=== PATIENT | male | born 1965 | race Caucasian/White ===

== ENCOUNTER 2019-06-16 19:52 | Inpatient (IN) | payer OTHER ==
[~2019-06-16] VITALS: Ht 177.8 cm; Wt 63.6 kg
[~2019-06-16 19:52] MED LIST: ALBU90OI INH; AMLO5 PO; ASPI81EC PO; CHLO25 PO; CIPR500 PO; DAYQUIL; FENO145 PO; HYDACE5 PO; HYDCHL25 PO; HYDGUAL120 PO; K-Dur20 MEQ PO; LEVFLO500 PO; NYQUIL; OMEP20ER PO; OXYC10TA19 PO; OXYCODONE HCL E20 MG PO; Omeprazole20 M1; PRED20 PO; Prednisone20 MG PO; ROSU10TA PO; RXHYDGUAS PO; ZESTORETIC 20-121 EA PO
[2019-06-16 20:24] LABS: BASOPHILS ABSOLUTE AUTO 0.08 K/mm3 (0.00-0.23); BASOPHILS PERCENT AUTO 0 % (0-2); EOSINOPHILS ABSOLUTE AUTO 0.21 K/mm3 (0.00-0.68); EOSINOPHILS PERCENT AUTO 1 % (0-6); Hematocrit 47.5 % (37.0-53.0); Hemoglobin 15.9 g/dL (13.5-17.5); IMMATURE GRAN ABSOLUTE AUTO 0.13 K/mm3 (0.00-0.10); IMMATURE GRAN PERCENT AUTO 1 % (0-1); LYMPHOCYTES ABSOLUTE AUTO 1.35 K/mm3 (0.84-5.20); LYMPHOCYTES PERCENT AUTO 7 % (21-46); MONOCYTES PERCENT AUTO 7 % (4-13); Mean Corpuscular HGB 30.4 pg (26.0-34.0); Mean Corpuscular HGB Conc 33.5 g/dL (31.5-36.5); Mean Corpuscular Volume 91 fL (80-100); Mean Platelet Volume 9.5 fL (9.1-12.4); NEUTROPHILS ABSOLUTE AUTO 17.04 K/mm3 (1.96-9.15); NEUTROPHILS PERCENT AUTO 84 % (41-73); Platelet Count 342 K/mm3 (150-400); RDW Coefficient Variation 14.9 % (11.7-14.2); RDW Standard Deviation 49.7 fL (35.1-46.3); Red Blood Cell Count 5.23 M/mm3 (4.30-5.90); White Blood Cell Count 20.31 K/mm3 (4.00-11.30)
[2019-06-16 20:36] LABS: Alanine Aminotransfer (ALT/SGP 19 U/L (12-78); Albumin/Globulin Ratio 0.9 (0.8-1.8); Alk Phos 111 U/L (50-136); Anion Gap 8 mmol/L (6-16); Aspartate Aminotrans (AST/SGOT 26 U/L (12-37); Bilirubin, Total 0.7 mg/dL (0.1-1.0); Blood Urea Nitrogen 5 mg/dL (8-24); Bun/Creatinine Ratio 7.1 (12.0-20.0); CO2, Blood 28 mmol/L (21-32); Calcium, Blood 8.2 mg/dL (8.5-10.1); Chloride, Blood 95 mmol/L (98-108); Ethanol (Alcohol), Blood, Med <3 mg/dL; Globulin, Blood 3.4 g/dL (2.2-4.0); Glomerular Filtration Rate >60 (60-); Glucose, Blood 154 mg/dL (70-99); Potassium, Blood 2.9 mmol/L (3.5-5.5); Sodium, Blood 131 mmol/L (136-145); Total Protein, Blood 6.4 g/dL (6.4-8.2)
[2019-06-16 20:45] LABS: Magnesium, Blood 1.4 mg/dL (1.6-2.4); Salicylate <1.7 mg/dL (2.8-20.0); Troponin I 0.018 ng/mL (0.000-0.040)
[2019-06-16 20:49] LABS: Acetaminophen, Random <2.0 ug/mL (10.0-30.0)
[2019-06-16 21:21] LABS: Source, Urine Clean Catch
[2019-06-16 21:25] LABS: Bilirubin, Urine Neg (Neg); Blood, Urine Neg (Neg); Glucose Qualitative, Urine Neg (Neg); Ketones, Urine Neg (Neg); Leukocyte Esterase, Urine Neg (Neg); Nitrite, Urine Neg (Neg); Protein, Urine 2+ (Neg); Urobilinogen, Urine NORM (Normal); pH, Urine 6.5 (5.0-8.0)
[2019-06-16 21:36] LABS: Appearance, Urine Clear (Clear); Color, Urine Yellow (P-Yellow); U Amphetamine Screen Not Detected; U Barbituate Screen Not Detected; U Benzodiazapine Screen DETECTED; U Buprenorphine Screen Not Detected; U Cannabinoids Screen Not Detected; U Cocaine Screen Not Detected; U Methadone Screen Not Detected; U Methamphetamine Screen Not Detected; U Opiates Screen DETECTED; U Oxycodone Screen DETECTED; U Phencyclidine Screen Not Detected; U Propoxyphene Screen Not Detected
[2019-06-16 21:37] LABS: Bacteria Few /hpf; Red Blood Cells, Urine 0-2 /hpf (0-2); Squamous Epithelial Cells Not Seen /hpf (Few)
[2019-06-16 21:38] LABS: Mucus Light ({null, 0-Heavy}); Spermatozoa Few /hpf
[2019-06-17] MEDS ORDERED: IBUP800 PO (00:05)
[2019-06-17 01:44] LABS: Potassium, Blood 3.9 mmol/L (3.5-5.5)
[2019-06-17 05:36] LABS: Alanine Aminotransfer (ALT/SGP 18 U/L (12-78); Albumin, Blood 2.6 g/dL (3.4-5.0); Albumin/Globulin Ratio 0.9 (0.8-1.8); Alk Phos 96 U/L (50-136); Anion Gap 6 mmol/L (6-16); Aspartate Aminotrans (AST/SGOT 23 U/L (12-37); Blood Urea Nitrogen 3 mg/dL (8-24); Bun/Creatinine Ratio 5.5 (12.0-20.0); CO2, Blood 26 mmol/L (21-32); Calcium, Blood 7.8 mg/dL (8.5-10.1); Chloride, Blood 109 mmol/L (98-108); Creatinine, Blood 0.55 mg/dL (0.60-1.20); Glomerular Filtration Rate >60 (60-); Glucose, Blood 100 mg/dL (70-99); Potassium, Blood 3.3 mmol/L (3.5-5.5); Total Protein, Blood 5.6 g/dL (6.4-8.2)
--- NOTE | 2019-06-17 05:43 | NUR ---
END OF SHIFT SUMMARY ASSUMED CARE OF PT FROM ER, ADMISSION PACKET COMPLETE. PT AXO, COOPERATIVE WITH STAFF. TWO IV'S IN PLACE. BANANA BAG X1 INFUSED THIS SHIFT. PT'S CIWA UPON ADMISSIOON WAS 6, 50 LIBRUIM GIVEN. SINCE THEN, PT HAS BEEN RESTING QUIETLY IN BED WITH AT BEDSIDE IN RECLINER. CIWAS 1 AND 0 SINCE THE LIBRIUM. PT IS REQUIIRING HOME DOSE OF OXYCODONE FOR CHRONIC BACK PAIN. OTHERWISE, PT HAS USED CALL LIGHT APPROPRIATELY. BED IN LOWEST POSITION. WILL CONTINUE TO MONITOR PT UNTIUL SHIFT CHANGE. VSS.
[2019-06-17 05:53] LABS: BASOPHILS ABSOLUTE AUTO 0.09 K/mm3 (0.00-0.23); BASOPHILS PERCENT AUTO 1 % (0-2); EOSINOPHILS ABSOLUTE AUTO 0.21 K/mm3 (0.00-0.68); EOSINOPHILS PERCENT AUTO 1 % (0-6); Hematocrit 47.1 % (37.0-53.0); Hemoglobin 15.1 g/dL (13.5-17.5); IMMATURE GRAN ABSOLUTE AUTO 0.12 K/mm3 (0.00-0.10); IMMATURE GRAN PERCENT AUTO 1 % (0-1); LYMPHOCYTES ABSOLUTE AUTO 1.53 K/mm3 (0.84-5.20); LYMPHOCYTES PERCENT AUTO 9 % (21-46); MONOCYTES ABSOLUTE AUTO 1.82 K/mm3 (0.16-1.47); MONOCYTES PERCENT AUTO 10 % (4-13); Mean Corpuscular HGB 30.1 pg (26.0-34.0); Mean Corpuscular HGB Conc 32.1 g/dL (31.5-36.5); Mean Platelet Volume 9.7 fL (9.1-12.4); NEUTROPHILS ABSOLUTE AUTO 13.94 K/mm3 (1.96-9.15); NEUTROPHILS PERCENT AUTO 79 % (41-73); Platelet Count 267 K/mm3 (150-400); RDW Coefficient Variation 15.2 % (11.7-14.2); RDW Standard Deviation 52.8 fL (35.1-46.3); Red Blood Cell Count 5.02 M/mm3 (4.30-5.90); White Blood Cell Count 17.71 K/mm3 (4.00-11.30)
[2019-06-17 05:54] LABS: Mean Corpuscular Volume 94 fL (80-100)
[2019-06-17 05:55] LABS: Sodium, Blood 141 mmol/L (136-145)
[2019-06-17] MEDS ORDERED: FOLI1 PO (09:37)
[2019-06-17] MEDS ORDERED: VITAMIN B-6 PO (09:38)
[2019-06-17] MEDS ORDERED: B-1100 MG PO (09:39)
--- NOTE | 2019-06-17 10:00 | NUR ---
ASSUMED CARE APPROXIMATELY 0730. PT ALERT AND ORIENTED. VS STABLE. CIWA IS 0. PT COMPLAINS OF CHRONIC BACK PAIN. DR. ESPINOZA IN WITH DISCHARGE ORDERS THIS AM. DISCHARGE INSTRUCTIONS PROVIDED. EDUCATION PROVIDED ON NEW MEDICATIONS. PT DOES NO THAVE A PCP, BUT WAS GIVEN INFORMATION ON [facility]. PT TO BE TAKEN OUT BY WHEELCHAIR.
== END 2019-06-17 10:15 | disposition home or self-care (01) | DRG 897 ==
LOC: ER 19:52 → PCU 23:02
PROVIDERS: Emergency Medicine; Physician Assistant; ADMIT Internal Medicine
DX: F10.239 Alcohol dependence with withdrawal, unspecified (principal); R56.9 Unspecified convulsions; K21.9 Gastro-esophageal reflux disease without esophagitis; J44.9 Chronic obstructive pulmonary disease, unspecified; E78.00 Pure hypercholesterolemia, unspecified; F17.200 Nicotine dependence, unspecified, uncomplicated; E87.6 Hypokalemia; E83.42 Hypomagnesemia; E86.0 Dehydration; R00.0 Tachycardia, unspecified; D72.829 Elevated white blood cell count, unspecified
CPT/HCPCS: 36415; 71046; 80053; 81001; 83690; 83735; 84132; 84145; 84484; 85025; 93005; 93010; 96361; 96365; 96366; 96368; 96375; 99285-25; G0480; J1644; J2060; J3411; J3475; J3480; J7030; J7042

== ENCOUNTER 2021-11-30 05:24 | Inpatient (IN) | payer OTHER ==
[~2021-11-30] VITALS: Ht 177.8 cm; Wt 103.0 kg
[~2021-11-30 05:24] MED LIST changes: +B-1100 MG PO; +FOLI1 PO; +IBUP800 PO; +VITAMIN B-6 PO
[2021-11-30 06:38] LABS: BASOPHILS ABSOLUTE AUTO 0.03 K/mm3 (0.00-0.23); BASOPHILS PERCENT AUTO 0 % (0-2); EOSINOPHILS ABSOLUTE AUTO 0.09 K/mm3 (0.00-0.68); EOSINOPHILS PERCENT AUTO 1 % (0-6); Hematocrit 39.4 % (37.0-53.0); Hemoglobin 12.4 g/dL (13.5-17.5); IMMATURE GRAN ABSOLUTE AUTO 0.18 K/mm3 (0.00-0.10); IMMATURE GRAN PERCENT AUTO 2 % (0-1); LYMPHOCYTES ABSOLUTE AUTO 0.66 K/mm3 (0.84-5.20); LYMPHOCYTES PERCENT AUTO 6 % (21-46); MONOCYTES PERCENT AUTO 14 % (4-13); Mean Corpuscular HGB 29.5 pg (26.0-34.0); Mean Corpuscular HGB Conc 31.5 g/dL (31.5-36.5); Mean Corpuscular Volume 94 fL (80-100); Mean Platelet Volume 9.7 fL (9.1-12.4); NEUTROPHILS ABSOLUTE AUTO 8.07 K/mm3 (1.96-9.15); NEUTROPHILS PERCENT AUTO 77 % (41-73); Platelet Count 328 K/mm3 (150-400); RDW Coefficient Variation 14.6 % (11.7-14.2); RDW Standard Deviation 50.6 fL (35.1-46.3); Red Blood Cell Count 4.21 M/mm3 (4.30-5.90); White Blood Cell Count 10.53 K/mm3 (4.00-11.30)
[2021-11-30 06:49] LABS: Alanine Aminotransfer (ALT/SGP 61 U/L (12-78); Albumin, Blood 2.5 g/dL (3.4-5.0); Albumin/Globulin Ratio 0.6 (0.8-1.8); Alk Phos 247 U/L (50-136); Anion Gap 6 mmol/L (6-16); Aspartate Aminotrans (AST/SGOT 83 U/L (12-37); Bilirubin, Total 1.2 mg/dL (0.1-1.0); Blood Urea Nitrogen 3 mg/dL (8-24); CO2, Blood 34 mmol/L (21-32); Calcium, Blood 8.6 mg/dL (8.5-10.1); Chloride, Blood 83 mmol/L (98-108); Globulin, Blood 4.2 g/dL (2.2-4.0); Glomerular Filtration Rate >60 (60-); Glucose, Blood 123 mg/dL (70-99); Potassium, Blood 5.1 mmol/L (3.5-5.5); Sodium, Blood 123 mmol/L (136-145); Total Protein, Blood 6.7 g/dL (6.4-8.2)
[2021-11-30 07:31] LABS: Influenza A, PCR NEGATIVE (NEGATIVE); Influenza B, PCR NEGATIVE (NEGATIVE); Resp Syncytial Virus, PCR NEGATIVE (NEGATIVE)
[2021-11-30 07:44] LABS: SARS-Cov-2 (COVID-19) PCR, MMC POSITIVE (NEGATIVE)
[2021-11-30] MEDS ORDERED: OMEP20ER PO (12:03)
[2021-11-30] MEDS ORDERED: TIOT18 INH ×2 (12:03→15:23)
[2021-11-30] MEDS ORDERED: Ventolin/Prove6.7 GM ×2 (12:03)
[2021-11-30] MEDS ORDERED: CARVEDILOL12.5 MG PO (12:03)
--- NOTE | 2021-11-30 12:40 | NUR ---
INITIAL ASSESSMENT PATIENT ALERT AND ORIENTED X 4, AFEBRILE. PATIENT REPORTS 8/10 CHRONIC BACK PAIN BUT STATES HE DOES NOT WANT REPOSITIONED OR PAIN MEDICATIONS AT THIS TIME. CIWA SCORE OF 5. PATIENT STATES HE DRINKS 15 TO 20 BEERS DAILY. PATIENT ASKED IF HE WANTS TO QUIT DRINKING. PATIENT STATES IT WOULD PROBABLY BE GOOD FOR HIM TO QUIT. PATIENT WEAK BUT ABLE TO HELP REPOSITION IN BED. LUNGS DIMINISHED THROUGHOUT. PATIENT ON 4 L NC AND WEARS 2 L NC AT HOME. PATIENT SOB WITH EXERTION. PATIENT HAS INCREASED WORK OF BREATHING. PATIENT IN SR WITH PACS. HR IN THE 80S. SBP IN THE 160S. 1+ EDEMA NOTED FROM ABD/ HIPS DOWN TO FEET. ABDOMEN SEVERELY DISTENDED, FIRM, WITH HYPOACTIVE BOWEL SOUNDS NOTED. PATIENT VOIDING DARK ORANGE COLORED URINE INTO URINAL INDEPENDENTLY. LAST BM YESTERDAY. PATIENT ON REGULAR DIET. SCRATCHES NOTED TO BLES; PATIENT STATES HIS LEGS ITCH AND HE HAD JAGGED FINGERNAILS. NS INFUSING AT 125 MLS/ HOUR. PATIENT ORIENTED TO UNIT, ROOM AND CALL SYSTEM. BED LOW, CALL LIGHT IN REACH. WILL CONTINUE TO MONITOR THROUGHOUT SHIFT.
[2021-11-30 13:00] LABS: Anion Gap 5 mmol/L (6-16); Blood Urea Nitrogen 4 mg/dL (8-24); CO2, Blood 32 mmol/L (21-32); Calcium, Blood 8.7 mg/dL (8.5-10.1); Chloride, Blood 86 mmol/L (98-108); Glomerular Filtration Rate >60 (60-); Glucose, Blood 180 mg/dL (70-99); Potassium, Blood 5.4 mmol/L (3.5-5.5); Sodium, Blood 123 mmol/L (136-145)
[2021-11-30 16:41] LABS: Anion Gap 4 mmol/L (6-16); Blood Urea Nitrogen 3 mg/dL (8-24); Bun/Creatinine Ratio 6.3 (12.0-20.0); CO2, Blood 33 mmol/L (21-32); Calcium, Blood 8.4 mg/dL (8.5-10.1); Chloride, Blood 85 mmol/L (98-108); Creatinine, Blood 0.48 mg/dL (0.60-1.20); Glomerular Filtration Rate >60 (60-); Glucose, Blood 179 mg/dL (70-99); Potassium, Blood 5.2 mmol/L (3.5-5.5); Sodium, Blood 122 mmol/L (136-145)
[2021-11-30 18:24] LABS: Albumin, Blood 2.7 g/dL (3.4-5.0); Anion Gap 4 mmol/L (6-16); Blood Urea Nitrogen 3 mg/dL (8-24); Bun/Creatinine Ratio 6.2 (12.0-20.0); CO2, Blood 33 mmol/L (21-32); Calcium, Blood 8.6 mg/dL (8.5-10.1); Chloride, Blood 85 mmol/L (98-108); Creatinine, Blood 0.49 mg/dL (0.60-1.20); Glomerular Filtration Rate >60 (60-); Glucose, Blood 158 mg/dL (70-99); Magnesium, Blood 1.8 mg/dL (1.6-2.4); Phosphorus, Blood 2.8 mg/dL (2.5-4.9); Potassium, Blood 5.4 mmol/L (3.5-5.5); Sodium, Blood 122 mmol/L (136-145); Uric Acid, Blood 4.8 mg/dL (3.5-7.2)
[2021-11-30 19:23] LABS: Osmolality, Serum 265 mos/KG (275-300)
--- NOTE | 2021-11-30 19:42 | NUR ---
SHIFT SUMMARY PATIENT ALERT AND ORIENTED WHEN ARRIVED TO ICU. DURING SHIFT CIWA SCORE INCREASED TO 27. 6 MG IV ATIVAN GIVEN THIS SHIFT. PATIENT STATES HE DRINKS 15 TO 20 BEERS PER DAY. PATIENT HAS REFUSED REPOSITIONING ALL SHIFT. PATIENT HAS REMAINED AFEBRILE. PATIENT HAS REMAINED SATTING 90% AND GREATER ON 4 L NC. HR 80S TO LOW 100S. SBP 120S TO 160S. 1+ EDEMA REMAINS TO ABD, HIPS AND BLES. ABDOMEN REMAINS SEVERELY DISTENDED AND FIRM. ABD CT ORDERED. 825 MLS DARK ORANGE URINE OUT THIS SHIFT. NAVARRETE PLACED AND 24 HOUR URINE BEING COLLECTED. NO CHANGES TO SKIN NOTED. NS INFUSING AT 50 MLS/ HOUR. 1 L FLUID RESTRICTION PLACED THIS SHIFT. BED LOW, CALL LIGHT IN REACH. REPORT HAS BEEN GIVEN TO RADIO TELEVISION TECHNICAL DIRECTOR NURSE.
[2021-11-30 21:02] LABS: Source, Urine Foley catheter
[2021-11-30 21:17] LABS: Blood, Urine 4+ (Neg); Glucose Qualitative, Urine Neg (Neg); Ketones, Urine Neg (Neg); Leukocyte Esterase, Urine Neg (Neg); Nitrite, Urine Neg (Neg); Protein, Urine 2+ (Neg); Urobilinogen, Urine 3+ (Normal)
[2021-11-30 21:31] LABS: Appearance, Urine Cloudy (Clear); Bilirubin, Urine 2+ (Neg); Color, Urine Amber (P-Yellow)
[2021-11-30 21:32] LABS: Bacteria Few /hpf; Squamous Epithelial Cells Rare /hpf (Few); White Blood Cells, Urine 0-2 /hpf (0-5)
[2021-11-30 21:33] LABS: Amorphous Heavy (0-Heavy)
[2021-11-30 22:19] LABS: Anion Gap 6 mmol/L (6-16); Blood Urea Nitrogen 3 mg/dL (8-24); Bun/Creatinine Ratio 5.5 (12.0-20.0); CO2, Blood 36 mmol/L (21-32); Calcium, Blood 8.4 mg/dL (8.5-10.1); Chloride, Blood 85 mmol/L (98-108); Creatinine, Blood 0.54 mg/dL (0.60-1.20); Glomerular Filtration Rate >60 (60-); Glucose, Blood 131 mg/dL (70-99); Potassium, Blood 4.4 mmol/L (3.5-5.5); Sodium, Blood 127 mmol/L (136-145)
--- NOTE | 2021-11-30 22:22 | NUR ---
LAB UPDATE TO DR.KUMAR DR. HIDALGO UPDATED WITH NA AND K LAB RESULTS, FLUID INF OF 50ML/HR NS, AND URINE OUTPUT OF 150-200ML/HR. NO NEW ORDERS GIVEN.
--- NOTE | 2021-12-01 00:34 | NUR ---
UMBILICAL DISCOLORATION DARKENING SURROUNDING THE UMBILICUS NOTED ON REASSESSMENT. BT ACTIVE AND TYMPANIC X 4. CALL MADE TO DR. JIMENEZ-ORDERED TO SEND OFF CT ABD PELVIS FROM [facility] IN SHIFT FOR STAT VIRTUAL READ. CALL MADE TO CT TO UPDATE ORDER FROM ROUTINE TO STAT.
[2021-12-01 02:11] LABS: BASOPHILS ABSOLUTE AUTO 0.03 K/mm3 (0.00-0.23); BASOPHILS PERCENT AUTO 0 % (0-2); EOSINOPHILS PERCENT AUTO 0 % (0-6); Hematocrit 37.4 % (37.0-53.0); Hemoglobin 11.7 g/dL (13.5-17.5); IMMATURE GRAN ABSOLUTE AUTO 0.22 K/mm3 (0.00-0.10); IMMATURE GRAN PERCENT AUTO 2 % (0-1); LYMPHOCYTES ABSOLUTE AUTO 0.75 K/mm3 (0.84-5.20); LYMPHOCYTES PERCENT AUTO 6 % (21-46); MONOCYTES PERCENT AUTO 13 % (4-13); Mean Corpuscular HGB 29.9 pg (26.0-34.0); Mean Corpuscular HGB Conc 31.3 g/dL (31.5-36.5); Mean Corpuscular Volume 96 fL (80-100); NEUTROPHILS ABSOLUTE AUTO 9.52 K/mm3 (1.96-9.15); NEUTROPHILS PERCENT AUTO 79 % (41-73); Platelet Count 297 K/mm3 (150-400); RDW Coefficient Variation 14.8 % (11.7-14.2); Red Blood Cell Count 3.91 M/mm3 (4.30-5.90); White Blood Cell Count 12.02 K/mm3 (4.00-11.30)
[2021-12-01 02:29] LABS: Alanine Aminotransfer (ALT/SGP 50 U/L (12-78); Albumin, Blood 2.4 g/dL (3.4-5.0); Albumin/Globulin Ratio 0.6 (0.8-1.8); Alk Phos 223 U/L (50-136); Anion Gap 5 mmol/L (6-16); Aspartate Aminotrans (AST/SGOT 63 U/L (12-37); Blood Urea Nitrogen 3 mg/dL (8-24); Bun/Creatinine Ratio 5.3 (12.0-20.0); CO2, Blood 37 mmol/L (21-32); Calcium, Blood 8.4 mg/dL (8.5-10.1); Chloride, Blood 88 mmol/L (98-108); Creatinine, Blood 0.56 mg/dL (0.60-1.20); Globulin, Blood 3.8 g/dL (2.2-4.0); Glomerular Filtration Rate >60 (60-); Glucose, Blood 113 mg/dL (70-99); Magnesium, Blood 1.6 mg/dL (1.6-2.4); Phosphorus, Blood 3.4 mg/dL (2.5-4.9); Potassium, Blood 4.6 mmol/L (3.5-5.5); Sodium, Blood 130 mmol/L (136-145); Total Protein, Blood 6.2 g/dL (6.4-8.2)
[2021-12-01 06:11] LABS: Anion Gap 4 mmol/L (6-16); Blood Urea Nitrogen 3 mg/dL (8-24); Bun/Creatinine Ratio 5.4 (12.0-20.0); CO2, Blood 38 mmol/L (21-32); Calcium, Blood 8.4 mg/dL (8.5-10.1); Chloride, Blood 89 mmol/L (98-108); Creatinine, Blood 0.56 mg/dL (0.60-1.20); Glomerular Filtration Rate >60 (60-); Glucose, Blood 104 mg/dL (70-99); Potassium, Blood 4.5 mmol/L (3.5-5.5); Sodium, Blood 131 mmol/L (136-145)
--- NOTE | 2021-12-01 06:45 | NUR ---
SHIFT SUMMARY PATIENT BEGAN SHIFT CONFUSED, BUT ALERT AND FOLLOWING DIRECTIONS. NOT FORMING COMPLETE SENTENCES. THROUGHOUT SHIFT PATIENT BECAME INCREASINGLY CONFUSED, BUT WITH CIWA SCORES 11-14 REQUIRED TWO DOSES OF ATIVAN TOTALING 6MG DURING SHIFT. PATIENT STILL INTERMITTENTLY TREMULOUS AT REST. LUNG SOUNDS ORIGINALLY DIM T/O BUT HAVE SINCE BECAME COARSE T/O WITH WET WEAK COUGH. SPO2 MAINTAINED MID TO HIGH 90'S ON 4LPM VIA NC. SPUTUM CULTURE UNABLE TO BE COLLECTED D/T WEAK COUGH WITH NO SPUTUM PRODUCTION. HR 90'S-100'S AND BP STABLE BUT HYPERTENSIVE AT TIMES WHEN TREMORS WOULD START. PULSES STRONG IN MARGO RADIAL AND FAINT MARGO DP AND PT. SCDS IN PLACE TO MARGO LOWER CALVES. SINUS RHYTHM WITH OCCASSIONAL ECTOPY AND PERIODS OF IRREGULARITY. BT HYPERACTIVE AND TYMPANIC, ABD SEVERELY DISTENDED AND FIRM TO PALPATION. CT ABD PELVIS COMPLETED LAST NIGHT. NAVARRETE PATENT AND DRAINED OVER 2400ML OUT. 24 HOUR URINE IN PROGRESS STARTED 11/30/21 @ 1800 AND ENDING 12/01/21 @ 1800. ONE BM DURING SHIFT. NS INF @ 50ML/HR. DR. HIDALGO CAME TO BEDSIDE AND ORDERS PLACED. NO OTHER MAJOR CHANGES DURING SHIFT.
--- NOTE | 2021-12-01 16:48 | NUR ---
SHIFT SUMMARY NO ACUTE CHANGES THIS SHIFT. PT HAS REMAINED LETHARGIC FOR MOST OF THE SHIFT. PT WITH BREIF PERIODS OF BEING MORE ALERT AND SPEECH COMPREHENSABLE. PT ABLE TO FOLLOW SIMPLE COMMANDS. PT IS FORGETFUL. PT WITH TREMORS WHEN AWAKE AND WITH MOVEMENT. VITAL SIGNS HAVE REMAINED STABLE. PT ON 2L O2 NC MOST OF THE SHIFT, BUT EPISODE OF DESATURATION THIS AFTERNOON REQUIRED 02 UP TO 7L AT THIS TIME. PT REMAINS NPO DUE TO MENTATION. NS INFUSING AT 50 ML/HR. NAVARRETE REMAINS IN PLACE DRAINING LARGE AMOUNT OF CLEAR YELLOW URINE OUTPUT. 24 HOUR URINE COLLECTION IN PROGRESS. PT SPOUSE AT BEDSIDE THIS AFTERNOON. WILL CONTINUE TO MONITOR AND REPORT OFF TO ONCOMING RN.
[2021-12-01 17:29] LABS: Anion Gap 1 mmol/L (6-16); Blood Urea Nitrogen 3 mg/dL (8-24); Bun/Creatinine Ratio 5.4 (12.0-20.0); CO2, Blood 42 mmol/L (21-32); Calcium, Blood 8.5 mg/dL (8.5-10.1); Chloride, Blood 91 mmol/L (98-108); Creatinine, Blood 0.56 mg/dL (0.60-1.20); Glomerular Filtration Rate >60 (60-); Glucose, Blood 109 mg/dL (70-99); Potassium, Blood 3.8 mmol/L (3.5-5.5); Sodium, Blood 134 mmol/L (136-145)
[2021-12-01 18:40] LABS: Protein, Urine Quantitative 6.6 mg/dL (0.0-11.9)
[2021-12-01 23:26] LABS: Alanine Aminotransfer (ALT/SGP 45 U/L (12-78); Albumin, Blood 2.4 g/dL (3.4-5.0); Albumin/Globulin Ratio 0.6 (0.8-1.8); Alk Phos 201 U/L (50-136); Anion Gap 5 mmol/L (6-16); Aspartate Aminotrans (AST/SGOT 58 U/L (12-37); Blood Urea Nitrogen 4 mg/dL (8-24); Bun/Creatinine Ratio 6.9 (12.0-20.0); CO2, Blood 40 mmol/L (21-32); Calcium, Blood 8.3 mg/dL (8.5-10.1); Chloride, Blood 91 mmol/L (98-108); Creatinine, Blood 0.58 mg/dL (0.60-1.20); Globulin, Blood 3.7 g/dL (2.2-4.0); Glomerular Filtration Rate >60 (60-); Glucose, Blood 96 mg/dL (70-99); Magnesium, Blood 1.5 mg/dL (1.6-2.4); Sodium, Blood 136 mmol/L (136-145); Total Protein, Blood 6.1 g/dL (6.4-8.2)
--- NOTE | 2021-12-02 03:00 | NUR ---
Assumed care of patient at 1915; on assessment, the pt is cooperative, responds yes/no to orientation questions. Speech is incredibly garbled, difficult to understand. CIWA assessments performed; symptom management with ativan. New onset Afib RVR at 2205. Pt asymptomatic; vital signs otherwise stable, no change in mentation, pt states he feels ok. Dr. Kaufman contacted, metoprolol ordered; unavaliable per pharmacy. Cardizem push given x2 with Dr. Ramires at the bedside. HR resonsive to second dose; cardizem gtt started. soon after, pt converted to NSR at 2254, HR 90-105. At 2230, back in Afib RVR. Sustained rate at 175; another 12 lead EKG obtained; pt now in 2:[address] Kaufman aware, cardizem turned off, amio bolus given and gtt started. Pt remains asymptomatic at this time, HR remains >160.
[2021-12-02 04:26] LABS: BASOPHILS ABSOLUTE AUTO 0.04 K/mm3 (0.00-0.23); BASOPHILS PERCENT AUTO 0 % (0-2); EOSINOPHILS ABSOLUTE AUTO 0.03 K/mm3 (0.00-0.68); EOSINOPHILS PERCENT AUTO 0 % (0-6); Hematocrit 39.6 % (37.0-53.0); IMMATURE GRAN ABSOLUTE AUTO 0.16 K/mm3 (0.00-0.10); IMMATURE GRAN PERCENT AUTO 1 % (0-1); LYMPHOCYTES ABSOLUTE AUTO 0.93 K/mm3 (0.84-5.20); LYMPHOCYTES PERCENT AUTO 8 % (21-46); MONOCYTES ABSOLUTE AUTO 1.81 K/mm3 (0.16-1.47); MONOCYTES PERCENT AUTO 16 % (4-13); Mean Corpuscular HGB Conc 30.3 g/dL (31.5-36.5); Mean Corpuscular Volume 99 fL (80-100); Mean Platelet Volume 9.4 fL (9.1-12.4); NEUTROPHILS PERCENT AUTO 74 % (41-73); Platelet Count 307 K/mm3 (150-400); RDW Coefficient Variation 15.5 % (11.7-14.2); RDW Standard Deviation 56.4 fL (35.1-46.3); White Blood Cell Count 11.47 K/mm3 (4.00-11.30)
[2021-12-02 05:44] LABS: International Normalized Ratio 1.11; Prothrombin Time Results 11.6 Sec (9.7-11.5)
[2021-12-02 06:01] LABS: Alanine Aminotransfer (ALT/SGP 44 U/L (12-78); Albumin, Blood 2.4 g/dL (3.4-5.0); Albumin/Globulin Ratio 0.7 (0.8-1.8); Alk Phos 193 U/L (50-136); Anion Gap 5 mmol/L (6-16); Aspartate Aminotrans (AST/SGOT 62 U/L (12-37); Bilirubin, Direct 0.7 mg/dL (0.0-0.3); Bilirubin, Indirect 0.4 mg/dL (0.1-0.7); Bilirubin, Total 1.1 mg/dL (0.1-1.0); Blood Urea Nitrogen 4 mg/dL (8-24); Bun/Creatinine Ratio 6.6 (12.0-20.0); CO2, Blood 40 mmol/L (21-32); Chloride, Blood 91 mmol/L (98-108); Creatinine, Blood 0.61 mg/dL (0.60-1.20); Globulin, Blood 3.6 g/dL (2.2-4.0); Glomerular Filtration Rate >60 (60-); Glucose, Blood 109 mg/dL (70-99); Magnesium, Blood 1.9 mg/dL (1.6-2.4); Phosphorus, Blood 3.9 mg/dL (2.5-4.9); Potassium, Blood 3.8 mmol/L (3.5-5.5); Sodium, Blood 136 mmol/L (136-145)
--- NOTE | 2021-12-02 06:49 | NUR ---
Dr. Kaufman updated @ 0530 that the patients HR is still maintianing at 166-170. Vital signs otherwise stable. Pt more lethargic, but still responds to verbal stimuli. Has not required ativan this am. No further intervention at this time per Dr. Kaufman.
--- NOTE | 2021-12-02 15:20 | NUR ---
Case Conference: Spoke to pt's Debbie by phone after reading up on pt's health history and had a discussion with pt's bedside CLAIM APPROVER Trisha. Pt has hx of oxygen dependent COPD, GERD, HLD, chronic back pain and chronic alcohol abuse. He reported drinking about 18 beers/day. He is not vaxxinated for Covid-19, but stated upon admission that both his and son recently recovered from Covid. He had noticed his breathing was getting worse, so he turned his home 02 from 2 up to 3-4Liters with little improvement. Pt was admitted for hypoxic respiratory failure secondary to Covid and hyponatremia. Since admission however, pt has gone into A-fib, and at times A-flutter. So far, medications have not been effective in reverting pt's rhythm back into a sinus rhythm. Trisha,RN states a Cardiology consult would be the next step. Pt was given lorazepam last night; likely to be contributing to his lethargy and increased sleeping. Pt's is on her way to see him, states she just finished work. She is open to discussion of pt's wishes related to POLST. She does state-as does his chart that pt wishes for NO intubation, but Debbie isn't sure she wants to follow his wishes, as she states, "I'm scared and don't want to lose him." She is agreeable to discuss further, but for now, pt is listed as a Full Code, and I'm unsure why. Plan to review further with freezer operator, hospitalist, pt's and bedside RN.
--- NOTE | 2021-12-02 15:44 | NUR ---
AT BEDSIDE, UPDATED ON PATIENT CARE
--- NOTE | 2021-12-02 15:45 | NUR ---
09 DR JACOBS CONTACTED, PATIENT HEART RATE AHS CONTINUALLY INCREASED TO [address] ST, ORDERED LABATOLOL DOSES TO BE GIVEN. 955 DR JACOBS CONTACTED, LABATOLOL GIVEN, PATIENT REPONDED, HEART RATE DECREASED TO 100S AFIB WITH RVR, EKG DONE FOR RHYTHM CHANGE, PATEINT CONTINUED TO INCREASE HEART RATE AND BACK TO 175. TEMP 102.[address] JACOBS, MEDICATED WITH FL TYLENOL, WCTM 1404 DR JACOBS ROUNDED, NEW ORDER FOR THREE MORE DOSES OF LABATOLOL, IV LEVAQUIN, TEMP DECREASED TO 101.5 WCTM
[2021-12-02 17:10] LABS: BASOPHILS ABSOLUTE AUTO 0.03 K/mm3 (0.00-0.23); BASOPHILS PERCENT AUTO 0 % (0-2); EOSINOPHILS PERCENT AUTO 0 % (0-6); Hematocrit 43.7 % (37.0-53.0); Hemoglobin 12.4 g/dL (13.5-17.5); IMMATURE GRAN ABSOLUTE AUTO 0.18 K/mm3 (0.00-0.10); IMMATURE GRAN PERCENT AUTO 1 % (0-1); LYMPHOCYTES PERCENT AUTO 7 % (21-46); MONOCYTES PERCENT AUTO 16 % (4-13); Mean Corpuscular HGB 29.6 pg (26.0-34.0); Mean Corpuscular HGB Conc 28.4 g/dL (31.5-36.5); NEUTROPHILS ABSOLUTE AUTO 10.38 K/mm3 (1.96-9.15); NEUTROPHILS PERCENT AUTO 76 % (41-73); Platelet Count 307 K/mm3 (150-400); RDW Coefficient Variation 15.4 % (11.7-14.2); RDW Standard Deviation 59.3 fL (35.1-46.3); Red Blood Cell Count 4.19 M/mm3 (4.30-5.90); White Blood Cell Count 13.59 K/mm3 (4.00-11.30)
[2021-12-02 17:14] LABS: Alanine Aminotransfer (ALT/SGP 48 U/L (12-78); Albumin, Blood 2.4 g/dL (3.4-5.0); Albumin/Globulin Ratio 0.6 (0.8-1.8); Alk Phos 194 U/L (50-136); Anion Gap 3 mmol/L (6-16); Aspartate Aminotrans (AST/SGOT 78 U/L (12-37); Bilirubin, Total 1.3 mg/dL (0.1-1.0); Blood Urea Nitrogen 5 mg/dL (8-24); Bun/Creatinine Ratio 7.6 (12.0-20.0); CO2, Blood 43 mmol/L (21-32); Calcium, Blood 7.8 mg/dL (8.5-10.1); Chloride, Blood 90 mmol/L (98-108); Creatinine, Blood 0.66 mg/dL (0.60-1.20); Globulin, Blood 3.8 g/dL (2.2-4.0); Glomerular Filtration Rate >60 (60-); Glucose, Blood 140 mg/dL (70-99); Potassium, Blood 3.6 mmol/L (3.5-5.5); Sodium, Blood 136 mmol/L (136-145); Total Protein, Blood 6.2 g/dL (6.4-8.2)
[2021-12-02 17:20] LABS: Mean Corpuscular Volume 104 fL (80-100)
--- NOTE | 2021-12-02 18:37 | NUR ---
PATEINT UNABLE TO MAKE NEEDS KNOWN, UNABLE TO FORM ONE WORD TODAY, WITHDRAWS FROM STIMULUS, OPENS EYE TO VOICE, QUICKLY FALLS BACK TO SLEEP, UNABLE TO STAY AWAKE FOR 5 MINUTES. CHANGED TO ICU STATUS, AMIODARONE GTT AT 1 MG, AND ESMOLOL AT [address] EDMONDS, HEART RATE AT 119, IRREGULAR, TITRATE ESMOLOL TO KEEP HEART RATE BELOW 120, SBP 90-130S, MAP HAS ALWAYS BEEN ABOVE 60. BIPAP 14/, 45% RATE 12, RESP 25-39, RHONCHI CRACKLES, DIM BASES. NAVARRETE TO GRAVITY ORANGE, TEMP 102.8 TODAY NOT 100.5. ECHO TO BE DONE, EKG IN AM, WILL RELAY TO PM RN, LENNOXTM
[2021-12-02 18:50] LABS: PCO2 Arterial 99.6 mmHg (35-45); PO2 Arterial 75.1 mmHg (80-100); pH Blood Arterial 7.28 (7.35-7.45)
[2021-12-03 03:37] LABS: PCO2 Arterial 82.5 mmHg (35-45); PO2 Arterial 106 mmHg (80-100); pH Blood Arterial 7.32 (7.35-7.45)
[2021-12-03 04:37] LABS: BASOPHILS ABSOLUTE AUTO 0.02 K/mm3 (0.00-0.23); BASOPHILS PERCENT AUTO 0 % (0-2); EOSINOPHILS PERCENT AUTO 0 % (0-6); Hematocrit 41.7 % (37.0-53.0); Hemoglobin 11.8 g/dL (13.5-17.5); IMMATURE GRAN ABSOLUTE AUTO 0.13 K/mm3 (0.00-0.10); IMMATURE GRAN PERCENT AUTO 1 % (0-1); LYMPHOCYTES PERCENT AUTO 4 % (21-46); MONOCYTES ABSOLUTE AUTO 0.28 K/mm3 (0.16-1.47); MONOCYTES PERCENT AUTO 2 % (4-13); Mean Corpuscular HGB 29.6 pg (26.0-34.0); Mean Corpuscular HGB Conc 28.3 g/dL (31.5-36.5); Mean Corpuscular Volume 105 fL (80-100); Mean Platelet Volume 9.5 fL (9.1-12.4); NEUTROPHILS ABSOLUTE AUTO 11.26 K/mm3 (1.96-9.15); NEUTROPHILS PERCENT AUTO 92 % (41-73); NRBC ABSOLUTE 0.02 K/mm3 (0.00-0.02); NRBC Auto 0.2 /100 WBC (0.0-0.2); Platelet Count 284 K/mm3 (150-400); RDW Coefficient Variation 15.2 % (11.7-14.2); Red Blood Cell Count 3.99 M/mm3 (4.30-5.90); White Blood Cell Count 12.19 K/mm3 (4.00-11.30)
[2021-12-03 04:42] LABS: International Normalized Ratio 1.22; Prothrombin Time Results 12.6 Sec (9.7-11.5)
--- NOTE | 2021-12-03 04:47 | NUR ---
Assumed care of patient at 1915. Bipap settings adjusted according to recent abg, pts hart shaved to achieve adequate seal. He is very lethargic; will open eyes to verbal stim but unable to keep them open/ interact appropriatly. he will follow simple commands. CIWA scores not requiring ativan this shift. HR 90-125 this shift; amio gtt kept at 1, esmolol increased to 150 this shift. BP stable. Febrile; prn tylenol and tempid bath given. Packed with ice; pt responded well. AM ABG marginally better; no changes to bipap settings at this time.
[2021-12-03 04:52] LABS: Alanine Aminotransfer (ALT/SGP 51 U/L (12-78); Albumin, Blood 2.4 g/dL (3.4-5.0); Albumin/Globulin Ratio 0.6 (0.8-1.8); Alk Phos 176 U/L (50-136); Anion Gap 6 mmol/L (6-16); Aspartate Aminotrans (AST/SGOT 71 U/L (12-37); Bilirubin, Total 1.6 mg/dL (0.1-1.0); Blood Urea Nitrogen 8 mg/dL (8-24); Bun/Creatinine Ratio 11.1 (12.0-20.0); CO2, Blood 39 mmol/L (21-32); Calcium, Blood 7.9 mg/dL (8.5-10.1); Chloride, Blood 91 mmol/L (98-108); Creatinine, Blood 0.72 mg/dL (0.60-1.20); Globulin, Blood 3.8 g/dL (2.2-4.0); Glomerular Filtration Rate >60 (60-); Glucose, Blood 157 mg/dL (70-99); Lactate Dehydrogenase (Ld),Bld 127 U/L (100-240); Magnesium, Blood 1.6 mg/dL (1.6-2.4); Phosphorus, Blood 4.1 mg/dL (2.5-4.9); Potassium, Blood 4.3 mmol/L (3.5-5.5); Sodium, Blood 136 mmol/L (136-145); Total Protein, Blood 6.2 g/dL (6.4-8.2)
--- NOTE | 2021-12-03 06:41 | NUR ---
HR elevated to 140-150's at 0520 this morning. PRN Labetalol given with no change in HR, BP remains stable. Esmolol gtt increased to 200, still no change in HR. Work of breathing notably increasing, tachypnea, use of acessory muscles, abdominal breathing. Difficulty obtaining BP, both automatic and manual, due to HR and body movements. Mentation remains unchanged. Dr. Roe called, ABG results and patient status discussed. 40 of lasix given, no furhter intervention, Dr Roe will assess at the bedside.
--- NOTE | 2021-12-03 08:55 | NUR ---
TOOK OVER CARE OF PT AT 0700, PT ON 200 OF ESMOLOL DRIP, 1 OF AMIODARONE DRIP, ON BIPAP 18/8 25% O2 INITIALLY, THEN INCREASED TO 30% AFTER SATURATIONS AT 86%. PT HR STILL ELEVATED, CAME TO BEDSIDE, DETERMINED PT IS NOT IN NEED OF INTUBATION AT THIS TIME.
--- NOTE | 2021-12-03 11:35 | NUR ---
PT PHONE, SEWAGE DISPOSAL ENGINEER, CROSS NECKLACE AND RING SENT HOME WITH SPOUSE.
--- NOTE | 2021-12-03 15:20 | NUR ---
ISOBUTILIDE ADMINISTRATION COMPLETE, PT HR 77, NSR
--- NOTE | 2021-12-03 16:40 | NUR ---
After pt converted to NSR from atrial flutter with RVR, noted prolonged QT interval of 460 ms, corrected QT interval 520 ms with HR of 75. Notified Dr Roe. Plan to closely monitor QT interval.
--- NOTE | 2021-12-03 17:28 | NUR ---
SUMMARY NEURO: PT MENTATION STATUS IMPROVING, ABLE TO CONVERSE WITH AT BEDSIDE. PER PT IS ALMOST BACK TO BASELINE. PT IS WEAK THROUGHOUT BUT ABLE TO WEAKLY MOVE EXTREMETIES, PUPILS ROUND AND EQUAL. CARDIAC: ALL CARDIAC DRIPS OFF AT THIS TIME. PER WIFER, PT'S BASELINE SYSTOLIC BLOOD PRESSURE IS AROUND 150'S, HR IS 85, NSR WITH A PROLONGED QT OF .41- AWARE, STATES SIDE EFFECTS FROM CARDIAC MEDS GIVEN TODAY- SEE PREVIOUS NOTE. BLE COLD, PULSES FAINT, BUE WARM WITH STRONGER PULSES. LUNGS: PT ON ROSS MASK WITH BIPAP DUE TO PREVIOUS MASK CAUSING REDNESS ON BRIDGE OF PT'S NOSE. LUNG SOUNDS ARE DIMINISHED THROUGHOUT. NO SECRETIONS OR PRODUCTIVE COUGH. PT BIPAP IS SET ON 18/8 25%. GI/: PT ABDOMEN IS FIRM AND DISTENDED, PT HAS HAD LOW URINE OUPUT TODAY- SEE I/O CHARTING, CHELSEY IN COLOR. ZOLL STILL ATTACHED TO PT AMIO DRIP IS NOT DUE TO BE RESTARTED AT THIS TIME.
[2021-12-04 05:23] LABS: PCO2 Arterial 62.1 mmHg (35-45); PO2 Arterial 70.6 mmHg (80-100); pH Blood Arterial 7.47 (7.35-7.45)
[2021-12-04 05:55] LABS: BASOPHILS ABSOLUTE AUTO 0.01 K/mm3 (0.00-0.23); BASOPHILS PERCENT AUTO 0 % (0-2); EOSINOPHILS PERCENT AUTO 0 % (0-6); Hematocrit 37.8 % (37.0-53.0); Hemoglobin 11.2 g/dL (13.5-17.5); IMMATURE GRAN ABSOLUTE AUTO 0.15 K/mm3 (0.00-0.10); IMMATURE GRAN PERCENT AUTO 1 % (0-1); LYMPHOCYTES PERCENT AUTO 3 % (21-46); MONOCYTES ABSOLUTE AUTO 1.02 K/mm3 (0.16-1.47); MONOCYTES PERCENT AUTO 7 % (4-13); Mean Corpuscular HGB 29.1 pg (26.0-34.0); Mean Corpuscular HGB Conc 29.6 g/dL (31.5-36.5); Mean Platelet Volume 9.9 fL (9.1-12.4); NEUTROPHILS ABSOLUTE AUTO 13.07 K/mm3 (1.96-9.15); NEUTROPHILS PERCENT AUTO 89 % (41-73); Platelet Count 328 K/mm3 (150-400); RDW Coefficient Variation 15.6 % (11.7-14.2); Red Blood Cell Count 3.85 M/mm3 (4.30-5.90); White Blood Cell Count 14.75 K/mm3 (4.00-11.30)
[2021-12-04 06:02] LABS: Mean Corpuscular Volume 98 fL (80-100)
[2021-12-04 06:06] LABS: International Normalized Ratio 1.4; Prothrombin Time Results 14.4 Sec (9.7-11.5)
[2021-12-04 06:11] LABS: Alanine Aminotransfer (ALT/SGP 44 U/L (12-78); Albumin, Blood 2.6 g/dL (3.4-5.0); Albumin/Globulin Ratio 0.7 (0.8-1.8); Alk Phos 155 U/L (50-136); Anion Gap 6 mmol/L (6-16); Aspartate Aminotrans (AST/SGOT 48 U/L (12-37); Bilirubin, Total 1.2 mg/dL (0.1-1.0); Blood Urea Nitrogen 16 mg/dL (8-24); CO2, Blood 39 mmol/L (21-32); Calcium, Blood 8.1 mg/dL (8.5-10.1); Chloride, Blood 92 mmol/L (98-108); Creatinine, Blood 0.76 mg/dL (0.60-1.20); Globulin, Blood 3.7 g/dL (2.2-4.0); Glomerular Filtration Rate >60 (60-); Glucose, Blood 155 mg/dL (70-99); Magnesium, Blood 1.6 mg/dL (1.6-2.4); Phosphorus, Blood 1.9 mg/dL (2.5-4.9); Potassium, Blood 3.6 mmol/L (3.5-5.5); Sodium, Blood 137 mmol/L (136-145); Total Protein, Blood 6.3 g/dL (6.4-8.2)
--- NOTE | 2021-12-04 07:30 | NUR ---
TOOK OVER CARE OF PT AT 0700. PT HAS .5 OF AMIO DRIP RUNNING, PT ON BIPAP / 30%. SEE VITALS
--- NOTE | 2021-12-04 09:50 | NUR ---
PT PLACED ON [facility] AT 0900 50L 30%
[2021-12-04 10:04] LABS: Source, Urine Foley catheter
[2021-12-04 10:13] LABS: Appearance, Urine Hazy (Clear); Bilirubin, Urine Neg (Neg); Blood, Urine 5+ (Neg); Color, Urine Yellow (P-Yellow); Glucose Qualitative, Urine Neg (Neg); Ketones, Urine Neg (Neg); Leukocyte Esterase, Urine Neg (Neg); Nitrite, Urine Neg (Neg); Protein, Urine 2+ (Neg); Specific Gravity, Urine 1.015 (1.003-1.022); Urobilinogen, Urine NORM (Normal); pH, Urine 6.5 (5.0-8.0)
[2021-12-04 10:19] LABS: Red Blood Cells, Urine TNTC /hpf (0-2)
[2021-12-04 10:22] LABS: Squamous Epithelial Cells Rare /hpf (Few)
[2021-12-04 10:25] LABS: Bacteria Few /hpf; Hyaline Casts 0-2 /lpf (0-2); Mucus Light (0-Heavy); RBC Cast 0-2 /lpf (0)
--- NOTE | 2021-12-04 17:40 | NUR ---
SUMMARY NEURO: PT MENTATION STATUS IMPROVING, ABLE TO EASILY CONVERSE WITH AND STAFF. PER PT IS ALMOST BACK TO BASELINE. PT IS WEAK THROUGHOUT BUT ABLE TO WEAKLY MOVE EXTREMETIES, PUPILS ROUND AND EQUAL. CARDIAC: ALL CARDIAC DRIPS OFF AT THIS TIME. PER WIFER, PT'S BASELINE SYSTOLIC BLOOD PRESSURE IS AROUND 150'S, HR IS 85, NSR. BLE WARM, PULSES FAINT, BUE WARM WITH STRONGER PULSES. LUNGS: PT HAS BEEN ON HFNC SINCE 0900 WITH 60L 35% GI/: PT ABDOMEN IS FIRM AND DISTENDED, PT HAS HAD 600ML OF URINE OUT CHELSEY IN COLOR AND A LOOSE BOWEL MOVEMENT. STARTED ON MECHANICAL SOFT DIET AND IS TOLERATING
--- NOTE | 2021-12-04 20:00 | NUR ---
ASSUMPTION OF CARE: PT IS ALERT AND ORIENTED, SL TO IV-ARVO IN PLACE AND AT BEDSIDE. PT HAS NO COMPLAINTS AND SHOWS NO S/S OF ACUTE DISTRESS AT TIME OF ASSUMPTION OF CARE.
[2021-12-05 04:14] LABS: BASOPHILS ABSOLUTE AUTO 0.03 K/mm3 (0.00-0.23); BASOPHILS PERCENT AUTO 0 % (0-2); EOSINOPHILS PERCENT AUTO 0 % (0-6); Hematocrit 35.6 % (37.0-53.0); Hemoglobin 11.1 g/dL (13.5-17.5); IMMATURE GRAN PERCENT AUTO 1 % (0-1); LYMPHOCYTES ABSOLUTE AUTO 0.36 K/mm3 (0.84-5.20); LYMPHOCYTES PERCENT AUTO 2 % (21-46); MONOCYTES ABSOLUTE AUTO 0.89 K/mm3 (0.16-1.47); MONOCYTES PERCENT AUTO 6 % (4-13); Mean Corpuscular HGB 30.1 pg (26.0-34.0); Mean Corpuscular HGB Conc 31.2 g/dL (31.5-36.5); Mean Corpuscular Volume 97 fL (80-100); Mean Platelet Volume 9.8 fL (9.1-12.4); NEUTROPHILS ABSOLUTE AUTO 13.55 K/mm3 (1.96-9.15); NEUTROPHILS PERCENT AUTO 91 % (41-73); Platelet Count 328 K/mm3 (150-400); RDW Coefficient Variation 15.7 % (11.7-14.2); Red Blood Cell Count 3.69 M/mm3 (4.30-5.90); White Blood Cell Count 14.93 K/mm3 (4.00-11.30)
[2021-12-05 04:29] LABS: International Normalized Ratio 1.15
[2021-12-05 04:34] LABS: Base Excess Venous 27.2 mmol/L; Bicarbonate Venous 48.6 mmol/L (24.0-30.0); PCO2 Venous 65.1 mmHg (38-42); PO2 Venous 80.3 mmHg (38-42)
[2021-12-05 04:34] LABS: Alanine Aminotransfer (ALT/SGP 38 U/L (12-78); Albumin, Blood 2.6 g/dL (3.4-5.0); Albumin/Globulin Ratio 0.7 (0.8-1.8); Alk Phos 132 U/L (50-136); Anion Gap 7 mmol/L (6-16); Aspartate Aminotrans (AST/SGOT 38 U/L (12-37); Bilirubin, Total 0.9 mg/dL (0.1-1.0); Blood Urea Nitrogen 18 mg/dL (8-24); Bun/Creatinine Ratio 28.1 (12.0-20.0); CO2, Blood 42 mmol/L (21-32); Calcium, Blood 7.9 mg/dL (8.5-10.1); Chloride, Blood 87 mmol/L (98-108); Creatinine, Blood 0.64 mg/dL (0.60-1.20); Globulin, Blood 3.5 g/dL (2.2-4.0); Glomerular Filtration Rate >60 (60-); Glucose, Blood 150 mg/dL (70-99); Lactate Dehydrogenase (Ld),Bld 152 U/L (100-240); Magnesium, Blood 2.2 mg/dL (1.6-2.4); Potassium, Blood 3.1 mmol/L (3.5-5.5); Sodium, Blood 136 mmol/L (136-145); Total Protein, Blood 6.1 g/dL (6.4-8.2)
--- NOTE | 2021-12-05 08:45 | NUR ---
CARE OF PT ASSUMED AT 0700. PT AWAKE AND ALERT. CIWA 8 FOR MODERATE SEVERE TREMORS. TEMP 99.4. PT ORIENTED X3. PT REFUSED ORAL POTASSIUM BUT TOOK OTHER MEDS. 40MEQ IV POTASSIUM INFUSING. PT ABLE TO DOMONIQUE SMALL AMT OF BREAKFAST THIS AM. PT HYPERTENSIVE, LASIX GIVEN, WILL MEDICATE W PRN LABETALOL IF HTN PERSIST. CHAIR OFFERED, PT DECLINED. SATS 91-93% ON AIRVO 60L/40%. PT DOES APPEAR TO HAVE LABORED BREATHING BUT DENIES SOB. DR HIDALGO AT BEDSIDE THIS AM, FULL UPDATE GIVEN.
--- NOTE | 2021-12-05 11:49 | NUR ---
DR BURTON IN TO SEE PT, FULL UPDATE GIVEN. WILL CONT TO ENCOURAGE PT OOB TO CHAIR DOMONIQUE. AIRVO NOW 30L/35%, PT DOMONIQUE WELL. LEBATALOL GIVEN FOR HTN. HOME COREG TO START. AT BEDSIDE.
--- NOTE | 2021-12-05 15:44 | NUR ---
PT OOB TO CHAIR USING WALKER, SBA. PHYSICAL THERAPY WORKED W PT WELL. RT HAD PLACED PT ON HIGH FLOW N/C AT 6L, SATS HAVE BEEN >90%. PT CONT TO HAVE HTN. LEBATALOL GIVEN W SOME EFFECT.
--- NOTE | 2021-12-05 16:07 | NUR ---
BP 241/128. PT UP IN CHAIR W/O COMPLAINTS, NO DISTRESS. DR BURTON NOTIFIED, SUSIE PO TO BE ORDERED.
--- NOTE | 2021-12-05 18:30 | NUR ---
PT ASSISTED BACK TO BED. UP IN CHAIR FOR 4HRS TODAY; DOMONIQUE WELL. BP IMPROVED, 130/73. SATS 93% ON 6L VIA HIGH FLOW.
[2021-12-06 04:22] LABS: BASOPHILS ABSOLUTE AUTO 0.02 K/mm3 (0.00-0.23); BASOPHILS PERCENT AUTO 0 % (0-2); EOSINOPHILS PERCENT AUTO 0 % (0-6); Hematocrit 36.4 % (37.0-53.0); Hemoglobin 11.5 g/dL (13.5-17.5); IMMATURE GRAN ABSOLUTE AUTO 0.16 K/mm3 (0.00-0.10); IMMATURE GRAN PERCENT AUTO 1 % (0-1); LYMPHOCYTES ABSOLUTE AUTO 0.48 K/mm3 (0.84-5.20); LYMPHOCYTES PERCENT AUTO 4 % (21-46); MONOCYTES PERCENT AUTO 6 % (4-13); Mean Corpuscular HGB 29.9 pg (26.0-34.0); Mean Corpuscular HGB Conc 31.6 g/dL (31.5-36.5); Mean Corpuscular Volume 95 fL (80-100); Mean Platelet Volume 9.9 fL (9.1-12.4); NEUTROPHILS ABSOLUTE AUTO 11.58 K/mm3 (1.96-9.15); NEUTROPHILS PERCENT AUTO 89 % (41-73); Platelet Count 333 K/mm3 (150-400); RDW Coefficient Variation 15.4 % (11.7-14.2); RDW Standard Deviation 53.4 fL (35.1-46.3); Red Blood Cell Count 3.85 M/mm3 (4.30-5.90); White Blood Cell Count 13.04 K/mm3 (4.00-11.30)
[2021-12-06 04:40] LABS: Alanine Aminotransfer (ALT/SGP 41 U/L (12-78); Albumin, Blood 2.6 g/dL (3.4-5.0); Albumin/Globulin Ratio 0.7 (0.8-1.8); Alk Phos 129 U/L (50-136); Anion Gap 7 mmol/L (6-16); Aspartate Aminotrans (AST/SGOT 37 U/L (12-37); Bilirubin, Total 0.8 mg/dL (0.1-1.0); Blood Urea Nitrogen 17 mg/dL (8-24); Bun/Creatinine Ratio 29.5 (12.0-20.0); CO2, Blood 42 mmol/L (21-32); Calcium, Blood 8.3 mg/dL (8.5-10.1); Chloride, Blood 87 mmol/L (98-108); Creatinine, Blood 0.58 mg/dL (0.60-1.20); Globulin, Blood 3.5 g/dL (2.2-4.0); Glomerular Filtration Rate >60 (60-); Glucose, Blood 156 mg/dL (70-99); Phosphorus, Blood 3.2 mg/dL (2.5-4.9); Potassium, Blood 3.1 mmol/L (3.5-5.5); Sodium, Blood 136 mmol/L (136-145); Total Protein, Blood 6.1 g/dL (6.4-8.2)
--- NOTE | 2021-12-06 10:18 | NUR ---
CARE ASSUMED OF PT AT 0700. PT AWAKE AND ALERT THIS AM. DENIES COMPLAINTS, STATES HE SLEPT BETTER LAST NIGHT. SATS >90% ON 4L VIA HIGH FLOW, LESS DYSPNEA NOTED TODAY COMPARED TO YESTERDAY. CIWA 7 DUE ONLY TO TREMORS AND LIGHT SWEATING. PT REMAINS HYPERTENSIVE, BUT IMPROVING BP. BP NOW 155/85. DR BURTON IN THIS AM TO SEE PT. PT NOW PCU STATUS.
--- NOTE | 2021-12-06 17:36 | NUR ---
SHIFT SUMMARY; ICU TRANSFER TO PCU IN AFTERNOON, REPORT FROM VANITA YOUNG. A/A/OX4, 02 VIA FL 4L. ROSALBA TENORIO'Gerardo DURING SHIFT PER ORDERS, WILL MONITOR FOR POST CATH VOID. SPOUSE AT BEDSIDE, PT ASKING MULTIPLE TIMES WHEN HE CAN GO HOME. "I FEEL FINE". 02 DECREASED TO PTS BASELINE OF 2L. SATS MAINTAINING AT 94%. REPOSITIONS SELF IN BED, UP TO BEDSIDE COMMODE WITH SBA AND WALKER. WILL CONTINUE TO MONITOR AND TREAT UNTIL CHANGE OF SHIFT.
[2021-12-07 05:05] LABS: BASOPHILS ABSOLUTE AUTO 0.03 K/mm3 (0.00-0.23); BASOPHILS PERCENT AUTO 0 % (0-2); EOSINOPHILS ABSOLUTE AUTO 0.01 K/mm3 (0.00-0.68); EOSINOPHILS PERCENT AUTO 0 % (0-6); Hematocrit 36.3 % (37.0-53.0); Hemoglobin 11.8 g/dL (13.5-17.5); IMMATURE GRAN PERCENT AUTO 1 % (0-1); LYMPHOCYTES PERCENT AUTO 3 % (21-46); MONOCYTES ABSOLUTE AUTO 0.88 K/mm3 (0.16-1.47); MONOCYTES PERCENT AUTO 5 % (4-13); Mean Corpuscular HGB 30.3 pg (26.0-34.0); Mean Corpuscular HGB Conc 32.5 g/dL (31.5-36.5); Mean Corpuscular Volume 93 fL (80-100); Mean Platelet Volume 10.1 fL (9.1-12.4); NEUTROPHILS PERCENT AUTO 90 % (41-73); Platelet Count 339 K/mm3 (150-400); RDW Coefficient Variation 14.8 % (11.7-14.2); RDW Standard Deviation 51.8 fL (35.1-46.3); Red Blood Cell Count 3.89 M/mm3 (4.30-5.90); White Blood Cell Count 16.92 K/mm3 (4.00-11.30)
[2021-12-07 05:45] LABS: Alanine Aminotransfer (ALT/SGP 50 U/L (12-78); Albumin, Blood 2.6 g/dL (3.4-5.0); Albumin/Globulin Ratio 0.8 (0.8-1.8); Alk Phos 133 U/L (50-136); Anion Gap 6 mmol/L (6-16); Aspartate Aminotrans (AST/SGOT 39 U/L (12-37); Bilirubin, Total 0.8 mg/dL (0.1-1.0); Blood Urea Nitrogen 19 mg/dL (8-24); Bun/Creatinine Ratio 30.8 (12.0-20.0); CO2, Blood 38 mmol/L (21-32); Calcium, Blood 8.3 mg/dL (8.5-10.1); Chloride, Blood 88 mmol/L (98-108); Creatinine, Blood 0.62 mg/dL (0.60-1.20); Globulin, Blood 3.4 g/dL (2.2-4.0); Glomerular Filtration Rate >60 (60-); Glucose, Blood 150 mg/dL (70-99); Magnesium, Blood 1.6 mg/dL (1.6-2.4); Phosphorus, Blood 3.4 mg/dL (2.5-4.9); Potassium, Blood 3.8 mmol/L (3.5-5.5); Sodium, Blood 132 mmol/L (136-145)
--- NOTE | 2021-12-07 06:10 | NUR ---
SHIFT SUMMARY NO ACUTE CHANGES THIS SHIFT. PT A&OX4. SP02>92% ON 3L NC. TELEMETRY SHOWS NSR, HR 70'S. PT HAD ELEVATED BP AT END OF SHIFT. LABATOLOL GIVEN PER EMAR. PT HAD NAVARRETE REMOVED DURING DAY SHIFT. WAS ABLE TO VOID INTO URINAL DURING NIGHT. UP TO BSC 1 PERSON ASSIST W/ FWW TO HAVE ONE LARGE BM. PICC LINE WNL. PT DID NOT SLEEP MUCH DURING NIGHT. TALKED ABOUT WANTING TO GO HOME TOMORROW, OFTEN. CALL LIGHT IN REACH.
[2021-12-07] MEDS ORDERED: ACET325 PO (12:15)
[2021-12-07] MEDS ORDERED: OLUMIANT2 MG PO (12:16)
[2021-12-07] MEDS ORDERED: CEPH500 PO (12:17)
[2021-12-07] MEDS ORDERED: CATAPRES-TTS 11 EAC1 TOP (12:18)
[2021-12-07] MEDS ORDERED: AZO CRANBERRY PO (12:19)
[2021-12-07] MEDS ORDERED: DILT30 PO (12:22)
[2021-12-07] MEDS ORDERED: XARELTO20 MG PO (12:22)
[2021-12-07] MEDS ORDERED: FURO40 PO (12:23)
[2021-12-07] MEDS ORDERED: HYDRA25 PO (12:38)
[2021-12-07] MEDS ORDERED: COMBIVENT RESPIM4 G1 INH (12:39)
[2021-12-07] MEDS ORDERED: LEVFLO500 PO (12:40)
[2021-12-07] MEDS ORDERED: POTA10T PO (12:41)
[2021-12-07] MEDS ORDERED: PRED20 PO (12:41)
[2021-12-07] MEDS ORDERED: SPIR25 PO (12:42)
[2021-12-07] MEDS ORDERED: B-1100 M1 PO (12:42)
[2021-12-07] MEDS ORDERED: VITAMIN D5000 UNIT PO (12:43)
[2021-12-07] MEDS ORDERED: ZINC220 PO (12:43)
--- NOTE | 2021-12-07 16:34 | NUR ---
DISCHARGE SUMMARY PT A&Ox3; ANXIOUS, EXPRESSING DESIRE TO GO HOME AND STATES "ONE WAY OR ANOTHER"; NOTIFIED DR WHITE, NEW ORDER FOR HOME O2 EVAL PLACED. PT DENIES PAIN, CHEST PAIN, NAUSEA, DIZZINESS AND NUMB/TINGLING. SOB WITH EXERTION, ON 3L O2 VIA NC, TITRATED BY RT TO 2L O2 VIA NC WHICH IS PT HOME BASELINE. PT RECEIVING IV ANTIBIOTICS.BP ELEVATED, OTHER VSS. PICC LINE REMOVED PER POLICY/PROCEDURE. EDUCATED PT ON PICC LINE REMOVAL. EDUCATED PT AND SPOUSE OF DISCHARGE INSTRUCTIONS, PATRICIA SEQUEIRA, FOLLOW UP APPOINTMENT AND PRESCRIPTIONS. FAXED PRESCRIPTIONS TO [facility] PER PT REQUEST. PT LEFT ROOM AT APPROX 1609 VIA WHEELCHAIR.
--- NOTE | 2021-12-08 13:24 | NUR ---
Received referral from nurse vision care associate (Elisabeth Acevedo) on 12/07/2021. Patient was admitted to [facility] on 11/30/2021 for acute hypoxemic respiratory failure due to COVID-19. Patient discharged 12/07/2021 with orders for home health and elected [facility]. Met with patient to further discuss the above. Patient declines home health services at this time stating "I actually feel pretty good". Informed patient that if they changed their mind they could always request services through their primary care provider. Patient verbalized understanding. No further interventions required. Jayna Connolly Referral Liaison
== END 2021-12-07 16:09 | disposition home or self-care (01) | DRG 871 ==
LOC: ER 05:24 → PCU 09:21 → ICUW 09:21 → PCU 12-06 11:05
PROVIDERS: Emergency Medicine; Family Medicine; Internal Medicine; Internal Medicine Critical Care Medicine; Internal Medicine Nephrology; ADMIT Internal Medicine
PROC: 3E0DX3Z Introduction of Anti-inflammatory into Mouth and Pharynx, External Approach (ICD-10-PCS; 2021-11-30)
PROC: 3E0337Z Introduction of Electrolytic and Water Balance Substance into Peripheral Vein, Percutaneous Approach (ICD-10-PCS; 2021-11-30)
PROC: XW0DXM6 Introduction of Baricitinib into Mouth and Pharynx, External Approach, New Technology Group 6 (ICD-10-PCS; principal; 2021-12-02)
PROC: 5A2204Z Restoration of Cardiac Rhythm, Single (ICD-10-PCS; 2021-12-04)
DX: A41.89 Other specified sepsis (principal); U07.1 COVID-19; J96.21 Acute and chronic respiratory failure with hypoxia; J12.82 Pneumonia due to coronavirus disease 2019; J96.02 Acute respiratory failure with hypercapnia; J44.1 Chronic obstructive pulmonary disease with (acute) exacerbation; E87.1 Hypo-osmolality and hyponatremia; I48.92 Unspecified atrial flutter; F10.239 Alcohol dependence with withdrawal, unspecified; R65.20 Severe sepsis without septic shock; Z66 Do not resuscitate; I48.0 Paroxysmal atrial fibrillation; K21.9 Gastro-esophageal reflux disease without esophagitis; R60.0 Localized edema; E86.1 Hypovolemia; R19.7 Diarrhea, unspecified; E87.8 Other disorders of electrolyte and fluid balance, not elsewhere classified; D64.9 Anemia, unspecified; N28.9 Disorder of kidney and ureter, unspecified; R79.89 Other specified abnormal findings of blood chemistry; Z88.8 Allergy status to other drugs, medicaments and biological substances
CPT/HCPCS: 0241U; 36415; 36569; 36600; 51702; 71045; 74176; 80048; 80053; 80069; 81001; 82248; 82803; 83605; 83615; 83735; 83880; 83930; 83935; 84100; 84132; 84145; 84156; 84300; 84443; 84484; 84550; 85025; 85610; 86140; 92526; 92610; 93005; 93010; 93306; 94640; 94644; 94660; 94761; 94762; 96374; 97116; 97161; 97530; 99285-25; A9270; C1751; C9399; J0282; J0696; J1650; J1742; J1940; J1956; J2060; J2930; J3475; J3480; J7030; J7040; J7050; J7060

== ENCOUNTER 2021-12-08 18:19 | Inpatient (IN) | payer OTHER ==
[~2021-12-08] VITALS: Ht 177.8 cm; Wt 99.5 kg
[~2021-12-08 18:19] MED LIST changes: +ACET325 PO; +AZO CRANBERRY PO; +B-1100 M1 PO; +CARVEDILOL12.5 MG PO; +CATAPRES-TTS 11 EAC1 TOP; +CEPH500 PO; +COMBIVENT RESPIM4 G1 INH; +DILT30 PO; +FURO40 PO; +HYDRA25 PO; +OLUMIANT2 MG PO; +POTA10T PO; +SPIR25 PO; +TIOT18 INH; +VITAMIN D5000 UNIT PO; +Ventolin/Prove6.7 GM; +XARELTO20 MG PO; +ZINC220 PO
[2021-12-08 19:01] LABS: IMMATURE GRAN PERCENT AUTO 2 % (0-1); RDW Coefficient Variation 14.6 % (11.7-14.2)
[2021-12-08 19:14] LABS: BASOPHILS ABSOLUTE AUTO 0.11 K/mm3 (0.00-0.23); BASOPHILS PERCENT AUTO 1 % (0-2); EOSINOPHILS ABSOLUTE AUTO 0.24 K/mm3 (0.00-0.68); EOSINOPHILS PERCENT AUTO 1 % (0-6); Hematocrit 44.4 % (37.0-53.0); Hemoglobin 14.4 g/dL (13.5-17.5); LYMPHOCYTES ABSOLUTE AUTO 1.81 K/mm3 (0.84-5.20); LYMPHOCYTES PERCENT AUTO 8 % (21-46); MONOCYTES ABSOLUTE AUTO 1.61 K/mm3 (0.16-1.47); MONOCYTES PERCENT AUTO 7 % (4-13); Mean Corpuscular HGB 29.6 pg (26.0-34.0); Mean Corpuscular HGB Conc 32.4 g/dL (31.5-36.5); Mean Corpuscular Volume 91 fL (80-100); NEUTROPHILS ABSOLUTE AUTO 19.42 K/mm3 (1.96-9.15); NEUTROPHILS PERCENT AUTO 82 % (41-73); RDW Standard Deviation 48.3 fL (35.1-46.3); Red Blood Cell Count 4.87 M/mm3 (4.30-5.90); White Blood Cell Count 23.69 K/mm3 (4.00-11.30)
[2021-12-08 19:15] LABS: Alanine Aminotransfer (ALT/SGP 136 U/L (12-78); Albumin, Blood 3.1 g/dL (3.4-5.0); Albumin/Globulin Ratio 0.9 (0.8-1.8); Alk Phos 160 U/L (50-136); Anion Gap 8 mmol/L (6-16); Aspartate Aminotrans (AST/SGOT 145 U/L (12-37); Bilirubin, Direct 0.5 mg/dL (0.0-0.3); Bilirubin, Indirect 0.5 mg/dL (0.1-0.7); Blood Urea Nitrogen 18 mg/dL (8-24); Bun/Creatinine Ratio 22.8 (12.0-20.0); CO2, Blood 33 mmol/L (21-32); Calcium, Blood 8.6 mg/dL (8.5-10.1); Chloride, Blood 89 mmol/L (98-108); Creatinine, Blood 0.79 mg/dL (0.60-1.20); Globulin, Blood 3.6 g/dL (2.2-4.0); Glomerular Filtration Rate >60 (60-); Glucose, Blood 162 mg/dL (70-99); Sodium, Blood 130 mmol/L (136-145); Total Protein, Blood 6.7 g/dL (6.4-8.2)
[2021-12-08 19:21] LABS: Ethanol (Alcohol), Blood, Med <3 mg/dL
[2021-12-08 19:31] LABS: Mean Platelet Volume 10.3 fL (9.1-12.4); Platelet Count 442 K/mm3 (150-400)
[2021-12-09 04:24] LABS: BASOPHILS ABSOLUTE AUTO 0.04 K/mm3 (0.00-0.23); BASOPHILS PERCENT AUTO 0 % (0-2); EOSINOPHILS ABSOLUTE AUTO 0.36 K/mm3 (0.00-0.68); EOSINOPHILS PERCENT AUTO 2 % (0-6); Hematocrit 39.1 % (37.0-53.0); Hemoglobin 12.4 g/dL (13.5-17.5); IMMATURE GRAN ABSOLUTE AUTO 0.27 K/mm3 (0.00-0.10); IMMATURE GRAN PERCENT AUTO 2 % (0-1); LYMPHOCYTES ABSOLUTE AUTO 0.89 K/mm3 (0.84-5.20); LYMPHOCYTES PERCENT AUTO 5 % (21-46); MONOCYTES ABSOLUTE AUTO 1.17 K/mm3 (0.16-1.47); MONOCYTES PERCENT AUTO 6 % (4-13); Mean Corpuscular HGB 30.2 pg (26.0-34.0); Mean Corpuscular HGB Conc 31.7 g/dL (31.5-36.5); Mean Corpuscular Volume 95 fL (80-100); Mean Platelet Volume 9.7 fL (9.1-12.4); NEUTROPHILS ABSOLUTE AUTO 15.76 K/mm3 (1.96-9.15); NEUTROPHILS PERCENT AUTO 85 % (41-73); Platelet Count 349 K/mm3 (150-400); RDW Coefficient Variation 14.6 % (11.7-14.2); RDW Standard Deviation 51.5 fL (35.1-46.3); Red Blood Cell Count 4.11 M/mm3 (4.30-5.90); White Blood Cell Count 18.49 K/mm3 (4.00-11.30)
[2021-12-09 05:06] LABS: Alanine Aminotransfer (ALT/SGP 124 U/L (12-78); Albumin, Blood 2.6 g/dL (3.4-5.0); Albumin/Globulin Ratio 0.9 (0.8-1.8); Alk Phos 139 U/L (50-136); Anion Gap 6 mmol/L (6-16); Aspartate Aminotrans (AST/SGOT 89 U/L (12-37); Bilirubin, Total 0.7 mg/dL (0.1-1.0); Blood Urea Nitrogen 18 mg/dL (8-24); Bun/Creatinine Ratio 24.6 (12.0-20.0); CO2, Blood 35 mmol/L (21-32); Calcium, Blood 8.3 mg/dL (8.5-10.1); Chloride, Blood 94 mmol/L (98-108); Creatinine, Blood 0.73 mg/dL (0.60-1.20); Glomerular Filtration Rate >60 (60-); Glucose, Blood 97 mg/dL (70-99); Potassium, Blood 3.2 mmol/L (3.5-5.5); Sodium, Blood 135 mmol/L (136-145); Total Protein, Blood 5.6 g/dL (6.4-8.2)
[2021-12-09 05:07] LABS: U Amphetamine Screen Not Detected; U Barbituate Screen Not Detected; U Benzodiazapine Screen DETECTED; U Buprenorphine Screen Not Detected; U Cannabinoids Screen Not Detected; U Cocaine Screen Not Detected; U Methadone Screen Not Detected; U Methamphetamine Screen Not Detected; U Opiates Screen Not Detected; U Oxycodone Screen DETECTED; U Phencyclidine Screen Not Detected; U Propoxyphene Screen Not Detected
--- NOTE | 2021-12-09 06:37 | NUR ---
PT ARRIVED PCU AT 23:50 ON A STRETCHER.AXO X3 UNSURE OF THE DATE AND TIME. PT AVERAGE HISTORIAN ,HE REFERED TO HIS FOR MOST OF THE ADMISSION QUESTION. SEIZURE PRECAUTION IN PLACE, PADDED SIDE RAIL. ON 2L O2 BASELINE, SATs maintained >92 NO DISTRESS REPORTED AT THIS TIME. PT DENIES PAIN. PT DENIES AURA AT THIS TIME, pending EEG. CIWA Q2. PALLIATIVE CONSULT PENDING. CALL LIGHT WITHIN REACH AND SIDE RAIL UP X3.
--- NOTE | 2021-12-09 18:23 | NUR ---
PT SUMMARY: NO ACUTE CHANGE FOR THE SHIFT, VITALS HAS BEEN STABLE, REMAINS ON 2L OF O2 AT BASELINE, SATS KEPT ABOVE 94%. PT ALERT AND ORIENTED X4, CALLS APPROPRIATELY. NO REPORTED/NOTED SEIZURE ACTIVITY FOR THE, NO SIGNIFICANT CHANGE ON NEURO'S, CIWAS STABLE AT 5. PT TO GET EEG DONE IN AM, REPORTS THAT HE WANTED TO GO HOME WILLING TO STAY THE NIGHT TO GET THE TEST DONE IN AM. WAS IN TO VISIT. INDEPENDENTLY MOBILE IN BED, USES URINAL FOR VOIDING, NO RPEORTED BMS. REPORTED CHRONIC BACK PAIN, REFUSES TO TAKE TYLENOL, REPOSITIONED IN BED AND PT HAS BEEN SLEEPING MOST OF THE SHIFT. PT REMAINS ON SEIZURE PRECAUTIONS. NO OTHER ISSUES REPORTED. CALL LIGHTS IN REACH WILL REPORT TO ONCOMING SHIFT
[2021-12-10 04:31] LABS: BASOPHILS ABSOLUTE AUTO 0.04 K/mm3 (0.00-0.23); BASOPHILS PERCENT AUTO 0 % (0-2); EOSINOPHILS ABSOLUTE AUTO 0.35 K/mm3 (0.00-0.68); EOSINOPHILS PERCENT AUTO 2 % (0-6); Hematocrit 37.6 % (37.0-53.0); Hemoglobin 11.9 g/dL (13.5-17.5); IMMATURE GRAN ABSOLUTE AUTO 0.34 K/mm3 (0.00-0.10); IMMATURE GRAN PERCENT AUTO 2 % (0-1); LYMPHOCYTES ABSOLUTE AUTO 0.78 K/mm3 (0.84-5.20); LYMPHOCYTES PERCENT AUTO 4 % (21-46); MONOCYTES PERCENT AUTO 7 % (4-13); Mean Corpuscular HGB 30.1 pg (26.0-34.0); Mean Corpuscular HGB Conc 31.6 g/dL (31.5-36.5); Mean Corpuscular Volume 95 fL (80-100); Mean Platelet Volume 10.6 fL (9.1-12.4); NEUTROPHILS PERCENT AUTO 86 % (41-73); Platelet Count 345 K/mm3 (150-400); RDW Coefficient Variation 14.6 % (11.7-14.2); RDW Standard Deviation 51.8 fL (35.1-46.3); Red Blood Cell Count 3.95 M/mm3 (4.30-5.90); White Blood Cell Count 19.91 K/mm3 (4.00-11.30)
[2021-12-10 04:59] LABS: Alanine Aminotransfer (ALT/SGP 106 U/L (12-78); Albumin, Blood 2.5 g/dL (3.4-5.0); Albumin/Globulin Ratio 0.8 (0.8-1.8); Alk Phos 137 U/L (50-136); Anion Gap 7 mmol/L (6-16); Aspartate Aminotrans (AST/SGOT 49 U/L (12-37); Bilirubin, Total 0.8 mg/dL (0.1-1.0); Blood Urea Nitrogen 13 mg/dL (8-24); Bun/Creatinine Ratio 19.5 (12.0-20.0); CO2, Blood 36 mmol/L (21-32); Calcium, Blood 8.3 mg/dL (8.5-10.1); Chloride, Blood 94 mmol/L (98-108); Creatinine, Blood 0.67 mg/dL (0.60-1.20); Globulin, Blood 3.1 g/dL (2.2-4.0); Glomerular Filtration Rate >60 (60-); Glucose, Blood 126 mg/dL (70-99); Potassium, Blood 2.8 mmol/L (3.5-5.5); Sodium, Blood 137 mmol/L (136-145); Total Protein, Blood 5.6 g/dL (6.4-8.2)
--- NOTE | 2021-12-10 06:07 | NUR ---
SHIFT SUMMARY: VSS OVERNIGHT. NO NOTICEABLE SEIZURE ACTIVITY. PT IS SCORING 7-8 ON CIWA-ANXIETY, TREMOR, DIAPHORETIC. PT HAD SUDDEN EPISODE OF DIARRHEA; LARGE, LOOSE, ORANGE-SUE TO BROWN-SUE IN COLOR. POTASSIUM 2.8 THIS MORNING. WILL OBTAIN ORDER TO REPLACE. WBC's TRENDING UP-NOW AT19.91. EEG STARTED THIS A.M.
--- NOTE | 2021-12-10 11:53 | NUR ---
PT DISCHARGED HOME WITH FAMILY, DISCHARGE TEACHING REVIEWED INCLUDING MEDICATION LIST, FOLLOW UP APPOINTMENT, AND EDUCATION MATERIAL. PT VERBALIZES UNDERSTANDING AND HAS NO QUESTIONS OR CONCERNS. IV REMOVED, WNL. NO FURTHER DISCHARGE NEEDS IDENTIFIED AT THIS TIME, PT DISCHARGED WILL ALL BELONGINGS.
== END 2021-12-10 12:00 | disposition home or self-care (01) | DRG 897 ==
LOC: ER 18:19 → PCU 22:48
PROVIDERS: Family Medicine; Internal Medicine; Student in an Organized Health Care Education/Training Program; ADMIT Internal Medicine
DX: F10.239 Alcohol dependence with withdrawal, unspecified (principal); E87.1 Hypo-osmolality and hyponatremia; R25.8 Other abnormal involuntary movements; Z28.21 Immunization not carried out because of patient refusal; K21.9 Gastro-esophageal reflux disease without esophagitis; J44.9 Chronic obstructive pulmonary disease, unspecified; E78.00 Pure hypercholesterolemia, unspecified; G89.29 Other chronic pain; M54.9 Dorsalgia, unspecified; F17.210 Nicotine dependence, cigarettes, uncomplicated; R63.4 Abnormal weight loss; E87.6 Hypokalemia; R74.01 Elevation of levels of liver transaminase levels; I48.91 Unspecified atrial fibrillation; D72.829 Elevated white blood cell count, unspecified; T38.0X5A Adverse effect of glucocorticoids and synthetic analogues, initial encounter; Z86.16 Personal history of COVID-19; Z98.890 Other specified postprocedural states; Z68.31 Body mass index [BMI] 31.0-31.9, adult; Z88.8 Allergy status to other drugs, medicaments and biological substances; Z79.52 Long term (current) use of systemic steroids; Z79.01 Long term (current) use of anticoagulants; Z79.899 Other long term (current) drug therapy; Y90.0 Blood alcohol level of less than 20 mg/100 ml
CPT/HCPCS: 36415; 70450; 80048; 80053; 80076; 83735; 85025; 93005; 93010; 94640; 94760; 95819; 96365; 96366; 99285-25; A9270; G0480; J2060; J3480; J7030

== ENCOUNTER 2022-10-04 19:30 | Inpatient (IN) | payer OTHER ==
[~2022-10-04] VITALS: Ht 182.9 cm; Wt 102.1 kg
[~2022-10-04 19:30] MED LIST changes: -CARVEDILOL12.5 MG PO; +Carvedilol12.5 MG PO
[2022-10-04 19:51] LABS: BASOPHILS ABSOLUTE AUTO 0.04 K/mm3 (0.00-0.23); BASOPHILS PERCENT AUTO 0 % (0-2); EOSINOPHILS ABSOLUTE AUTO 0.13 K/mm3 (0.00-0.68); EOSINOPHILS PERCENT AUTO 1 % (0-6); Hemoglobin 11.8 g/dL (13.5-17.5); IMMATURE GRAN ABSOLUTE AUTO 0.23 K/mm3 (0.00-0.10); IMMATURE GRAN PERCENT AUTO 2 % (0-1); LYMPHOCYTES ABSOLUTE AUTO 0.67 K/mm3 (0.84-5.20); LYMPHOCYTES PERCENT AUTO 6 % (21-46); MONOCYTES ABSOLUTE AUTO 1.22 K/mm3 (0.16-1.47); MONOCYTES PERCENT AUTO 11 % (4-13); Mean Corpuscular HGB 30.7 pg (26.0-34.0); Mean Corpuscular HGB Conc 34.7 g/dL (31.5-36.5); Mean Corpuscular Volume 89 fL (80-100); Mean Platelet Volume 8.8 fL (9.1-12.4); NEUTROPHILS ABSOLUTE AUTO 9.02 K/mm3 (1.96-9.15); NEUTROPHILS PERCENT AUTO 80 % (41-73); Platelet Count 264 K/mm3 (150-400); RDW Standard Deviation 42.1 fL (35.1-46.3); Red Blood Cell Count 3.84 M/mm3 (4.30-5.90); White Blood Cell Count 11.31 K/mm3 (4.00-11.30)
[2022-10-04 20:11] LABS: Albumin, Blood 2.4 g/dL (3.4-5.0); Albumin/Globulin Ratio 0.7 (0.8-1.8); Bilirubin, Total 0.6 mg/dL (0.1-1.0); Bun/Creatinine Ratio 9.8 (12.0-20.0); Creatinine, Blood 0.51 mg/dL (0.60-1.20); Globulin, Blood 3.5 g/dL (2.2-4.0); Potassium, Blood 3.9 mmol/L (3.5-5.5); Total Protein, Blood 5.9 g/dL (6.4-8.2)
[2022-10-04 20:31] LABS: Magnesium, Blood 1.4 mg/dL (1.6-2.4)
[2022-10-04 20:54] LABS: Thyroid Stimulating Hormone 2.7 uIU/mL (0.360-4.800)
[2022-10-04] MEDS ORDERED: FLUTICASONE-SA1 EAC8 INH (20:57)
[2022-10-04] MEDS ORDERED: AMLODIPINE BESYL5 MG PO (20:58)
[2022-10-04] MEDS ORDERED: DILT180 PO (21:01)
[2022-10-04] MEDS ORDERED: CATAPRES-TTS 11 EAC1 TOP (21:01)
[2022-10-04] MEDS ORDERED: FURO20 PO (21:01)
[2022-10-04] MEDS ORDERED: HYDRA25 PO (21:02)
[2022-10-04] MEDS ORDERED: POTA10T PO (21:02)
[2022-10-04] MEDS ORDERED: XARELTO20 MG PO (21:03)
[2022-10-04] MEDS ORDERED: VITAMIN D5000 UNIT PO (21:03)
[2022-10-04] MEDS ORDERED: B-1100 M1 PO (21:03)
[2022-10-04] MEDS ORDERED: SPIR25 PO (21:03)
--- NOTE | 2022-10-05 02:07 | NUR ---
ARRIVAL TO ICU PT TRANSFERRED FROM PCU AT THIS TIME. PT A&OX2. INCONSISTENT ON ANSWERING QUESTIONS AND CONFUSED. PT IS NOT FOLLOWING COMMANDS, REACHING FOR NGT AND IV. PT PLACED IN BILAT SOFT WRIST RESTRAINTS. NGT TO LOW INT SUCTION, NO DRAINAGE AT THIS TIME. ABDOMEN IS SEVERELY DISTENDED, VERY FIRM. HIGH PITCHED BOWEL TONES AUDIBLE. PT DENIES ABD PAIN. PT ON 5L NC WITH SPO2 >94%, RR 12-18, DENIES RESPIRATORY DISTRESS AT THIS TIME. SINUS RHYTHM ON MONITOR WITH RATE IN 80S, BP STABLE WITH MAP >65. CONDOM CATH IN PLACE DRAINING DARK YELLOW URINE. NS AND MAGNESIUM INFUSING AT THIS TIME.
--- NOTE | 2022-10-05 02:21 | NUR ---
ARRIVAL TO PCU/TRANSFER TO ICU PT ARRIVED TO PCU 11 AT 0110. PT A/O X 2. UNABLE TO STATE MONTH OR YEAR. PT PULLING ON LINES, AND TUBES. FREQUENT REDIRECTION NEEDED. MUMBLING AT TIMES. ON 5L NC. BP SOFT, OTHER VSS. CALL TO ED RN REGARDING PT MENTATION STATUS AT ARRIVAL TO ED. ED RN STATED PT WAS A/O X4 AND ANXIOUS AT TIMES. CALL MADE TO HOSP REGARDING MENTATION CHANGES. ORDER RECEIVED TO TRANSFER TO ICU FOR 3% SALINE. REPORT GIVEN AND PT TRANSFERRED TO ICU08 WITH THIS RN.
--- NOTE | 2022-10-05 02:30 | NUR ---
DR MATAMOROS EVAL DR MATAMOROS AT BEDSIDE FOR EVAL DUE TO MENTATION CHANGE AND TRANSFER TO ICU. ORDER RECEIVED FOR 3% SALINE. POSSIBLE SCABIES, CREAM ORDERED. PLAN TO BEGIN 3% SALINE AND REPEAT SODIUM LEVEL.
--- NOTE | 2022-10-05 03:40 | NUR ---
UPDATE 3% SALINE DISCONTINUED AT THIS TIME. 50ML INFUSED. ORDER FROM DR MATAMOROS FOR LACTULOSE. PT OBTUNDED, ONLY ABLE TO KEEP EYES OPEN FOR A FEW SECONDS AND NOT FOLLOWING COMMANDS. MUMBLED SPEECH. SKIN APPEARS REDDENED ON BILATERAL SIDES OF ABDOMEN EXTENDING TO THIGHS, AREA WARM. PERMETHRIN APPLIED TO BODY.
[2022-10-05 03:49] LABS: Source, Urine Foley catheter
[2022-10-05 03:55] LABS: Bilirubin, Urine Neg (Neg); Blood, Urine Neg (Neg); Glucose Qualitative, Urine Neg (Neg); Ketones, Urine Neg (Neg); Leukocyte Esterase, Urine Neg (Neg); Nitrite, Urine Neg (Neg); Protein, Urine 1+ (Neg); Specific Gravity, Urine 1.015 (1.003-1.022); Urobilinogen, Urine NORM (Normal)
[2022-10-05 04:14] LABS: Appearance, Urine Clear (Clear); Color, Urine Yellow (P-Yellow)
[2022-10-05 04:28] LABS: BASOPHILS ABSOLUTE AUTO 0.04 K/mm3 (0.00-0.23); BASOPHILS PERCENT AUTO 0 % (0-2); EOSINOPHILS ABSOLUTE AUTO 0.08 K/mm3 (0.00-0.68); EOSINOPHILS PERCENT AUTO 1 % (0-6); Hematocrit 33.4 % (37.0-53.0); Hemoglobin 11.5 g/dL (13.5-17.5); IMMATURE GRAN ABSOLUTE AUTO 0.21 K/mm3 (0.00-0.10); IMMATURE GRAN PERCENT AUTO 2 % (0-1); LYMPHOCYTES ABSOLUTE AUTO 0.88 K/mm3 (0.84-5.20); LYMPHOCYTES PERCENT AUTO 8 % (21-46); MONOCYTES ABSOLUTE AUTO 1.56 K/mm3 (0.16-1.47); MONOCYTES PERCENT AUTO 14 % (4-13); Mean Corpuscular HGB 31.3 pg (26.0-34.0); Mean Corpuscular HGB Conc 34.4 g/dL (31.5-36.5); Mean Corpuscular Volume 91 fL (80-100); NEUTROPHILS ABSOLUTE AUTO 8.73 K/mm3 (1.96-9.15); NEUTROPHILS PERCENT AUTO 76 % (41-73); Platelet Count 232 K/mm3 (150-400); RDW Coefficient Variation 12.9 % (11.7-14.2); RDW Standard Deviation 42.8 fL (35.1-46.3); Red Blood Cell Count 3.68 M/mm3 (4.30-5.90)
[2022-10-05 04:40] LABS: Albumin, Blood 2.3 g/dL (3.4-5.0); Albumin/Globulin Ratio 0.7 (0.8-1.8); Bilirubin, Total 0.6 mg/dL (0.1-1.0); Bun/Creatinine Ratio 8.5 (12.0-20.0); Calcium, Blood 7.9 mg/dL (8.5-10.1); Creatinine, Blood 0.59 mg/dL (0.60-1.20); Globulin, Blood 3.3 g/dL (2.2-4.0); Potassium, Blood 4.2 mmol/L (3.5-5.5); Total Protein, Blood 5.6 g/dL (6.4-8.2)
[2022-10-05 05:51] LABS: International Normalized Ratio 1.09; Prothrombin Time Results 11.4 Sec (9.7-11.5)
--- NOTE | 2022-10-05 06:48 | NUR ---
SHIFT SUMMARY: PT MENTAL STATUS IS IMPROVING SLIGHTLY; PT STILL A&O X 2 AND IS FOLLOWING SIMPLE COMMANDS. PT HAS SLIGHT INSPIRATORY WHEEZE AND IS ON NC @ 5 LPM, SPO2 96<. PT HR 80'S, SBP 130'S AND CONTINUOUS WHITE SUGAR PAN TANK OPERATOR IS IN PLACE. NGT IN PLACE AND ON LOW, CONTINUOUS SUCTIONING. ABD VERY DISTENDED AND FIRM; PT HAS C/O PAIN IN THE SIDE OF HIS ABD BILATERALLY AND THERE IS REDDNESS NOTED IN THIS REGION. RECTAL TUBE PLACED AND ENEMA GIVEN; TOTAL RECTAL TUBE OUTPUT WAS 500; MODERATE AMOUNTS OF GAS IN RECTAL TUBE. NAVARRETE PLACED THIS SHIFT AND GOOD URINE OUTPUT; URINE IS DARK AND CLEAR. PT IS EDEMATOUS IN ALL EXTREMITIES. PT IN CONTACT PRECAUTION R/T SCABIES. SODIUM LEVELS IMPROVING AND ARE NOW AT 119. WILL CONTINUE TO MONITOR UNTIL ONCOMING RN ARRIVES.
--- NOTE | 2022-10-05 07:49 | NUR ---
CARE OF PT ASSUMED AT 0700. BEDSIDE REPORT TAKEN. PT SLEEPING, MINIMALLY AROUSABLE. DOES NOT WAKE UP OR ANSWER QUESTIONS AT THIS TIME, GROANS, GRIMACES. ON 5L N/C TO KEEP SATS >90%. PT ON HEPARIN GTT AT 15UNITS, NS AT 125. RECTAL TUBE IN PLACE, DRAING LIQUID LIGHT BROWN STOOL. NG TO SUCTION, SCANT DRAINAGE. DR BLISS AT BEDSIDE, PT NOT A SURGICAL CANDIDATE. PT'S AT BEDSIDE. BP TRENDING DOWN, MAP >65, WILL NOTIFY DR LINARES.
[2022-10-05 09:49] LABS: U Benzodiazapine Screen DETECTED; U Buprenorphine Screen DETECTED; U Oxycodone Screen DETECTED
[2022-10-05 09:50] LABS: U Amphetamine Screen Not Detected; U Barbituate Screen Not Detected; U Cannabinoids Screen Not Detected; U Cocaine Screen Not Detected; U Methadone Screen Not Detected; U Methamphetamine Screen Not Detected; U Opiates Screen Not Detected; U Phencyclidine Screen Not Detected; U Propoxyphene Screen Not Detected
[2022-10-05 11:57] LABS: PCO2 Arterial 94.6 mmHg (35-45); pH Blood Arterial 7.18 (7.35-7.45)
[2022-10-05 11:58] LABS: PO2 Arterial 79.3 mmHg (80-100)
--- NOTE | 2022-10-05 12:53 | NUR ---
BLOCK NOTE: DR LINARES UPDATED @ 1145-ADDITONAL DOSE OF NARCAN 0.4 MG IV GIVEN. PT APPEARS SLIGHTLY MORE AWAKE, BUT WOB INCREASED AND PT IN RESPIRATORY DISTRESS. DR. ALMAGUER CONSULTED AND SUMMONED TO BEDSIDE @ 1200. 1210- NS 1LITER BOLUS INITIATED. 1213- PREP FOR RSI. PT MED WITH VERSED 4 MG IVP X 1. 1214-PT MED WITH PROPOFOL 80 MG IVP X 1. 1216-PROPOFOL 20 MCG IVP X 1. 1218- 8.0 ETT PLACED/25 @ GUMS. 1221-MAP LESS THAN 60. LEVOPHED DRIP INITIATED @ 5 MCG/MIN. 1223-SPUTUM SENT. 1225-RT BAGGING PT HE IS DIFFICULT TO VENTILATE. LUNGS WHEEZY. 1229-ETT TO VENT:AC 14, TV 500, PEEP 10, FIO2 100%. PEAK PRESSURES 57.NGT REMOVED AND #[address] 1230-CHEST XRAY DONE. 1234-PT MED WITH ROCURONIUM 10 MG IVP X 1.
[2022-10-05 16:22] LABS: PCO2 Arterial 60.4 mmHg (35-45); PO2 Arterial 70.7 mmHg (80-100); pH Blood Arterial 7.38 (7.35-7.45)
--- NOTE | 2022-10-05 16:26 | NUR ---
VENT SETTINGS 14/500/60%/10, SATS 95%. WHEEZING IMPROVED. OGT CLAMPED AFTER LACTULOSE. DR BLISS STOPPED BY TO CHECK ON PT, PER DR BLISS HE REVIEWED CT W RADIOLOGIST AND DOES NOT FEEL THAT THIS IS A OBS, STILL NOT A SURGICAL CAND. DR BLISS GIVEN UPDATE, INCLUDING GIVING MEDS DOWN OGT, RECTAL OUTPUT INCREASED, INTUBATION. REPEAT ABG RESULTS AND NA OF [address] ALMAGUER. PT'S AT BEDSIDE AND HAS BEEN FULLY UPDATED. LEVOPHED NOW AT 8MCG TO KEEP MAP >65, PROPOFOL AT 35MCG. NIMBEX AT 0.5MCG/KG/MIN; PT IS NOT FULLY PARALYZED, BREATHING OVER VENT, TO4 4/4, BUT IS SYNCHRONIZED W VENT, PEAK PRESSURES LOWER. HEPARIN REMAINS AT 15UNITS. VERSED 1MG/HR TO ASSIST W SEDATION, BIS 40-60, HIGHER W CARE. NS AT 125/HR.
--- NOTE | 2022-10-05 21:55 | NUR ---
ASSUMPTION OF CARE/ASSESSMENT: ASSUMED CARE OF PT AT 1900; PT IS INTUBATED AND SEDATED AT THIS TIME WITH PROPOFOL GTT @ 40 MCG, VERSED GTT @ 2, AND NIMBEX GTT @ 0.5. VENT SETTINGS ARE AC/VC 14/500/10/50%. TOF AT 4/4 AND BIS 50-60. PT IS RESPONSIVE TO PAIN STIMULI. PUPILS ARE PINPOINT AND SLUGGISH. LUNG SOUNDS ARE CLEAR IN THE UPPER LOBES AND DIM IN THE MID-LOWER BASES. SPO2 96< AND RR 14-16. PT HR IN THE 80'S AND SBP 90-100'S; LEVO GTT @ 7 MCG. PT HAS AN OBT IN PLACE THAT IS ON LOW, CONTINUOUS SUCTIONING. ABD IS SEVERELY DISTENDED AND VERY FIRM; BOWEL SOUNDS ARE TYMPANIC. PT HAS NAVARERTE IN PLACE THAT IS DRAINING TO GRAVITY. PT HAS A RECTAL TUBE IN PLACE AND DRAINING TO GRAVITY WITH BROWN, LIQUID OUTPUT. PT IS VERY EDEAMATOUS ALL OVER HIS BODY; PT REMAINS AFEBRILE. HEPARIN GTT @ 17 UNITIS. WILL CONTINUE TO MONITOR.
[2022-10-06 04:04] LABS: BASOPHILS ABSOLUTE AUTO 0.05 K/mm3 (0.00-0.23); BASOPHILS PERCENT AUTO 1 % (0-2); EOSINOPHILS ABSOLUTE AUTO 0.24 K/mm3 (0.00-0.68); EOSINOPHILS PERCENT AUTO 2 % (0-6); Hematocrit 30.9 % (37.0-53.0); Hemoglobin 10.4 g/dL (13.5-17.5); IMMATURE GRAN ABSOLUTE AUTO 0.16 K/mm3 (0.00-0.10); IMMATURE GRAN PERCENT AUTO 2 % (0-1); LYMPHOCYTES ABSOLUTE AUTO 0.77 K/mm3 (0.84-5.20); LYMPHOCYTES PERCENT AUTO 7 % (21-46); MONOCYTES ABSOLUTE AUTO 1.12 K/mm3 (0.16-1.47); MONOCYTES PERCENT AUTO 10 % (4-13); Mean Corpuscular HGB 30.9 pg (26.0-34.0); Mean Corpuscular HGB Conc 33.7 g/dL (31.5-36.5); Mean Corpuscular Volume 92 fL (80-100); Mean Platelet Volume 9.5 fL (9.1-12.4); NEUTROPHILS ABSOLUTE AUTO 8.57 K/mm3 (1.96-9.15); NEUTROPHILS PERCENT AUTO 78 % (41-73); Platelet Count 268 K/mm3 (150-400); RDW Coefficient Variation 13.4 % (11.7-14.2); RDW Standard Deviation 45.1 fL (35.1-46.3); Red Blood Cell Count 3.37 M/mm3 (4.30-5.90); White Blood Cell Count 10.91 K/mm3 (4.00-11.30)
[2022-10-06 04:31] LABS: Albumin/Globulin Ratio 0.7 (0.8-1.8); Bilirubin, Total 0.8 mg/dL (0.1-1.0); Bun/Creatinine Ratio 4.9 (12.0-20.0); Creatinine, Blood 0.61 mg/dL (0.60-1.20); Globulin, Blood 2.9 g/dL (2.2-4.0); Magnesium, Blood 1.9 mg/dL (1.6-2.4); Phosphorus, Blood 1.6 mg/dL (2.5-4.9); Potassium, Blood 3.3 mmol/L (3.5-5.5); Total Protein, Blood 4.9 g/dL (6.4-8.2)
--- NOTE | 2022-10-06 06:44 | NUR ---
SHIFT SUMMARY: PT REMAINS INTUBATED AND SEDATED WITH PROPOFOL GTT @ 35 MCG, VERSED GTT @ 1, AND VENT SETTINGS AC/VC 14/500/10/50%. LUNG SOUNDS ARE CLEAR WITH DIM BASES, SPO2 98%. HR IN THE 80'S, SBP 100-110, AND FRUIT INSPECTOR IN PLACE. PT HAD 2800 ML OUTPUT FROM NAVARRETE AND 200 ML OUTPUT FROM RECTAL TUBE. [facility] BATH COMPLETED THIS SHIFT. PT HAD LOW POTASSIUM AND PHOSPHATE, REPLACEMENT BAG STARTED THIS MORNING. WILL CONTINUE TO MONITOR UNTIL ONCOMING RN ARRIVES.
--- NOTE | 2022-10-06 19:22 | NUR ---
END OF SHIFT SUMMARY NEURO: SEDATED, PROPOFOL AND VERSED INFUSING. NIMBEX D/C'D. CARDIAC: SINUS RHYTHM, BP SUPPORTED BY LEVOPHED, TITRATED LEVO DOWN FROM 8 TO 3. RESP: REMAINS INTUBATED, VENT SETTINGS UNCHANGED. GI: OGT, D/C'D LWS, STARTED TUBE FEEDING AT 25ML/HR WITH GOAL OF 45ML/HR. : NAVARRETE TO GRAVITY, URINE OUTPUT > 2LITERS. SKIN: UNCHANGED, NO NEW SKIN ISSUES OBSERVED. IV: PICC TO LEFT UPPER ARM, DRESSING CHANGED. PIV TO RIGHT WRIST, IVPB INFUSING. PT'S AT BEDSIDE THIS AM, UPDATED ON POC. PER DR. ALMAGUER, PT WILL STAY INTUBATED FOR THE NEXT SEVERAL DAYS DUE TO HIGH POTENTIAL FOR ETOH W/D.
[2022-10-07 04:10] LABS: BASOPHILS ABSOLUTE AUTO 0.03 K/mm3 (0.00-0.23); BASOPHILS PERCENT AUTO 0 % (0-2); EOSINOPHILS ABSOLUTE AUTO 0.18 K/mm3 (0.00-0.68); EOSINOPHILS PERCENT AUTO 2 % (0-6); Hemoglobin 9.5 g/dL (13.5-17.5); IMMATURE GRAN PERCENT AUTO 1 % (0-1); LYMPHOCYTES ABSOLUTE AUTO 0.64 K/mm3 (0.84-5.20); LYMPHOCYTES PERCENT AUTO 9 % (21-46); MONOCYTES PERCENT AUTO 11 % (4-13); Mean Corpuscular HGB 30.5 pg (26.0-34.0); Mean Corpuscular HGB Conc 32.8 g/dL (31.5-36.5); Mean Corpuscular Volume 93 fL (80-100); Mean Platelet Volume 9.1 fL (9.1-12.4); NEUTROPHILS PERCENT AUTO 77 % (41-73); NRBC ABSOLUTE 0.02 K/mm3 (0.00-0.02); NRBC Auto 0.3 /100 WBC (0.0-0.2); Platelet Count 204 K/mm3 (150-400); RDW Coefficient Variation 14.2 % (11.7-14.2); RDW Standard Deviation 47.9 fL (35.1-46.3); Red Blood Cell Count 3.11 M/mm3 (4.30-5.90); White Blood Cell Count 7.45 K/mm3 (4.00-11.30)
[2022-10-07 04:38] LABS: Albumin, Blood 2.6 g/dL (3.4-5.0); Anion Gap 8 mmol/L (6-16); Blood Urea Nitrogen 3 mg/dL (8-24); Bun/Creatinine Ratio 4.7 (12.0-20.0); CO2, Blood 31 mmol/L (21-32); Calcium, Blood 7.9 mg/dL (8.5-10.1); Chloride, Blood 97 mmol/L (98-108); Creatinine, Blood 0.64 mg/dL (0.60-1.20); Glomerular Filtration Rate 110 (60-); Glucose, Blood 106 mg/dL (70-99); Phosphorus, Blood 2.5 mg/dL (2.5-4.9); Potassium, Blood 2.7 mmol/L (3.5-5.5); Sodium, Blood 136 mmol/L (136-145)
--- NOTE | 2022-10-07 06:17 | NUR ---
SHIFT SUMMERY PT CONTINUES TO BE INTUBATED VIA ETT. OXYGEN SAT >90% THROUGHOUT THE SHIFT. LEVOPHED WAS TITRATED OFF AND PT IS MAINTAINING BP W/MAP>65. PROPOFOL AND VERSED ARE INFUSING FOR SEDATION. PT HAD 1200CC OUT OF HIS RECTAL TUBE. ABDOMEN CONTINUES TO BE VERY DISTENDED AND FIRM. TUBE FEEDINGS WERE STARTED YESTERDAY, PT IS NOW AT GOAL TOLERATING WELL W/NO RESIDUALS. PT HAD NO EPISODES OF ACUTE DISTRESS OVERNIGHT. SPOKE W/HIS AT THE BEGINNING OF THE SHIFT AND UPDATED HER ON PT STATUS, SHE VOICED APPRECIATION FOR CARE GIVEN.
--- NOTE | 2022-10-07 07:15 | NUR ---
ASSUMED CARE OF PT AT 0715 BEDSIDE REPORT RECIEVED FROM VANITA LOUIE. PT IS INTUBATED AND SEDATED. PROPOFOL AND VERSED INFUSING. SOFT WRIST RESTRAINTS TO BILAT WRISTS. SINUS RHYTHM, NO VASOPRESSORS INFUSING, BP WNL. VENT SETTINGS UNCHANGED, SPO2 98%. OGT WITH VHP INFUSING AT 45ML/HR (GOAL). PT TOLERATING WELL, ABD CONTINUES TO BE DISTENDED AND FIRM BUT UNCHANGED. RECTAL TUBE IN PLACE DRAINING LIQUID JENSEN STOOL. NAVARRETE TO GRAVITY DRAINING YELLOW URINE. SKIN UNCHANGED WITH NO NEW BREAKDOWN NOTED. POTASSIUM PHOS REPLACEMENT INFUSING. RN TO CONTINUE TO MONITOR.
[2022-10-07 13:50] LABS: Magnesium, Blood 1.7 mg/dL (1.6-2.4); Phosphorus, Blood 3.3 mg/dL (2.5-4.9); Potassium, Blood 2.9 mmol/L (3.5-5.5)
--- NOTE | 2022-10-07 18:48 | NUR ---
END OF SHIFT SUMMARY NEURO: SEDATED, VERSED DRIP D/C'D. PROPOFOL TITRATED DOWN ABLE. CARDIAC: SR, BP WNL, NO VASOPRESSOR SUPPORT RESP: VENT SETTINGS CHANGED FOLLOWS: PEEP DECREASED TO 5 FROM 10. FIO2 TITRATED DOWN TOLERATED GI: TF RATE DECREASED TO 25ML/HR DUE TO PROPOFOL INFUSION. : MICHAEL NAVARRETE 700. SKIN: UNCHANGED. IV: PICC TO LEFT UPPER ARM, INFUSING. NO FAMILY AT BEDSIDE.
--- NOTE | 2022-10-07 19:15 | NUR ---
ASSUMED CARE OF PT FROM CHELSEY RN @1900. PT SEDATED AND INTUBATED. AC VC 14/500/5/40%. ETT 8.0 25@TEETH. PROPOFOL 35MCG/KG/MIN. RR 16, SPO2 >92%. HR 80'S. PICC BENIGNO PATENT AND INFUSING KCL/TKO 10MLS/HR. NAVARRETE CATH DRAINING TO GRAVITY. RECTAL TUBE DRAINING LIQUID BROWN STOOLS TO GRAVITY.
--- NOTE | 2022-10-08 02:15 | NUR ---
BELONGINGS UPDATE: PT'S WED[place] RING REMOVED DT INCREASE SWELLING IN EXTREMETIES. SILVER CROSS NECKLACE REMOVED. BOTH ITEMS PUT IN SPECIMEN CUP AND INTO BELONGINGS BAG.
[2022-10-08 03:51] LABS: BASOPHILS ABSOLUTE AUTO 0.04 K/mm3 (0.00-0.23); BASOPHILS PERCENT AUTO 0 % (0-2); EOSINOPHILS ABSOLUTE AUTO 0.23 K/mm3 (0.00-0.68); EOSINOPHILS PERCENT AUTO 2 % (0-6); Hematocrit 30.5 % (37.0-53.0); Hemoglobin 9.9 g/dL (13.5-17.5); IMMATURE GRAN ABSOLUTE AUTO 0.18 K/mm3 (0.00-0.10); IMMATURE GRAN PERCENT AUTO 2 % (0-1); LYMPHOCYTES ABSOLUTE AUTO 0.64 K/mm3 (0.84-5.20); LYMPHOCYTES PERCENT AUTO 7 % (21-46); MONOCYTES PERCENT AUTO 11 % (4-13); Mean Corpuscular HGB 30.3 pg (26.0-34.0); Mean Corpuscular HGB Conc 32.5 g/dL (31.5-36.5); Mean Corpuscular Volume 93 fL (80-100); Mean Platelet Volume 9.3 fL (9.1-12.4); NEUTROPHILS PERCENT AUTO 78 % (41-73); NRBC ABSOLUTE 0.02 K/mm3 (0.00-0.02); NRBC Auto 0.2 /100 WBC (0.0-0.2); Platelet Count 230 K/mm3 (150-400); RDW Coefficient Variation 14.6 % (11.7-14.2); Red Blood Cell Count 3.27 M/mm3 (4.30-5.90); White Blood Cell Count 9.89 K/mm3 (4.00-11.30)
[2022-10-08 04:14] LABS: Albumin, Blood 2.2 g/dL (3.4-5.0); Anion Gap 6 mmol/L (6-16); Blood Urea Nitrogen 4 mg/dL (8-24); Bun/Creatinine Ratio 6.7 (12.0-20.0); CO2, Blood 32 mmol/L (21-32); Calcium, Blood 7.9 mg/dL (8.5-10.1); Chloride, Blood 99 mmol/L (98-108); Glomerular Filtration Rate 113 (60-); Glucose, Blood 121 mg/dL (70-99); Magnesium, Blood 1.9 mg/dL (1.6-2.4); Phosphorus, Blood 2.7 mg/dL (2.5-4.9); Potassium, Blood 2.9 mmol/L (3.5-5.5); Sodium, Blood 137 mmol/L (136-145)
--- NOTE | 2022-10-08 06:00 | NUR ---
UPDATE: PT TURN/REPOSITION TO RIGHT SIDE @0600 PT HR INTO 160-170'S. PICC NOTED TO BE EXPOSED 2CM INSTEAD OF 3CM. DR. MATAMOROS NOTIFIED OF TACHYCARDIA, METOPROLOL ORDERED AND GIVEN. PICC DRESSING RECHANGED AND LINE PULLED OUT 1CM. PT RETURNED TO LEFT SIDE. CONVERTING TO SR AND BACK TO ST/AFIB. PT IN SR 90'S.
--- NOTE | 2022-10-08 06:44 | NUR ---
SUMMARY: NEURO/PSYCH/MOBILITY: PT SEDATED ON PROPOFOL. TITRATED DOWN TO 20MCG/KG/MIN. PT CONTINUED WITH UPPER EXTREMETIES TREMORS WHEN STIMULATED W/Q2 REPOSITIONING AND TURNS. TREMORS BECAME MORE PRONOUNCED DURING 0600 REPOSITIONING WITH EYES ROLLING UPWARD AND TO THE RIGHT. PT DOES NOT RESPOND PURPOSFULLY TO VERBAL OR NOXIOUS STIMULI. ATIVAN GIVEN PRN THAT SEEMED TO HELP CALM PT TREMORS AND IMPROVED VENTILATOR COMPLIANCE. PUPILS REMAIN EQUAL AND RESPONSIVE TO LIGHT. MAX ASSIST FOR ALL ADL'S. BSWR IN PLACE. RESP: AC VC 14/500/5/35%. RR 14-18, SPO2 >92%. LUNG SOUNDS CLEAR/DIM THROUGHOUT. MINIMAL ORAL/ETT SECRETIONS. CARDIAC: PT IN SR 80-90'S THROUGHOUT MOST OF THE NIGHT. DURING O400 BLOOD DRAW FROM PICC LINE PT HAD A 3-5 SECOND RUN OF TACHYCARDIA. CONVERTED TO SR. DURING 0600 REPOSITIONING PT WAS TURNED TO RIGHT SIDE AND HAD EXTREME TACHYCARDIA IN 160-170'S. POSSIBLY AFIB/FLUTTER RHYTHM. DR MATAMOROS NOTIFIED AND METOPROLOL PUSH GIVEN AND PATIENT REPOSITIONED BACK TO LEFT SIDE. CONVERTED IN AND OUT OF SR TO ST FOR 10-15 MINUTES. SR IN THE 90'S, BP HAS BEEN STABLE. GI: OG TF @GOAL RATE. HYPOACTIVE BOWEL SOUNDS. ABDOMEN REMAINS DISTENDED AND FIRM. RECTAL TUBE DRAINING TO GRAVITY. 1500MLS OF LIQUID BROWN STOOLS OUTPUT THIS SHIFT. : NAVARRETE CATH PATENT AND DRAINING TO GRAVITY. SKIN: ASSESSMENT REMAINS UNCHANGED. MEPILEX ON COCCYX AND HEELS. IV ACCESS: PICC LINE REDRESSED. INFUSING.
--- NOTE | 2022-10-08 09:23 | NUR ---
[place] of Care: Care assumed at 0700hr. Patient intubated and sedated with propofol gtt at 20mcg/kg/min. Patient attempts to open eyes to verbal stimuli and facial grimace to noxious stimuli, otherwise not following any commands. Withdraws all extremities to painful stimuli. Pupils equal and reactive to light. VSS, tolerating vent without difficulty. Leary cath patent and intact, draining clear yellow urine. PICC line to BENIGNO patent and intact. At approx 0800hr, patient noted to be tremulous throughout body, continued to open attempt to open eyes to verbal stimuli. PRN Ativan given with good effect. Instructed by Dr. Roe to advance OG tube 10cm per morning chest x-ray. Will continue to monitor.
[2022-10-08 16:23] LABS: Magnesium, Blood 1.4 mg/dL (1.6-2.4)
--- NOTE | 2022-10-08 18:44 | NUR ---
Shift Summary: No significant changes throughout shift. VS remain stable, tolerating vent without difficulty. Patient occasional tremors noted, concerning for ETOH withdrawal. reports well over 12 beers daily. PRN Ativan given x3 this shift with good effect noted. Propofol gtt remains at 20mcg/kg/min, sedation vacation held per Dr. Roe r/t active ETOH withdrawal. No change in neuro status, patient continues to withdrawal to painful stimuli, attempt to open eyes to verbal stimuli. PICC line to BENIGNO remains patent and intact. Leary cath remains patent and intact, draining clear yellow urine. Repeat K+ level of 3.0 this afternoon. Received orders from Dr. Roe for 60meq KCl IV. Appears calm and comfortable at this time. Will continue to monitor until report to NOC shift RN.
[2022-10-09 03:29] LABS: BASOPHILS ABSOLUTE AUTO 0.06 K/mm3 (0.00-0.23); BASOPHILS PERCENT AUTO 1 % (0-2); EOSINOPHILS ABSOLUTE AUTO 0.34 K/mm3 (0.00-0.68); EOSINOPHILS PERCENT AUTO 3 % (0-6); Hemoglobin 10.3 g/dL (13.5-17.5); IMMATURE GRAN ABSOLUTE AUTO 0.24 K/mm3 (0.00-0.10); IMMATURE GRAN PERCENT AUTO 2 % (0-1); LYMPHOCYTES ABSOLUTE AUTO 0.73 K/mm3 (0.84-5.20); LYMPHOCYTES PERCENT AUTO 7 % (21-46); MONOCYTES ABSOLUTE AUTO 1.39 K/mm3 (0.16-1.47); MONOCYTES PERCENT AUTO 13 % (4-13); Mean Corpuscular HGB 30.5 pg (26.0-34.0); Mean Corpuscular HGB Conc 32.2 g/dL (31.5-36.5); Mean Corpuscular Volume 95 fL (80-100); Mean Platelet Volume 9.3 fL (9.1-12.4); NEUTROPHILS ABSOLUTE AUTO 8.07 K/mm3 (1.96-9.15); NEUTROPHILS PERCENT AUTO 75 % (41-73); Platelet Count 250 K/mm3 (150-400); RDW Coefficient Variation 14.7 % (11.7-14.2); RDW Standard Deviation 51.3 fL (35.1-46.3); Red Blood Cell Count 3.38 M/mm3 (4.30-5.90); White Blood Cell Count 10.83 K/mm3 (4.00-11.30)
[2022-10-09 03:58] LABS: Albumin, Blood 2.2 g/dL (3.4-5.0); Anion Gap 7 mmol/L (6-16); Blood Urea Nitrogen 7 mg/dL (8-24); Bun/Creatinine Ratio 11.2 (12.0-20.0); CO2, Blood 35 mmol/L (21-32); Calcium, Blood 8.7 mg/dL (8.5-10.1); Chloride, Blood 96 mmol/L (98-108); Creatinine, Blood 0.63 mg/dL (0.60-1.20); Glomerular Filtration Rate 111 (60-); Glucose, Blood 137 mg/dL (70-99); Phosphorus, Blood 3.3 mg/dL (2.5-4.9); Potassium, Blood 3.3 mmol/L (3.5-5.5); Sodium, Blood 138 mmol/L (136-145)
--- NOTE | 2022-10-09 06:45 | NUR ---
END OF SHIFT SUMMARY NEURO: SEDATED W/PROPOFOL, PRN ATIVAN GIVEN X2 CARDIAC: SINUS RHYTHM WITH PAC'S. BP WNL. RESP: VENT SETTINGS AC/VC 14/500/8/45%. BOTH FIO2 AND PEEP TITRATED UP THIS SHIFT. LUNGS CLEAR BILATERALLY WITH DIMINISHED BASES. GI: OGT WITH VITAL HP INFUSING AT 25ML/HR (GOAL) WITH 30ML H2O FLUSH EVERY [address] PL[address] DRAINING LIQUID BROWN URINE. BAG CHANGED X1. BOWEL SOUNDS HYPERACTIVE AND TYMPANIC. : NAVARRETE TO GRAVITY DRAINING CLEAR YELLOW URINE. 1800ML OUT THIS SHIFT. SKIN: UNCHANGED. NO NEW ISSUES. IV: PICC LEFT UPPER ARM, 2 PORTS INFUSING, 1 PORT SL, WITHDRAWS BLOOD. NO FAMILY AT BEDSIDE, NO PHONE UPDATES PROVIDED THIS SHIFT.
--- NOTE | 2022-10-09 09:24 | NUR ---
ASSUMED CARE PT IS INTUBATED AND SEDATED ON 30MCG/KG/MIN OF PROPOFOL. VENT SETTINGS AT 14/500/8/35%; SPO2 >92%. MAP >65. SEDATION VACATION TODAY FOR 30 MINUTES AND PT FOLLOW COMMANDS AND NODDED HEAD APPROPRIATELY/INTERMITTANTLY TO QUESTIONS. NO TREMORS NOTED. SEDATION RESUMED D/T PULLING AT RESTRAINTS. BOWEL SOUNDS ARE HYPOACTIVE AND TYMPANIC.
--- NOTE | 2022-10-09 10:54 | NUR ---
UPDATE PT PUT ON ANOTHER SEDATION VACATION PER DR DE SANTIAGO. PT ALERT AND UNDERSTANDS THAT HE'S IN THE HOSPITAL AND REMEMBERS D/T STOMACH PAIN INITIAL COMPLAINT. ALL CONFIRMED W/ HEAD NODS. PT IS ABLE TO FOLLOW COMMANDS.
--- NOTE | 2022-10-09 12:24 | NUR ---
UPDATE PT EXTUBATED AT 1212 BY MALENA MÁRQUEZ. ON NC W/ 3L; SPO2 >92%. PT HAS FAMILY AT BEDSIDE. PT MUMBLES OCCASIONALLY, BUT IS ABLE TO COMMUNICATE AND FOLLOWS COMMANDS.
--- NOTE | 2022-10-09 18:07 | NUR ---
SHIFT SUMMARY PT IS A&O X 2-3 W/ INTERMITTANT NEED FOR REORIENTATION. EXTUBATED AT 1212 THIS SHIFT W/ NO ISSUES. PT'S ON 3L NC SPO2 >92%; MAP >65. SBP UP TO 190 TODAY, LABETALOL GIVEN AND SYSTOLIC HAS BEEN IN THE 150'S. PT SEEMS ALERT AND ORIENTED WHEN BEING ADDRESSED, BUT MUMBLES WHEN NOT BEING SPOKEN TO. SLIGHT TREMORS NOTED WHEN PERFORMING ROM. PT REPORTS NO C/O OF ABDOMINAL PAIN. FLUSHING NOTED BILATERALLY ON ABDOMEN W/ PITTING EDEMA; DR DE SANTIAGO AWARE, NO NEW ORDERS.
[2022-10-10 03:28] LABS: BASOPHILS ABSOLUTE AUTO 0.06 K/mm3 (0.00-0.23); BASOPHILS PERCENT AUTO 0 % (0-2); EOSINOPHILS ABSOLUTE AUTO 0.51 K/mm3 (0.00-0.68); EOSINOPHILS PERCENT AUTO 4 % (0-6); Hematocrit 31.2 % (37.0-53.0); Hemoglobin 10.1 g/dL (13.5-17.5); IMMATURE GRAN ABSOLUTE AUTO 0.14 K/mm3 (0.00-0.10); IMMATURE GRAN PERCENT AUTO 1 % (0-1); LYMPHOCYTES ABSOLUTE AUTO 0.98 K/mm3 (0.84-5.20); LYMPHOCYTES PERCENT AUTO 7 % (21-46); MONOCYTES ABSOLUTE AUTO 1.45 K/mm3 (0.16-1.47); MONOCYTES PERCENT AUTO 11 % (4-13); Mean Corpuscular HGB 30.7 pg (26.0-34.0); Mean Corpuscular HGB Conc 32.4 g/dL (31.5-36.5); Mean Corpuscular Volume 95 fL (80-100); Mean Platelet Volume 8.9 fL (9.1-12.4); NEUTROPHILS ABSOLUTE AUTO 10.73 K/mm3 (1.96-9.15); NEUTROPHILS PERCENT AUTO 77 % (41-73); Platelet Count 274 K/mm3 (150-400); RDW Coefficient Variation 14.5 % (11.7-14.2); Red Blood Cell Count 3.29 M/mm3 (4.30-5.90); White Blood Cell Count 13.87 K/mm3 (4.00-11.30)
[2022-10-10 03:43] LABS: Bun/Creatinine Ratio 13.6 (12.0-20.0); Calcium, Blood 8.6 mg/dL (8.5-10.1); Creatinine, Blood 0.59 mg/dL (0.60-1.20); Magnesium, Blood 1.5 mg/dL (1.6-2.4); Phosphorus, Blood 3.7 mg/dL (2.5-4.9); Potassium, Blood 2.7 mmol/L (3.5-5.5)
--- NOTE | 2022-10-10 06:42 | NUR ---
END OF SHIFT SUMMARY NEURO/MUSCULOSKELETAL: PT A&OX3. CONFUSED. INTERMITTENT HALLUCINATIONS OVERNIGHT. FOLLOWS COMMANDS. GENERALIZED WEAKNESS. BUE AND BLE CAN OVERCOME GRAVITY. GROSS SENSATION INTACT. PUPILS PERRLA. RESPIRATORY: INCREASED O2 DEMANDS OVERNIGHT. 8L HFNC. SATTING 100%. TACHYPNEIC. BREATH SOUNDS CLEAR IN BUL AND COARSE/DIM IN BLL. PT DENIES SOB/DYSPNEA. CARDIAC: NSR-ST. TWO RUNS OF AFIB RVR. PT CONVERTED BACK BOTH TIMES BEFORE NURSE COULD GET LOPRESSOR. COUGHING PRECEDED BOTH RUNS. SBP 140s-170s. PRN LABETALOL AND HYDRALAZINE TO MANAGE PT DENIES CHEST PAIN. GI/: RECTAL TUBE IN PLACE. PUTTING OUT YELLOW/JENSEN LIQUID. NAVARRETE NOTED. PUTTING OUT ADEQUATE AMOUNTS OF HAZY CHELSEY URINE. INTEGUMENTARY: BLE SCABS. COCCYX CLEAR.
--- NOTE | 2022-10-10 07:16 | NUR ---
AM NOTE... ASSUMED CARE OF PT AT 0700, THE PT IS A&Ox3 WITH MOMENTS OF CONFUSION, WHEN ASKED IF THE PT KNEW WHERE HE WAS AT HE SAID "YES, [place] OR." WHEN ASKED WHERE IS [place] HE WAS ASK HE STATED "[place]." THE PT IS CURRENTLY FOLLOWING COMMANDS AND IS COOPERATIVE AND PLEASENT WITH CARE. HE IS IN SR IN THE 90'S BP IS STABLE. HE HAS 1+ EDEMA NOTED TO HIS BLE, DEPENDENT EDEMA NOTED TO HIS BUE AND ABD/FLANK AREA. HE CURRENTLY DENIES ANY PAIN. THE PT WAS ON 8L NC AT THE START OF THIS SHIFT WITH O2 SATS AT 100% THIS WAS TITRATED DOWN TO 6L WITH O2 SATS>95%. L/S CLEAR IN THE UPPER/MID LOBES AND COARSE/DIM IN THE LOWER RR IN THE 20'S. BT PRESENT AND HYPOACTIVE, ABD HAS MODERATE DISTENTION BUT IS SOFT AND NONTENDER TO PALPATION. RECTAL TUBE IS IN PLACE WITH A LARGE AMOUNT OF GAS PRESENT IN THE TUBING AND BAG. STOOL IS LIQUID YELLOW/BROWN. NAVARRETE IS PRESENT AND DRAINING CHELSEY URINE TO GRAVITY. CALL LIGHT IN REACH WILL CONTINUE TO MONITOR.
--- NOTE | 2022-10-10 12:20 | NUR ---
PT UPDATE... AT APROX 0830 THE PT STARTED TO HAVE RUNS OF AFIB W/RVR WITH RATES INTO THE 170'S-180'S. THE PT WAS NOT SYMPTOMATIC WITH THESE SHORT RUNS AND BP WAS STABLE. DR. EDMONDS AND DR. LINARES WERE NOTIFIED. THE PT WAS GIVEN 5MG IV METOPROLOL WHICH STOPPED THE AFIB RVR RUNS FOR APROX 2 HRS THEN THEY STARTED AGAIN. THE PT WAS GIVEN 25MG CARDIZEM IV PUSH AND RESTARTED HIS HOME DOSE OF PO CARDIZEM. AT APROX 1130 THE PT STARTED TO GET VERY AGITATED AND HALLUCINATING THAT HIS WAS HERE AND THAT HE HAD "SIGNED THE PAPERS TO GO HOME." THE PT WAS REORIENTED A FEW TIMES BUT HE STARTED TO ESCALATE TO PULLING HIS GOWN, LINES AND SHEETS OFF. HE WAS MEDICATED WITH 2MG IV ATIVAN WHICH WORKED WELL. WILL DEVANTEUE TO MONITOR.
[2022-10-10 12:26] LABS: Albumin, Blood 2.6 g/dL (3.4-5.0); Albumin/Globulin Ratio 0.7 (0.8-1.8); Bilirubin, Total 1.5 mg/dL (0.1-1.0); Bun/Creatinine Ratio 10.6 (12.0-20.0); Calcium, Blood 8.7 mg/dL (8.5-10.1); Creatinine, Blood 0.57 mg/dL (0.60-1.20); Globulin, Blood 3.7 g/dL (2.2-4.0); Potassium, Blood 2.7 mmol/L (3.5-5.5); Total Protein, Blood 6.3 g/dL (6.4-8.2)
--- NOTE | 2022-10-10 17:28 | NUR ---
SHIFT SUMMARY.... NO ACUTE NEGATIVE CHANGES NOTED SINCE PREVIOUS UPDATE. THE PT HAS BEEN ABLE TO TOLERATE MEDS CRUSHED IN APPLE SAUCE AND WATER WITH SMALL SIPS FROM A STRAW SITTING UP AT 90 DEGREES AND WIDE AWAKE. THE PT HAS BEEN CONFUSED AND AGITATED OFF AND ON T/O THIS SHIFT, HE WAS MEDICATED PER EMAR WITH 2MG IV ATIVAN WHICH WORKED WELL. THE PT WAS RESTARTED ON SOME OF HIS HOME MEDS FOR HIS AFIB AND HYPERTENSION. HE WAS UP IN THE CHAIR VIA LIFT FOR APROX 4 HOURS THIS SHIFT AND WORKED WITH PT/OT. THE PT'S RECTAL TUBE IS WORKING WELL AND DRAINED 900MLS OF LIQUID YELLOW/BROWN STOOL TO GRAVITY, THE BAG WAS CHANGED AT 1715. THE PT'S NAVARRETE IS PATENT AND DRAINING CHELSEY URINE TO GRAVITY. CALL LIGHT IN REACH WILL CONTINUE TO MONITOR UNTIL REPORT IS GIVEN TO ONCOMING RN.
[2022-10-10 22:32] LABS: Albumin, Blood 2.6 g/dL (3.4-5.0); Albumin/Globulin Ratio 0.7 (0.8-1.8); Bilirubin, Total 1.4 mg/dL (0.1-1.0); Bun/Creatinine Ratio 14.7 (12.0-20.0); Calcium, Blood 8.8 mg/dL (8.5-10.1); Creatinine, Blood 0.54 mg/dL (0.60-1.20); Globulin, Blood 3.9 g/dL (2.2-4.0); Potassium, Blood 2.8 mmol/L (3.5-5.5); Total Protein, Blood 6.5 g/dL (6.4-8.2)
[2022-10-11 03:32] LABS: BASOPHILS ABSOLUTE AUTO 0.08 K/mm3 (0.00-0.23); BASOPHILS PERCENT AUTO 0 % (0-2); EOSINOPHILS ABSOLUTE AUTO 0.16 K/mm3 (0.00-0.68); EOSINOPHILS PERCENT AUTO 1 % (0-6); Hematocrit 34.6 % (37.0-53.0); Hemoglobin 10.7 g/dL (13.5-17.5); IMMATURE GRAN ABSOLUTE AUTO 0.16 K/mm3 (0.00-0.10); IMMATURE GRAN PERCENT AUTO 1 % (0-1); LYMPHOCYTES ABSOLUTE AUTO 1.01 K/mm3 (0.84-5.20); LYMPHOCYTES PERCENT AUTO 5 % (21-46); MONOCYTES PERCENT AUTO 10 % (4-13); Mean Corpuscular HGB Conc 30.9 g/dL (31.5-36.5); Mean Corpuscular Volume 97 fL (80-100); NEUTROPHILS ABSOLUTE AUTO 15.64 K/mm3 (1.96-9.15); NEUTROPHILS PERCENT AUTO 83 % (41-73); Platelet Count 315 K/mm3 (150-400); RDW Standard Deviation 49.8 fL (35.1-46.3); Red Blood Cell Count 3.57 M/mm3 (4.30-5.90); White Blood Cell Count 18.95 K/mm3 (4.00-11.30)
[2022-10-11 03:49] LABS: Albumin, Blood 2.6 g/dL (3.4-5.0); Albumin/Globulin Ratio 0.7 (0.8-1.8); Bilirubin, Total 1.3 mg/dL (0.1-1.0); Bun/Creatinine Ratio 15.1 (12.0-20.0); Calcium, Blood 9.1 mg/dL (8.5-10.1); Creatinine, Blood 0.53 mg/dL (0.60-1.20); Globulin, Blood 3.8 g/dL (2.2-4.0); Phosphorus, Blood 2.9 mg/dL (2.5-4.9); Potassium, Blood 2.9 mmol/L (3.5-5.5); Total Protein, Blood 6.4 g/dL (6.4-8.2)
--- NOTE | 2022-10-11 06:38 | NUR ---
END OF SHIFT SUMMARY NEURO/MUSCULOSKELETAL: PT A&OX3. CONFUSED. INTERMITTENT HALLUCINATIONS OVERNIGHT. FOLLOWS COMMANDS. GENERALIZED WEAKNESS. BUE AND BLE CAN OVERCOME GRAVITY. GROSS SENSATION INTACT. PUPILS PERRLA. RESPIRATORY: 4 L HFNC. TACHYPNEIC AND DYSPNEA WITH EXERTION. BREATH SOUNDS CLEAR IN BUL AND COARSE/DIM IN BLL. CARDIAC: NSR-ST. HR 90s-100s. SBP 130s-150s. MAPS >65. PT DENIES CHEST PAIN. GI/: PT ABLE TO TAKE ORAL MEDS WITH PUDDING OR APPLE SAUCE. RECOMMEND THICKENED LIQUIDS. PATIENT LACKS SELF CONTROL WHEN DRINKING FULL LIQUIDS. HYPERACTIVE BOWEL TONES. RECTAL TUBE IN PLACE. PUTTING OUT YELLOW/JENSEN LIQUID. NAVARRETE NOTED. PUTTING OUT ADEQUATE AMOUNTS OF HAZY CHELSEY URINE. INTEGUMENTARY: BLE SCABS. COCCYX CLEAR.
--- NOTE | 2022-10-11 08:51 | NUR ---
AM NOTE.... ASSUMED CARE OF PT AT 0700 THE PT IS A&Ox3 WITH OFF AND ON CONFUSION WHEN ASKED WHAT YEAR IT WAS HE SAID "1995" BUT WHEN ASKED WHERE HE WAS AT HE STATED [place]. HE IS ABLE TO REMEMBER SOME PARTS OF CONVERSTAIONS HE HAD WITH HIS YESTERDAY, ESPECIALLY THAT SHE WOULD HAVE TO GO TO WORK TODAY. THE PT'S VS STABLE AT THIS TIME, HE IS IN SINUS TACH IN THE LOW 100'S, BP STABLE, HE HAS 1+ EDEMA NOTED TO HIS BLE, DEPENDENT EDEMA NOTED TO HIS BUE AND ABD. HE IS ON 4L NC WITH O2 SATS >90% L/S CLEAR/DIM IN THE UPPER/MID LOBE AND DIM/COARSE IN THE LOWER LOBES. RR IS IN THE 20'S. BT PRESENT AND HYPOACTIVE, ABD IS LARGE WITH MILD-MOD DISTENTION BUT IS SOFT AND NONTENDER TO PALPATION. RECTAL TUBE IS PATENT AND DRAINING LIQUID YELLOW/BROWN STOOLS TO GRAVITY. THE PT'S NAVARRETE IS PATENT AND DRAINING TO GRAVITY. SPEECH THERAPIST AT THE BEDSIDE TO EVALUATE, PER SPEECH THE PT IS TO BE ON MECH SOFT AND ASSIST WITH MEALS. WILL CONTINUE TO MONITOR.
--- NOTE | 2022-10-11 13:20 | NUR ---
PT UPDATE.... PT WAS UP IN THE CHAIR FOR SEVERAL HOURS, THE PT WORKED WITH PT/OT/ST. THE PT'S RECTAL TUBE PUT OUT 1500MLS OF ALMOST CLEAR BROWN STOOL. PT'S STATUS WAS CHANGED TO PCU PER DR. EDMONDS. WILL CONTINUE TO MONITOR.
[2022-10-11 14:30] LABS: Bun/Creatinine Ratio 23.6 (12.0-20.0); Calcium, Blood 9.1 mg/dL (8.5-10.1); Creatinine, Blood 0.55 mg/dL (0.60-1.20); Potassium, Blood 3.5 mmol/L (3.5-5.5)
--- NOTE | 2022-10-11 16:23 | NUR ---
PT TRANSFER.... PT WAS TRASFERED TO PCU 10, REPORT GIVEN TO STRAIGHT CUTTER. ALL OF THE PT'S PERSONAL BELONGINGS WERE PACKED AND HIS MABEL TOOK THEM HOME. THE PT'S VS STABLE AT THE TIME OF THE PT'S TRANSFER.
--- NOTE | 2022-10-11 17:42 | NUR ---
ASSUMPTION OF CARE/SHIFT SUMMARY NOTE PT ARRIVED TO PCU FROM ICU8 AT APPROX 1620. HE WAS ALERT AND ORIENTED X 3 AND HAS BEEN ABLE TO MAKE HIS NEEDS KNOWN. HE IS ON 4L NC AND SPO2 >93%. PER TELE MONITORING, HR IS 100-111, BP STABLE. HE REPORTED DISCOMFORT IN RECTUM RELATED TO RECTAL TUBE, RECTAL TUBE IS IN PLACE AND DRAINING LIQUID OUTPUT TO GRAVITY. NAVARRETE CATHETER IS IN PLACE AND DRAINING CHELSEY COLORED OUTPUT. NON-PRODUCTIVE COUGH NOTED. PT IS NOW SITTING UPRIGHT 90 DEGREES EATING DINNER AND WATCHING TV. WILL CONTINUE TO MONITOR UNTIL REPORT GIVEN. CALL LIGHT IS IN REACH.
[2022-10-11 22:38] LABS: Source, Urine Foley catheter
[2022-10-11 22:41] LABS: Bilirubin, Urine Neg (Neg); Blood, Urine 2+ (Neg); Glucose Qualitative, Urine Neg (Neg); Ketones, Urine Neg (Neg); Leukocyte Esterase, Urine 3+ (Neg); Nitrite, Urine Pos (Neg); Protein, Urine 1+ (Neg); Urobilinogen, Urine NORM (Normal)
[2022-10-11 22:57] LABS: Appearance, Urine Clear (Clear); Color, Urine Yellow (P-Yellow)
[2022-10-11 23:01] LABS: Bacteria Many /hpf; Squamous Epithelial Cells Rare /hpf (Few)
--- NOTE | 2022-10-12 01:33 | NUR ---
management services technician notified RN that patients HR up into 180's, bouncing between sinus tach and afib rvr. Metoprolol and Cardizem pushes given.
[2022-10-12 01:42] LABS: BASOPHILS ABSOLUTE AUTO 0.08 K/mm3 (0.00-0.23); BASOPHILS PERCENT AUTO 1 % (0-2); EOSINOPHILS ABSOLUTE AUTO 0.29 K/mm3 (0.00-0.68); EOSINOPHILS PERCENT AUTO 3 % (0-6); Hematocrit 32.7 % (37.0-53.0); IMMATURE GRAN ABSOLUTE AUTO 0.09 K/mm3 (0.00-0.10); IMMATURE GRAN PERCENT AUTO 1 % (0-1); LYMPHOCYTES ABSOLUTE AUTO 0.71 K/mm3 (0.84-5.20); LYMPHOCYTES PERCENT AUTO 6 % (21-46); MONOCYTES ABSOLUTE AUTO 1.14 K/mm3 (0.16-1.47); MONOCYTES PERCENT AUTO 10 % (4-13); Mean Corpuscular HGB 30.2 pg (26.0-34.0); Mean Corpuscular HGB Conc 30.6 g/dL (31.5-36.5); Mean Corpuscular Volume 99 fL (80-100); Mean Platelet Volume 9.3 fL (9.1-12.4); NEUTROPHILS ABSOLUTE AUTO 9.11 K/mm3 (1.96-9.15); NEUTROPHILS PERCENT AUTO 80 % (41-73); Platelet Count 329 K/mm3 (150-400); RDW Standard Deviation 50.6 fL (35.1-46.3); Red Blood Cell Count 3.31 M/mm3 (4.30-5.90); White Blood Cell Count 11.42 K/mm3 (4.00-11.30)
[2022-10-12 02:27] LABS: Albumin, Blood 2.5 g/dL (3.4-5.0); Albumin/Globulin Ratio 0.7 (0.8-1.8); Bilirubin, Total 0.8 mg/dL (0.1-1.0); Calcium, Blood 8.9 mg/dL (8.5-10.1); Creatinine, Blood 0.63 mg/dL (0.60-1.20); Globulin, Blood 3.8 g/dL (2.2-4.0); Magnesium, Blood 1.7 mg/dL (1.6-2.4); Phosphorus, Blood 2.4 mg/dL (2.5-4.9); Potassium, Blood 2.9 mmol/L (3.5-5.5); Total Protein, Blood 6.3 g/dL (6.4-8.2)
--- NOTE | 2022-10-12 06:28 | NUR ---
Assumed care of patient at 1900. A/O to everything but date/year. Mumbled speech. Patient does have paranoid auditory/visual hallucinations that at times causes him to become agitated. Maintains over 95% on 4L NC, LS clear on top and dim/coarse at bases. SHELBY. Weak dry cough. SR-ST 90-120 most of the shift, however did go into SVT that switched back and forth into Afib RVR and eventually back into SR-ST (see previous RN note). Not symptomatic and denies CP/pressure. SBP elevated into 160's and medicated for x2. 1+ BLE edema, 2+ in abdomen and dependent in BUE. Moderate abdominal distention, firm on palpation with hyperactive bowel tones x4. Rectal tube in place draining liquid brown stool. Leary cath draining to gravity thick/purulent pink/yellow urine, resident contacted to address this and BC, urinalysis and abx ordered. Patient had a temp high this shift of 101.3, medicated with PRN and came down to 99.3 only to return to 101.3 1.5hrs later. Cooling pad applied along with fan. Pale/scaling and warm skin. Will report to enma RN.
--- NOTE | 2022-10-12 07:45 | NUR ---
INITIAL ASSESSMENT: Patient is awake, lying in bed watching TV. He is oriented to self and location only. When asked if he is seeing anything that is not there he states, "there is a male that is making his rounds." I clarified that this may be his physician. He reports mild pain in his lower back, pt states this is chronic and he takes [place] 10s at home. Pt repositioned to his left side, he states this eases the pain a litte bit. LS DIM T/O, biox is 98% on 5L via NC, titrated down to 3l, saturations remain at 95%. HRR, ST at 114. Abd distended, slightly tender, BT +. PT has rectal tube in place, draining liquid light brown stool. He has a anne cath in place, patent and draining clear dark yellow urine, he has some pink sediment in the catheter tubing. NOC RN sent off urine sample and new ABX started. Cath care done and attends changed. PPP, pt has some scattered scratches to BLE. VSS, pts temp is 99.2. Call light in reach. Bed alarm on for safety.
--- NOTE | 2022-10-12 11:30 | NUR ---
UPDATE: Patient is lying in bed resting. VSS. Assessment unchaged. Call light in reach. Bed alarm on for safety. Family at bedside.
--- NOTE | 2022-10-12 17:38 | NUR ---
SUMMARY: Patient has been alert and oriented to self and location for the majority of the day. He was hallucinating this morning. He has been C/O lower back pain that he states is chronic, this has been eased with repositioning. Pt states he does take [place] at home, no record of this on med rec. Mipvnuaw-pi-wyr stopped by today and did say the patient does go to a local pain clinic, but was not aware of any scripts. HR ST 100-120 for the shift. Blood pressure has been on the high side, Coreg increased today to 6.125 and one dose of PRN Hydralazine given this afternoon. LS have been DIM T/O the shift, he has intermittently been wheezy T/O the shift. I was able to titrate his oxygen from 5L down to 3L via NC, saturations were in the mid 90s. BT+, ABD distended-but improved per daughter in law. Patient is getting Lactulose, rectal tube in drained 600cc liquid brown stool. Leary cath patent and draining dark yellow cloudy urine-CX were sent last night and patient was started on Rocephin. Patient was able to work with PT/OT/ST this shift. He was able to stand at the edge of the bed and take a couple of steps toward the head of the bed. He seems to have a poor attention span making following directions difficult.
--- NOTE | 2022-10-13 04:12 | NUR ---
Resident contacted regarding unresponsive BP to second 500ml bolus. Order to do a 3rd 500ml bolus.
--- NOTE | 2022-10-13 05:07 | NUR ---
Patient was able to sleep this shift, occasionally waking up and getting agitated and wanting to leave, stating "I just need to get up and walk it off" regarding his high temperature. Therapeutic communication and medicated per emar with good relief. VSS on 2L NC. Leary replaced this shift.
[2022-10-13 05:56] LABS: Hematocrit 35.3 % (37.0-53.0); Hemoglobin 10.8 g/dL (13.5-17.5); Mean Corpuscular HGB 30.9 pg (26.0-34.0); Mean Corpuscular HGB Conc 30.6 g/dL (31.5-36.5); Mean Corpuscular Volume 101 fL (80-100); Mean Platelet Volume 9.1 fL (9.1-12.4); Platelet Count 351 K/mm3 (150-400); RDW Standard Deviation 51.5 fL (35.1-46.3); White Blood Cell Count 8.51 K/mm3 (4.00-11.30)
[2022-10-13 06:16] LABS: Magnesium, Blood 1.9 mg/dL (1.6-2.4)
[2022-10-13 06:26] LABS: Albumin, Blood 2.8 g/dL (3.4-5.0); Anion Gap 4 mmol/L (6-16); Blood Urea Nitrogen 13 mg/dL (8-24); Bun/Creatinine Ratio 20.7 (12.0-20.0); CO2, Blood 39 mmol/L (21-32); Calcium, Blood 9.4 mg/dL (8.5-10.1); Chloride, Blood 99 mmol/L (98-108); Creatinine, Blood 0.63 mg/dL (0.60-1.20); Glomerular Filtration Rate 111 (60-); Glucose, Blood 128 mg/dL (70-99); Phosphorus, Blood 5.6 mg/dL (2.5-4.9); Potassium, Blood 3.4 mmol/L (3.5-5.5); Sodium, Blood 142 mmol/L (136-145)
[2022-10-13 12:29] LABS: Influenza A, PCR NEGATIVE (NEGATIVE); Influenza B, PCR NEGATIVE (NEGATIVE); Resp Syncytial Virus, PCR NEGATIVE (NEGATIVE); SARS-Cov-2 (COVID-19) PCR, MMC NEGATIVE (NEGATIVE)
--- NOTE | 2022-10-13 17:58 | NUR ---
PT SUMMARY: PT STILL RUNNING FEVERS ALL SHIFT THE LOWEST TEMP WAS 99.2 AFTER TYLENOL WAS GIVEN AND SPONGE BATH WAS PROVIDED OTHER [place]ACON TEMP WAS RANGING TO 100F-102F PT WAS PROVIDED ICEPACK ALL SHIFT WELL DOESNT SEEM TO HELP, PROVIDER AWARE. PT WAS MORE ALERT AND CONVERSIVE TODAY SOME HALLUCINATIONS THOUGHT HE HAS A BOTTLE PILL OF HYDROCODONE ON THE BEDSIDE TABLE PT WAS EASILY REDIRECTED. FAMILY CAME IN TO VISIT AND WAS GIVEN UPDATE REGARDING PT'S STATUS. VITALS HRR ST 110'S, SBP 130-150'S, SATS ABOVE 92% ON 3L OF O2. PT WORKED WITH PT/OT PT WAS ABLE TO STAND VIA WALKER AND WAS ABLE TO TAKE SIDE STEPS, PLAN TO DC PT TO SNF, COVID SWAB TEST CAME BACK NEGATIVE. PT STILL HAVING LOOSE WATERY STOOL STILL ON LACUTLOSE, RECTAL TUBE REMAINED IN PLACE. NAVARRETE DRAINING DARK YELLOW URINE VIA GRAVITY. PT DRINKING AND EATING FINE WITH MECH SOFT ASSISTED. NO OTHER ISSUES ENCOUNTERED PT ABLE TO MAKE NEEDS KNOWN CALL LIGHTS IN REACH WILL MONITOR
--- NOTE | 2022-10-13 20:50 | NUR ---
ASSUMPTION OF CARE THIS RN ASSUMED CARE OF PATIENT AT 1900. REPORT TAKEN FROM JAMIR WALDRON. PATIENT CONTINUE TO HAVE FEVER; MEDICATING PER EMAR; TEMP NAVARRETE IN PLACE. BP STABLE. SR-ST ON MONITOR WITH HR 90-100'S. PATIENT IS ALERT AND ORIENTED X3. ABLE TO MAKE NEEDS KNOWN. PATIENT IS ABLE TO REPOSITION WITH 1PER MODERATE ASSISTANCE. RECTAL TUBE IN PLACE DUE TO LIQUID STOOLS FROM LACTULOSE; RECTAL TUBE PATENT. TEMP NAVARRETE PATENT AND DRAINING TO GRAVITY. MEDICATED PER EMAR. BED IN LOWEST POSITION AND CALL LIGHT WITHIN REACH. THIS RN WILL REVIEW CHART AND CONTINUE TO MONITOR AND PROVIDE INTERVENTIONS NEEDED/ORDERED.
[2022-10-14 05:40] LABS: Albumin, Blood 2.7 g/dL (3.4-5.0); Anion Gap 2 mmol/L (6-16); Blood Urea Nitrogen 13 mg/dL (8-24); Bun/Creatinine Ratio 20.2 (12.0-20.0); CO2, Blood 38 mmol/L (21-32); Calcium, Blood 9.2 mg/dL (8.5-10.1); Chloride, Blood 96 mmol/L (98-108); Creatinine, Blood 0.64 mg/dL (0.60-1.20); Glomerular Filtration Rate 110 (60-); Glucose, Blood 139 mg/dL (70-99); Phosphorus, Blood 3.1 mg/dL (2.5-4.9); Potassium, Blood 3.2 mmol/L (3.5-5.5); Sodium, Blood 136 mmol/L (136-145)
--- NOTE | 2022-10-14 05:48 | NUR ---
SHIFT SUMMARY NO CHANGES TO NEURO SINCE PREVIOUS NOTE. PATIENT SHOWS SR-ST ON TELE WITH HR 90-100'S. BP STABLE. PATIENT CONTINUES TO HAVE A FEVER; MEDICATING PER EMAR WITH ICE PACKS AND COOLING PAD ON. TEMP CONTINUES TO BE OVER 101 THROUGHOUT MOST OF THIS SHIFT. PATIENT IS ON 3L OF O2 VIA NC WITH SPO2 >92%. DENIES CHEST PAIN/PRESSURE, SOB, OR ABD PAIN. RECTAL TUBE PATENT AND DRAINING LIQUID JENSEN STOOLS. NAVARRETE CATHETER PATENT AND DRAINING CHELSEY URINE TO GRAVITY. PATIENT REQUIRING MIN-MOD ASSISTANCE WITH REPOSITIONING DURING THIS SHIFT. ABLE TO MAKE NEEDS KNOWN. BED IN LOWEST POSITION, SIDE RAILS UP, CALL LIGHT WITHIN REACH. THIS RN WILL CONTINUE TO MONITOR UNTIL SHIFT CHANGE AT 0700.
--- NOTE | 2022-10-14 18:12 | NUR ---
SHIFT SUMMARY PT A/OX3, CONFUSED AT TIMES. PT ABLE TO ANSWER MOST ORIENTATION QUESTIONS APPROPIATELY, STATES THAT HE IS AT "[facility] [place]" THIS MORNING. PT EXPRESSED FRUSTRATION THIS EVENING DUE TO PT BELIEVING THAT HE WAS GOING TO BE GOING HOME TODAY. PT INFORMED THAT HE IS PROGRESSING AND THAT THE DOCTOR WAS CONCERNED OF HIS PRESISTENT FEVER THAT BROKE AROUND NOON. PT RECTAL TEMP WAS 100.6 THIS MORNING, PT PULLED OUT THERMOMETER. TEMPORAL AND ORAL TEMPS AFEBRILE AT NOON. PT REMAINED ON 3L NC THROUGHOUT SHIFT WITH O2 SATS >94%. OTHER VSS THROUGHOUT SHIFT. NO REPORT OF CHEST PAIN/PRESSURE THROUGHOUT SHIFT. PT SEEN BY PT/OT. PT WAS UP TO CHAIR AND BEDSIDE COMMODE, TOLERATED FAIR. RECTAL TUBE REMOVER PER DR ORDERS THIS AM. NAVARRETE IN PLACE DRAINING DRK CHELSEY URINE TO GRAVITY.
--- NOTE | 2022-10-14 23:40 | NUR ---
ASSUMPTION OF CARE THIS RN ASSUMED CARE OF PATIENT AT 1900. REPORT TAKEN FROM ANITHA WALDRON. PATIENT ALERT AND ORIENTED X3, APPEARS FORGETFUL. PATIENT CALM AND COOPERATIVE WITH CARE. BP STABLE. SR-ST WITH HR 90-100'S. AFEBRILE. SPO2 >92% ON 3L O2. PATIENT TAKING MEDS WITH APPLESAUCE AT THIS TIME. ABLE TO MAKE NEEDS KNOWN. PATIENT REPOSITIONS SELF IN BED INDEPENDENTLY. BED IN LOWEST POSITION AND CALL LIGHT WITHIN REACH. THIS RN WILL CONTINUE TO MONITOR AND PROVIDE INTERVENTIONS NEEDED/ORDERED UNTIL SHIFT CHANGE.
[2022-10-15 04:49] LABS: Hematocrit 31.8 % (37.0-53.0); Hemoglobin 9.9 g/dL (13.5-17.5); Mean Corpuscular HGB 30.5 pg (26.0-34.0); Mean Corpuscular HGB Conc 31.1 g/dL (31.5-36.5); Mean Corpuscular Volume 98 fL (80-100); Mean Platelet Volume 9.6 fL (9.1-12.4); Platelet Count 349 K/mm3 (150-400); RDW Standard Deviation 46.6 fL (35.1-46.3); Red Blood Cell Count 3.25 M/mm3 (4.30-5.90); White Blood Cell Count 8.07 K/mm3 (4.00-11.30)
[2022-10-15 05:00] LABS: Bun/Creatinine Ratio 19.4 (12.0-20.0); Calcium, Blood 9.2 mg/dL (8.5-10.1); Creatinine, Blood 0.62 mg/dL (0.60-1.20)
--- NOTE | 2022-10-15 05:45 | NUR ---
SHIFT SUMMARY NO CHANGES TO NEURO STATUS SINCE PREVIOUS NOTE. SEE ASSESSMENT. SR-ST ON THE MONITOR WITH HR 90-110'S. BP STABLE. AFEBRILE WITH TEMPORAL AND ORAL THERMOMETER. PATIENT ON 4L HFNC WITH SPO2 >92%. PATIENT STATES 4L IS HIS BASELINE. PATIENT IS ABLE TO MAKE NEEDS KNOWN AND REPOSITION SELF IN BED INDEPENENTLY. PATIENT UP TO BEDSIDE COMMODE WITH 1P ASSIST DURING THIS SHIFT. NAVARRETE CATHETER PATENT AND DRAINING CHELSEY COLORED URINE. PATIENT DENIES PAIN AND SOB. BED IN LOWEST POSITION AND CALL LIGHT WITHIN REACH. THIS RN WILL MONITOR UNTIL SHIFT CHANGE AT 0700.
[2022-10-15] MEDS ORDERED: AMOCLA875 PO (15:18)
[2022-10-15] MEDS ORDERED: LACT10SY PO (15:19)
[2022-10-15] MEDS ORDERED: MULVITA PO (15:19)
--- NOTE | 2022-10-15 16:22 | NUR ---
DISCHARGE UPDATE DISCHARGE PACKET GONE OVER WITH PT AND PT AT 1600. PT DISCHARGED AT 1620 VIA WHEELCHAIR AND ON 4L NC. PT BROUGHT HIS O2 TANK FROM HOME. PT ABLE TO TRANSFER SELF TO AND FROM WHEELCHAIR ON HIS OWN, TOLERATED FAIR. PT BELONGINGS IN BAGS ALONG WITH DISCHARGE PACKET AND WITH DURING DISCHARGE.
== END 2022-10-15 16:30 | disposition home or self-care (01) | DRG 208 ==
LOC: ER 19:30 → ICUE 10-05 01:12 → PCU 10-05 01:12 → ICUE 10-05 02:07 → PCU 10-11 16:15
PROVIDERS: Emergency Medicine; Family Medicine; Internal Medicine; Internal Medicine Critical Care Medicine; ADMIT Internal Medicine
PROC: 02HV33Z Insertion of Infusion Device into Superior Vena Cava, Percutaneous Approach (ICD-10-PCS; principal; 2022-10-05)
PROC: 3E033XZ Introduction of Vasopressor into Peripheral Vein, Percutaneous Approach (ICD-10-PCS; 2022-10-05)
PROC: 5A1945Z Respiratory Ventilation, 24-96 Consecutive Hours (ICD-10-PCS; 2022-10-05)
PROC: 0BH17EZ Insertion of Endotracheal Airway into Trachea, Via Natural or Artificial Opening (ICD-10-PCS; 2022-10-05)
PROC: 0DH67UZ Insertion of Feeding Device into Stomach, Via Natural or Artificial Opening (ICD-10-PCS; 2022-10-06)
DX: J96.01 Acute respiratory failure with hypoxia (principal); G92.8 Other toxic encephalopathy; T83.511A Infection and inflammatory reaction due to indwelling urethral catheter, initial encounter; K56.609 Unspecified intestinal obstruction, unspecified as to partial versus complete obstruction; N39.0 Urinary tract infection, site not specified; F10.239 Alcohol dependence with withdrawal, unspecified; E87.1 Hypo-osmolality and hyponatremia; I48.92 Unspecified atrial flutter; J44.1 Chronic obstructive pulmonary disease with (acute) exacerbation; K56.7 Ileus, unspecified; J96.02 Acute respiratory failure with hypercapnia; D64.9 Anemia, unspecified; I48.0 Paroxysmal atrial fibrillation; K76.0 Fatty (change of) liver, not elsewhere classified; K76.82 Hepatic encephalopathy; E88.09 Other disorders of plasma-protein metabolism, not elsewhere classified; E87.6 Hypokalemia; E86.1 Hypovolemia; E83.42 Hypomagnesemia; E78.00 Pure hypercholesterolemia, unspecified; E83.39 Other disorders of phosphorus metabolism; M54.9 Dorsalgia, unspecified; G89.29 Other chronic pain; K21.9 Gastro-esophageal reflux disease without esophagitis; B96.20 Unspecified Escherichia coli [E. coli] as the cause of diseases classified elsewhere; Y84.6 Urinary catheterization as the cause of abnormal reaction of the patient, or of later complication, without mention of misadventure at the time of the procedure; Z20.822 Contact with and (suspected) exposure to COVID-19; Z71.41 Alcohol abuse counseling and surveillance of alcoholic; Z79.51 Long term (current) use of inhaled steroids; Z79.2 Long term (current) use of antibiotics; Z79.899 Other long term (current) drug therapy; Z79.01 Long term (current) use of anticoagulants; Z79.52 Long term (current) use of systemic steroids; Z99.81 Dependence on supplemental oxygen; Z87.891 Personal history of nicotine dependence; Z98.890 Other specified postprocedural states; Z86.16 Personal history of COVID-19; Z88.8 Allergy status to other drugs, medicaments and biological substances
CPT/HCPCS: 0241U; 31500; 36415; 36569; 36600; 51702; 70450; 71045; 74177; 76700; 80048; 80053; 80069; 81001; 82140; 82330; 82803; 82947; 83690; 83735; 83880; 84100; 84132; 84295; 84443; 84484; 85025; 85027; 85610; 85730; 87040; 87070; 87077; 87086; 87106; 87186; 87205; 92526; 92610; 93005; 93010; 94002; 94003; 94640; 94644; 94664; 94760; 94762; 96374-59; 97110; 97116; 97163; 97166; 97530; 97535; 99285-25; A9270; C1751; C9113; G0480; J0360; J0610; J0696; J1644; J1650; J1940; J2060; J2250; J2310; J2405; J2704; J3411; J3475; J3480; J7030; J7050; J7060; P9047; Q9967

== ENCOUNTER 2023-01-15 13:10 | Inpatient (IN) | payer OTHER ==
[~2023-01-15] VITALS: Ht 177.8 cm; Wt 97.5 kg
[2023-01-15] VITALS (15 sets, daily range): BP systolic 85–156; BP diastolic 65–129
[~2023-01-15 13:10] MED LIST changes: +AMLODIPINE BESYL5 MG PO; +AMOCLA875 PO; +DILT180 PO; +FLUTICASONE-SA1 EAC8 INH; +LACT10SY PO; +MULVITA PO; +Ventolin/Prove6.7 GM INH
[2023-01-15 13:43] LABS: BASOPHILS ABSOLUTE AUTO 0.05 K/mm3 (0.00-0.23); BASOPHILS PERCENT AUTO 0 % (0-2); EOSINOPHILS ABSOLUTE AUTO 0.02 K/mm3 (0.00-0.68); EOSINOPHILS PERCENT AUTO 0 % (0-6); Hematocrit 36.4 % (37.0-53.0); Hemoglobin 11.4 g/dL (13.5-17.5); IMMATURE GRAN ABSOLUTE AUTO 0.13 K/mm3 (0.00-0.10); IMMATURE GRAN PERCENT AUTO 1 % (0-1); LYMPHOCYTES ABSOLUTE AUTO 1.44 K/mm3 (0.84-5.20); LYMPHOCYTES PERCENT AUTO 9 % (21-46); MONOCYTES PERCENT AUTO 9 % (4-13); Mean Corpuscular HGB 28.9 pg (26.0-34.0); Mean Corpuscular HGB Conc 31.3 g/dL (31.5-36.5); Mean Corpuscular Volume 92 fL (80-100); NEUTROPHILS ABSOLUTE AUTO 12.44 K/mm3 (1.96-9.15); NEUTROPHILS PERCENT AUTO 81 % (41-73); Platelet Count 391 K/mm3 (150-400); RDW Coefficient Variation 15.4 % (11.7-14.2); RDW Standard Deviation 52.9 fL (35.1-46.3); Red Blood Cell Count 3.94 M/mm3 (4.30-5.90); White Blood Cell Count 15.38 K/mm3 (4.00-11.30)
[2023-01-15 14:17] LABS: Albumin, Blood 2.4 g/dL (3.4-5.0); Albumin/Globulin Ratio 0.6 (0.8-1.8); Bilirubin, Total 0.7 mg/dL (0.1-1.0); Calcium, Blood 8.2 mg/dL (8.5-10.1); Creatinine, Blood 0.5 mg/dL (0.60-1.20); Potassium, Blood 4.3 mmol/L (3.5-5.5); Total Protein, Blood 6.4 g/dL (6.4-8.2)
[2023-01-15 15:12] LABS: Magnesium, Blood 1.6 mg/dL (1.6-2.4)
[2023-01-15 15:13] LABS: Thyroid Stimulating Hormone 2.26 uIU/mL (0.360-4.800)
[2023-01-15 16:52] LABS: Base Excess Venous 5.6 mmol/L; Bicarbonate Venous 27.4 mmol/L (24.0-30.0); PCO2 Venous 71.1 mmHg (38-42)
[2023-01-15 16:53] LABS: pH Blood Venous 7.27 (7.34-7.37)
[2023-01-15 16:57] LABS: International Normalized Ratio 1.21; Prothrombin Time Results 12.6 Sec (9.7-11.5)
[2023-01-15 23:05] LABS: Bicarbonate Venous 29.4 mmol/L (24.0-30.0); PCO2 Venous 58.9 mmHg (38-42); pH Blood Venous 7.35 (7.34-7.37)
[2023-01-16] VITALS (10 sets, daily range): BP systolic 113–146; BP diastolic 76–117
[2023-01-16 04:34] LABS: BASOPHILS ABSOLUTE AUTO 0.02 K/mm3 (0.00-0.23); BASOPHILS PERCENT AUTO 0 % (0-2); EOSINOPHILS ABSOLUTE AUTO 0.05 K/mm3 (0.00-0.68); EOSINOPHILS PERCENT AUTO 0 % (0-6); Hematocrit 35.9 % (37.0-53.0); Hemoglobin 11.4 g/dL (13.5-17.5); IMMATURE GRAN ABSOLUTE AUTO 0.27 K/mm3 (0.00-0.10); IMMATURE GRAN PERCENT AUTO 2 % (0-1); LYMPHOCYTES ABSOLUTE AUTO 0.78 K/mm3 (0.84-5.20); LYMPHOCYTES PERCENT AUTO 6 % (21-46); MONOCYTES ABSOLUTE AUTO 0.66 K/mm3 (0.16-1.47); MONOCYTES PERCENT AUTO 5 % (4-13); Mean Corpuscular HGB 29.2 pg (26.0-34.0); Mean Corpuscular HGB Conc 31.8 g/dL (31.5-36.5); Mean Corpuscular Volume 92 fL (80-100); Mean Platelet Volume 9.1 fL (9.1-12.4); NEUTROPHILS ABSOLUTE AUTO 10.42 K/mm3 (1.96-9.15); NEUTROPHILS PERCENT AUTO 85 % (41-73); Platelet Count 423 K/mm3 (150-400); RDW Coefficient Variation 15.6 % (11.7-14.2); RDW Standard Deviation 52.9 fL (35.1-46.3)
[2023-01-16 05:01] LABS: Albumin, Blood 2.3 g/dL (3.4-5.0); Albumin/Globulin Ratio 0.6 (0.8-1.8); Bilirubin, Total 0.7 mg/dL (0.1-1.0); Bun/Creatinine Ratio 9.8 (12.0-20.0); Calcium, Blood 8.5 mg/dL (8.5-10.1); Creatinine, Blood 0.61 mg/dL (0.60-1.20); Magnesium, Blood 1.5 mg/dL (1.6-2.4); Potassium, Blood 4.2 mmol/L (3.5-5.5); Total Protein, Blood 6.3 g/dL (6.4-8.2)
--- NOTE | 2023-01-16 06:14 | NUR ---
SHIFT SUMMARY ASSUMED CARE OF PT AT 1930. PT WAS VERY LETHARGIC BUT COULD SAY ONE WORD SENTENCES. AFTER PT WAS SITUATED, PT BECAME VERY OBTUNDED AND ONLY WOULD RESPOND TO STERNUM RUB. PT EYES PINPOINT. RESIDENT NOTIFED AND NEW VBG ORDERED. PT REMAINED ON BIPAP UNTIL AROUND 0400 THIS AM, WHEN PT AWOKE, TOTALLY A/OX4. PT STATED THAT HE COULDNT SLEEP ANYMORE AND WANTED TO WATCH TV. HEART SOUNDS IRREGULAR, PT WAS IN AFLUTTER T/O THE NIGHT WITH SOME PAUSES. PT REMAINED ON CARDIZEM GTT. ATTEMPT WAS MADE TO TAKE PT OFF DUE TO HR OF 40S, BUT PT HT WENT BACK TO 140S WITHIN THE HOUR. LUNG SOUNDS DIMINISHED AND COARSE AT BASES. PT WAS ON 4L NC WHILE AWAKE, WHICH IS BASLINE. PT USED URINAL WITH ASSIST. PT SCROTUM, ABD, AND LEGS ARE VERY EDEMADOUS. PT STATES THIS IS NOT NORMAL FOR HIM. PT HAS SOME REDNESS IN GROIN, POWDER APPLIED. PT REPORTED TO THIS NURSE THAT HE COULD NOT WALK.
--- NOTE | 2023-01-16 17:39 | NUR ---
SHIFT SUMMARY ASSUMED CARE AT 0700, LETHARGIC AND DIFFICULT TO ARROUSE. CPAP OFF EARLY IN SHIFT, ANSWERING QUESTIONS BUT SLEEPY AT TIMES. INCREASINGLY MORE SOMMULANT AND DIFFICULT TO ARROUSE T/O SHIFT. MOANS TO STERNAL RUB. DISCUSSED WITH DR. MIGUEL, LACTULOSE ORDERED. RECTAL TUBE PLACED DUE TO THIS WATERY DIARRHEA. EDEMA TO TRUNK, EVY AREA AND LEGS. MINIMAL URINE OUTPUT DURING SHIFT, 1 WET ATTENDS. ORAL CARE Q4 WITH SUCTION SWABS, WILL CONTINUE TO MONITOR AND TREAT UNTIL CHANGE OF SHIFT. PLACED ON BIPAP IN MID MORNING DUE TO INCREASED LETHERAGY, REMAINED ON FOR REST OF SHIFT.
--- NOTE | 2023-01-16 23:55 | NUR ---
Patients HR up into 160's at beginning of shift post Cardizem push. Attending called and order for Metoprolol 5mg push, which edu HR down to 140's. 2 hours later HR up to 170's. Resident contacted and order for another Metoprolol 5mg push. HR remained above 160. Resident ordered 0.25 Digoxin, HR 130-140's. BP stable.
[2023-01-17] VITALS (52 sets, daily range): BP systolic 93–180; BP diastolic 53–141
--- NOTE | 2023-01-17 03:47 | NUR ---
Digoxin only brought heart rate down for a few hours, then back up into 170's. Resident contacted and order for Amiodarone gtt.
[2023-01-17 04:08] LABS: Base Excess Venous 7.7 mmol/L; Bicarbonate Venous 31.4 mmol/L (24.0-30.0); PCO2 Venous 34.3 mmHg (38-42)
[2023-01-17 04:09] LABS: BASOPHILS ABSOLUTE AUTO 0.01 K/mm3 (0.00-0.23); BASOPHILS PERCENT AUTO 0 % (0-2); EOSINOPHILS ABSOLUTE AUTO 0.02 K/mm3 (0.00-0.68); EOSINOPHILS PERCENT AUTO 0 % (0-6); Hematocrit 37.3 % (37.0-53.0); Hemoglobin 11.3 g/dL (13.5-17.5); IMMATURE GRAN ABSOLUTE AUTO 0.11 K/mm3 (0.00-0.10); IMMATURE GRAN PERCENT AUTO 1 % (0-1); LYMPHOCYTES ABSOLUTE AUTO 0.99 K/mm3 (0.84-5.20); LYMPHOCYTES PERCENT AUTO 6 % (21-46); MONOCYTES ABSOLUTE AUTO 1.63 K/mm3 (0.16-1.47); MONOCYTES PERCENT AUTO 10 % (4-13); Mean Corpuscular HGB 29.3 pg (26.0-34.0); Mean Corpuscular HGB Conc 30.3 g/dL (31.5-36.5); Mean Platelet Volume 8.7 fL (9.1-12.4); NEUTROPHILS ABSOLUTE AUTO 13.19 K/mm3 (1.96-9.15); NEUTROPHILS PERCENT AUTO 83 % (41-73); Platelet Count 368 K/mm3 (150-400); RDW Coefficient Variation 15.5 % (11.7-14.2); RDW Standard Deviation 55.6 fL (35.1-46.3); Red Blood Cell Count 3.86 M/mm3 (4.30-5.90); White Blood Cell Count 15.95 K/mm3 (4.00-11.30)
[2023-01-17 04:09] LABS: pH Blood Venous 7.55 (7.34-7.37)
[2023-01-17 04:14] LABS: Mean Corpuscular Volume 97 fL (80-100)
[2023-01-17 04:34] LABS: Bun/Creatinine Ratio 13.5 (12.0-20.0); Calcium, Blood 8.4 mg/dL (8.5-10.1); Creatinine, Blood 0.59 mg/dL (0.60-1.20); Free Thyroxine 0.58 ng/dL (0.70-1.60); Magnesium, Blood 2.1 mg/dL (1.6-2.4); Potassium, Blood 3.7 mmol/L (3.5-5.5)
--- NOTE | 2023-01-17 04:49 | NUR ---
Critical VBG PH of 7.55. Call placed to resident who ordered break from bipap and repeat VBG in a few hours. Resident will place orders.
--- NOTE | 2023-01-17 06:29 | NUR ---
Patient very lethargic t/o night. Will respond to only strong verbal stimuli. Rectal tube draining liquid brown stool. Contacted RT regarding patient being on NC and using accessory muscles. Patient placed back on mask in CPAP mode.
[2023-01-17 07:41] LABS: Base Excess Venous 7.3 mmol/L; Bicarbonate Venous 28.6 mmol/L (24.0-30.0); PCO2 Venous 86.1 mmHg (38-42); pH Blood Venous 7.22 (7.34-7.37)
--- NOTE | 2023-01-17 09:17 | NUR ---
ICU ADMISSION: Pt arrived to ICU at 0917.
[2023-01-17 12:05] LABS: PCO2 Arterial 90.9 mmHg (35-45); pH Blood Arterial 7.25 (7.35-7.45)
[2023-01-17 12:21] LABS: Bun/Creatinine Ratio 13.9 (12.0-20.0); Calcium, Blood 8.5 mg/dL (8.5-10.1); Creatinine, Blood 0.58 mg/dL (0.60-1.20); Phosphorus, Blood 3.6 mg/dL (2.5-4.9); Potassium, Blood 3.8 mmol/L (3.5-5.5)
[2023-01-17 14:45] LABS: Source, Urine Foley catheter
[2023-01-17 15:02] LABS: Appearance, Urine Clear (Clear); Bilirubin, Urine Neg (Neg); Blood, Urine 3+ (Neg); Color, Urine Yellow (P-Yellow); Glucose Qualitative, Urine Neg (Neg); Ketones, Urine Neg (Neg); Leukocyte Esterase, Urine Neg (Neg); Nitrite, Urine Neg (Neg); Protein, Urine Neg (Neg); Specific Gravity, Urine 1.015 (1.003-1.022); Urobilinogen, Urine NORM (Normal)
[2023-01-17 15:09] LABS: Bacteria Few /hpf; Renal Epithelial Few /hpf (0-Rare); Squamous Epithelial Cells Few /hpf (Few); Transitional Epithelial Cells Few /hpf (0-Rare); White Blood Cells, Urine 0-2 /hpf (0-5)
--- NOTE | 2023-01-17 16:48 | NUR ---
Spoke with Primary RN Maryam prior to visiting Pt and discussed case. Brief supportive visit to establish rapport. Pt briefly opens his eyes then quickly closes them. Pt's spouse Debbie at bedside. Brief review of plan of care. Offered therapeutic listening as Debbie reports she and Pt has a son and a daughter. Son lives local and daughter lives out of town. Debbie report she Pt recently lost a son due to a motor cycle accident. She also reports her son lost a child not to far in the past. Offered condolences and continued supportive visit. Wished spouse Debbie a Happy Anniversary as she confirms she and Pt have been for 40 years today. Nicholas reports needing to head home as she gets up early in the morning for work. Palliative Care will remain available
--- NOTE | 2023-01-17 18:48 | NUR ---
SHIFT SUMMARY: pt more alert as the day progressed; oriented to self, family, and location. He was able to talk to his daughter over the phone this afternoon. RN updated pt's brother and daughter as well. Pt has requested to "go home" or "go outside to smoke" several times. Family meeting scheduled for [address] Neff was informed of this. NSR on monitor; BPs stable. Leary catheter in place draining to gravity. Pt took pills crushed in apple sauce after he passed a bedside swallow.
--- NOTE | 2023-01-17 18:58 | NUR ---
SHIFT SUMMARY: pt transferred to ICU from PCU this morning. He is currently oriented to self and intermittantly place. BIPAP settings 18/10 35%; he tolerates short breaks at 3.5L NC for sips and medications, though his work of breathing significantly increases. Dilt drip started after bolus dose for a flutter in 180's. Leary catheter was placed for accurate I/O's. He was receiving lactulose enemas due to mental status, but was able to tolerate PO lactulose once this afternoon. at bedside and supportive for much of day.
--- NOTE | 2023-01-17 21:00 | NUR ---
ASSUMED CARE AT 1900 PATIENT IS LETHARGIC, ORIENTED X SELF AND CITY. UNABLE TO STATE YEAR OR MONTH. STARTS MUMBLING AND INCOHERENT SPEECH. 02 SATS 98% ON BIPAP 27/07 FI02 35%, RR 27. PATIENT BECOMING ANXIOUS ABOUT MASK, MEDICATED PER EMAR FOR ANXIETY. HR A.FIB 120s-160s, TITRATED CARDIZEM UP FOR HR IN 150s. BP STABLE. NAVARRETE PATENT AND DRAINING TO GRAVITY. PATIENT REPOSITIONED AND CALL LIGHT IN REACH
[2023-01-18] VITALS (54 sets, daily range): BP systolic 95–162; BP diastolic 55–105
[2023-01-18 02:19] LABS: BASOPHILS ABSOLUTE AUTO 0.02 K/mm3 (0.00-0.23); BASOPHILS PERCENT AUTO 0 % (0-2); EOSINOPHILS ABSOLUTE AUTO 0.02 K/mm3 (0.00-0.68); EOSINOPHILS PERCENT AUTO 0 % (0-6); Hematocrit 35.7 % (37.0-53.0); Hemoglobin 10.9 g/dL (13.5-17.5); IMMATURE GRAN ABSOLUTE AUTO 0.18 K/mm3 (0.00-0.10); IMMATURE GRAN PERCENT AUTO 1 % (0-1); LYMPHOCYTES ABSOLUTE AUTO 0.86 K/mm3 (0.84-5.20); LYMPHOCYTES PERCENT AUTO 5 % (21-46); MONOCYTES ABSOLUTE AUTO 1.62 K/mm3 (0.16-1.47); MONOCYTES PERCENT AUTO 10 % (4-13); Mean Corpuscular HGB 29.1 pg (26.0-34.0); Mean Corpuscular HGB Conc 30.5 g/dL (31.5-36.5); Mean Corpuscular Volume 95 fL (80-100); Mean Platelet Volume 9.1 fL (9.1-12.4); NEUTROPHILS ABSOLUTE AUTO 13.42 K/mm3 (1.96-9.15); NEUTROPHILS PERCENT AUTO 83 % (41-73); Platelet Count 363 K/mm3 (150-400); RDW Coefficient Variation 15.5 % (11.7-14.2); RDW Standard Deviation 54.3 fL (35.1-46.3); Red Blood Cell Count 3.75 M/mm3 (4.30-5.90); White Blood Cell Count 16.12 K/mm3 (4.00-11.30)
[2023-01-18 02:24] LABS: International Normalized Ratio 1.43; Prothrombin Time Results 14.7 Sec (9.7-11.5)
[2023-01-18 02:35] LABS: Magnesium, Blood 1.4 mg/dL (1.6-2.4)
[2023-01-18 02:58] LABS: Albumin, Blood 2.2 g/dL (3.4-5.0); Albumin/Globulin Ratio 0.6 (0.8-1.8); Bilirubin, Total 0.6 mg/dL (0.1-1.0); Bun/Creatinine Ratio 10.4 (12.0-20.0); Creatinine, Blood 0.58 mg/dL (0.60-1.20); Globulin, Blood 3.5 g/dL (2.2-4.0); Phosphorus, Blood 2.8 mg/dL (2.5-4.9); Potassium, Blood 2.5 mmol/L (3.5-5.5); Total Protein, Blood 5.7 g/dL (6.4-8.2)
--- NOTE | 2023-01-18 05:18 | NUR ---
SHIFT SUMMARY PATIENT IS LETHARGIC AND CONFUSED. ORIENTED TO SELF AND FOLLOWING COMMANDS. MUMBLES AND NONSENSICLE AT TIMES. 02 SATS 93% ON BIPAP 18/10 FI02 40%, RR 20s. PATIENTS HR A.FIB/FLUTTER 140s-170s CARDIZEM UP TO 20 MG/HR, CALLED HOSPITALIST AND LABS DRAWN EARLY, POTASSIUM AND MAG REPLACEMENT INF NOW. PATIENT CONVERTED TO SR AT APPROX 0150, CARDIZEM REMAINS AT 5 MG/HR, PATIENT IN A.FIB FOR BREIF PERIODS. BP STABLE. RECTAL TUBE WITH LIQUID BROWN OUTPUT. NAVARRETE PATENT AND DRAINING TO GRAVITY. PATIENT MEDICATED FOR ANXIETY AND ALCOHOL WITHDRAWL PRN PER EMAR. REPOSITIONED Q2 HOURS. CALL LIGHT IN REACH
--- NOTE | 2023-01-18 12:06 | NUR ---
REASSESSMENT DR. EDMONDS ADJUSTED PT'S BIPAP SETTINGS THIS MORNING AND ABOUT 2 HOURS LATER PT STARTED TO WAKE UP MORE. HE IS STILL DROWSY, BUT HE CAN ANSWER THAT HE IS IN [place] NOW AND ASKS TO WATCH TV. HE QUICKLY FALLS BACK ASLEEP WHEN LEFT ALONE. HE REMAINS IN SR, BUT HAS HAD SOME PACs. BP STABLE. HOLDING PO INTAKE UNTIL PT IS MORE ALERT. LACTULOSE ENEMA GIVEN AND BEDDING CHANGED AFTERWARD. PT'S UPDATED VIA TC.
--- NOTE | 2023-01-18 16:47 | NUR ---
SHIFT SUMMARY PT HAS BEEN MUCH MOER ALERT THIS AFTERNOON, ABLE TO TAKE PO AND PILLS SAFELY. HE IS STILL A LITTLE BIT DELAYED IN HIS RESPONSES AND OVERALL APPEARS WEAK, BUT HE HAS TOLERATED 2 HOURS OFF OF THE BIPAP SO FAR THIS AFTERNOON AND IS STILL ALERT. HIS LUNGS ARE CLEAR, BUT DIM. WEAK COUGH. SINUS TACH WITH LOTS OF PAC THIS AFTERNOON. SCHEDULED CARVEDILOL GIVEN THIS AFTERNOON. RECTAL TUBE IN PLACE WITH GREEN/YELLOW OUTPUT. NAVARRETE WITH CL YELLOW OUTPUT. PT'S AT THE BEDSIDE CURRENTLY AND HAS BEEN UPDATED.
[2023-01-18 17:20] LABS: Magnesium, Blood 1.7 mg/dL (1.6-2.4)
[2023-01-18 17:22] LABS: Phosphorus, Blood 2.6 mg/dL (2.5-4.9); Potassium, Blood 2.3 mmol/L (3.5-5.5)
--- NOTE | 2023-01-18 20:28 | NUR ---
ASSUMED CARE PATIENT IS LETHARGIC, RESPONDS TO VERBAL STIMULI. ORIENTED X SELF AND PLACE. 02 SATS 97% ON 4L VIA NC, BIPAP WHILE SLEEPING. LS DIMINISHED. PATIENT ABLE TO TOLERATE PO LACTULOSE. RECTAL TUBE WITH LIQUID BROWN/GREEN OUTPUT. NAVARRETE PATENT AND DRAINING TO GRAVITY. CATH CARE DONE AND PATIENT REPOSITIONED. CALL LIGHT IN REACH
[2023-01-19] VITALS (23 sets, daily range): BP systolic 98–143; BP diastolic 52–86
[2023-01-19 04:16] LABS: BASOPHILS ABSOLUTE AUTO 0.03 K/mm3 (0.00-0.23); BASOPHILS PERCENT AUTO 0 % (0-2); EOSINOPHILS ABSOLUTE AUTO 0.03 K/mm3 (0.00-0.68); EOSINOPHILS PERCENT AUTO 0 % (0-6); Hematocrit 39.6 % (37.0-53.0); Hemoglobin 11.6 g/dL (13.5-17.5); IMMATURE GRAN PERCENT AUTO 1 % (0-1); LYMPHOCYTES ABSOLUTE AUTO 0.95 K/mm3 (0.84-5.20); LYMPHOCYTES PERCENT AUTO 5 % (21-46); MONOCYTES ABSOLUTE AUTO 1.75 K/mm3 (0.16-1.47); MONOCYTES PERCENT AUTO 10 % (4-13); Mean Corpuscular HGB 28.7 pg (26.0-34.0); Mean Corpuscular HGB Conc 29.3 g/dL (31.5-36.5); Mean Corpuscular Volume 98 fL (80-100); Mean Platelet Volume 9.1 fL (9.1-12.4); NEUTROPHILS ABSOLUTE AUTO 15.06 K/mm3 (1.96-9.15); NEUTROPHILS PERCENT AUTO 84 % (41-73); Platelet Count 369 K/mm3 (150-400); RDW Coefficient Variation 15.2 % (11.7-14.2); RDW Standard Deviation 55.3 fL (35.1-46.3); Red Blood Cell Count 4.04 M/mm3 (4.30-5.90); White Blood Cell Count 17.92 K/mm3 (4.00-11.30)
[2023-01-19 04:31] LABS: Magnesium, Blood 1.4 mg/dL (1.6-2.4)
[2023-01-19 04:50] LABS: Blood Urea Nitrogen 5 mg/dL (8-24); Bun/Creatinine Ratio 7.8 (12.0-20.0); Calcium, Blood 8.7 mg/dL (8.5-10.1); Chloride, Blood 84 mmol/L (98-108); Creatinine, Blood 0.64 mg/dL (0.60-1.20); Glomerular Filtration Rate 110 (60-); Glucose, Blood 125 mg/dL (70-99); Phosphorus, Blood 2.2 mg/dL (2.5-4.9); Sodium, Blood 137 mmol/L (136-145)
[2023-01-19 04:51] LABS: Anion Gap Unable to Calculate mmol/L (6-16); CO2, Blood >45 mmol/L (21-32)
[2023-01-19 04:52] LABS: Potassium, Blood 2.3 mmol/L (3.5-5.5)
--- NOTE | 2023-01-19 06:20 | NUR ---
SHIFT SUMMARY PATIENT IS ALERT AND ORIENTED X2. 02 SATS 95% ON 4L VIA NC. PATIENT WORE BIPAP AT TIMES THROUGH THE NIGHT. MENTATION HAS STAYED THE SAME THROUGH THE NIGHT. ABLE TO TOLERATE PO MEDICATIONS. HR SR 90s. BP STABLE. DENIES CP/PRESSURE. NAVARRETE PATENT AND DRAINING TO GRAVITY. RECTAL TUBE REMAINS IN PLACE, LIQUID BROWN STOOLS. REPOSITIONED Q2 HOURS. CRITICAL LABS CALLED TO HOSPITALIST, REPLACING POTASSIUM AND MAG THIS AM. CALL LIGHT IN REACH
--- NOTE | 2023-01-19 07:39 | NUR ---
CARE OF PT ASSUMED AT 0700. PT SLEEPING, LETHAGIC, DOES AROUSES TO VOICE, ABLE TO ANSWERS A FEW QUESTIONS BUT FALLS ASLEEP DURING QUESTIONS. ABLE TO FOLLOW SIMPLE COMMANDS. SATS 99% ON 4L VIA N/C. LUNGS SOUNDS VERY DIMINISHED T/O. ENCOURAGED PT TO WEAR BIPAP D/T SOMNOLENCE; PT REFUSING AT THIS TIME. K+ 60MEQ INFUSING.
--- NOTE | 2023-01-19 08:14 | NUR ---
DR EDMONDS IN TO SEE PT. FULL UPDATE GIVEN. WILL TITRATE LACTULOSE FOR 2-3 LOOSE STOOLS. WILL TRY TO ENCOURAGE BIPAP USE. PHOS TO BE REPLACED. DR MIGUEL IN TO SEE PT WELL.
--- NOTE | 2023-01-19 15:49 | NUR ---
PT GIVEN FULL BEDBATH W LINEN CHANGE. PT C/O GENERALIZED PAIN EVERYWHERE, INCLUDING BACK PAIN. DR EDMONDS IN TO CHECK ON PT; OXYCODONE ORDERED PRN FOR PAIN. 1300 LACTULOSE HELD FOR SIGNIFICANT STOOL OUTPUT, >500CC THIS SHIFT SO FAR. PT HAS BEEN VERY AWAKE FROM AROUND 1000 ON. PT ABLE TO FEED HIMSELF AND USE CALL LIGHT APPROPRIATELY, ORIENTED X4. GOOD URINE OUTPUT WELL THIS SHIFT. YEAST LIKE RASH NOTED TO BUTTOCKS AROUND RECTUM AND UNDER SCROTUM/INNER THIGHS. NA, PHOS, AND K+ REPLACED THIS SHIFT, REPEAT LABS TO BE DRAWN AT 1600.
[2023-01-19 16:32] LABS: Magnesium, Blood 1.6 mg/dL (1.6-2.4)
[2023-01-19 16:36] LABS: Phosphorus, Blood 3.7 mg/dL (2.5-4.9); Potassium, Blood 2.2 mmol/L (3.5-5.5)
--- NOTE | 2023-01-19 16:45 | NUR ---
LABS CALLED TO DR EDMONDS, NEW ORDERS RECIEVED FOR MAG AND K+.
--- NOTE | 2023-01-19 19:18 | NUR ---
ASSUMED CARE PATIENT AWAKE WATCHING TV. IV POTASSIUM INFUSING. VS STABLE NO FAMILY AT BEDSIDE.
[2023-01-20] VITALS (28 sets, daily range): BP systolic 94–169; BP diastolic 56–100
[2023-01-20 04:14] LABS: Bicarbonate Venous 54.8 mmol/L (24.0-30.0); PCO2 Venous 90.7 mmHg (38-42); pH Blood Venous 7.42 (7.34-7.37)
[2023-01-20 04:14] LABS: BASOPHILS ABSOLUTE AUTO 0.05 K/mm3 (0.00-0.23); BASOPHILS PERCENT AUTO 0 % (0-2); EOSINOPHILS ABSOLUTE AUTO 0.09 K/mm3 (0.00-0.68); EOSINOPHILS PERCENT AUTO 0 % (0-6); Hematocrit 37.2 % (37.0-53.0); Hemoglobin 10.9 g/dL (13.5-17.5); IMMATURE GRAN ABSOLUTE AUTO 0.11 K/mm3 (0.00-0.10); IMMATURE GRAN PERCENT AUTO 1 % (0-1); LYMPHOCYTES ABSOLUTE AUTO 0.97 K/mm3 (0.84-5.20); LYMPHOCYTES PERCENT AUTO 4 % (21-46); MONOCYTES ABSOLUTE AUTO 1.96 K/mm3 (0.16-1.47); MONOCYTES PERCENT AUTO 8 % (4-13); Mean Corpuscular HGB 28.9 pg (26.0-34.0); Mean Corpuscular HGB Conc 29.3 g/dL (31.5-36.5); Mean Corpuscular Volume 99 fL (80-100); Mean Platelet Volume 8.7 fL (9.1-12.4); NEUTROPHILS ABSOLUTE AUTO 20.07 K/mm3 (1.96-9.15); NEUTROPHILS PERCENT AUTO 86 % (41-73); Platelet Count 330 K/mm3 (150-400); RDW Standard Deviation 55.1 fL (35.1-46.3); Red Blood Cell Count 3.77 M/mm3 (4.30-5.90); White Blood Cell Count 23.25 K/mm3 (4.00-11.30)
[2023-01-20 04:15] LABS: Base Excess Venous 33.8 mmol/L
[2023-01-20 04:41] LABS: Magnesium, Blood 1.8 mg/dL (1.6-2.4)
--- NOTE | 2023-01-20 05:50 | NUR ---
SHIFT SUMMARY PATIENT ALERT AND ORIENT 2-3. VS STABLE. PATIENT TOLERATED BIBAP FOR A LITTLE OVER THREE HOURS. BACK TO 4L NC. ADEQUATE URINE OUTPUT.
[2023-01-20 05:55] LABS: Blood Urea Nitrogen 4 mg/dL (8-24); Bun/Creatinine Ratio 6.3 (12.0-20.0); Calcium, Blood 7.7 mg/dL (8.5-10.1); Chloride, Blood 81 mmol/L (98-108); Creatinine, Blood 0.63 mg/dL (0.60-1.20); Glomerular Filtration Rate 110 (60-); Glucose, Blood 162 mg/dL (70-99); Phosphorus, Blood 2.6 mg/dL (2.5-4.9); Potassium, Blood 2.9 mmol/L (3.5-5.5); Sodium, Blood 136 mmol/L (136-145)
[2023-01-20 05:56] LABS: Anion Gap Unable to Calculate mmol/L (6-16); CO2, Blood >45 mmol/L (21-32)
--- NOTE | 2023-01-20 07:21 | NUR ---
CARE OF PT ASSUMED AT 0700. PT SLEEPING WITH BIPAP ON, , RATE 14, FIO2 40%. WILL LEAVE BIPAP ON LONG PT WILL TOLERATE. (CO2 HIGH THIS AM) K+40MEQ INFUSING. PT HAD MINIMAL STOOL OUTPUT LAST NIGHT, WILL GIVE LACTULOSE.
--- NOTE | 2023-01-20 09:06 | NUR ---
PT REMAINS ON BIPAP. DR. EDMONDS AT BEDSIDE TO SEE PT, UPDATE GIVEN.
--- NOTE | 2023-01-20 10:35 | NUR ---
AT 0930, PT USED CALL LIGHT APPROPRIATELY. PT WIDE AWAKE,ALER, ORIENTED X3. PT ABLE TO EAT BREAKFAST. BATRES PAD CHANGED. BARRIER CREAM AND MEDICATED POWER PLACED TO EVY RASH AREA'S. RECTAL TUBE PATENT. LACTULOSE GIVEN. CA INFUSING.
[2023-01-20 12:41] LABS: Magnesium, Blood 1.6 mg/dL (1.6-2.4); Phosphorus, Blood 2.8 mg/dL (2.5-4.9); Potassium, Blood 2.8 mmol/L (3.5-5.5)
--- NOTE | 2023-01-20 13:03 | NUR ---
Supportive visit this afternoon. Pt more alert today but still appears somewhat lethargic. Pt denies pain, anxiety, and nausea. Pt does appear mildly dyspneic as evidenced by work of breathing when speaking. Pt struggles to keep his eyes open at times. Pt agreeable for this RN to make F/U visit as he becomes less tired. Ended visit to allow Pt to rest. Palliative Care will remain available
--- NOTE | 2023-01-20 14:27 | NUR ---
COMPLETE BED BATH GIVEN. PEELING SKIN UNDER SCROTUM AND TO INNER THIGHS, MEDICATED POWDER PLACED. BARRIER CREAM AND POWDER PLACED TO SKIN AROUND RECTAL TUBE; SKIN EXCORIATED. PT OOB TO CHAIR USING LIFT. PHYSICAL THERAPY AND OCCUPATIONAL THERAPY WORKED W PT. PT ABLE TO STAND. 1200 LABS CALLED TO [facility] GLEASON AND MAG ORDERED AND INFUSING NOW.
--- NOTE | 2023-01-20 18:42 | NUR ---
PT BACK TO BED WITH LIFT. RECTAL TUBE HAD LEAKED ONCE WHILE IN CHAIR. BUTTOCKS, SKIN TO INNER THIGHS AND TO EVY AREA VERY EXCORIATED. MEDICATED POWDER AND BARRIER CREAM PLACED. 1000CC OUTPUT FROM RECTAL TUBE THIS SHIFT. PT AWAKE AND ORIENTED T/O SHIFT. PT WORKED W PT/OT TODAY AND ABLE TO STAND. K+ AND MAG REPLACED. TODAY. PT STATES HE WILL ATTEMPT TO WEAR BIPAP TONIGHT. GOOD URINE OUTPUT W LASIX.
--- NOTE | 2023-01-20 19:15 | NUR ---
ASSUMED CARE PATIENT IN BED SLEEPING ON 4L NC. VS STABLE. NO FAMILY AT BEDSIDE. FMS AND ANISH CATH TO GRAVITY.
--- NOTE | 2023-01-20 22:00 | NUR ---
NOTIFIED DR. MCGEE PATIENTS HR IS 173, GIVEN ONE DOSE OF METOPROLOL 5MG/IV. PER DR. MCGEE GIVE 1 ADDITIONAL DOSE OF IV METOPROLOL 5MG. AND START AMIO.
[2023-01-21] VITALS (67 sets, daily range): BP systolic 80–158; BP diastolic 48–112
[2023-01-21 03:56] LABS: BASOPHILS ABSOLUTE AUTO 0.06 K/mm3 (0.00-0.23); BASOPHILS PERCENT AUTO 0 % (0-2); EOSINOPHILS ABSOLUTE AUTO 0.13 K/mm3 (0.00-0.68); EOSINOPHILS PERCENT AUTO 1 % (0-6); Hematocrit 39.1 % (37.0-53.0); Hemoglobin 11.2 g/dL (13.5-17.5); IMMATURE GRAN ABSOLUTE AUTO 0.07 K/mm3 (0.00-0.10); IMMATURE GRAN PERCENT AUTO 0 % (0-1); LYMPHOCYTES ABSOLUTE AUTO 1.23 K/mm3 (0.84-5.20); LYMPHOCYTES PERCENT AUTO 6 % (21-46); MONOCYTES ABSOLUTE AUTO 1.76 K/mm3 (0.16-1.47); MONOCYTES PERCENT AUTO 9 % (4-13); Mean Corpuscular HGB 28.7 pg (26.0-34.0); Mean Corpuscular HGB Conc 28.6 g/dL (31.5-36.5); Mean Corpuscular Volume 100 fL (80-100); Mean Platelet Volume 9.2 fL (9.1-12.4); NEUTROPHILS PERCENT AUTO 84 % (41-73); Platelet Count 359 K/mm3 (150-400); RDW Coefficient Variation 14.8 % (11.7-14.2); RDW Standard Deviation 55.5 fL (35.1-46.3); White Blood Cell Count 20.35 K/mm3 (4.00-11.30)
[2023-01-21 04:15] LABS: Magnesium, Blood 1.9 mg/dL (1.6-2.4)
[2023-01-21 04:47] LABS: Blood Urea Nitrogen 8 mg/dL (8-24); Bun/Creatinine Ratio 11.2 (12.0-20.0); Calcium, Blood 8.8 mg/dL (8.5-10.1); Chloride, Blood 84 mmol/L (98-108); Creatinine, Blood 0.72 mg/dL (0.60-1.20); Glomerular Filtration Rate 106 (60-); Glucose, Blood 121 mg/dL (70-99); Phosphorus, Blood 3.2 mg/dL (2.5-4.9); Potassium, Blood 3.4 mmol/L (3.5-5.5); Sodium, Blood 135 mmol/L (136-145)
[2023-01-21 04:59] LABS: Anion Gap Unable to Calculate mmol/L (6-16)
[2023-01-21 05:01] LABS: CO2, Blood >45 mmol/L (21-32)
--- NOTE | 2023-01-21 05:42 | NUR ---
SHIFT SUMMARY PATIENT REMAINS A&OX3. PATIENT CONVERTED FROM NSR TO AFIB RVR RATE 170'S , STARTED ON AMIO AFTER X2 DOSES OF IV METOPROLOL. ADEQUATE URINE OUTPUT, 300 OUT OF RECTAL TUBE. PATIENT WITH SEVERE EXCORIATION TO EVY ANAL AREA. PATIENT TOLERATED BIPAP APROX 4.5 HOURS ON 3L NC WHILE AWAKE.
--- NOTE | 2023-01-21 09:00 | NUR ---
AM NOTE... ASSUMED CARE OF PT AT 0700. PT IS A&Ox4. HE IS CURRENTLY IN AFLUTTER IN THE 100'S-130'S. BP IS SOFT BUT STABLE WITH MAPS >65, 1+ EDEMA NOTED TO HIS BLE. PT IS ON BIPAP WHILE SLEEPING AND 3L NC WHILE AWAKE. O2 SATS >90%. L/S VERY DIM T/O W/EXP WHEEZES. RR 15-20'S. BT PRESENT AND HYPOACTIVE, ABD IS SOFT TO PALPATION. RECTAL TUBE IS PATENT AND DRAINING TO GRAVITY. PT'S NAVARRETE IS PATENT AND DRAINING TO GRAVITY. PT HAS REFUSED TO ALLOW STAFF TO D/C RECTAL TUBE AND HAS ALSO REFUSED TO GET OUT OF BED THIS AM. WILL CONTINUE TO ENCOURAGE MOBILITY.
[2023-01-21 10:34] LABS: Base Excess Venous 26.5 mmol/L; Bicarbonate Venous 47.2 mmol/L (24.0-30.0); PCO2 Venous 73.3 mmHg (38-42); pH Blood Venous 7.45 (7.34-7.37)
--- NOTE | 2023-01-21 15:14 | NUR ---
Pt resting in bed upon arrival. Pt's spouse Debbie at bedside. Pt intermittently closes eyes during visit and does not respond during conversation. Pt appears withdrawn and lethargic. Engaged in therapeutic conversation with spouse Debbie. Reviewed plan of care. Brief and gentle education on disease process including trajectory. Discussed recommendations and the importance for compliance. Discussed the importance of planning for the future as his illness progresses. Offered therapeutic listening and answered questions. Palliative Care will remain available
--- NOTE | 2023-01-21 17:52 | NUR ---
SHIFT SUMMARY.... PT CONTINUES ON THE AMIO GTT RUNNING AT 0.5MG. PT'S HR HAS BEEN 120'S-140'S. PT HAS BEEN GIVEN 5MG IV LOPRESSORx2 FOR HR'S >160'S PT HAS RESPONDED WELL. PT'S NAVARRETE WAS D/C'd AND HE HAS HAD 2 INCONT VOIDS SINCE IT WAS REMOVED. RECTAL TUBE IS STILL PRESENT AND DRAINING TO GRAVITY. A WOUND CARE CONSULT WAS PLACED FOR THE WOUNDS ON THE PT'S BUTTOCKS AND PICTURES WERE TAKEN AND PLACED IN THE CHART. THE PT WAS UP IN THE CHAIR FOR APROX 3 HRS THIS SHIFT WITH A 2P ASSIST ERIN FWW. PT WAS MEDICATED FOR PAIN PER EMAR WITH GOOD RESULTS. PT'S UPDATED ON THE PT'S CONDITON AND PLAN OF CARE. WILL CONTINUE TO MONITOR UNTIL REPORT IS GIVEN TO ONCOMING RN.
--- NOTE | 2023-01-21 19:15 | NUR ---
ASSUMED CARE OF PT @1900 FROM DEON WALDRON. PT IS A&O X4, PLEASANT AND COOPERATIVE. COMPLAINS OF 9/10 GENERLAIZED PAIN. CONTINUOUS CARDIAC MONITORING. HR IRREGULAR 100-120'S, AMIODARONE 0.5MG/MIN INFUSING. SBP STABLE, MAP >65. 2L O2 VIA NC, RR 20'S, SPO2 >92%. PG BENIGNO PATENT AND INFUSING. 20GA R HAND, PT COMPLAINS IT IS VERY PAINFUL AND RED. RECTAL TUBE DRAINING TO GRAVITY.
--- NOTE | 2023-01-21 21:00 | NUR ---
UPDATE PHONE CALL TO DR MEJIAS RE:AMIODARONE DC AND PT HR STILL IN 130'S AFLUTTER. PER DR MEJIAS, CONTINUE AMIODARONE INFUSION AND ADD METOPROLOL 50MG PO Q8H. HOLD FOR SBP <105.
[2023-01-22] VITALS (57 sets, daily range): BP systolic 71–127; BP diastolic 52–97
[2023-01-22 05:03] LABS: Base Excess Venous 22.3 mmol/L; Bicarbonate Venous 42.5 mmol/L (24.0-30.0); PCO2 Venous 68.3 mmHg (38-42); pH Blood Venous 7.44 (7.34-7.37)
[2023-01-22 05:08] LABS: Hematocrit 37.8 % (37.0-53.0); Hemoglobin 11.3 g/dL (13.5-17.5); Mean Corpuscular HGB 28.8 pg (26.0-34.0); Mean Corpuscular HGB Conc 29.9 g/dL (31.5-36.5); Mean Corpuscular Volume 96 fL (80-100); Mean Platelet Volume 9.5 fL (9.1-12.4); Platelet Count 367 K/mm3 (150-400); RDW Coefficient Variation 14.8 % (11.7-14.2); RDW Standard Deviation 52.8 fL (35.1-46.3); Red Blood Cell Count 3.92 M/mm3 (4.30-5.90); White Blood Cell Count 16.23 K/mm3 (4.00-11.30)
[2023-01-22 05:24] LABS: Blood Urea Nitrogen 9 mg/dL (8-24); Bun/Creatinine Ratio 12.8 (12.0-20.0); Calcium, Blood 8.8 mg/dL (8.5-10.1); Chloride, Blood 87 mmol/L (98-108); Glomerular Filtration Rate 107 (60-); Glucose, Blood 112 mg/dL (70-99); Potassium, Blood 3.1 mmol/L (3.5-5.5); Sodium, Blood 134 mmol/L (136-145)
[2023-01-22 05:25] LABS: Anion Gap Unable to Calculate mmol/L (6-16)
[2023-01-22 05:26] LABS: CO2, Blood >45 mmol/L (21-32)
--- NOTE | 2023-01-22 06:04 | NUR ---
SUMMARY NEURO/PSYCH/MOBILITY: PT IS A&O X4, PLEASANT. PT RELUCTANT TO MAKE MAJOR ADJUSTMENTS TO BODY POSITION DT PAIN. PT COMPLAINS OF 9/10 PAIN "ALL OVER AND EVERYWHERE WE TOUCH HIM." MEDICATED PER EMAR. PT STATES HE "JUST WANTS TO GET BETTER." PT ABLE TO EAT AND DRINK INDEPENDENTLY. AFEBRILE. PERRL. RESP: 3L O2 VIA NC. RR 20'S, SPO2 >94% CARDIAC: CONTINUOUS CARDIAC MONITORING. AMIODARONE INFUSING @0.5MG/MIN. IRREGULAR HR, AFLUTTER 110-120'S. EPISODES OF HR IN THE 140-150'S. MEDICATED PER EMAR. SBP STABLE, MAP >65. PT DENIES CHEST PAIN OR ACUTE SOB. GI: RECTAL TUBE DRAINING TO GRAVITY. 800MLS LOOSE BROWN OUTPUT THIS SHIFT. PT DENIES NAUSEA. : PT DOES NOT USE HIS CALL LIGHT APPROPRIATELY TO USE THE HAND HELD URINAL. PT IS VOIDING INTO HIS ATTENDS. SKIN: BARRIER CREAM APPLIED TO BUTTOCKS AND GROIN. ASSESSMENT UNCHANGED. IV ACCESS: PG BENIGNO PATENT AND INFUSING. 20GA L WRIST
--- NOTE | 2023-01-22 09:41 | NUR ---
ASSUPTION OF CARE NOTE PT RESTING COMFORTABLY. HR IN 110s AFIB/FLUTTER, CURRENTLY ON AMIO GTT. APPROPRIATE, ALERT AND OREIENTED X 3. DOES NOT KNOW THE YEAR BUT KNOWS WHO THE PRESIDENT IS. RECTAL TUBE IN PLACE, HAS BEEN INCONTINENT OF URINE BUT DID CALL APPROPRIATELY TO USE URINAL. GOAL FOR TODAY IS TO MOVE TO CHAIR FOR MEALS.
--- NOTE | 2023-01-22 17:28 | NUR ---
UPDATE TRANSFER TO [facility] 3
--- NOTE | 2023-01-22 18:30 | NUR ---
PT ARRIVED IN THE UNIT AT APPROX 1700 FROM ICU RECEIVED REPORT FROM ABDIRIZAK WALDRON. PT ALERT AND ORIENTED X3, RAFA TO MAKE NEEDS KNOWN, AT THE BEDSIDE FOR DINNER, PT RAFA TO USE URINAL ASSISTED, RECTAL TUBE IN PLACE, BROWN WATERY STOOL. WHEN PT'S LEFT PT STARTED GETTING ANXIOUS HRR TACH UP TO 150'S AFIB, SBP 90-95 WITH MAP >70'S, SATS ABOVE 92% ON 2L OF O2, AFEBRILE. METOPROLOL IV 5MG GIVEN HRR TREND DOWN TO 110-115. PT DENIES ANY CHEST PAIN/PALPITATIONS. PT REQUESTED TO GET CHANGED AND TO GET SOME SLEEP. PT NOW RESTING IN BED WITH CALL LIGHTS IN REACH WILL REPORT TO ONCOMING SHIFT
[2023-01-23] VITALS (15 sets, daily range): BP systolic 92–147; BP diastolic 62–124
--- NOTE | 2023-01-23 06:10 | NUR ---
END OF SHIFT PT DID NOT SLEEP, VSS, ONE DOSE PRN LOPRESSOR FOR HR 130-140, PT REFUSED CPAP
--- NOTE | 2023-01-23 07:30 | NUR ---
ASSUMED CARE: PT RESTING IN BED, 3L O2 VIA NC. HR AFIB IN 140S. NO FURTHER NEEDS AT THIS TIME.
[2023-01-23 08:25] LABS: BASOPHILS ABSOLUTE AUTO 0.11 K/mm3 (0.00-0.23); BASOPHILS PERCENT AUTO 1 % (0-2); EOSINOPHILS ABSOLUTE AUTO 0.41 K/mm3 (0.00-0.68); EOSINOPHILS PERCENT AUTO 3 % (0-6); Hematocrit 37.7 % (37.0-53.0); Hemoglobin 11.2 g/dL (13.5-17.5); IMMATURE GRAN ABSOLUTE AUTO 0.07 K/mm3 (0.00-0.10); IMMATURE GRAN PERCENT AUTO 1 % (0-1); LYMPHOCYTES ABSOLUTE AUTO 1.26 K/mm3 (0.84-5.20); LYMPHOCYTES PERCENT AUTO 8 % (21-46); MONOCYTES PERCENT AUTO 9 % (4-13); Mean Corpuscular HGB 28.6 pg (26.0-34.0); Mean Corpuscular HGB Conc 29.7 g/dL (31.5-36.5); Mean Corpuscular Volume 96 fL (80-100); NEUTROPHILS ABSOLUTE AUTO 12.25 K/mm3 (1.96-9.15); NEUTROPHILS PERCENT AUTO 79 % (41-73); Platelet Count 346 K/mm3 (150-400); RDW Coefficient Variation 14.6 % (11.7-14.2); Red Blood Cell Count 3.92 M/mm3 (4.30-5.90)
--- NOTE | 2023-01-23 08:30 | NUR ---
DR LEMOS AT BEDSIDE. DISCUSSED PT'S HR AND DR ORDERED PO MEDS TO BE GIVEN. NO FURTHER NEEDS AT THIS TIME.
[2023-01-23 08:41] LABS: Bun/Creatinine Ratio 19.9 (12.0-20.0); Calcium, Blood 8.8 mg/dL (8.5-10.1); Creatinine, Blood 0.65 mg/dL (0.60-1.20); Potassium, Blood 3.4 mmol/L (3.5-5.5)
--- NOTE | 2023-01-23 09:42 | NUR ---
PT'S HR INCREASED TO 190S AND DID NOT DECREASE WITH VAGAL MANEUVERS. EKG PERFORMED SHOWING SVT. CALLED CARGOMAN TO BEDSIDE AND DR LEMOS WAS CALLED. CRASH CART BROUGHT TO ROOM AND DR INSTRUCTED 6MG IV ADENOSINE GIVEN. PT'S HR REMAINED 190S. PT STATED HE DID NOT FEEL ANY CHANGE. NURSING BULB ASSEMBLER CALLED DR STAHL WHO CAME TO BEDSIDE AND INSTRUCTED 5MG IV VERAPAMIL GIVEN AND IF NOT AFFECTIVE, ORDERS FOR FURTHER VERAPAMIL AND CARDIZEM GTT. PT'S HR DECREASED TO 104. DR LEMOS INSTRUCTED TO HOLD NEXT DOSE OF VERAPAMIL AND IF HR SUSTAINS ABOVE 120 THEN START CARDIZEM GTT. CARDIZEM AT BEDSIDE AT THIS TIME. NO FURTHER NEEDS
--- NOTE | 2023-01-23 17:49 | NUR ---
SHIFT SUMMARY: PT A&OX4 THROUGHOUT SHIFT. O2 SATS >93% ON 2L VIA NC. BP SOFT 90-100'S SYSTOLIC. HR 60-70'S THIS PM. RECTAL TUBE IN PLACE DRAINING LIQUID BROWN STOOL. VOIDING IN URINAL. REPORTED GENERALIZED PAIN THROUGHOUT SHIFT. MANAGED PER EMAR. APPROX 0900 PT HR WAS 190S. EKG COMPLETED. EKG SHOWED SVT. MD DREILING TO BEDSIDE AND REPORTED A FLUTTER. ORDERED VERAPAMIL AFTER ADENOSINE UNSUCCESSFUL. DILTIAZEM DRIP STARTED. HR DROPPED TO 60-70'S. MAINTAINED THROUGHOUT AFTERNOON. DILTIAZEM DRIP DISCONTINUED. PT EATING DINNER IN BED. NO FURTHER NEEDS OR CONCERNS AT THIS TIME.
--- NOTE | 2023-01-24 04:57 | NUR ---
PT TREATED WITH PRN METOPROLOL FOR HR 140-150, REFUSES CPAP, NO OTHER CHANGES NOTED
[2023-01-24 05:00] VITALS: BP 118/78
[2023-01-24 05:31] LABS: BASOPHILS ABSOLUTE AUTO 0.13 K/mm3 (0.00-0.23); BASOPHILS PERCENT AUTO 1 % (0-2); EOSINOPHILS ABSOLUTE AUTO 0.65 K/mm3 (0.00-0.68); EOSINOPHILS PERCENT AUTO 4 % (0-6); Hematocrit 37.7 % (37.0-53.0); Hemoglobin 11.1 g/dL (13.5-17.5); IMMATURE GRAN ABSOLUTE AUTO 0.07 K/mm3 (0.00-0.10); IMMATURE GRAN PERCENT AUTO 0 % (0-1); LYMPHOCYTES ABSOLUTE AUTO 1.21 K/mm3 (0.84-5.20); LYMPHOCYTES PERCENT AUTO 8 % (21-46); MONOCYTES ABSOLUTE AUTO 1.24 K/mm3 (0.16-1.47); MONOCYTES PERCENT AUTO 8 % (4-13); Mean Corpuscular HGB 28.8 pg (26.0-34.0); Mean Corpuscular HGB Conc 29.4 g/dL (31.5-36.5); Mean Corpuscular Volume 98 fL (80-100); Mean Platelet Volume 9.6 fL (9.1-12.4); NEUTROPHILS ABSOLUTE AUTO 12.34 K/mm3 (1.96-9.15); NEUTROPHILS PERCENT AUTO 79 % (41-73); Platelet Count 329 K/mm3 (150-400); RDW Coefficient Variation 14.6 % (11.7-14.2); RDW Standard Deviation 53.2 fL (35.1-46.3); Red Blood Cell Count 3.85 M/mm3 (4.30-5.90); White Blood Cell Count 15.64 K/mm3 (4.00-11.30)
[2023-01-24 05:57] LABS: Bun/Creatinine Ratio 21.7 (12.0-20.0); Calcium, Blood 8.6 mg/dL (8.5-10.1); Creatinine, Blood 0.74 mg/dL (0.60-1.20); Magnesium, Blood 1.7 mg/dL (1.6-2.4); Potassium, Blood 3.8 mmol/L (3.5-5.5)
[2023-01-24 07:52] VITALS: BP 101/63
[2023-01-24 12:26] VITALS: BP 100/74
[2023-01-24 16:08] VITALS: BP 96/62
--- NOTE | 2023-01-24 17:12 | NUR ---
SHIFT SUMMARY ALERT AND ORIENTED, IRRITABLE AT TIMES AND SOMETIMES REFUSES CARE. TOLERATING LOW SODIUM DIET AND LIQUIDS. VOIDING WELL, CALLS FOR HELP WITH URINAL. RECTAL TUBE IN PLACE, SOME LEAKAGE AROUND TUBE. BED BATH DONE. EVY AREA SKIN RED WITH SMALL EXCORIATIONS. CLEANED AND BARRIER CREAM APPLIED. REFUSES Q2 HOUR TURNS. REFUSED POTASSIUM SUPPLEMENT THIS SHIFT. SPO2 STABLE ON 2L VIA NC. TELE SVT 140S THIS AM, GAVE IV METOPROLOL ONCE. CARDIOLOGY DC'C CARDIZEM AND RESTARTED AMIODARONE. RATE 70S TO 90S THIS AFTERNOON, HOWEVER SEVERAL 2-3.4 SECOND PAUSES. CARDIOLOGY AWARE.
[2023-01-24 20:12] VITALS: BP 161/85
[2023-01-24 23:17] VITALS: BP 132/69
[2023-01-25] VITALS (12 sets, daily range): BP systolic 102–163; BP diastolic 63–145
[2023-01-25 04:35] LABS: BASOPHILS PERCENT AUTO 1 % (0-2); EOSINOPHILS ABSOLUTE AUTO 0.48 K/mm3 (0.00-0.68); EOSINOPHILS PERCENT AUTO 3 % (0-6); Hematocrit 36.8 % (37.0-53.0); Hemoglobin 10.8 g/dL (13.5-17.5); IMMATURE GRAN ABSOLUTE AUTO 0.08 K/mm3 (0.00-0.10); IMMATURE GRAN PERCENT AUTO 1 % (0-1); LYMPHOCYTES ABSOLUTE AUTO 0.99 K/mm3 (0.84-5.20); LYMPHOCYTES PERCENT AUTO 7 % (21-46); MONOCYTES ABSOLUTE AUTO 1.18 K/mm3 (0.16-1.47); MONOCYTES PERCENT AUTO 8 % (4-13); Mean Corpuscular HGB Conc 29.3 g/dL (31.5-36.5); Mean Corpuscular Volume 99 fL (80-100); Mean Platelet Volume 9.7 fL (9.1-12.4); NEUTROPHILS ABSOLUTE AUTO 12.08 K/mm3 (1.96-9.15); NEUTROPHILS PERCENT AUTO 81 % (41-73); Platelet Count 346 K/mm3 (150-400); RDW Coefficient Variation 14.5 % (11.7-14.2); RDW Standard Deviation 52.3 fL (35.1-46.3); Red Blood Cell Count 3.72 M/mm3 (4.30-5.90); White Blood Cell Count 14.91 K/mm3 (4.00-11.30)
[2023-01-25 04:49] LABS: Magnesium, Blood 1.6 mg/dL (1.6-2.4)
[2023-01-25 04:59] LABS: Albumin, Blood 2.4 g/dL (3.4-5.0); Anion Gap Unable to Calculate mmol/L (6-16); Blood Urea Nitrogen 18 mg/dL (8-24); Bun/Creatinine Ratio 21.4 (12.0-20.0); CO2, Blood 39 mmol/L (21-32); Calcium, Blood 8.9 mg/dL (8.5-10.1); Chloride, Blood 97 mmol/L (98-108); Creatinine, Blood 0.84 mg/dL (0.60-1.20); Glomerular Filtration Rate 101 (60-); Glucose, Blood 128 mg/dL (70-99); Phosphorus, Blood 4.5 mg/dL (2.5-4.9); Potassium, Blood 3.7 mmol/L (3.5-5.5); Sodium, Blood 134 mmol/L (136-145)
--- NOTE | 2023-01-25 06:00 | NUR ---
SHIFT SUMMARY: Last night, pt was drowsy yet arousable to voice and very confused. Able to tell me his name but was not oriented to time, place or situation. Refused to take amiodarone PO, but he did allow us to turn and clean him. Wore CPAP most of the night. This AM, he is awake and oriented X3. Mood is somewhat irritable and is now refusing to be repositioned. States that he is ready to go home and does not want to do this anymore.
--- NOTE | 2023-01-25 07:43 | NUR ---
Bedside report received from VANITA Gudino. Pt's heart rate was 130-140 atrial flutter, and pt was asymptomatic. He was sitting up in bed, eating some candy. Heart rate then increased to 180, pt was still asymptomatic and blood pressure high. IV metoprolol given as well as oral amiodarone and coreg. Noc shift RN stated that pt had refused his po amiodarone last night. Blood pressure remains stable, and heart rate has improved to 91 bpm, still atrial flutter. Pt continues to deny any symptoms.
--- NOTE | 2023-01-25 11:40 | NUR ---
Stool incontinence, large amount, around the rectal tube; probably due to the stool being too thick to pass through the tube. Hygeine care completed, pt up to chair with gait belt, walker and staff asssist
--- NOTE | 2023-01-25 14:09 | NUR ---
Nabil is alert, oriented to person, place, the month, and roughly how long he has been in the hospital. He has been cooperative, and appropriately communicating with staff today. He did have a large bowel incontinence as the stool is too thick to pass through the rectal tube, so it was dc'd. he was helped up to the recliner and after lunch he was helped back into bed. Given pain medication once for c/o lower back pain; he states this pain is chronic. He has been able to void using the urinal, and voice his needs appropriately to staff, and using the call light as well. States that he thinks that he needs to quit drinking completely; he seems to understand that it is dangerous for him to keep drinking but he said that his drinks a lot and doesn't care. He acknowledges that it will be difficult for him to break his habits once he goes back home. He was encouraged to quit as he has already been 10 days without a drink and would not have to worry about going through withdrawls.
--- NOTE | 2023-01-25 16:29 | NUR ---
Spoke with Primary RN Lacy and discussed case. Lacy reports Pt may benefit from code status discussion. Pt resting in bed and appears much more awake and alert from previous visit when Pt was in ICU. Pt reports feeling better and improvement of his dyspnea. Engaged in therapeutic conversation regarding advanced care planning. Educated on disease process including trajectory. Discussed the importance of planning for the future as disease procresses. Discussed code status wishes. Educated on life sustaining treatments including risk and implications to CPR/Intubation. Pt reports he would like to consider his wishes further and would like to remain a full code for now. No other concerns reported at this time. Palliative Care will remain available
--- NOTE | 2023-01-25 16:47 | NUR ---
Heart rate continues to be 133-182 bpm at this time. Pt is tolerating it, has no symptoms, and blood pressure is 146/102. spo2 on home baseline dose of oxygen, 2 l/min. RR is 24/minute. Coreg was given at this time, as scheduled.
[2023-01-26 03:14] VITALS: BP 103/85
--- NOTE | 2023-01-26 04:47 | NUR ---
SHIFT SUMMARY PT A&Ox3-4, HAS MOMENTS OF CONFUSING AND ODD STATEMENTS, OTHEWISE CALLS AND COMMUNICATES NEEDS APPROPRIATELY. BP STABLE, DENIES CP/PRESSURE. AFLUTTER 100-140's. SpO2> 92% ON 2L VIA NC OR CPAP. PT 1 ASSIST TO BSC FOR VOIDS AND BMs. MANAGED PT's PAIN PER EMAR. NO OTHER EVENTS, WILL REPORT TO ONCOMING RN.
[2023-01-26 07:18] VITALS: BP 137/96
--- NOTE | 2023-01-26 07:22 | NUR ---
Nabil is alert and oriented. Only complaint this morning is back pain; he was given oxy 5 mg at 4 am. STates that he takes 15 mg at home, but it is not on his home med list. Declined OOB to chair at this time; states he's doing fine in the bed. States he really wants to go home soon.
[2023-01-26 12:36] VITALS: BP 138/82
[2023-01-26 16:38] VITALS: BP 115/68
--- NOTE | 2023-01-26 18:10 | NUR ---
ALERT AND ORIENTED X4. APPETITE WAS GOOD. HAD TWO BOWEL MOVEMENTS AND USING URINAL AT BEDSIDE. ONE PERSON ASSIST TO BEDSIDE COMMODE. HEART RATE DID INCREASE WITH ACTIVITY. PATIENT IS TOLERATING IT WILL WITHOUT SYMPTOMS. PT STATED THAT HE IS EAGER TO GO HOME. DISCUSSED MEDICATION CHANGES AND NEED FOR CONTINUED MONITORING. PRESENT AND BOTH IN AGREEMENT WITH PLAN. PT WAS ENCURAGED TO GET OUT OF BED TO THE CHAIR AND HE DECLINED. DISCUSSED ACTIVITY AND BENEFITS OF CHANGING POSITION.
[2023-01-26 20:36] VITALS: BP 116/93
[2023-01-26 23:47] VITALS: BP 121/71
--- NOTE | 2023-01-27 04:36 | NUR ---
SHIFT SUMMARY PT A&Ox3-4, HAS MOMENTS OF CONFUSING AND ODD STATEMENTS, OTHERWISE CALLS AND COMMUNICATES NEEDS APPROPRIATELY. BP STABLE, DENIES CP/PRESSURE. AFLUTTER 80-170's, MANAGED PER EMAR. SpO2> 92% ON 2L VIA NC, REFUSED TO WEAR CPAP, DENIES SOB. PT 1 ASSIST TO BSC FOR VOIDS AND BMs. MANAGED PT's PAIN PER EMAR. NO OTHER EVENTS, WILL REPORT TO ONCOMING RN.
[2023-01-27 07:51] VITALS: BP 153/88
--- NOTE | 2023-01-27 07:53 | NUR ---
Nabil is sitting up in bed, eating breakfast. Heart rate well controlled, atrial flutter at 88 bpm even during the activity of eating with some mild dyspnea, which is quite an improvement from yesterday, when even mild activity caused his heart rate to increase to 120-140 bpm. He states that he feels good. He is quite adamant that he wants to go home today.
[2023-01-27] MEDS ORDERED: METO100ER PO (10:48)
[2023-01-27] MEDS ORDERED: XARELTO20 MG PO (10:48)
[2023-01-27] MEDS ORDERED: AMIODARONE HCL400 M2 PO (10:50)
[2023-01-27] MEDS ORDERED: Amiodarone HCl200 MG PO ×2 (10:51→10:53)
== END 2023-01-27 16:18 | disposition home or self-care (01) | DRG 291 ==
LOC: ER 13:10 → PCU 16:11 → ICUW 16:11 → PCU 19:34 → ICUW 01-17 09:21 → PCU 01-22 17:07
PROVIDERS: Emergency Medicine; Family Medicine; Internal Medicine; Internal Medicine Critical Care Medicine; ADMIT Internal Medicine
PROC: HZ2ZZZZ Detoxification Services for Substance Abuse Treatment (ICD-10-PCS; principal; 2023-01-15)
PROC: 5A09457 Assistance with Respiratory Ventilation, 24-96 Consecutive Hours, Continuous Positive Airway Pressure (ICD-10-PCS; 2023-01-17)
PROC: 4A033R1 Measurement of Arterial Saturation, Peripheral, Percutaneous Approach (ICD-10-PCS; 2023-01-17)
DX: I50.31 Acute diastolic (congestive) heart failure (principal); G92.8 Other toxic encephalopathy; J96.21 Acute and chronic respiratory failure with hypoxia; K72.00 Acute and subacute hepatic failure without coma; J18.9 Pneumonia, unspecified organism; J96.22 Acute and chronic respiratory failure with hypercapnia; K56.0 Paralytic ileus; I48.92 Unspecified atrial flutter; E87.1 Hypo-osmolality and hyponatremia; K76.6 Portal hypertension; E66.2 Morbid (severe) obesity with alveolar hypoventilation; E87.4 Mixed disorder of acid-base balance; J44.0 Chronic obstructive pulmonary disease with (acute) lower respiratory infection; I47.1 Supraventricular tachycardia; I48.0 Paroxysmal atrial fibrillation; E83.42 Hypomagnesemia; I44.39 Other atrioventricular block; D63.8 Anemia in other chronic diseases classified elsewhere; K70.9 Alcoholic liver disease, unspecified; F10.20 Alcohol dependence, uncomplicated; I49.5 Sick sinus syndrome; K76.82 Hepatic encephalopathy; K21.9 Gastro-esophageal reflux disease without esophagitis; E88.09 Other disorders of plasma-protein metabolism, not elsewhere classified; G89.29 Other chronic pain; M54.9 Dorsalgia, unspecified; E78.00 Pure hypercholesterolemia, unspecified; R14.0 Abdominal distension (gaseous); Z88.8 Allergy status to other drugs, medicaments and biological substances; Z79.2 Long term (current) use of antibiotics; Z99.81 Dependence on supplemental oxygen; Z87.730 Personal history of (corrected) cleft lip and palate; Z87.891 Personal history of nicotine dependence; Z87.19 Personal history of other diseases of the digestive system; Z79.01 Long term (current) use of anticoagulants; Z79.899 Other long term (current) drug therapy
CPT/HCPCS: 36415; 36600; 51703; 71045; 74018; 76705; 80048; 80053; 80069; 81001; 82140; 82330; 82803; 83735; 83880; 84100; 84132; 84145; 84439; 84443; 84484; 85025; 85027; 85610; 93005; 93010; 93306; 94640; 94660; 94664; 94762; 96365; 96366; 96375; 96376; 97110; 97162; 97166; 97530; 97535; 99285-25; A9270; C1751; J0153; J0282; J0696; J1120; J1160; J1940; J2060; J3411; J3475; J3480; J7030; J7040; J7050; J7060

== ENCOUNTER 2023-01-28 21:14 | Inpatient (IN) | payer MEDICARE ==
[~2023-01-28] VITALS: Ht 182.9 cm; Wt 95.2 kg
[~2023-01-28 21:14] MED LIST changes: +AMIODARONE HCL400 M2 PO; +Amiodarone HCl200 MG PO; +METO100ER PO
[2023-01-28 21:34] LABS: Base Excess Venous 17.8 mmol/L; Bicarbonate Venous 37.3 mmol/L (24.0-30.0); pH Blood Venous 7.23 (7.34-7.37)
[2023-01-28 21:35] LABS: PCO2 Venous > 104 mmHg (38-42)
[2023-01-28 21:36] LABS: BASOPHILS ABSOLUTE AUTO 0.15 K/mm3 (0.00-0.23); BASOPHILS PERCENT AUTO 1 % (0-2); EOSINOPHILS ABSOLUTE AUTO 0.08 K/mm3 (0.00-0.68); EOSINOPHILS PERCENT AUTO 1 % (0-6); Hematocrit 40.2 % (37.0-53.0); Hemoglobin 11.8 g/dL (13.5-17.5); IMMATURE GRAN ABSOLUTE AUTO 0.19 K/mm3 (0.00-0.10); IMMATURE GRAN PERCENT AUTO 1 % (0-1); LYMPHOCYTES ABSOLUTE AUTO 1.45 K/mm3 (0.84-5.20); LYMPHOCYTES PERCENT AUTO 9 % (21-46); MONOCYTES ABSOLUTE AUTO 1.28 K/mm3 (0.16-1.47); MONOCYTES PERCENT AUTO 8 % (4-13); Mean Corpuscular HGB 29.2 pg (26.0-34.0); Mean Corpuscular HGB Conc 29.4 g/dL (31.5-36.5); Mean Corpuscular Volume 100 fL (80-100); Mean Platelet Volume 9.4 fL (9.1-12.4); NEUTROPHILS ABSOLUTE AUTO 13.86 K/mm3 (1.96-9.15); NEUTROPHILS PERCENT AUTO 82 % (41-73); Platelet Count 570 K/mm3 (150-400); RDW Coefficient Variation 14.6 % (11.7-14.2); RDW Standard Deviation 54.1 fL (35.1-46.3); Red Blood Cell Count 4.04 M/mm3 (4.30-5.90); White Blood Cell Count 17.01 K/mm3 (4.00-11.30)
[2023-01-28 22:09] LABS: Alanine Aminotransfer (ALT/SGP 70 U/L (12-78); Albumin, Blood 2.8 g/dL (3.4-5.0); Albumin/Globulin Ratio 0.6 (0.8-1.8); Alk Phos 139 U/L (50-136); Anion Gap Unable to Calculate mmol/L (6-16); Aspartate Aminotrans (AST/SGOT 64 U/L (12-37); Bilirubin, Total 0.4 mg/dL (0.1-1.0); Blood Urea Nitrogen 10 mg/dL (8-24); Bun/Creatinine Ratio 13.3 (12.0-20.0); CO2, Blood 45 mmol/L (21-32); Calcium, Blood 9.1 mg/dL (8.5-10.1); Chloride, Blood 93 mmol/L (98-108); Creatinine, Blood 0.75 mg/dL (0.60-1.20); Globulin, Blood 4.8 g/dL (2.2-4.0); Glomerular Filtration Rate 105 (60-); Glucose, Blood 154 mg/dL (70-99); Potassium, Blood 3.9 mmol/L (3.5-5.5); Sodium, Blood 135 mmol/L (136-145); Total Protein, Blood 7.6 g/dL (6.4-8.2)
[2023-01-28 23:20] LABS: PCO2 Arterial 61.2 mmHg (35-45); PO2 Arterial 127 mmHg (80-100); pH Blood Arterial 7.41 (7.35-7.45)
[2023-01-28 23:40] LABS: Source, Urine Foley catheter
[2023-01-28 23:51] LABS: Appearance, Urine Clear (Clear); Bilirubin, Urine Neg (Neg); Blood, Urine 3+ (Neg); Color, Urine Yellow (P-Yellow); Glucose Qualitative, Urine 1+ (Neg); Ketones, Urine Neg (Neg); Leukocyte Esterase, Urine Neg (Neg); Nitrite, Urine Neg (Neg); Protein, Urine 3+ (Neg); Urobilinogen, Urine NORM (Normal)
[2023-01-28 23:57] LABS: Red Blood Cells, Urine 0-2 /hpf (0-2); Squamous Epithelial Cells Not Seen /hpf (Few)
[2023-01-28 23:58] LABS: Amorphous Mod (0-Heavy); Bacteria Few /hpf; Hyaline Casts 50-100 /lpf (0-2); Mucus Light (0-Heavy)
[2023-01-29] VITALS (76 sets, daily range): BP systolic 71–160; BP diastolic 47–146
[2023-01-29 00:04] LABS: U Amphetamine Screen Not Detected; U Barbituate Screen Not Detected; U Cocaine Screen Not Detected; U Methadone Screen Not Detected; U Methamphetamine Screen Not Detected; U Opiates Screen DETECTED
[2023-01-29 00:05] LABS: U Benzodiazapine Screen DETECTED; U Buprenorphine Screen Not Detected; U Cannabinoids Screen Not Detected; U Oxycodone Screen DETECTED; U Phencyclidine Screen Not Detected; U Propoxyphene Screen Not Detected
[2023-01-29 00:25] LABS: Influenza A, PCR NEGATIVE (NEGATIVE); Influenza B, PCR NEGATIVE (NEGATIVE); Resp Syncytial Virus, PCR NEGATIVE (NEGATIVE); SARS-Cov-2 (COVID-19) PCR, MMC NEGATIVE (NEGATIVE)
--- NOTE | 2023-01-29 02:20 | NUR ---
ASSUMED CARE PT ARRIVED ON UNIT AT 0110 INTUBATED AND SEDATED. PT WAS TREMULOUS UPON ARRIVAL, FOLLOWED COMMANDS, AND WAS ABLE TO MAINTAIN EYE CONTACT. T-MAX 102.1 PER TEMP NAVARRETE. PROPOFOL AND VANCOMYCIN INFUSING (SEE FLOWSHEET). ATIVAN AND HIGHER DOSE OF PROPOFOL RESOLVED SHAKING TEMPORARILY; PROPOFOL TITRATED DOWN D/T PT BECOMING HYPOTENSIVE; SHAKING RESUMED QUICKLY AFTERWARDS. DR MATAMOROS NOTIFIED, AT BEDSIDE, AND NEW ORDERS TO BE PUT IN (VERSED AND TYLENOL). NAVARRETE PATENT AND DRAINING TO GRAVITY.
[2023-01-29 02:34] LABS: BASOPHILS ABSOLUTE AUTO 0.09 K/mm3 (0.00-0.23); BASOPHILS PERCENT AUTO 1 % (0-2); EOSINOPHILS ABSOLUTE AUTO 0.05 K/mm3 (0.00-0.68); EOSINOPHILS PERCENT AUTO 0 % (0-6); Hematocrit 34.2 % (37.0-53.0); Hemoglobin 10.2 g/dL (13.5-17.5); IMMATURE GRAN ABSOLUTE AUTO 0.11 K/mm3 (0.00-0.10); IMMATURE GRAN PERCENT AUTO 1 % (0-1); LYMPHOCYTES ABSOLUTE AUTO 0.96 K/mm3 (0.84-5.20); LYMPHOCYTES PERCENT AUTO 6 % (21-46); MONOCYTES ABSOLUTE AUTO 1.32 K/mm3 (0.16-1.47); MONOCYTES PERCENT AUTO 8 % (4-13); Mean Corpuscular HGB 29.2 pg (26.0-34.0); Mean Corpuscular HGB Conc 29.8 g/dL (31.5-36.5); Mean Corpuscular Volume 98 fL (80-100); Mean Platelet Volume 9.6 fL (9.1-12.4); NEUTROPHILS ABSOLUTE AUTO 14.07 K/mm3 (1.96-9.15); NEUTROPHILS PERCENT AUTO 85 % (41-73); Platelet Count 410 K/mm3 (150-400); RDW Coefficient Variation 14.5 % (11.7-14.2); RDW Standard Deviation 52.1 fL (35.1-46.3); Red Blood Cell Count 3.49 M/mm3 (4.30-5.90)
[2023-01-29 02:36] LABS: International Normalized Ratio 1.34; Prothrombin Time Results 13.8 Sec (9.7-11.5)
[2023-01-29 02:39] LABS: Albumin, Blood 2.4 g/dL (3.4-5.0); Albumin/Globulin Ratio 0.6 (0.8-1.8); Bilirubin, Total 0.5 mg/dL (0.1-1.0); Bun/Creatinine Ratio 12.1 (12.0-20.0); Calcium, Blood 8.7 mg/dL (8.5-10.1); Creatinine, Blood 0.91 mg/dL (0.60-1.20); Globulin, Blood 4.1 g/dL (2.2-4.0); Potassium, Blood 3.3 mmol/L (3.5-5.5); Total Protein, Blood 6.5 g/dL (6.4-8.2)
[2023-01-29 02:40] LABS: Anti-Xa UFH, PHA Monitoring 1.22 IU/mL
[2023-01-29 05:05] LABS: Base Excess Venous 20.1 mmol/L; Bicarbonate Venous 41.7 mmol/L (24.0-30.0); PCO2 Venous 52.7 mmHg (38-42); pH Blood Venous 7.52 (7.34-7.37)
--- NOTE | 2023-01-29 06:00 | NUR ---
SHIFT SUMMARY PT SHAKING IS NOW INTERMITTANT AND HAS DECREASED IN SEVERITY. VERSED GTT INFUSING (SEE FLOWSHEET). ASKED PT IF THE SHAKING WAS HIM SHIVERING, PT NODDED. PT CONTINUES TO FOLLOW COMMANDS AND NODS/SHAKES HEAD APPROPRIATELY. EASILY AROUSABLE. TEMPERATURE IS 101.0 AT TIME OF THIS NOTE. NAVARRETE CATHETER PATENT AND DRAINING TO GRAVITY.
--- NOTE | 2023-01-29 07:44 | NUR ---
AM NOTE... ASSUMED CARE OF PT AT 0700. PT IS A&O ABLE TO NOD/SHAKE HIS HEAD APPROPRIATELY TO QUESTIONS. VERSED GTT IS RUNNING AT 4MG/HR, PT IS GETTING MORE ANXIOUS AND AGITATED CHEWING ON THE TUBE AND COUGHING. VERSED GTT WAS INCREASED TO 5MG/HR. VENT SETTINGS ARE AC/VC+:18/450/8/65% WITH O2 SATS >92%. L/S DIM AND COARSE T/O. HE IS IN SR/ST 90'S-100'S BP IS SOFT BUT STABLE WITH MAPS >65. PT HAS 2+ EDEMA NOTED TO HIS BLE. OG TUBE IS CLAMPED AT THIS TIME. BT PRESENT AND HYPOACTIVE, ABD HAS MODERATE DISTENTION AND IS SLIGHTLY FIRM TO PALPATION. TEMP NAVARRETE IN PLACE CURRENT TEMP IS 100.3. NAVARRETE IS PATENT AND DRAINING MILKY YELLOW URINE WITH SEDIMENT TO GRAVITY. WILL CONTINUE TO MONITOR.
--- NOTE | 2023-01-29 08:39 | NUR ---
AM NOTE... ASSUMED CARE OF PATIENT AT 0700. PT REMAINS INTUBATED AC/VC 18/450/8/65% WITH SATURATIONS IN THE HIGH 90'S. PT IS IN SINUS RHYTHM WITH A HEART RATE IN THE 80'S AND IS NORMOTENSIVE. ACCORDING TO NOC NURSE, THE PT STARTED SHIVERING LAST NIGHT AND DEVELOPED A FEVER AND WAS GIVEN TYLENOL AND CURRENTLY HAS A TEMP OF 100.1. PT IS ABLE TO OPEN HIS EYES AND RESPOND TO QUESTIONS AND COMPLAINS OF PAIN, WHICH HE WAS GIVEN FENTANYL FOR. HE HAS VERSED RUNNING AT 5. THE PT WAS DROPPED TO 45% OXYGEN BY RT. DR EDMONDS CALLED AND ASKED THE VERSED DRIP TO BE TURNED OFF AND PLANS ON COMING IN TO ATTEMPT TO EXTUBATE THE PT.
[2023-01-29 10:14] LABS: Bun/Creatinine Ratio 14.3 (12.0-20.0); Calcium, Blood 8.9 mg/dL (8.5-10.1); Creatinine, Blood 0.84 mg/dL (0.60-1.20); Potassium, Blood 3.3 mmol/L (3.5-5.5)
--- NOTE | 2023-01-29 10:59 | NUR ---
PT UPDATE.... PT WAS EXTUBATED TO 6L NC WITH BIPAP AT THE BEDSIDE AT 1026. PT'S O2 WAS QUICKLY TITRATED DOWN TO 2L NC WITH O2 SATS >95%. WILL CONTINUE TO MONITOR.
--- NOTE | 2023-01-29 14:19 | NUR ---
PT UPDATE.... THE PT WAS TITRATED DOWN TO 2L NC WITH O2 SATS >90%. THE PT'S WORK OF BREATHING STARTED TO INCREASE. HE STARTED GASPING BREATHS AND GRUNTING. THE PT WAS PUT ON BIPAP AT 12/6 AND 50%. PT'S BREATHING IMPROVED QUICKLY ONCE THE BIPAP WAS ON. PT'S O2 SATS WHILE ON THIS SETTING WERE 100% THE PT'S FIO2 WAS DECREASED TO 40% AND RT WAS NOTIFIED. WILL CONTINUE TO MONITOR.
[2023-01-29 15:32] LABS: Bun/Creatinine Ratio 13.6 (12.0-20.0); Calcium, Blood 8.1 mg/dL (8.5-10.1); Creatinine, Blood 0.81 mg/dL (0.60-1.20); Magnesium, Blood 3.9 mg/dL (1.6-2.4); Potassium, Blood 2.7 mmol/L (3.5-5.5)
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
--- NOTE | 2023-01-29 17:29 | NUR ---
SHIFT SUMMARY... PT WAS EXTUBATED THIS AFTERNOON PER DR. EDMONDS'S REQUEST. SINCE BEING EXTUBATED HE HAS BEEN SWITCHING ON AND OFF OF A NC AND BIPAP, WHICH HE HAS OVERALL BEEN TOLERATING WELL. CURRENT BIPAP SETTINGS ARE 12/6/35% WITH OXYGEN SATURATIONS IN THE HIGH 90'S. PT HAS HAD 3 EPISODES OF DIARRHEA TODAY. DR EDMONDS WAS NOTIFED AND THE PARAMETERS FOR HIS LACTULOSE WERE CHANGED TO 2-3 LOOSE STOOLS PER DAY. PT HAS BEEN ABLE TO TOLERATE SMALL SIPS OF WATER AND PO MEDS SINCE EXTUBATION. PT REMAINS IN SINUS RHYTHM AND NORMOTENSIVEW. WILL CONTINUE TO MONITOR. PT'S MOST RECENT POTASSIUM LEVEL WAS 2.7. DR. EDMONDS WAS CALLED AND NOTIFIED AND WOULD LIKE THE LASIX TO CONTINUE TO BE GIVEN AND CALL HIM IF THE NEXT REDRAW IS < 3.6.
[2023-01-29 19:13] LABS: Albumin, Blood 2.5 g/dL (3.4-5.0); Anion Gap 1 mmol/L (6-16); Blood Urea Nitrogen 12 mg/dL (8-24); Bun/Creatinine Ratio 12.2 (12.0-20.0); CO2, Blood 43 mmol/L (21-32); Calcium, Blood 8.6 mg/dL (8.5-10.1); Chloride, Blood 98 mmol/L (98-108); Creatinine, Blood 0.98 mg/dL (0.60-1.20); Glomerular Filtration Rate 89 (60-); Glucose, Blood 117 mg/dL (70-99); Phosphorus, Blood 3.6 mg/dL (2.5-4.9); Potassium, Blood 3.4 mmol/L (3.5-5.5); Sodium, Blood 142 mmol/L (136-145)
--- NOTE | 2023-01-29 19:43 | NUR ---
ASSUMED CARE PT IS A&O X2-3. PT APPEARS TO BE ORIENTED AT TIMES W/ INTERMITTENT CONFUSION; HAS EXPRESSED DESIRE TO GO HOME SEVERAL TIMES FOR OFFGOING NURSE/THIS RN. EDUCATING PT ON RISKS HAS BEEN SUCCESSFUL IN PT COOPERATING W/ CARE PLAN. PT ON BIPAP SPO2 >92%; MAP>65; NSR; AFEBRILE. NAVARRETE CATHETER PATENT AND DRAINING TO GRAVITY.
--- NOTE | 2023-01-29 21:16 | NUR ---
UPDATE PT DESATTED DOWN INTO THE 40'S/APNEIC PERIOD. PT APPEARS TO BE MORE SOMNULENT AND DR DE SANTIAGO CALLED. VBG ORDERED AND DORENE RT AT BEDSIDE TO FULFILL REST OF DR FRASER ORDERS.
[2023-01-29 21:53] LABS: Base Excess Venous 16.3 mmol/L; Bicarbonate Venous 36.3 mmol/L (24.0-30.0); PCO2 Venous 88.7 mmHg (38-42); pH Blood Venous 7.29 (7.34-7.37)
--- NOTE | 2023-01-30 00:43 | NUR ---
UPDATE PT IS NO LONGER SOMNULENT AND IS EASILY AROUSABLE.
[2023-01-30 01:00] VITALS: BP 212/194
[2023-01-30 01:07] VITALS: BP 118/75
[2023-01-30 03:33] LABS: Base Excess Venous 17.8 mmol/L; Bicarbonate Venous 39.5 mmol/L (24.0-30.0); PCO2 Venous 59.6 mmHg (38-42); pH Blood Venous 7.45 (7.34-7.37)
[2023-01-30 03:47] LABS: BASOPHILS ABSOLUTE AUTO 0.09 K/mm3 (0.00-0.23); BASOPHILS PERCENT AUTO 1 % (0-2); EOSINOPHILS ABSOLUTE AUTO 0.43 K/mm3 (0.00-0.68); EOSINOPHILS PERCENT AUTO 3 % (0-6); Hematocrit 31.9 % (37.0-53.0); Hemoglobin 9.2 g/dL (13.5-17.5); IMMATURE GRAN ABSOLUTE AUTO 0.13 K/mm3 (0.00-0.10); IMMATURE GRAN PERCENT AUTO 1 % (0-1); LYMPHOCYTES PERCENT AUTO 7 % (21-46); MONOCYTES ABSOLUTE AUTO 1.01 K/mm3 (0.16-1.47); MONOCYTES PERCENT AUTO 7 % (4-13); Mean Corpuscular HGB 28.8 pg (26.0-34.0); Mean Corpuscular HGB Conc 28.8 g/dL (31.5-36.5); Mean Corpuscular Volume 100 fL (80-100); Mean Platelet Volume 9.2 fL (9.1-12.4); NEUTROPHILS ABSOLUTE AUTO 11.05 K/mm3 (1.96-9.15); NEUTROPHILS PERCENT AUTO 81 % (41-73); Platelet Count 401 K/mm3 (150-400); RDW Coefficient Variation 14.4 % (11.7-14.2); RDW Standard Deviation 52.6 fL (35.1-46.3); White Blood Cell Count 13.71 K/mm3 (4.00-11.30)
[2023-01-30 04:00] VITALS: BP 100/85
[2023-01-30 04:04] LABS: Anion Gap Unable to Calculate mmol/L (6-16); Blood Urea Nitrogen 12 mg/dL (8-24); Bun/Creatinine Ratio 13.7 (12.0-20.0); CO2, Blood 44 mmol/L (21-32); Calcium, Blood 8.3 mg/dL (8.5-10.1); Chloride, Blood 96 mmol/L (98-108); Creatinine, Blood 0.87 mg/dL (0.60-1.20); Glomerular Filtration Rate 100 (60-); Glucose, Blood 93 mg/dL (70-99); Magnesium, Blood 1.8 mg/dL (1.6-2.4); Phosphorus, Blood 2.6 mg/dL (2.5-4.9); Sodium, Blood 139 mmol/L (136-145)
[2023-01-30 05:00] VITALS: BP 95/59
--- NOTE | 2023-01-30 05:30 | NUR ---
SHIFT SUMMARY PT IS A&O X4; MAP >65; SPO2 >92% ON BIPAP. PT HAS BEEN ON BIPAP ALL NIGHT EXCEPT TO DRINK FLUIDS. PT HAS HAD 2 LIQUID BOWEL MOVEMENTS. PT INFORMED THIS RN THAT HE DOES NOT TAKE LACTULOSE AT HOME D/T MEDICATION CAUSING HIM DIARHEA; EDUCATION GIVEN ABOUT IMPORTANCE OF CARE PLAN/HOW LACTULOSE HELPS HIM. NAVARRETE CATHETER PATENT AND DRAINING TO GRAVITY.
[2023-01-30 06:00] VITALS: BP 100/67
[2023-01-30 07:00] VITALS: BP 110/73
--- NOTE | 2023-01-30 08:32 | NUR ---
ASSUMED CARE PT. AWAKENS TO VERBAL STIMULI, PULLS OFF BIPAP MASK. SETTINGS 16/8, 35% PLACED ON 4L NC. PT ANSWERING QUESTIONS APPROPRIATELY THIS AM. PT ASSISTED TO REPOSITION AND ORAL CARE. PT. VSS THIS AM. PT. HAS LOW GRADE TEMP THIS AM OF 99.4, PT HAS MANY BLANKETS IN PLACE SOME REMOVED. PT STATES "WHEN DOES SOMEONE GET TO EAT AROUND HERE". SWALLOW EVAL TO BE COMPLETED. PT. TOLERATED SIPS OF WATER. WILL ADVANCE DIET TOLERATED. ABLE TO ASSIST WITH REPOSITIONING IN BED, REQUESTING TO GO HOME. NAVARRETE IN PLACE DRAINING TO GRAVITY FOR STRICT I&O.
--- NOTE | 2023-01-30 10:20 | NUR ---
ASSISTED PT WITH BREAKFAST TRAY AFTER SWALLOW EVAL. PT. ABLE TO FEED SELF W/O DIFFICULTY. PT STATES "IM GOING HOME TODAY NO MATTER WHAT". DISCUSSED WITH PT THAT THE DOCTOR WOULD LIKE HIM TO STAY ONE MORE DAY ON MEDICAL FLOOR. PT. STATES "NOPE IM GOING HOME". VSS AT THIS TIME. REMAINS ON HOME REGIMEN OF 4LNC
--- NOTE | 2023-01-30 10:55 | NUR ---
TO BEDSIDE TO DISCUSS TX PLAN WITH PT. PT REPORTS HE IS LEAVING TODAY. PT TO BEDSIDE WITH PT CLOTHES. RISKS OF LEAVING AMA DISCUSSED IN DETAIL WITH PT AND PT. PT CONTINUES TO REFUSE TO STAY AND BE TREATED. PAPERWORK COMPLETED, DR. EDMONDS AND DR. ESPINOZA NOTIFIED. PT TO TAKE PT HOME AMA.
--- NOTE | 2023-01-30 12:02 | NUR ---
PT LEFT AMA. PT. ABLE TO STAND AND TRANSFER SELF TO WHEEL CHAIR, IVS REMOVED, NAVARRETE REMOVED. PT. BROUGHT PT OXYGEN AND PT WAS TAKE HOME WITH . PAPERWORK SIGNED, AND BOTH PT AND VERBALIZED UNDERSTANDING OF RISKS. PT. SISTER AT BEDSIDE WELL AND WAS UPSET, PALLIATIVE CARE RN SOFÍA ASSISTED WITH FAMILY. PT INSISTANT ON LEAVING.
--- NOTE | 2023-01-30 12:31 | NUR ---
Pt left against medical advice. prognosis is poor he is high risk for readmission or sudden repiritory event. kps score is 50%.
== END 2023-01-30 12:03 | disposition left against medical advice (07) | DRG 871 ==
LOC: ER 21:14 → ICUW 23:49
PROVIDERS: Family Medicine; Internal Medicine Critical Care Medicine; Student in an Organized Health Care Education/Training Program; ADMIT Internal Medicine
PROC: 0BH17EZ Insertion of Endotracheal Airway into Trachea, Via Natural or Artificial Opening (ICD-10-PCS; principal; 2023-01-28)
PROC: 5A1935Z Respiratory Ventilation, Less than 24 Consecutive Hours (ICD-10-PCS; 2023-01-28)
PROC: 5A09357 Assistance with Respiratory Ventilation, Less than 24 Consecutive Hours, Continuous Positive Airway Pressure (ICD-10-PCS; 2023-01-28)
PROC: 4A033R1 Measurement of Arterial Saturation, Peripheral, Percutaneous Approach (ICD-10-PCS; 2023-01-28)
PROC: 3E03329 Introduction of Other Anti-infective into Peripheral Vein, Percutaneous Approach (ICD-10-PCS; 2023-01-28)
PROC: 0T9B70Z Drainage of Bladder with Drainage Device, Via Natural or Artificial Opening (ICD-10-PCS; 2023-01-28)
PROC: 5A2204Z Restoration of Cardiac Rhythm, Single (ICD-10-PCS; 2023-01-29)
DX: A41.9 Sepsis, unspecified organism (principal); J18.9 Pneumonia, unspecified organism; J96.22 Acute and chronic respiratory failure with hypercapnia; J96.21 Acute and chronic respiratory failure with hypoxia; I48.92 Unspecified atrial flutter; J44.1 Chronic obstructive pulmonary disease with (acute) exacerbation; J44.0 Chronic obstructive pulmonary disease with (acute) lower respiratory infection; E87.29 Other acidosis; E87.3 Alkalosis; Z20.822 Contact with and (suspected) exposure to COVID-19; Z53.29 Procedure and treatment not carried out because of patient's decision for other reasons; Z68.25 Body mass index [BMI] 25.0-25.9, adult; R65.20 Severe sepsis without septic shock; I10 Essential (primary) hypertension; I48.91 Unspecified atrial fibrillation; K70.9 Alcoholic liver disease, unspecified; K76.82 Hepatic encephalopathy; E87.6 Hypokalemia; E78.00 Pure hypercholesterolemia, unspecified; I95.9 Hypotension, unspecified; E83.42 Hypomagnesemia; D63.8 Anemia in other chronic diseases classified elsewhere; E66.9 Obesity, unspecified; K21.9 Gastro-esophageal reflux disease without esophagitis; F10.20 Alcohol dependence, uncomplicated; G89.29 Other chronic pain; G47.33 Obstructive sleep apnea (adult) (pediatric); M54.9 Dorsalgia, unspecified; Z78.1 Physical restraint status; Z99.81 Dependence on supplemental oxygen; Z87.891 Personal history of nicotine dependence; Z79.51 Long term (current) use of inhaled steroids; Z79.899 Other long term (current) drug therapy; Z98.890 Other specified postprocedural states; Z91.148 Patient's other noncompliance with medication regimen for other reason; Z88.8 Allergy status to other drugs, medicaments and biological substances
CPT/HCPCS: 0241U; 31500; 36415; 36600; 51702; 70450; 71045; 80048; 80053; 80069; 81001; 82140; 82803; 83605; 83735; 84100; 84145; 85025; 85520; 85610; 85730; 87040; 87070; 87205; 92960; 93005; 93010; 94002; 94003; 94640; 94644; 94660; 94664; 96374-59; 96375-59; 99291-25; A9270; C9113; J0456; J0696; J1120; J1940; J2060; J2250; J2370; J2543; J2704; J3010; J3370; J3475; J3480; J7030; J7050; J7060

== ENCOUNTER 2023-02-21 16:39 | Inpatient (IN) | payer MEDICARE ==
[2023-02-21] VITALS (12 sets, daily range): BP systolic 87–118; BP diastolic 53–71
[~2023-02-21] VITALS: Ht 182.9 cm; Wt 92.0 kg
[2023-02-21 17:57] LABS: BASOPHILS ABSOLUTE AUTO 0.07 K/mm3 (0.00-0.23); BASOPHILS PERCENT AUTO 0 % (0-2); EOSINOPHILS ABSOLUTE AUTO 0.04 K/mm3 (0.00-0.68); EOSINOPHILS PERCENT AUTO 0 % (0-6); Hematocrit 38.2 % (37.0-53.0); Hemoglobin 13.7 g/dL (13.5-17.5); IMMATURE GRAN ABSOLUTE AUTO 0.19 K/mm3 (0.00-0.10); IMMATURE GRAN PERCENT AUTO 1 % (0-1); LYMPHOCYTES PERCENT AUTO 5 % (21-46); MONOCYTES ABSOLUTE AUTO 1.43 K/mm3 (0.16-1.47); MONOCYTES PERCENT AUTO 6 % (4-13); Mean Corpuscular HGB Conc 35.9 g/dL (31.5-36.5); Mean Corpuscular Volume 81 fL (80-100); Mean Platelet Volume 9.5 fL (9.1-12.4); NEUTROPHILS ABSOLUTE AUTO 20.01 K/mm3 (1.96-9.15); NEUTROPHILS PERCENT AUTO 88 % (41-73); Platelet Count 275 K/mm3 (150-400); RDW Standard Deviation 37.4 fL (35.1-46.3); Red Blood Cell Count 4.73 M/mm3 (4.30-5.90); White Blood Cell Count 22.84 K/mm3 (4.00-11.30)
[2023-02-21 18:32] LABS: Albumin, Blood 2.5 g/dL (3.4-5.0); Albumin/Globulin Ratio 0.7 (0.8-1.8); Bilirubin, Total 0.8 mg/dL (0.1-1.0); Bun/Creatinine Ratio 10.2 (12.0-20.0); Calcium, Blood 8.3 mg/dL (8.5-10.1); Creatinine, Blood 0.88 mg/dL (0.60-1.20); Globulin, Blood 3.8 g/dL (2.2-4.0); Potassium, Blood 2.9 mmol/L (3.5-5.5); Total Protein, Blood 6.3 g/dL (6.4-8.2)
[2023-02-21 19:07] LABS: CPK Creatine Kinase 625 U/L (39-308); Ethanol (Alcohol), Blood, Med <3 mg/dL
[2023-02-21 19:18] LABS: Creatine Kinase MB 2.8 ng/mL (0.0-3.6); Creatine Kinase MB Index 0.4 (0.0-4.0); Phosphorus, Blood 2.3 mg/dL (2.5-4.9)
[2023-02-21 23:33] LABS: Alanine Aminotransfer (ALT/SGP 28 U/L (12-78); Albumin, Blood 2.3 g/dL (3.4-5.0); Albumin/Globulin Ratio 0.7 (0.8-1.8); Alk Phos 191 U/L (50-136); Aspartate Aminotrans (AST/SGOT 71 U/L (12-37); Bilirubin, Direct 0.4 mg/dL (0.0-0.3); Bilirubin, Indirect 0.4 mg/dL (0.1-0.7); Bilirubin, Total 0.8 mg/dL (0.1-1.0); Blood Urea Nitrogen 7 mg/dL (8-24); Bun/Creatinine Ratio 7.8 (12.0-20.0); Chloride, Blood 66 mmol/L (98-108); Globulin, Blood 3.3 g/dL (2.2-4.0); Glomerular Filtration Rate 99 (60-); Glucose, Blood 112 mg/dL (70-99); Magnesium, Blood 1.9 mg/dL (1.6-2.4); Phosphorus, Blood 2.4 mg/dL (2.5-4.9); Sodium, Blood 121 mmol/L (136-145); Total Protein, Blood 5.6 g/dL (6.4-8.2); Uric Acid, Blood 8.9 mg/dL (3.5-7.2)
[2023-02-21 23:38] LABS: Anion Gap Unable to Calculate mmol/L (6-16); CO2, Blood >45 mmol/L (21-32); Potassium, Blood 1.9 mmol/L (3.5-5.5)
[2023-02-22] VITALS (29 sets, daily range): BP systolic 85–152; BP diastolic 46–92
[2023-02-22 00:02] LABS: Osmolality, Serum 249 mos/KG (275-300)
[2023-02-22 03:55] LABS: BASOPHILS ABSOLUTE AUTO 0.03 K/mm3 (0.00-0.23); BASOPHILS PERCENT AUTO 0 % (0-2); EOSINOPHILS ABSOLUTE AUTO 0.02 K/mm3 (0.00-0.68); EOSINOPHILS PERCENT AUTO 0 % (0-6); Hemoglobin 11.2 g/dL (13.5-17.5); IMMATURE GRAN ABSOLUTE AUTO 0.09 K/mm3 (0.00-0.10); IMMATURE GRAN PERCENT AUTO 1 % (0-1); LYMPHOCYTES ABSOLUTE AUTO 1.16 K/mm3 (0.84-5.20); LYMPHOCYTES PERCENT AUTO 7 % (21-46); MONOCYTES ABSOLUTE AUTO 0.97 K/mm3 (0.16-1.47); MONOCYTES PERCENT AUTO 6 % (4-13); Mean Corpuscular HGB 28.6 pg (26.0-34.0); Mean Corpuscular Volume 82 fL (80-100); Mean Platelet Volume 9.2 fL (9.1-12.4); NEUTROPHILS ABSOLUTE AUTO 13.54 K/mm3 (1.96-9.15); NEUTROPHILS PERCENT AUTO 86 % (41-73); Platelet Count 259 K/mm3 (150-400); RDW Coefficient Variation 13.1 % (11.7-14.2); RDW Standard Deviation 38.7 fL (35.1-46.3); Red Blood Cell Count 3.91 M/mm3 (4.30-5.90); White Blood Cell Count 15.81 K/mm3 (4.00-11.30)
[2023-02-22 04:22] LABS: Albumin, Blood 2.1 g/dL (3.4-5.0); Albumin/Globulin Ratio 0.7 (0.8-1.8); Bilirubin, Total 0.8 mg/dL (0.1-1.0); Bun/Creatinine Ratio 7.1 (12.0-20.0); Calcium, Blood 7.7 mg/dL (8.5-10.1); Creatinine, Blood 0.85 mg/dL (0.60-1.20); Magnesium, Blood 1.7 mg/dL (1.6-2.4); Phosphorus, Blood 2.1 mg/dL (2.5-4.9); Potassium, Blood 2.5 mmol/L (3.5-5.5); Thyroid Stimulating Hormone 4.39 uIU/mL (0.360-4.800); Total Protein, Blood 5.1 g/dL (6.4-8.2)
--- NOTE | 2023-02-22 05:15 | NUR ---
END OF SHIFT SUMMARY A/O X3. PT IS CONFUSED AT TIMES CALLING OUT FOR HIS SPOUSE. RESP- 2 LPM NC >92% LUNG SOUNDS ARE COURSE WITH DIMINISHED BASES. CARDIAC- NSR WITH SBP 90'S, HR 80'S. DENIES CP/SOB. GI,- CONTINENT OF BLADDER WITH OVER 700 MLS DARK YELLOW URINE OUT SINCE ADMIT TIME. NO BM. INTEG- PT IS COVERED WITH LINES OF SCABS AND RAISED RED BUMPS SCATTERED THROUGHOUT ENTIRE BODY. POSSIBLE SCABIES AND FUNGAL INFECTION IN FOLDS INCLUDING STOMACH ON EACH SIDE OF GENITAL AREAS, BITTOCKS CREASE, UNDER ARM PITS. CHG BATH GIVEN TO PT UPON ADMIT D/T HYGIENE NEEDS. CIWA IS DIFFICULT TO DETERMINE D/T CURRENT ENCEPHALOPATHY STAGE. PT LAST DRINK WITH 02/22/23 DURING EARLY AFTERNOON PER PT SPOUSE (4 BEERS). VANCO GIVEN PER EMAR POTASSIUM GIVEN PER EMAR PERMETHERIN GIVEN PER EMAR 3% GIVEN PER EMAR CENTRAL LINE IN RIGHT IJ PATENT C/D/I WILL CONTINUE TO MONITOR UNTIL REPORT GIVEN TO DAYSHIFT VANITA.
[2023-02-22 08:22] LABS: Magnesium, Blood 1.7 mg/dL (1.6-2.4)
[2023-02-22 08:24] LABS: Anion Gap 10 mmol/L (6-16); Blood Urea Nitrogen 5 mg/dL (8-24); CO2, Blood 41 mmol/L (21-32); Calcium, Blood 7.5 mg/dL (8.5-10.1); Chloride, Blood 74 mmol/L (98-108); Creatinine, Blood 0.83 mg/dL (0.60-1.20); Glomerular Filtration Rate 101 (60-); Glucose, Blood 123 mg/dL (70-99); Phosphorus, Blood 1.9 mg/dL (2.5-4.9); Potassium, Blood 2.2 mmol/L (3.5-5.5); Sodium, Blood 125 mmol/L (136-145)
--- NOTE | 2023-02-22 11:11 | NUR ---
0800 ASSUMED PATIENT .. PT LAYING IN BED TRYING TO REST. PATIENT HAS 3% SALINE GOING INTO CENTRAL CATHETER TO RIGHT IJ. PATIENT ALSO HAS 2 PIV TO RIGHT FOREARM AND RIGHT HAND. PATIENT HAS DIMINISHED LUNG SOUNDS T/O AND A POSITIVE MURMUR TO MITRAL, PULMONIC AND TRICUSPID REGIONS THAT WERE AUSCLULTATED. PATIENT HAS HYPER BOWEL TONES AND HAS ALREADY HAD ONE LG LOOSE BROWN STOOL THIS AM. PATIENT HAS SEVERE ESCORIATED EVY REGION WITH SMEGMA ON THE HEAD OF HIS PENIS WHEN EVY CARE WAS DONE. NYSTATIN POWER WAS APPLIED AND ZINC OINTMENT WAS PUT TO BOTTOM AND INNER THIGHS. PT ALSO HAS REDENNED AREAS SCRAPS ON THIGHS AND ARMS HE STATED HE IS SCRATCHING HIMSELF A LOT AT HOME. HIS LEFT THOMAS IS WARM AND RED AND TENDER TO TOUCH AND HIS RIGHT KNEE HAS AN ABRASION TO IT. MULIPLE ELECTROLYTES ARE BEING STARTED ON PT FOR REPLACEMENT. PATIENT IS ABLE TO TAKE HIS ORAL MEDICATION AND SWALLOWING WATER WITHOUT DIFFICULTY. CIWA OF PATIENT IS APPROX. 6-8 AND LIBRIUM 25MG HAS BEEN GIVEN. BATH DONE THIS AM WELL. WILL CONTINUE LABS DR HIDALGO ORDERS AND FOLLOW ORDERS.
[2023-02-22 13:34] LABS: Albumin/Globulin Ratio 0.7 (0.8-1.8); Bilirubin, Total 0.6 mg/dL (0.1-1.0); Bun/Creatinine Ratio 5.4 (12.0-20.0); Calcium, Blood 7.4 mg/dL (8.5-10.1); Creatinine, Blood 0.74 mg/dL (0.60-1.20); Globulin, Blood 2.9 g/dL (2.2-4.0); Potassium, Blood 2.4 mmol/L (3.5-5.5); Total Protein, Blood 4.9 g/dL (6.4-8.2)
--- NOTE | 2023-02-22 17:29 | NUR ---
END OF SHIFT: PATIENT HAS BEEN RESTING WELL FOR THE MID PART OF THE DAY. HE ONLY RECIEVED ONE DOSE OF LIBRIUM. THIS AFTERNOON HE HIS CALM, RELAXED, NOT DIAPHORETIC, NOT TREMULOUS. HE IS HAVING LOOSE STOOLS AND SAYS HE HAS BEEN HAVING THAT AT HOME TOO. I HAVE CLEANED UP TWO FROM HIM TODAY. HIS WAS IN TWICE TODAY AND BROUGHT HIM RED MARTHA FOR DINNER. HE IS STILL GETTING POTASSIUM CHLORIDE FOR REPLACEMENT IV BUT THE 3% SALINE IS STOPPED PER DR HIDALGO. PATIENT IS ON A 24 HR URINE HOWEVER HE HAS VOIDED ONCE TODAY 800ML OUT AND IT WAS NOT CAPTURED IN THE 24 HR URINE. AWAITING FOR HIM TO VOID AGAIN. HIS SKIN IS DRY, PINK, RED IN PER REGION AND NYSTANTIN APPLIED TO PANIS AND SCROTAL REGION AND CALYZIME LOTION TO BUTTOM AND THIGHS. PATIENT HAS CENTRAL LINE WITH POTASSIUM CHLORIDE GOING IN IT ALONG WITH 2 ANTIBIOTICS CURRENTLY. HE WILL SOON RECIEVE HIS THIAMINE AND FOLIC ACID IVP WELL. VS HAVE BEEN STABLE AND HE HAS BEEN AFEBRILE TODAY. WILL CONTINUE TO CHENCHO GHOSH
--- NOTE | 2023-02-22 22:33 | NUR ---
ASSUMPTION OF CARE/ASSESSMENT: ASSUMED CARE OF PT AT 1900. PT IN BED AND A&O X 4. PT POLITE AND COOPERATIVE WITH CARE. PT CURRENTLY ON NC @ 2LPM, WHICH IS BASELINE OXYGEN USE. LUNG SOUNDS ARE CLEAR WITH DIM MIDDLE TO LOWER LOBES; ORTHOPNEA NOTED. CURRENTLY PT SR ON MONITOR WITH HR 80'S AND SBP 140'S. PT HAS NO C/O CHEST PAIN OR SOB AT THIS TIME. PT HAS VERY HYPERACTIVE BOWEL SOUNDS IN ALL QUADRANTS. ABD IS OBESE, ROUND, FIRM AND NON-TENDER. PT USING BEDPAN FOR ELIMINATION AND URINAL FOR VOIDING. 24 HOUR URINE COLLECTION IN PROGRESS CURRENTLY. THERE IS MODERATE EXCORIATION ON PT'S BOTTOM AND REDDNESS/IRRITATION OVER ABD FOLDS; NYSTATIN POWDER AND CREAM APPLIED. THESE REGIONS ARE VERY TENDER TO TOUCH. PT HAS RIJ CENRTAL LINE AND A MICHELLE PIV. PT HAS MINIMAL PAIN COMPLAINT IN BLE; LEGS ELEVATED ON PILLOWS. PT TOLERATING TURNS. PT USING CALL LIGHT APPROPRIATELY. BED LOWERED, WILL CONTINUE TO MONITOR.
[2023-02-23] VITALS (23 sets, daily range): BP systolic 96–153; BP diastolic 59–98
[2023-02-23 05:28] LABS: Vancomycin, Trough 26.3 ug/mL (5.0-10.0)
[2023-02-23 06:24] LABS: Anion Gap 6 mmol/L (6-16); Blood Urea Nitrogen 4 mg/dL (8-24); Bun/Creatinine Ratio 3.8 (12.0-20.0); CO2, Blood 41 mmol/L (21-32); Calcium, Blood 7.4 mg/dL (8.5-10.1); Chloride, Blood 84 mmol/L (98-108); Creatinine, Blood 1.05 mg/dL (0.60-1.20); Glomerular Filtration Rate 82 (60-); Glucose, Blood 110 mg/dL (70-99); Magnesium, Blood 1.9 mg/dL (1.6-2.4); Phosphorus, Blood 3.1 mg/dL (2.5-4.9); Potassium, Blood 3.1 mmol/L (3.5-5.5); Sodium, Blood 131 mmol/L (136-145)
[2023-02-23 06:47] LABS: Hemoglobin 10.7 g/dL (13.5-17.5)
--- NOTE | 2023-02-23 06:47 | NUR ---
SHIFT SUMMARY: NO ACUTE CHANGES OVER NIGHT. PT IN AND OUT OF SLEEP THROUGHOUT THE NIGHT. PT HAD TOTAL OF 700 MLS OUTPUT; 24 HOUR URINE COLLECTION IN PROGESS AND ON ICE AT THIS TIME. PT HAD TWO LIQUID BOWEL MOVEMENTS ON THE BEDPAN THIS SHIFT. DR HIDALGO BY THIS MORNING TO ASSESS PT; NEW ORDERS RECIEVED AT THIS TIME, SEE EMAR. PT REMAINS ON NC @ 2LPM, VSS THROUGHOUT THE NIGHT. BED LOWERED, CALL LIGHT IN REACH, WILL CONTINUE TO MONITOR UNTIL ONCOMING RN ARRIVES.
--- NOTE | 2023-02-23 07:00 | NUR ---
ASSUMPTION OF CARE CURRENTLY RECEIVING KCL. PT IS ALERT AND ORIENTED. HE IS ON 2L NC. PT REQUESTING BREAKFAST. PT HAS LIQUID STOOL. C/O GENERALIZED CHRONIC PAIN. PT'S HANDS TREMULOUS. CALL LIGHT WITHIN REACH, SEE SHIFT ASSESSMENT.
--- NOTE | 2023-02-23 12:47 | NUR ---
UPDATE PT MOVED TO CHAIR WITH CEILING LIFT. PT HIGHLY ENCOURAGED TO ASSIST WITH ADLS AND EXCERCISES. HE REMAINS ON 2L NC WHICH IS HIS BASELINE. VSS. CALL LIGHT WITHIN REACH.
--- NOTE | 2023-02-23 18:06 | NUR ---
SHIFT SUMMARY PT REMAINS ON 2L NC. HE IS ALERT AND ORIENTED AND HAS BEEN AWAKE MOST OF THE DAY. CEILING LIFT USED TO ASSIST PT TO RECLINER. HE SAT UP FOR APPROX 2-3HRS BEFORE RETURNING TO BED. PT MINIMALLY ASSISTS WITH CARE AND ADLS BUT NEEDS MODERATE/MAX ASSIST. PT ABLE TO FEED SELF MEALS. PT HAS MINIMAL HAND TREMORS. PT VOIDED SEVERAL TIMES AND HAD MULTIPLE LIQUID STOOLS THIS SHIFT. HE HAS BEEN IN SINUS RHYTHM WITH RATE IN 70S-80S AND BP STABLE WITH MAP >65. BED IN LOW POSITION AND CALL LIGHT WITHIN REACH.
--- NOTE | 2023-02-23 21:09 | NUR ---
ASSUMPTION OF CARE/ASSESSMENT: ASSUMED CARE OF PT @ 1900. PT IS IN BED. A&O X4 AND COOPERATIVE WITH CARE. CURRENTLY ON NC @ 2LPM WITH CLEAR LUNG SOUNDS AND DIM BASES; SPO2 99<. SR ON MONITOR WITH HR 80'S AND SBP 130'S. ABD OBESE, MILDLY DISTENDED, BUT NON-TENDER; HYPERACTIVE BOWEL SOUNDS IN ALL QUADRANTS. PT USING BEDPAN FOR ELIMINATION AND CONTINUES TO HAVE LIQUID DIARRHEA. URINAL FOR VOIDING BUT REQUIRES ASSISTANCE R/T POOR FINE MOTOR SKILLS. PPPX4, PANUS AND PERINEAL AREA STILL EXCORIATED; BARRIER CREAM AND SYSTATIN POWDER APPLIED. NS TKO INFUSING THROUGH RIJ, MICHELLE PIV SALINE LOCKED. PT HAS NUMEROUS CANDY SNACKS AND SODA AT BEDSIDE. FRESH WATER SET OUT. BED LOWERED, CALL LIGHT IN REACH, PT SLEEPING, WILL CONTINUE TO MONITOR.
[2023-02-24] VITALS (23 sets, daily range): BP systolic 88–163; BP diastolic 56–111
[2023-02-24 03:34] LABS: Hematocrit 37.8 % (37.0-53.0); Hemoglobin 11.5 g/dL (13.5-17.5)
[2023-02-24 03:50] LABS: Albumin, Blood 2.2 g/dL (3.4-5.0); Anion Gap 5 mmol/L (6-16); Blood Urea Nitrogen 6 mg/dL (8-24); Bun/Creatinine Ratio 3.5 (12.0-20.0); CO2, Blood 39 mmol/L (21-32); Calcium, Blood 7.9 mg/dL (8.5-10.1); Chloride, Blood 89 mmol/L (98-108); Glomerular Filtration Rate 46 (60-); Glucose, Blood 130 mg/dL (70-99); Phosphorus, Blood 5.1 mg/dL (2.5-4.9); Potassium, Blood 3.8 mmol/L (3.5-5.5); Sodium, Blood 133 mmol/L (136-145)
--- NOTE | 2023-02-24 05:53 | NUR ---
PT UPDATE: AT 0430 ASSESSMENT PT WA FOUND TO HAVE HAD AN INCONTINENT EPISODE AND COMPLETE LINEN CHANGE AND PARTIAL BED BATH COMPLETED. AT THIS TIME PT NOTED TO BE DROWSY/SLOW TO WAKE UP BUT STILL ABLE TO TALK TO STAFF, ANSWER QUESTIONS AND COMMUNICATE PAIN. PT NOTED TO BE TACHYPNEIC AT THIS TIME WITH RR 30-38, BUT ALL OTHER VSS AT THIS TIME. CONTINUED TO MONITOR RR ON MONITOR AT NURSES STATION. WENT TO CHECK ON PT AGAIN AT 0530 DUE TO CONTINUED TACHYPNEA AND PT NOTED TO HAVE SLIGHT WHEEZES IN UPPER LOWES, DIM BASES; ALL VSS STABLE AT THIS TIME. PT OBSERVED TO BE AWAKE AND STARING IN AN UPWARD GAZE. WHEN SPOKEN TO PT LOOKS AT THIS RN AND IS TRACKING WITH VERBAL STIMULI BUT IS NOT ABLE TO RESPOND TO QUESTIONS AT THIS TIME. PT IS FOLLOWING COMMANDS INCONSISTENTLY BUT TRYING TO FOLLOW THROUGH. WHEN PT ARMS ARE LIFTED AND HE IS PROMPTED HE IS ABLE TO HOLD UP ARMS BILATERALLY BUT TREMORS ARE NOTED IN BUE AND THEY SLOW FALL BACK DOWN TO BED. PT PROMPTED TO WIGGLE TOES AND ONLY THE LEFT FOOT IS OBSERVED TO MOVE. PT PUPILS ARE SLUGGISH BILATERALLY AND LEFT PUPIL APPEARS SLIGHTLY BIGGER. CALL PLACED TO DR JIMENEZ AND ORDERS FOR URGENT HEAD CT ORDERED AT THIS TIME. WILL CONTINUE TO MONITOR CLOSELY.
--- NOTE | 2023-02-24 06:59 | NUR ---
SHIFT SUMMARY: HEAD CT COMPLETED AND RESULTS SENT OUT TO RADIOLOGIST AND ARE PENDING. PT NEURO STATUS REMAINS UNCHAGED. DR JIMENEZ AT BEDSIDE TO ASSESS PT AFTER RETURNING FROM IMAGING; ORDERS FOR KEPRA AND A DOSE OF ATIVAN RECIEVED AT THIS TIME. ATIVAN GIVEN AND PT IS BACK ASLEEP. PT HAS BEEN INCONTINENT THROUGHOUT THE NIGHT AND TWO LINEN CHANGES COMPLETED. SR ON MONITOR WITH HR IN THE 80'S AND SBP 130'S. NC @ 5 LPM, SLIGHT WHEEZES NOTED IN UPPER LOBES, DIM BASES, SPO2 92<. BED LOWERED, CALL LIGHT IN REACH, WILL CONTINUE TO MONITOR UNTIL ONCOMING RN ARRIVES.
--- NOTE | 2023-02-24 07:15 | NUR ---
Assumed care of pt at 0700. Report recieved from Nohelia WALDRON. Pt obtunded, responsive to painful stimulus. SpO2 90% or greater with 3 LPM NC. RT in room to draw ABG.
[2023-02-24 07:23] LABS: PCO2 Arterial > 104 mmHg (35-45); PO2 Arterial 103 mmHg (80-100); pH Blood Arterial 7.12 (7.35-7.45)
--- NOTE | 2023-02-24 09:02 | NUR ---
Dr Nuno notified of critical ABG results. Also discussed that pt's ammonia is trending up. Orders received to start pt on BiPAP, RT Risa notified. Pt placed on BiPAP 18/8 and 33% per RT. Pt shaved prior to being placed on BiPAP to ensure adequate seal. Rectal tube inserted and lactulose enema started. Dr Bev Zuniga and Rema Nuno in to see pt.
[2023-02-24 09:29] LABS: PCO2 Arterial 75 mmHg (35-45); PO2 Arterial 62.7 mmHg (80-100); pH Blood Arterial 7.31 (7.35-7.45)
--- NOTE | 2023-02-24 09:52 | NUR ---
Pt more awake than previously noted. Ripped off BiPAP and stated "bedpan". Educated pt that he is on BiPAP because he became unresponsive, he states, "I was sleeping". RT Risa in room to see pt. Decreased IPAP and EPAP to 14 and 6.
--- NOTE | 2023-02-24 11:33 | NUR ---
Bedbath given. Pt more awake and alert. BiPAP removed and pt placed on 3 LPM NC. Tolerating PO intake well. Critical AM meds given.
[2023-02-24 13:29] LABS: Vancomycin, Random 15.1 ug/mL
--- NOTE | 2023-02-24 18:46 | NUR ---
SUMMARY Neuro: Improved this afternoon. Currently in bed, feeding self. A&O x 2. Following directions. Resp: SpO2 90% or greater with 3 LPM NC. BiPAP while sleeping. Lungs dim t/o. Card: SR per monitor. BP stable. GI: Good output through rectal tube. : Incontinent of urine. Wrap in place. Skin: Unchanged from initial assessment. Total care for all ADLs including Q2H reposition.
--- NOTE | 2023-02-24 21:00 | NUR ---
ASSUMPTION OF CARE AT START OF SHIFT, PATIENT RESTLESS, CONFUSED, TREMULOUS. MEDICATED WITH LIBRIUM PER [facility] PROTOCOL, SEE MAR. FOLLOWS COMMANDS; GENERALIZED WEAKENESS NOTED. BP SOFT, SBP 90S. MONITOR SHOWING SR, HR 70S. PATIENT ON 3L NC. TRIALED BIPAP AND PATIENT WOKE UP WITHIN ABOUT 10 MINUTES AND RIPPED OFF BIPAP SEVERAL TIMES. ATTEMPTED TO EDUCATE ON NEED TO WEAR BIPAP FOR VENTILATION, BUT PATIENT YELLING "OFF OFF" AND WOULD NOT KEEP IT ON. RECTAL TUBE DRAINING. INCONTINENT OF URINE. CARES ONGOING.
[2023-02-25] VITALS (27 sets, daily range): BP systolic 90–157; BP diastolic 57–135
[2023-02-25 04:27] LABS: Hematocrit 37.1 % (37.0-53.0)
[2023-02-25 04:49] LABS: Albumin, Blood 2.1 g/dL (3.4-5.0); Anion Gap 5 mmol/L (6-16); Blood Urea Nitrogen 9 mg/dL (8-24); Bun/Creatinine Ratio 3.8 (12.0-20.0); CO2, Blood 38 mmol/L (21-32); Chloride, Blood 90 mmol/L (98-108); Creatinine, Blood 2.38 mg/dL (0.60-1.20); Glomerular Filtration Rate 31 (60-); Glucose, Blood 118 mg/dL (70-99); Magnesium, Blood 1.6 mg/dL (1.6-2.4); Phosphorus, Blood 6.8 mg/dL (2.5-4.9); Potassium, Blood 3.2 mmol/L (3.5-5.5); Sodium, Blood 133 mmol/L (136-145)
--- NOTE | 2023-02-25 06:46 | NUR ---
SHIFT SUMMARY AT START OF SHIFT, PATIENT A/0 X2. CONTINUED TO TAKE OFF BIPAP WHEN ATTEMPTED TO PLACE; PATIENT ONLY LASTS 5-10 MINUTES AT A TIME. NIGHT PROGRESSED, MORE SOMNOLENT. BIPAP REPLACED AND TOLERATING SINCE 244. MONITOR SHOWING SR, HR 70-80S. BP SOFT; METOPROLOL HELD PER ORDER PARAMETERS. MULTIPLE EPISODES OF URINE INCONTINENCE. RECTAL TUBE IN PLACE, 200CC OUT THIS SHIFT. SPOKE WITH DR MATAMOROS THIS MORNING REGARDING PATIENTS SOMNOLENCE AND AM LABS; ORDERS FOR 20MEQ POTASSIUM RECEIVED. INFUSING AT THIS TIME. REPORT GIVEN TO FAUSTO WALDRON.
--- NOTE | 2023-02-25 07:15 | NUR ---
CARE ASSUMPTION DURING BS REPORT W KAZ RN PT IS ON BIPAP BUT REQUESTING TO HAVE IT OFF. PT LACED ON NC W 6L O2, SPO2 >90%. PT APEARING WEAK BUT COMMUNICATING W STAFF IN SHORT SENTANCES. PT DENIES ANY PAIN WHILE AT REST. PT DENIES ANY NAUSEA AND IS REQUESTING TO HAVE HIS BAG OF CANDY. MONITOR SHOWING SR IN THE 70'S.
[2023-02-25 12:52] LABS: Bun/Creatinine Ratio 3.7 (12.0-20.0); Calcium, Blood 8.3 mg/dL (8.5-10.1); Creatinine, Blood 2.43 mg/dL (0.60-1.20); Potassium, Blood 3.5 mmol/L (3.5-5.5)
[2023-02-25 15:22] LABS: BASOPHILS ABSOLUTE AUTO 0.04 K/mm3 (0.00-0.23); BASOPHILS PERCENT AUTO 0 % (0-2); EOSINOPHILS PERCENT AUTO 0 % (0-6); Hematocrit 35.7 % (37.0-53.0); Hemoglobin 10.9 g/dL (13.5-17.5); IMMATURE GRAN ABSOLUTE AUTO 0.14 K/mm3 (0.00-0.10); IMMATURE GRAN PERCENT AUTO 1 % (0-1); LYMPHOCYTES ABSOLUTE AUTO 0.77 K/mm3 (0.84-5.20); LYMPHOCYTES PERCENT AUTO 6 % (21-46); MONOCYTES ABSOLUTE AUTO 0.94 K/mm3 (0.16-1.47); MONOCYTES PERCENT AUTO 7 % (4-13); Mean Corpuscular HGB 28.8 pg (26.0-34.0); Mean Corpuscular HGB Conc 30.5 g/dL (31.5-36.5); Mean Corpuscular Volume 94 fL (80-100); NEUTROPHILS ABSOLUTE AUTO 11.53 K/mm3 (1.96-9.15); NEUTROPHILS PERCENT AUTO 86 % (41-73); Platelet Count 238 K/mm3 (150-400); RDW Coefficient Variation 13.7 % (11.7-14.2); RDW Standard Deviation 47.9 fL (35.1-46.3); Red Blood Cell Count 3.78 M/mm3 (4.30-5.90); White Blood Cell Count 13.42 K/mm3 (4.00-11.30)
[2023-02-25 15:23] LABS: Base Excess Venous 11.6 mmol/L; Bicarbonate Venous 32.7 mmol/L (24.0-30.0); PCO2 Venous 73.7 mmHg (38-42); pH Blood Venous 7.32 (7.34-7.37)
--- NOTE | 2023-02-25 18:11 | NUR ---
PACKAGE DYEING MACHINE OPERATOR SUMMARY THE PT HAS HAD INTERMITTANT MOMENTS WHERE HE HAS BEEN LUCID AND ABLE TO FOLLOW COMMANDS BUT HE HAS BEEN LETHARGIC FOR MOST OF THE SHIFT AROUSING TO SPEECH BUT UNABLE TO MAINTAIN EYE CONTACT FOR LONG. REPEAT VBG SHOWED INCREASED CO2, PT PLACED ON BIPAP 18/8 W 28% FIO2 FOR MOST OF THE SHIFT HOWEVER THE PT WOULD AWAKEN AND RIP OFF HIS MASK THEN BEING PLACED ON 4L NC FOR BREAKS. PT'S BP REMAINED WNL AND STABLE THIS SHIFT. MONITOR SHOWING SR 70'S-80'S W PVC'S THIS SHIFT. PT HAS RECTAL TUBE IN PLACE DRAINING 750ML DARK BROWN LIQUID STOOL THIS SHIFT. PT INCONTINENT OF URINE ALL SHIFT. CENTRAL LINE REMOVED THIS SHIFT W/O INCIDENT. PT REFUSIN G TO EAT ANY OF HIS MEALS THIS SHIFT BUT DID EAT SOME CANDY THAT HIS SPOUSE HAD BROUGHT IN FOR HIM. PT HAS HAD MODERATE TO SEVERE TREMOR THIS SHIFT W CIWA'S 6-7 THIS SHIFT, PT GIVEN ONE DOSE OF LIBRIUM THIS AM FOR CIWA. WILL REPORT TO ONCOMING RN.
[2023-02-26] VITALS (24 sets, daily range): BP systolic 91–138; BP diastolic 60–101
[2023-02-26 03:23] LABS: BASOPHILS ABSOLUTE AUTO 0.07 K/mm3 (0.00-0.23); BASOPHILS PERCENT AUTO 0 % (0-2); EOSINOPHILS PERCENT AUTO 0 % (0-6); Hematocrit 36.1 % (37.0-53.0); Hemoglobin 10.9 g/dL (13.5-17.5); IMMATURE GRAN ABSOLUTE AUTO 0.15 K/mm3 (0.00-0.10); IMMATURE GRAN PERCENT AUTO 1 % (0-1); LYMPHOCYTES ABSOLUTE AUTO 0.95 K/mm3 (0.84-5.20); LYMPHOCYTES PERCENT AUTO 6 % (21-46); MONOCYTES ABSOLUTE AUTO 1.22 K/mm3 (0.16-1.47); MONOCYTES PERCENT AUTO 8 % (4-13); Mean Corpuscular HGB Conc 30.2 g/dL (31.5-36.5); Mean Corpuscular Volume 96 fL (80-100); Mean Platelet Volume 9.6 fL (9.1-12.4); NEUTROPHILS ABSOLUTE AUTO 13.17 K/mm3 (1.96-9.15); NEUTROPHILS PERCENT AUTO 85 % (41-73); Platelet Count 325 K/mm3 (150-400); RDW Standard Deviation 49.3 fL (35.1-46.3); Red Blood Cell Count 3.76 M/mm3 (4.30-5.90); White Blood Cell Count 15.56 K/mm3 (4.00-11.30)
[2023-02-26 04:05] LABS: Anion Gap 5 mmol/L (6-16); Blood Urea Nitrogen 12 mg/dL (8-24); Bun/Creatinine Ratio 4.3 (12.0-20.0); CO2, Blood 40 mmol/L (21-32); Calcium, Blood 8.3 mg/dL (8.5-10.1); Chloride, Blood 92 mmol/L (98-108); Creatinine, Blood 2.77 mg/dL (0.60-1.20); Glomerular Filtration Rate 26 (60-); Glucose, Blood 118 mg/dL (70-99); Magnesium, Blood 1.6 mg/dL (1.6-2.4); Phosphorus, Blood 6.4 mg/dL (2.5-4.9); Potassium, Blood 3.1 mmol/L (3.5-5.5); Sodium, Blood 137 mmol/L (136-145)
--- NOTE | 2023-02-26 05:14 | NUR ---
SHIFT SUMMARY: Uneventful night. Pt somnolent at beginning of shift, so I placed him on BIPAP. After about 30 minutes, he removed the BIPAP and woke up, he was able to take his PO meds. Pt has been on and off BIPAP throughout the night. As of 514, he has been consistently wearing the BIPAP since around midnight. He is in sinus rhythm, vital signs stable. Rectal tube in place with liquid stool. He is tachypneic with a weak cough and some coarse lung sounds, particularly in the bases.
--- NOTE | 2023-02-26 09:45 | NUR ---
CARE OF PT ASSUMED AT 0700. PT SLEEPING ON BIPAP 16/8 35%. BIPAP REMOVED FOR ASSESSMENT AND ORAL CARE. PT SLOW TO WAKE/SOMNOLENT. WITHIN 60SEC SATS DROPPED TO LOW 80%. BIPAP REPLACED, RT CALLED. SATS >90% WITHIN 30SEC. DR ESPINOZA CALLED TO GIVE UPDATE, ABG ORDERED. PT INCONTINENT OF URINE, BEDBATH GIVEN. TOWARD END OF BEDBATH PT BECAME MORE ALERT/AWAKE. BIPAP REMOVED AND PT PLACED ON 3L VIA N/C. SATS 99%. PT ORIENTED X3, BUT VERY WEAK, WITH WEAK VOICE. HOLDING PO UNTIL PT MORE AWAKE/ALERT. FAMILY AT BEDSIDE.
[2023-02-26 10:11] LABS: PCO2 Arterial 95 mmHg (35-45); PO2 Arterial 76.4 mmHg (80-100); pH Blood Arterial 7.22 (7.35-7.45)
--- NOTE | 2023-02-26 10:22 | NUR ---
PH 7.22, CO2 95, RESULTS CALLED TO DR ESPINOZA, NEW ORDERS PLACED. PT IMMEDIATELY PLACED BACK ON BIPAP. GEL PAD PLACED TO NOSE BRIDGE IS SLIGHTLY RED. WILL KEEP PT NPO FOR NOW. SCD'S TO BE PLACED. LASIX TO BE GIVEN AFTER K+ INFUSION PER DR HIDALGO.
--- NOTE | 2023-02-26 14:51 | NUR ---
PT INCONTINENT OF LARGE AMT OF URINE. DURING LINEN CHANGE, PT WOKE UP AND ASKED FOR WATER. WITHIN 60SEC OF REMOVING MASK ( W SUPPLIMENTAL O2 AT 6L) SATS DROPPED TO 80%. PT STILL LETHARGIC. MASK REPLACED. DR ESPINOZA CALLED TO GIVE UPDATE. ABG AND CHEM 8 ORDERED.
[2023-02-26 16:06] LABS: PCO2 Arterial 84 mmHg (35-45); PO2 Arterial 78.6 mmHg (80-100); pH Blood Arterial 7.27 (7.35-7.45)
[2023-02-26 16:11] LABS: Bun/Creatinine Ratio 4.6 (12.0-20.0); Calcium, Blood 8.2 mg/dL (8.5-10.1); Creatinine, Blood 2.84 mg/dL (0.60-1.20)
--- NOTE | 2023-02-26 16:23 | NUR ---
ABG RESULTS REVIEWED WITH DR ESPINOZA. DR BURTON CONSULTED, DR BURTON NOTIFIED AND WILL SEE PT SHORTLY. PT SLEEPING ON BIPAP NOW 25/05, 35%, SATS 97%.
--- NOTE | 2023-02-26 17:57 | NUR ---
DR BURTON IN TO SEE PT. PT WAKING UP MORE OFTEN, ASKING FOR WATER; MOUTH SWABBED. CHEST XRAY TAKEN. POTASSIUM REPLACED W 40MEQ IVPB. PT TO WEAR BIPAP TONIGHT. PT INCONTINENT OF URINE BUT HAD ADEQUATE U/O. PT'S UPDATED.
--- NOTE | 2023-02-26 18:12 | NUR ---
PT VERY AWAKE AND REQUESTING WATER. OKAY FOR PT TO HAVE BREAKS W AIRVO PER DR BURTON BUT SHE WOULD LIKE HIM TO WEAR BIPAP T/O THE NIGHT. OKAY ALSO FOR ICE CHIPS BUT NO FOOD. RT NOTIFIED.
[2023-02-27] VITALS (44 sets, daily range): BP systolic 101–181; BP diastolic 61–133
[2023-02-27 03:55] LABS: Base Excess Venous 8.1 mmol/L; Bicarbonate Venous 29.3 mmol/L (24.0-30.0); PCO2 Venous 90.3 mmHg (38-42)
[2023-02-27 03:56] LABS: pH Blood Venous 7.21 (7.34-7.37)
[2023-02-27 04:04] LABS: BASOPHILS ABSOLUTE AUTO 0.02 K/mm3 (0.00-0.23); BASOPHILS PERCENT AUTO 0 % (0-2); EOSINOPHILS PERCENT AUTO 0 % (0-6); Hematocrit 37.6 % (37.0-53.0); Hemoglobin 10.9 g/dL (13.5-17.5); IMMATURE GRAN ABSOLUTE AUTO 0.09 K/mm3 (0.00-0.10); IMMATURE GRAN PERCENT AUTO 1 % (0-1); LYMPHOCYTES ABSOLUTE AUTO 0.37 K/mm3 (0.84-5.20); LYMPHOCYTES PERCENT AUTO 3 % (21-46); MONOCYTES ABSOLUTE AUTO 0.05 K/mm3 (0.16-1.47); MONOCYTES PERCENT AUTO 0 % (4-13); Mean Corpuscular Volume 97 fL (80-100); Mean Platelet Volume 8.7 fL (9.1-12.4); NEUTROPHILS ABSOLUTE AUTO 11.29 K/mm3 (1.96-9.15); NEUTROPHILS PERCENT AUTO 96 % (41-73); Platelet Count 321 K/mm3 (150-400); RDW Coefficient Variation 13.6 % (11.7-14.2); RDW Standard Deviation 48.7 fL (35.1-46.3); Red Blood Cell Count 3.89 M/mm3 (4.30-5.90); White Blood Cell Count 11.82 K/mm3 (4.00-11.30)
[2023-02-27 04:19] LABS: International Normalized Ratio 1.23; Prothrombin Time Results 12.8 Sec (9.7-11.5)
[2023-02-27 04:35] LABS: Albumin, Blood 2.2 g/dL (3.4-5.0); Albumin/Globulin Ratio 0.6 (0.8-1.8); Bilirubin, Total 0.3 mg/dL (0.1-1.0); Bun/Creatinine Ratio 5.2 (12.0-20.0); Calcium, Blood 8.6 mg/dL (8.5-10.1); Creatinine, Blood 2.89 mg/dL (0.60-1.20); Globulin, Blood 3.9 g/dL (2.2-4.0); Magnesium, Blood 1.8 mg/dL (1.6-2.4); Phosphorus, Blood 6.4 mg/dL (2.5-4.9); Potassium, Blood 3.6 mmol/L (3.5-5.5); Total Protein, Blood 6.1 g/dL (6.4-8.2)
--- NOTE | 2023-02-27 06:04 | NUR ---
SHIFT SUMMARY: At the beginning of the shift, pt was alert and oriented X3, following commands, able to take pills. Pt placed on BIPAP at around 2100 and has remained on BIPAP all night. VBG this morning showed PH of 7.21 and co2 of 90.3, Dr. Kaufman notified. Per Dr. Kaufman, we will keep him on BIPAP and continue to monitor at this time. He wakes to voice, follows simple commands but falls back to sleep quickly.
--- NOTE | 2023-02-27 07:16 | NUR ---
CARE OF PT ASSUMED AT 0700. PT WAS PLACED ON 3L VIA N/C FOR BREAK. UPON ASSESSMET PT SLEEPING BUT AWOKE TO VOICE. ABLE TO FOLLOW SIMPLE COMMANDS. VERY WEAK WHISPERED VOICE. PT UNABLE TO COUGH. WILL KEEP STRICT NPO FOR NOW. VERY DIMINISHED LUNG SOUNDS TO LEFT, ALMOST ABSENT TO RIGHT. BRIDGE OF NOSE RED. BIPAP REPLACED W GEL PAD TO NOSE. BIPAP 14/7 35%, SOME LOW TV'S, AVERAGE AROUND 350-400. PT'S RATE AROUND 20. SATS >90%.
--- NOTE | 2023-02-27 07:41 | NUR ---
DR BURTON IN TO SEE PT, UPDATE GIVEN. BIPAP INCREASED TO 18/8. FIO2 INCREASED TO 60%. TV'S STARTING TO DROP, DR BURTON AWARE. RT CALLED. ABG TO BE REPEATED THIS AM.
[2023-02-27 09:09] LABS: Base Excess Venous 8.5 mmol/L; Bicarbonate Venous 29.8 mmol/L (24.0-30.0); PCO2 Venous 93.1 mmHg (38-42)
--- NOTE | 2023-02-27 09:37 | NUR ---
CRITICAL VBG RESULTS GIVEN TO DR BURTON. DECISION MADE TO INTUBATE PT. PT'S CALLED AND UPDATED. PHONE CONSENT ALSO OBTAINED FOR PICC LINE. ETOM 20 GIVEN AT [address] BURTON. PT INTUBATED AT 0929 W 8.0 ETT, 24@GUM W POS COLOR CHANGE. AWAITING XR. OGT PLACED TO LIS. 18F NAVARRETE TEMP PROBE PLACED FOR CRITICAL CARE NEEDS. PROPOFOL GTT STARTED AT 0935 AT 15MCG. BP STABLE.
[2023-02-27 10:02] LABS: Source, Urine Foley catheter
[2023-02-27 10:16] LABS: Appearance, Urine Clear (Clear); Bilirubin, Urine Neg (Neg); Blood, Urine 2+ (Neg); Color, Urine Yellow (P-Yellow); Glucose Qualitative, Urine Neg (Neg); Ketones, Urine Neg (Neg); Leukocyte Esterase, Urine Neg (Neg); Nitrite, Urine Neg (Neg); Protein, Urine 3+ (Neg); Specific Gravity, Urine 1.025 (1.003-1.022); Urobilinogen, Urine NORM (Normal)
[2023-02-27 10:39] LABS: Bacteria Few /hpf
[2023-02-27 10:40] LABS: Mucus Mod (0-Heavy); Red Blood Cells, Urine 0-2 /hpf (0-2); White Blood Cells, Urine 0-2 /hpf (0-5)
[2023-02-27 10:41] LABS: Amorphous Light (0-Heavy); Squamous Epithelial Cells Rare /hpf (Few)
[2023-02-27 10:42] LABS: Renal Epithelial Rare /hpf (0-Rare)
[2023-02-27 12:16] LABS: PCO2 Arterial 46.5 mmHg (35-45); PO2 Arterial 237 mmHg (80-100); pH Blood Arterial 7.48 (7.35-7.45)
--- NOTE | 2023-02-27 12:42 | NUR ---
REPEAT ABG GIVEN TO DR BURTON BY RT. VENT NOW 18/470/30%/5. PROPOFOL AT 55MCG, ATIVAN GIVEN FOR ADJUNCT TO SEDATION. (PT WAS AWAKE, HTN, SHAKING). APPEARS MORE RELAXED NOW, BP IMPROVED.
--- NOTE | 2023-02-27 16:35 | NUR ---
ATTEMPTED TO PLACE PICC TO RIGHT BRACHIAL. UNABLE TO PASS PICC PASS AXILLA AREA. DR BURTON NOTIFIED. POWERGLIDE PLACED TO MICHELLE.
--- NOTE | 2023-02-27 16:45 | NUR ---
DR HIDALGO CALLED W K+ RESULTS, K+40MEQ IVPB ORDERED.
[2023-02-28] VITALS (32 sets, daily range): BP systolic 126–187; BP diastolic 65–119
[2023-02-28 03:37] LABS: BASOPHILS PERCENT AUTO 0 % (0-2); EOSINOPHILS PERCENT AUTO 0 % (0-6); Hematocrit 31.7 % (37.0-53.0); Hemoglobin 10.1 g/dL (13.5-17.5); IMMATURE GRAN ABSOLUTE AUTO 0.08 K/mm3 (0.00-0.10); IMMATURE GRAN PERCENT AUTO 1 % (0-1); LYMPHOCYTES ABSOLUTE AUTO 0.53 K/mm3 (0.84-5.20); LYMPHOCYTES PERCENT AUTO 7 % (21-46); MONOCYTES ABSOLUTE AUTO 0.34 K/mm3 (0.16-1.47); MONOCYTES PERCENT AUTO 5 % (4-13); Mean Corpuscular HGB 28.5 pg (26.0-34.0); Mean Corpuscular HGB Conc 31.9 g/dL (31.5-36.5); Mean Platelet Volume 8.7 fL (9.1-12.4); NEUTROPHILS ABSOLUTE AUTO 6.39 K/mm3 (1.96-9.15); NEUTROPHILS PERCENT AUTO 87 % (41-73); Platelet Count 343 K/mm3 (150-400); RDW Coefficient Variation 13.2 % (11.7-14.2); RDW Standard Deviation 43.5 fL (35.1-46.3); Red Blood Cell Count 3.55 M/mm3 (4.30-5.90); White Blood Cell Count 7.34 K/mm3 (4.00-11.30)
[2023-02-28 03:39] LABS: Mean Corpuscular Volume 89 fL (80-100)
[2023-02-28 03:42] LABS: Base Excess Venous 14.9 mmol/L; Bicarbonate Venous 37.9 mmol/L (24.0-30.0); PCO2 Venous 34.4 mmHg (38-42)
[2023-02-28 03:43] LABS: pH Blood Venous 7.63 (7.34-7.37)
[2023-02-28 03:55] LABS: Magnesium, Blood 1.4 mg/dL (1.6-2.4)
[2023-02-28 04:01] LABS: Albumin, Blood 2.1 g/dL (3.4-5.0); Albumin/Globulin Ratio 0.6 (0.8-1.8); Bilirubin, Total 0.5 mg/dL (0.1-1.0); Bun/Creatinine Ratio 7.3 (12.0-20.0); Calcium, Blood 8.8 mg/dL (8.5-10.1); Creatinine, Blood 2.87 mg/dL (0.60-1.20); Globulin, Blood 3.3 g/dL (2.2-4.0); Potassium, Blood 2.3 mmol/L (3.5-5.5); Total Protein, Blood 5.4 g/dL (6.4-8.2)
[2023-02-28 04:05] LABS: Phosphorus, Blood 1.3 mg/dL (2.5-4.9)
--- NOTE | 2023-02-28 06:22 | NUR ---
SHIFT SUMMARY: At start of shift, pt was on 45mcg of propofol for sedation. Generalized tremor noted but patient not responsive to voice. Only slight flinching to pain and cough present. Sedation vacation done. He eventually woke up and made eye contact but still not following commands. Propofol restarted at 10mcg/kg/min. Tremors still noted intermittently. AM labs showed a PH of 7.63 and several electrolyte imbalances including critical potassium of 2.3. Dr. Mena called and orders received. Ventilator changes made per Dr. Mena's orders by RT. Will recheck VBG now. Electrolytes being replaced now, Dr. Zuniga updated this morning. Orders received to recheck labs at 1300 today and report back to Dr. Zuniga with results. At around midnight, pt became more alert and started following simple commands, able to nod head yes when asked if he was in pain. Coughing/ biting on tube, medicated with fentanyl for pain. Propofol now at 20mcg as of this morning to keep RASS of -2 and improve ventilator compliance.
[2023-02-28 06:54] LABS: Base Excess Venous 15.6 mmol/L; Bicarbonate Venous 37.6 mmol/L (24.0-30.0); PCO2 Venous 48.6 mmHg (38-42); pH Blood Venous 7.51 (7.34-7.37)
--- NOTE | 2023-02-28 07:00 | NUR ---
ASSUMPTION OF CARE PT RECEIVING PROPOFOL 20MCG/KG/MIN AND K PHOS. HE REMAINS INTUBATED WITH VENT SETTINGS AC/VC 12/400/5/30%. PT OPENS EYES TO VERBAL STIMULI. OGT CLAMPED. BOWEL TONES ACTIVE. RECTAL TUBE PATENT AND DRAINING LIQUID STOOL TO GRAVITY. TEMP NAVARRETE DRAINING PALE YELLOW URINE TO GRAVITY. PT AFEBRILE. SINUS ON MONITOR WITH RATE 50S-60S. SBP 140S. SEE SHIFT ASSESSMENT.
[2023-02-28 13:39] LABS: Magnesium, Blood 1.8 mg/dL (1.6-2.4)
[2023-02-28 13:51] LABS: Albumin, Blood 2.2 g/dL (3.4-5.0); Anion Gap 9 mmol/L (6-16); Blood Urea Nitrogen 23 mg/dL (8-24); Bun/Creatinine Ratio 7.8 (12.0-20.0); CO2, Blood 36 mmol/L (21-32); Calcium, Blood 8.5 mg/dL (8.5-10.1); Chloride, Blood 98 mmol/L (98-108); Creatinine, Blood 2.96 mg/dL (0.60-1.20); Glomerular Filtration Rate 24 (60-); Glucose, Blood 139 mg/dL (70-99); Phosphorus, Blood 3.2 mg/dL (2.5-4.9); Potassium, Blood 2.4 mmol/L (3.5-5.5); Sodium, Blood 143 mmol/L (136-145)
--- NOTE | 2023-02-28 18:20 | NUR ---
SHIFT SUMMARY PT RECEIVING PROPOFOL 30MCG/KG/MIN AND NS 100ML/HR. PT REMAINS INTUBATED WITH SETTINGS AC/VC 12/400/5/30%. PT OPENS EYES TO VERBAL STIMULI. PIVOT 1.5 STARTED THIS SHIFT. CURRENTLY INFUSING AT 25ML/HR WITH GOAL RATE OF 50ML/HR. RECTAL TUBE REMAINS IN PLACE WITH 400ML LIQUID OUTPUT. NAVARRETE PATENT AND DRAINING PALE YELLOW URINE TO GRAVITY. KCL INFUSING. REPEAT LABS AT 1999. UPDATED ON PT CONDITION VIA TELEPHONE.
[2023-03-01] VITALS (25 sets, daily range): BP systolic 117–168; BP diastolic 60–106
[2023-03-01 03:26] LABS: BASOPHILS ABSOLUTE AUTO 0.01 K/mm3 (0.00-0.23); BASOPHILS PERCENT AUTO 0 % (0-2); EOSINOPHILS PERCENT AUTO 0 % (0-6); Hematocrit 27.6 % (37.0-53.0); Hemoglobin 8.9 g/dL (13.5-17.5); IMMATURE GRAN PERCENT AUTO 1 % (0-1); LYMPHOCYTES ABSOLUTE AUTO 0.35 K/mm3 (0.84-5.20); LYMPHOCYTES PERCENT AUTO 5 % (21-46); MONOCYTES ABSOLUTE AUTO 0.46 K/mm3 (0.16-1.47); MONOCYTES PERCENT AUTO 6 % (4-13); Mean Corpuscular HGB 28.6 pg (26.0-34.0); Mean Corpuscular HGB Conc 32.2 g/dL (31.5-36.5); Mean Corpuscular Volume 89 fL (80-100); Mean Platelet Volume 8.7 fL (9.1-12.4); NEUTROPHILS ABSOLUTE AUTO 6.69 K/mm3 (1.96-9.15); NEUTROPHILS PERCENT AUTO 88 % (41-73); Platelet Count 307 K/mm3 (150-400); RDW Coefficient Variation 14.4 % (11.7-14.2); RDW Standard Deviation 46.5 fL (35.1-46.3); Red Blood Cell Count 3.11 M/mm3 (4.30-5.90); White Blood Cell Count 7.61 K/mm3 (4.00-11.30)
[2023-03-01 03:51] LABS: Albumin, Blood 2.8 g/dL (3.4-5.0); Anion Gap 6 mmol/L (6-16); Blood Urea Nitrogen 27 mg/dL (8-24); Bun/Creatinine Ratio 9.9 (12.0-20.0); CO2, Blood 33 mmol/L (21-32); Chloride, Blood 107 mmol/L (98-108); Creatinine, Blood 2.74 mg/dL (0.60-1.20); Glomerular Filtration Rate 26 (60-); Glucose, Blood 224 mg/dL (70-99); Magnesium, Blood 1.7 mg/dL (1.6-2.4); Phosphorus, Blood 1.5 mg/dL (2.5-4.9); Potassium, Blood 3.3 mmol/L (3.5-5.5); Sodium, Blood 146 mmol/L (136-145)
--- NOTE | 2023-03-01 05:49 | NUR ---
SHIFT SUMMARY: Patient drowsy yet arousable and following commands, moving all extremities. He is intermittently restless, propofol up to 40mcg/kg/min. Pain controlled with fentanyl pushes PRN. Vitals stable overnight. Electrolytes improved from yesterday, orders received from Dr. Zuniga this AM to replace potassium and phosphorous, d/c IV fluids and change diuretics- see orders. Urine output was less tonight, about 20ml/hr. Vent settings remain the same.
--- NOTE | 2023-03-01 08:00 | NUR ---
INITIAL ASSESSMENT PATIENT INTUBATED AND SEDATED. PATIENT AFEBRILE. NO SIGNS OF PAIN NOTED. PATIENT ON AC 12, TV 400, PEEP 5 AND 25% FIO2. LUNGS CLEAR IN UPPER LOBES AND DIMINISHED IN LOWER LOBES. PATIENT SB TO SR, HR 49 TO 60S. SBP 1-TEENS TO 130S. 1+ EDEMA NOTED TO EXTREMITIES. OG- TF INFUSING AT GOAL RATE. RECTAL TUBE DRAINING BROWN, LIQUID STOOL. NAVARRETE DRAINING YELLOW COLORED URINE. ABRASION TO R KNEE. EXCORIATION TO COCCYX/ PERINEUM. REDDENED SKIN FOLDS NOTED. BED LOW, CALL LIGHT IN REACH. WILL CONTINUE TO MONITOR.
--- NOTE | 2023-03-01 09:30 | NUR ---
DR. ALMAGUER UPDATED ON PATIENT STATUS. INFORMED THAT PATIENT RECEIVING KPHOS THIS AM FOR ELECTROLYTE REPLACEMENT. INFORMED THAT BUMEX DECREASED IN DOSAGE AND FREQUENCY AND THAT SPIRINOLACTONE STARTED LAST NIGHT. INFORMED THAT PANEL FITTER REPORTED 300 MLS OF URINE OUTPUT LAST NIGHT AND 900 MLS OUT FROM RECTAL TUBE. INFORMED THAT HR DOWN TO 49 THIS AM. STATED TO STILL GIVE AMIODARONE PT.
--- NOTE | 2023-03-01 11:30 | NUR ---
PATIENT EXTUBATED AND DOING WELL AT THIS TIME.
--- NOTE | 2023-03-01 12:00 | NUR ---
PATIENT ALERT AND ORIENTED TO ALL QUESTIONS EXCEPT DATE. PATIENT CALM AND COOPERATIVE. HR 50S TO 60S. SBP 150S TO 160S. PATIENT ON 3 L NC TO KEEP SATS 90% AND GREATER. OG REMOVED WHEN EXTUBATED. NO OTHER ACUTE CHANGES TO NOTE ON AT THIS TIME. WILL CONTINUE TO MONITOR.
--- NOTE | 2023-03-01 16:00 | NUR ---
PATIENT AFEBRILE. HR IN THE 60S. SBP IN THE 140S. NO COMPLAINTS. NO OTHER ACUTE CHANGES TO NOTE ON AT THIS TIME. WILL CONTINUE TO MONITOR.
--- NOTE | 2023-03-01 19:07 | NUR ---
SHIFT SUMMARY PATIENT EXTUBATED TODAY BEFORE NOON. PATIENT HAS REMAINED CALM AND COOPERATIVE. PATIENT OFF PRECEDEX EARLY AFTERNOON. PATIENT HAS REMAINED AFEBRILE. PATIENT HAS HAD NO COMPLAINTS OF PAIN. POST EXTUBATION PATIENT HAS REMAINED SATTING 90% AND GREATER ON 3 L NC. PATIENT SB TO SR, HR 49 TO 90S. SBP 1-TEENS TO 160S. RECTAL TUBE DRAINED 600 MLS OF BROWN, LIQUID STOOL. PATIENT PASSED BEDSIDE SWALLOW EVAL AND PLACED ON FULL LIQUID DIET. DINNER BEING HELD PER PATIENT. 905 MLS OF URINE OUT FROM NAVARRETE THIS SHIFT. NO CHANGES TO SKIN NOTED. PATIENT REPOSITIONED THROUGHOUT SHIFT. CREAM AND POWDER BEING APPLIED TO MACERATED BUTTOCKS. BLOOD SUGARS 126 AND 130. PATIENT HAS NO COMPLAINTS AT THIS TIME. BED LOW, CALL LIGHT IN REACH. REPORT HAS BEEN GIVEN TO ASSUMING FEED PROJECT ENGINEER NURSE.
--- NOTE | 2023-03-01 20:49 | NUR ---
ASSUMED CARE PT IS A&O X3 (DOES NOT KNOW DATE); PT IS PLEASANT AND COOPERATIVE. SPO2 >92% ON 3L NC; HR IN THE 90-100'S. NO C/O CP OR NAUSEA; NO NEW CHANGES IN SOB. PT WAS HOLDING CONVERSATION APPROPRIATELY. PAINFUL EVY AREA (CREAM/FUNGAL POWDER APPLIED); AREA IS EXCORIATED FROM CHRONIC DIARRHEA. NAVARRETE CATHETER AND RECTAL TUBE PATENT AND DRAINING TO GRAVITY. PT IS RESTING QUIETLY AT THIS TIME.
[2023-03-02] VITALS (21 sets, daily range): BP systolic 119–181; BP diastolic 69–136
[2023-03-02 03:52] LABS: Magnesium, Blood 1.6 mg/dL (1.6-2.4)
[2023-03-02 04:18] LABS: BASOPHILS ABSOLUTE AUTO 0.02 K/mm3 (0.00-0.23); BASOPHILS PERCENT AUTO 0 % (0-2); EOSINOPHILS ABSOLUTE AUTO 0.01 K/mm3 (0.00-0.68); EOSINOPHILS PERCENT AUTO 0 % (0-6); Hematocrit 35.3 % (37.0-53.0); Hemoglobin 10.4 g/dL (13.5-17.5); IMMATURE GRAN ABSOLUTE AUTO 0.28 K/mm3 (0.00-0.10); IMMATURE GRAN PERCENT AUTO 2 % (0-1); LYMPHOCYTES ABSOLUTE AUTO 0.64 K/mm3 (0.84-5.20); LYMPHOCYTES PERCENT AUTO 4 % (21-46); MONOCYTES ABSOLUTE AUTO 0.67 K/mm3 (0.16-1.47); MONOCYTES PERCENT AUTO 4 % (4-13); Mean Corpuscular HGB 28.7 pg (26.0-34.0); Mean Corpuscular HGB Conc 29.5 g/dL (31.5-36.5); Mean Platelet Volume 9.1 fL (9.1-12.4); NEUTROPHILS ABSOLUTE AUTO 15.19 K/mm3 (1.96-9.15); NEUTROPHILS PERCENT AUTO 90 % (41-73); Platelet Count 384 K/mm3 (150-400); RDW Coefficient Variation 14.4 % (11.7-14.2); RDW Standard Deviation 51.7 fL (35.1-46.3); Red Blood Cell Count 3.63 M/mm3 (4.30-5.90); White Blood Cell Count 16.81 K/mm3 (4.00-11.30)
[2023-03-02 04:35] LABS: Mean Corpuscular Volume 97 fL (80-100)
[2023-03-02 05:02] LABS: Albumin, Blood 3.2 g/dL (3.4-5.0); Anion Gap 5 mmol/L (6-16); Blood Urea Nitrogen 29 mg/dL (8-24); Bun/Creatinine Ratio 10.9 (12.0-20.0); CO2, Blood 34 mmol/L (21-32); Calcium, Blood 8.4 mg/dL (8.5-10.1); Chloride, Blood 106 mmol/L (98-108); Creatinine, Blood 2.65 mg/dL (0.60-1.20); Glomerular Filtration Rate 27 (60-); Glucose, Blood 133 mg/dL (70-99); Potassium, Blood 3.6 mmol/L (3.5-5.5); Sodium, Blood 145 mmol/L (136-145)
[2023-03-02 05:05] LABS: Phosphorus, Blood 6.2 mg/dL (2.5-4.9)
--- NOTE | 2023-03-02 05:58 | NUR ---
SHIFT SUMMARY PT IS A&O X3 (STILL DOESN'T KNOW DATE), APPEARS TO HAVE SOME INTERMITTENT CONFUSION, BUT IS EASILY REORIENTABLE. RESTED QUIETLY T/O NIGHT AND WAS ABLE TO DRINK SOME SODA (THAT SPOUSE BROUGHT IN), W/O ANY C/O NAUSEA. NO C/O CP, OR INCREASED SOB. PT STATES HE FEELS "PRETTY COMFORTABLE" AND OVERALL FEELS BETTER. RECTAL TUBE AND NAVARRETE CATHETER PATENT AND DRAINING TO GRAVITY. NO ACUTE EVENTS OVERNIGHT.
--- NOTE | 2023-03-02 08:00 | NUR ---
INITIAL ASSESSMENT PATIENT ALERT AND ORIENTED TO ALL QUESTIONS, EXCEPT TO DATE. PATIENT CALM AND COOPERATIVE. PATIENT AFEBRILE. PATIENT HAS NO COMPLAINTS OF PAIN. PATIENT WEAK BUT ABLE TO MOVE ALL EXTREMITIES. PATIENT ON 3 L NC TO KEEP SATS 90% AND GREATER. PATIENT IN SR, HR 90S TO LOW 100S. RECTAL TUBE IN PLACE DRAINING BROWN LIQUID STOOL. NAVARRETE DRAINING YELLOW COLORED URINE. ABRASION NOTED TO R KNEE. PERINEUM AND COCCYX EXCORIATED. SKIN FOLDS REDDENED. BED LOW, CALL LIGHT IN REACH. WILL CONTINUE TO MONITOR PATIENT FREQUENTLY THROUGHOUT SHIFT.
--- NOTE | 2023-03-02 08:35 | NUR ---
DR. CASTAÑEDA AND DR. ESPINOZA UPDATED ON PATIENT. INFORMED THAT 350 MLS OUT FROM NAVARRETE AND 100 OUT FROM RECTAL TUBE ON TRADE CLERK. INFORMED THAT PATIENT HAS ACHS BLOOD SUGARS BUT NO COVERAGE. INFORMED THAT WBCS INCREASING. NO ORDERS OBTAINED AT THIS TIME.
--- NOTE | 2023-03-02 12:15 | NUR ---
PATIENT AFEBRILE. SR WITH FREQUENT PACS. HR IN THE 90S. SBP IN THE 150S. PATIENT SATTING 90% AND GREATER ON 1 L NC. NAVARRETE DC'D AND WRAP PLACED TO KEEP PATIENT DRY IF INCONTINENT. NO OTHER ACUTE CHANGES TO NOTE ON AT THIS TIME. WILL CONTINUE TO MONITOR.
--- NOTE | 2023-03-02 15:36 | NUR ---
SHIFT SUMMARY PATIENT REMAINED ALERT AND ORIENTED X 4, AFEBRILE. PATIENT HAD NO COMPLAINTS OF PAIN. PATIENT REMAINED WEAK BUT ABLE TO DANGLE AT SIDE OF BED WHEN WORKED WITH PT AND OT. PATIENT UP TO CHAIR THIS SHIFT WITH LIFT. PATIENT ON 1 TO 3 L NC THIS SHIFT TO KEEP SATS 90% AND GREATER. PATIENT REMAINED IN SR WITH PACS, HR 90S TO 1-TEENS. SBP 140S TO 160S. PRN HYDRALAZINE GIVEN OT FOR SBP GREATER THAN 160. RECTAL TUBE DRAINED 100 MLS OF BROWN LIQUID STOOL THIS SHIFT. NAVARRETE DRAINED 275 MLS OF URINE THIS SHIFT. NAVARRETE DC'D AND WRAP APPLIED IN CASE PATIENT INCONTINENT. NO CHANGES TO SKIN NOTED. PATIENT REPOSITIONED THROUGHOUT SHIFT. PATIENT RECEIVED COMPLETE BED BATH. IVS SALINE LOCKED. NO COMPLAINTS AT THIS TIME. PATIENT WILL BE MOVING TO PCU, ROOM O1 SHORTLY.
--- NOTE | 2023-03-02 16:30 | NUR ---
PATIENT TRANSFERRED TO PCU, ROOM O1. , JULIANA, CALLED AND INFORMED OF MOVE. ALL BELONGINGS SENT WITH PATIENT INCLUDING PHONE AND CHIEF DIVERSITY OFFICER. TRANSFER COMPLETE.
--- NOTE | 2023-03-02 17:39 | NUR ---
SHIFT SUMMARY/PT TRANSFER PT TRANSFERED TO PCU . HR STABLE,BP STABLE. OXYGEN SATURATION MAINTAINED ABOVE 92% ON 2 L VIA NC. RECTAL TUBE IN PLACE DRAINING LIQUID STOOL. DEPENDS IN PLACE. BLADDER SCAN DONE SHOWING 239 ML URINE. PT'S AT BEDSIDE. THIS RN AGREES WITH PRIOR RN'S SHIFT ASSESSMENT. MD NOTIFIED OF INCREASE IN PT'S WBC COUNT. NO CURRENT ORDERS FOR ABX. MD TO PLACE ORDERS FOR PT. CALL LIGHT WITHIN REACH. AT BEDSIDE. WILL CONT TO MONITOR UNTIL REPORT GIVEN TO NIGHTSHIFT RN.
--- NOTE | 2023-03-02 18:18 | NUR ---
UPDATE PT HAVING GARBLED SPEECH. NOTFIED. ORDERS FOR STAT ABG, PT TO BE PLACED ON BIPAP, 1V CHEST X RAY, PROCALCITONIN TO BE CHECKED TO R/O INFECTION. ORDERS PLACED. WILL CONT TO MONITOR.
[2023-03-02 18:31] LABS: PO2 Arterial 89.2 mmHg (80-100); pH Blood Arterial 7.11 (7.35-7.45)
[2023-03-02 18:32] LABS: PCO2 Arterial 97.6 mmHg (35-45)
--- NOTE | 2023-03-02 18:49 | NUR ---
UPDATE CRITICAL ABG RESUTLTS PH 7.11, CO2 97.6. MD AWARE. INSTRUCTED TO CALL DR. ALMAGUER, CALL OUT TO DR. ALMAGUER AT THIS TIME. PT ON BIPAP AT 16/6 AND 30% FIO2. PT DOMONIQUE WELL AT THIS TIME. WILL CONT TO MONITOR.
--- NOTE | 2023-03-02 19:24 | NUR ---
UPDATE DR. ALMAGUER NOTIFIED OF PT ABG. PLAN TO CHANGE BIPAP SETTINGS TO 25/05, RT NOTIFIED. ORDERS FOR ABG AT 2200. WILL UPDATE NIGHTSHIFT RN.
[2023-03-02 21:54] LABS: PCO2 Arterial 47.1 mmHg (35-45); pH Blood Arterial 7.44 (7.35-7.45)
[2023-03-03 04:06] VITALS: BP 148/85
[2023-03-03 04:28] LABS: BASOPHILS ABSOLUTE AUTO 0.03 K/mm3 (0.00-0.23); BASOPHILS PERCENT AUTO 0 % (0-2); EOSINOPHILS PERCENT AUTO 0 % (0-6); Hematocrit 29.4 % (37.0-53.0); IMMATURE GRAN ABSOLUTE AUTO 0.19 K/mm3 (0.00-0.10); IMMATURE GRAN PERCENT AUTO 1 % (0-1); LYMPHOCYTES ABSOLUTE AUTO 0.64 K/mm3 (0.84-5.20); LYMPHOCYTES PERCENT AUTO 4 % (21-46); MONOCYTES ABSOLUTE AUTO 0.55 K/mm3 (0.16-1.47); MONOCYTES PERCENT AUTO 4 % (4-13); Mean Corpuscular HGB 28.5 pg (26.0-34.0); Mean Corpuscular HGB Conc 30.6 g/dL (31.5-36.5); Mean Corpuscular Volume 93 fL (80-100); NEUTROPHILS ABSOLUTE AUTO 13.12 K/mm3 (1.96-9.15); NEUTROPHILS PERCENT AUTO 90 % (41-73); Platelet Count 307 K/mm3 (150-400); RDW Coefficient Variation 14.1 % (11.7-14.2); RDW Standard Deviation 47.7 fL (35.1-46.3); Red Blood Cell Count 3.16 M/mm3 (4.30-5.90); White Blood Cell Count 14.53 K/mm3 (4.00-11.30)
[2023-03-03 04:50] LABS: Magnesium, Blood 1.3 mg/dL (1.6-2.4)
[2023-03-03 05:07] LABS: Albumin, Blood 2.6 g/dL (3.4-5.0); Anion Gap 6 mmol/L (6-16); Blood Urea Nitrogen 28 mg/dL (8-24); Bun/Creatinine Ratio 11.6 (12.0-20.0); CO2, Blood 31 mmol/L (21-32); Chloride, Blood 103 mmol/L (98-108); Creatinine, Blood 2.41 mg/dL (0.60-1.20); Glomerular Filtration Rate 30 (60-); Glucose, Blood 106 mg/dL (70-99); Potassium, Blood 3.3 mmol/L (3.5-5.5); Sodium, Blood 140 mmol/L (136-145)
--- NOTE | 2023-03-03 07:35 | NUR ---
SHIFT SUMMARY UPON INITIAL ASSESSMENT OF PATIENT, DURING BEDSIDE REPORT, HE WAS LETHARGIC AND BUT RESPONDING TO VERBAL STIMULUS. PATIENT WAS ON BIPAP 16/8 30% FIO2. PATIENT HAS SINCE BECOME FULLY ALERT AND ORIENTED X3, ABG IMPROVED, BIPAP REMOVED. PATIENT ON HIS BASELINE OXYGEN SATING 94%. PATIENT NEEDS TO BE REMINDED TO TAKE SMALL SIPS WHEN DRINKING WATER. PATIENT MEDICATED WITH HYDRALAZINE FOR BLOOD PRESSURE. HEART RATE STABLE. PATIENT DENIES CHEST PAIN OR PRESSURE. WILL CONTINUE TO MONITOR. CALL LIGHT WITHIN REACH.
[2023-03-03 09:03] VITALS: BP 159/85
[2023-03-03 12:24] VITALS: BP 175/93
[2023-03-03 15:40] VITALS: BP 177/96
--- NOTE | 2023-03-03 15:48 | NUR ---
DR CONTACTED AND INFORMED OF PT HIGH BP'S, SEE VISTALS. DR TO PUT IN ORDERS.
--- NOTE | 2023-03-03 17:13 | NUR ---
SHIFT SUMMARY PT A/OX3-4 AND COOPERATIVE OF CARE. PT HAD SLIGHT TEMP THROUGHOUT SHIFT, TREATED WITH TYLENOL. PT BP'S INCREASED FROM 140'S TO 170'S AFTER TRANSFERING PT VIA LIFT. DR NOTIFIED OF BP'S MAINTAINING ELEVATED, HYDRALAZINE GIVEN, LABETALOL ORDERED FOR SBP >170, SEE ORDER. PT O2 SATS REMAINED IN THE 90'S ON 2L NC THORUGHOUT SHIFT, NO REPORT OF SOB/DYSPNEA. NO REPORT OF CHEST PAIN/PRESSURE THROUGHOUT SHIFT. PT REPORTED PAIN IN HIS LEGS THAT IS BRIEFLY CONTROLLED WITH TYLENOL, PT REFUSING FENTANYL STATING "THAT STUFF SCARES ME." PT WORKED WITH PT/OT TODAY, TOLERATED FAIR, SEE THERAPIST NOTES. RECTAL IN PLACE DRAINING TO GRAVITY. DR ASKED FOR PT TO BE ON BIPAP DURING NIGHT, WILL FORWARD TO ONCOMING RN.
--- NOTE | 2023-03-03 18:30 | NUR ---
UPDATE RT CONTACTED AROUND 1800 PER RT REQUEST TO INFORM THEM THAT PT BEGINNING TO SEEM OBTUNDED. PT APPEARED MORE OBTUNDED AT 1830. PT WAS HAVING DIFFICULTY ASNWERING ORIENTATION QUESTIONS. PT PLACED ON BIPAP 18/8 25%.
[2023-03-03 19:54] VITALS: BP 152/77
[2023-03-03 23:43] VITALS: BP 161/89
[2023-03-04] VITALS (8 sets, daily range): BP systolic 115–170; BP diastolic 66–97
[2023-03-04 04:25] LABS: BASOPHILS ABSOLUTE AUTO 0.03 K/mm3 (0.00-0.23); BASOPHILS PERCENT AUTO 0 % (0-2); EOSINOPHILS PERCENT AUTO 0 % (0-6); Hematocrit 32.8 % (37.0-53.0); IMMATURE GRAN ABSOLUTE AUTO 0.27 K/mm3 (0.00-0.10); IMMATURE GRAN PERCENT AUTO 2 % (0-1); LYMPHOCYTES ABSOLUTE AUTO 1.02 K/mm3 (0.84-5.20); LYMPHOCYTES PERCENT AUTO 6 % (21-46); MONOCYTES ABSOLUTE AUTO 1.12 K/mm3 (0.16-1.47); MONOCYTES PERCENT AUTO 7 % (4-13); Mean Corpuscular HGB 28.6 pg (26.0-34.0); Mean Corpuscular HGB Conc 30.5 g/dL (31.5-36.5); Mean Corpuscular Volume 94 fL (80-100); Mean Platelet Volume 9.1 fL (9.1-12.4); NEUTROPHILS ABSOLUTE AUTO 13.41 K/mm3 (1.96-9.15); NEUTROPHILS PERCENT AUTO 85 % (41-73); Platelet Count 371 K/mm3 (150-400); RDW Coefficient Variation 14.2 % (11.7-14.2); RDW Standard Deviation 48.5 fL (35.1-46.3); White Blood Cell Count 15.85 K/mm3 (4.00-11.30)
[2023-03-04 04:51] LABS: Albumin, Blood 2.8 g/dL (3.4-5.0); Anion Gap 6 mmol/L (6-16); Blood Urea Nitrogen 30 mg/dL (8-24); Bun/Creatinine Ratio 12.4 (12.0-20.0); CO2, Blood 34 mmol/L (21-32); Calcium, Blood 8.9 mg/dL (8.5-10.1); Chloride, Blood 103 mmol/L (98-108); Creatinine, Blood 2.42 mg/dL (0.60-1.20); Glomerular Filtration Rate 30 (60-); Glucose, Blood 95 mg/dL (70-99); Phosphorus, Blood 3.8 mg/dL (2.5-4.9); Potassium, Blood 3.2 mmol/L (3.5-5.5); Sodium, Blood 143 mmol/L (136-145)
--- NOTE | 2023-03-04 06:45 | NUR ---
SHIFT SUMMARY PATIENT ALERT AND ORIENTED X4. CONTINUES TO BE BEDREST HE IS TOO WEAK TO STAND. PATIENT MEDICATED PER EMAR FOR HEADACHE AND BLOOD PRESSURE, HAD A RUN OF SVT THAT LASTED A COUPLE SECONDS, STRIP SAVED TO CHART.PATIENT PLACED BACK ON BIPAP THIS MORNING AROUND 0430 HE WAS TACHYPNIC AT 30, WORK OF BREATHING INCREASED WITH ACCESSORY MUSCLE USE, AND HE WAS ONLY ABLE TO SPEAK IN A FAINT WISPER. LUNG SOUNDS DIMINISHED IN ALL COTTO. RECTAL TUBE IN PLACE AND DRAINING TO GRAVITY WITH SOME LEAKAGE. WILL CONTINUE TO MONITOR. CALL LIGHT WITHIN REACH.
--- NOTE | 2023-03-04 12:49 | NUR ---
THIS RN CONTACTED PT SPOUSE AT 1221 TO GIVE UPDATE.
--- NOTE | 2023-03-04 14:58 | NUR ---
AFTER RECIEVING BED BATH PT APPEARED TO BE TACHYPNIEC. PT HR IN THE 80'S. PT ASKED IF HE WOULD LIKE TO HAVE THE BIPAP APPLIED, PT SHOOK HEAD "YES." BIPAP APPLIED AT 18/8 30% SETTINGS. BED IN LOWEST POSITION. CALL LIGHT IN REACH. HOB AT 45.
--- NOTE | 2023-03-04 18:02 | NUR ---
SHIFT SUMMARY PT A/OX3-4 AND COOPERATIVE OF CARE. PT DOING BETTER OF EXPRESSING NEEDS FOR USING URINAL TO PEE. PT SWITCHED FROM 2-3L NC TO BIPAP TWICE DURING SHIFT, ONCE PER PT REQUEST. PT HAD PERIODS OF DIFFICULTY SPEAKING SOME WORDS DUE TO SOB, THOUGH PT WOULD DENY SOB AT THAT TIME. OTHER VSS THROUGHOUT SHIFT. PT WAS IN RECLINER DURING FIRST FEW HOURS OF SHIFT, TRANSFERED VIA LIFT. TRAMADOL ORDERED FOR PAIN MANAGEMENT, DR INSTRUCTED TYLENOL TO CURRENTLY BE HHELD FOR PAIN MANAGEMENT AND TO ONLY BE USED FOR FEVERS AT THIS TIME. FAMILY UPDATED TODAY. RECTAL TUBE IN PLACE, PT RECIEVING LACTULOSE PER ORDERS.
[2023-03-05 03:23] VITALS: BP 149/81
[2023-03-05 03:42] LABS: Hematocrit 33.7 % (37.0-53.0); Hemoglobin 10.1 g/dL (13.5-17.5)
[2023-03-05 04:02] LABS: Albumin, Blood 2.6 g/dL (3.4-5.0); Anion Gap 6 mmol/L (6-16); Blood Urea Nitrogen 32 mg/dL (8-24); Bun/Creatinine Ratio 13.6 (12.0-20.0); CO2, Blood 36 mmol/L (21-32); Calcium, Blood 9.1 mg/dL (8.5-10.1); Chloride, Blood 105 mmol/L (98-108); Creatinine, Blood 2.35 mg/dL (0.60-1.20); Glomerular Filtration Rate 31 (60-); Glucose, Blood 85 mg/dL (70-99); Magnesium, Blood 1.8 mg/dL (1.6-2.4); Phosphorus, Blood 3.8 mg/dL (2.5-4.9); Potassium, Blood 3.4 mmol/L (3.5-5.5); Sodium, Blood 147 mmol/L (136-145)
--- NOTE | 2023-03-05 06:11 | NUR ---
SHIFT SUMMARY PATIENT ALERT AND ORIENTED X4. PATIENT WORE BIPAP THE MAJORITY OF THE NIGHT, HE IS AWAKE AND ALERT THIS MORNING. LUNG SOUNDS DIMINISHED IN ALL COTTO, SPO2 > 90% ON 2 LITERS O2 VIA NC. HEART RATE STABLE IN SINUS RHYTHM. MEDICATED PER EMAR WITH HYDRALAZINE FOR HYPERTENTION. NO ACUTE ISSUES NOTED OVERNIGHT. WILL CONTINUE TO MONITOR. CALL LIGHT WITHIN REACH.
[2023-03-05 07:26] VITALS: BP 123/78
[2023-03-05 12:50] VITALS: BP 133/86
[2023-03-05 16:04] VITALS: BP 131/85
--- NOTE | 2023-03-05 16:14 | NUR ---
DR HIDALGO CALLED AND INFORMED OF SODIUM LEVEL 143 ON RECENT BLOOD DRAW PER DR REQUEST. NO NEW ORDERS.
--- NOTE | 2023-03-05 17:32 | NUR ---
SHIFT SUMMARY PT A/OX3-4 AN COOPERATIVE OF CARE. PT HAD BRIEF PERIOD OF SATS DROPPING TO HIGH 80'S THIS AFTERNOON PT WAS TRYING TO INFORM STAFF THE HE NEEDED TO USE THE URINAL. PT SATS RETURNED TO 90'S WHILE STILL ON THE 2L NC WHEN INSRUCTED TO TAKE SOME DEEP BREATHS IN THROUGH NOSE AND OUT MOUTH. OTHER VSS THROUGHOUT SHIFT. PT WORKED WITH PHYSICAL THERAPY TODAY, SEE THERAPIST NOTES. PT REPORTS "IT WAS EXHAUSTING" WHEN ASKED HOW THE THERAPY WAS. NO REPORT OF CHEST PAIN/PRESSURE THROUGHOTU SHIFT. PT WAS MORE ALERT THIS MORNING, NIGHT RN REPORTED THAT "PT REMAINED ON BIPAP LONGER THIS EVENING." RETAL REMAINED IN PLACE, LEAKS AT TIMES, PT CLEANED. PT ABLE TO EXPRESS WHEN HE NEEDS TO USE THE URINAL. PT EXPRESSED SOME FRUSTRATION OVER THE FLUID RESTRICTION, PT AND SPOUSE EDUCATED ON THE NEED FOR FLUID RESTRICTION.
[2023-03-05 19:42] VITALS: BP 137/71
[2023-03-06] VITALS (7 sets, daily range): BP systolic 122–135; BP diastolic 71–99
[2023-03-06 04:10] LABS: Hematocrit 37.4 % (37.0-53.0); Hemoglobin 10.8 g/dL (13.5-17.5)
[2023-03-06 04:33] LABS: Albumin, Blood 2.7 g/dL (3.4-5.0); Anion Gap 2 mmol/L (6-16); Blood Urea Nitrogen 32 mg/dL (8-24); Bun/Creatinine Ratio 14.5 (12.0-20.0); CO2, Blood 40 mmol/L (21-32); Calcium, Blood 9.6 mg/dL (8.5-10.1); Chloride, Blood 103 mmol/L (98-108); Glomerular Filtration Rate 34 (60-); Glucose, Blood 101 mg/dL (70-99); Phosphorus, Blood 4.8 mg/dL (2.5-4.9); Potassium, Blood 4.7 mmol/L (3.5-5.5); Sodium, Blood 145 mmol/L (136-145)
--- NOTE | 2023-03-06 06:11 | NUR ---
SHIFT SUMMARY NO ACUTE CHANGES NOTED THROUGH THE NIGHT. PT REMAINS A&O X3, VSS, 2L VIA NC WHILE AWAKE, PT ENC TO KEEP BIPAP IN PLACE WHILE SLEEPING, PT WOULD BECOME ANXIOUS & REQUEST IT TO BE REMOVED AFTER APPROX 20 MIN, PT WAS GIVEN 0.5 MG IV ATIVAN THIS AM @ APPROX 0400, HE HAS BEEN ABLE TO SLEEP & TOLERATE THE MASK SINCE THEN, SPO2 >95%. Q2 TURNS PROVIDED, ATTENDS CHANGED PRN, RECTAL TUBE IN PLACE, NO CHANGE IN THE AMOUNT OF STOOL IN BAG THROUGH MY SHIFT, SM AMOUNT OF BM LEAKED AROUND RECTAL TUBE, VOIDING WNL, TOLERATING PO INTAKE W/FLUID RESTRICTIONS. PT DENIES PAIN, SOB. PT IS SLEEPING AT THIS TIME, CALL LIGHT IN REACH, WCTM & REPORT TO DAY RN.
[2023-03-06 09:48] LABS: Base Excess Venous 13.9 mmol/L; Bicarbonate Venous 33.4 mmol/L (24.0-30.0); PCO2 Venous 100 mmHg (38-42); pH Blood Venous 7.23 (7.34-7.37)
--- NOTE | 2023-03-06 17:40 | NUR ---
SHIFT SUMMARY PT HAS REMAINED ALERT THROUGHOUT THE SHIFT. AT 0800 PT'S VBG RESULTS OF 100 PACO2, WITH A pH OF 7.23. PT RESTARTED ON BIPAP WITH A BLEED-IN OF 13L R/T A SPO2 OF 80% THAT HAS SLOWLY BEEN TITRATED TO 7L. PT HAS BEEN PLACED ON BIPAP FOR THE MAJORITY OF THE DAY WITH BREAKS FOR MEALS. PT HAS ALSO REMAINED COMPLIANT WITH THE FLUID RESTRICTION THROUGHOUT THE SHIFT. RECTAL TUBE IN PLACE AND DRAINING TO GRAVITY WITH MINIMAL DRAINAGE THIS SHIFT. WILL BE MEDICATED WITH PRN LACTOLOSE RECTAL TUBE DOES HAVE SOME LEAKAGE AROUND THE PLACEMENT SITE. PT DENIES ANY PAIN AT THIS TIME. WILL REPORT OFF TO ONCOMING RN.
--- NOTE | 2023-03-06 18:09 | NUR ---
I have reviewed the executive director of nursing documentation and am in agreement
[2023-03-07 03:30] VITALS: BP 167/88
[2023-03-07 03:45] LABS: Hematocrit 32.7 % (37.0-53.0); Hemoglobin 9.8 g/dL (13.5-17.5)
[2023-03-07 04:01] LABS: Albumin, Blood 2.7 g/dL (3.4-5.0); Anion Gap 3 mmol/L (6-16); Blood Urea Nitrogen 28 mg/dL (8-24); Bun/Creatinine Ratio 13.8 (12.0-20.0); CO2, Blood 42 mmol/L (21-32); Calcium, Blood 9.4 mg/dL (8.5-10.1); Chloride, Blood 98 mmol/L (98-108); Creatinine, Blood 2.03 mg/dL (0.60-1.20); Glomerular Filtration Rate 37 (60-); Glucose, Blood 87 mg/dL (70-99); Magnesium, Blood 1.8 mg/dL (1.6-2.4); Phosphorus, Blood 2.3 mg/dL (2.5-4.9); Potassium, Blood 3.3 mmol/L (3.5-5.5); Sodium, Blood 143 mmol/L (136-145)
--- NOTE | 2023-03-07 04:15 | NUR ---
SHIFT SUMMARY PT IS A/Ox3 AND MOSTLY COOPERATIVE WITH CARE PROVIDED BY MEMBERS OF STAFF. ANSWERS QUESTIONS APPROPRIATELY AND ABLE TO MAKE HIS NEEDS KNOWN. NO ACTURE EVENTS OVERNIGHT FOR PT WAS ABLET SO SLEEP T/O MOST THE SHIFT. RESPIRATORY BACON, MAINTAINED SPO2 >90% ON ON BIPAP 18/8 WITH A 5L O2 BLEED. WORE BIPAP T/O MOST THE ENTIRE NIGHT WITH ONLY SMALL BREAKS TO DRINK WATER. USES 2-3 VIA NC WHILE ON SAID BREAKS WITH GOOD EFFECT. CARDIAC BACON, REMAINS IN SR 70-90'S WITH NO REPORTS OF CP OR PRESSURE T/O THE NIGHT. SBP HAS BEEN STABLE WITH PRN HYDRALAZINE FOR COVERAGE. PT REMAINS ON BEDREST, REPOSITIOEND Q2 HOURS ORDERED. RECTAL TUBE IN PLACE WITH SOME LIQUID/BROWN OUTPUT. SOME LEAKAGE NOTED AROUND RECTAL SITE. ATTENDS CHANGED PRN FOR INCONTINENT VOID OR RECTAL TUBE LEAKAGE. FR OF 1000ML UPHELD ORDERED VIA EMAR. NO NEW ORDERS AT THIS TIME, WILL REPORT TO ONCOMING RN. MALIKA OH OF THIS NOTE.
[2023-03-07 04:31] VITALS: BP 138/83
[2023-03-07 05:44] LABS: Base Excess Venous 18.8 mmol/L; Bicarbonate Venous 39.2 mmol/L (24.0-30.0)
[2023-03-07 05:45] LABS: PCO2 Venous 74.4 mmHg (38-42); pH Blood Venous 7.38 (7.34-7.37)
[2023-03-07 07:04] LABS: BASOPHILS ABSOLUTE AUTO 0.03 K/mm3 (0.00-0.23); BASOPHILS PERCENT AUTO 0 % (0-2); EOSINOPHILS ABSOLUTE AUTO 0.18 K/mm3 (0.00-0.68); EOSINOPHILS PERCENT AUTO 1 % (0-6); Hematocrit 31.5 % (37.0-53.0); Hemoglobin 9.7 g/dL (13.5-17.5); IMMATURE GRAN ABSOLUTE AUTO 0.24 K/mm3 (0.00-0.10); IMMATURE GRAN PERCENT AUTO 2 % (0-1); LYMPHOCYTES ABSOLUTE AUTO 1.04 K/mm3 (0.84-5.20); LYMPHOCYTES PERCENT AUTO 8 % (21-46); MONOCYTES PERCENT AUTO 7 % (4-13); Mean Corpuscular HGB 29.4 pg (26.0-34.0); Mean Corpuscular HGB Conc 30.8 g/dL (31.5-36.5); Mean Corpuscular Volume 96 fL (80-100); Mean Platelet Volume 9.2 fL (9.1-12.4); NEUTROPHILS ABSOLUTE AUTO 11.25 K/mm3 (1.96-9.15); NEUTROPHILS PERCENT AUTO 82 % (41-73); Platelet Count 408 K/mm3 (150-400); RDW Coefficient Variation 13.9 % (11.7-14.2); RDW Standard Deviation 48.4 fL (35.1-46.3); White Blood Cell Count 13.74 K/mm3 (4.00-11.30)
[2023-03-07 07:30] VITALS: BP 153/106
--- NOTE | 2023-03-07 10:31 | NUR ---
AM NOTE PT IS ALERT AND ORIENTATED TO PERSON, PLACE, SITAUTION. UNAWARE OF DATE/TIME. PT WORE BIPAP FOR MOST OF THE NIGHT PER BRANDING MACHINE OPERATOR. PT VITAL SIGNS REMAIN STABLE. DENIES CHEST PAIN, SHORTNESS OF BREATH, NAUSEA, DIZZINESS, OR ABDOMINAL PAIN. REMOVAL OF RECTAL TUBE TODAY. WILL CONTINUE TO WEAR BIPAP BETWEEN MEALS WITH BREAKS. WILL CONTINUE TO MONITOR PT.
[2023-03-07 11:39] VITALS: BP 157/76
[2023-03-07 15:47] VITALS: BP 152/111
--- NOTE | 2023-03-07 16:02 | NUR ---
SHIFT SUMMARY PT REMAINED AT BASELINE MENTATION. VITAL SIGNS HAVE REMAINED STABLE THROUGHOUT THE SHIFT. PT HAS BEEN COMPLIANT WITH WEARING HIS BIPAP THROUGHOUT THE DAY, ALONG WITH THE FLUID RESTRICTION. WHEN NOT ON BIPAP PT MAINTAINS A SPO2 OF >95% ON 1L VIA NC. PT HAS ATE MINIMAL FOOD OFF OF HIS MEAL TRAYS. RECTAL TUBE REMOVED AT 1500 WITHOUT ANY COMPLICATIONS. PT HAS HAD MULTIPLE BOWEL MOVEMENTS FOLLOWING REMOVAL ON A BEDPAN. PT IS ABLE TO MAKE HIS NEEDS KNOW. DENIES CHEST PAIN, WORSENING SHORTNESS OF BREATH, ABDOMINAL PAIN, NAUSEA, OR DIZZINESS. WILL REPORT OFF TO ONCOMING RN.
--- NOTE | 2023-03-07 17:54 | NUR ---
I have reveiwed the nursing assoc documentation and am in agreement.
[2023-03-07 20:03] VITALS: BP 146/80
[2023-03-08 03:46] LABS: Hematocrit 31.3 % (37.0-53.0); Hemoglobin 9.7 g/dL (13.5-17.5)
[2023-03-08 04:10] LABS: Albumin, Blood 2.7 g/dL (3.4-5.0); Anion Gap 3 mmol/L (6-16); Blood Urea Nitrogen 25 mg/dL (8-24); Bun/Creatinine Ratio 12.6 (12.0-20.0); CO2, Blood 42 mmol/L (21-32); Calcium, Blood 9.1 mg/dL (8.5-10.1); Chloride, Blood 98 mmol/L (98-108); Creatinine, Blood 1.98 mg/dL (0.60-1.20); Glomerular Filtration Rate 38 (60-); Glucose, Blood 99 mg/dL (70-99); Magnesium, Blood 1.8 mg/dL (1.6-2.4); Phosphorus, Blood 2.9 mg/dL (2.5-4.9); Potassium, Blood 3.4 mmol/L (3.5-5.5); Sodium, Blood 143 mmol/L (136-145)
[2023-03-08 04:21] VITALS: BP 156/90
--- NOTE | 2023-03-08 04:38 | NUR ---
SHIFT SUMMARY PT IS A/Ox3-4 AND COOPERATIVE WITH CARE PROVIDED BY MEMBERS OF STAFF. ANSWERS MOST QUESTIONS APPROPRIATELY AND ABLE TO MAKE MOST HIS NEEDS KNOWN. NO ACUTE EVENTS LAST NIGHT FOR PT WAS ABLE TO SLEEP T/O MOST OF THE SHIFT. CARDIAC BACON, PT IS NO LONGER ON TELE PER DAYSHIFT MD'S ORDERS. NO C/O CP OR PRESSURE T/O THE NIGHT. SBP IS TRENDING UP, BUT PRN HYDRALAZINE IS AVAILABLE. RESPIRATORY BACON, MAINTAINED SPO2 >90% ON THE BIPAP 18/10 WITH 5-6L BLEED T/O MOST OF THE NIGHT. ON 1-2L NC FOR BREAKS FROM BIPAP, BUT CONTINUES TO MAINTAIN SPO2 >90% WITH NO C/O SOB OR DYSPNEA. REMAINS ON BEDREST, Q2HR REPOSITIONING PERFORMED ORDERED. ATTENDS IN PLACE AND CHANGED PRN FOR INTERMITTENT INCONTINENT VOIDS. NO NEW ORDERS AT THIS TIME, WILL REPORT TO ONCOMING RN. MALIKA OH OF THIS NOTE
[2023-03-08 07:26] VITALS: BP 141/77
--- NOTE | 2023-03-08 09:24 | NUR ---
AM NOTE PT IS ALERT AND ORIENTATED TO PERSON, PLACE, SITUATION, BUT UNSURE OF THE DATE/TIME. VITAL SIGNS ARE STABLE. PT DENIES CHEST PAIN, SHORTNESS OF BREATH, DIZZINESS, NAUSEA, OR ABDOMINAL PAIN. SPO2 MAINTAINED >95% WITH BIPAP AT 8/18/6L OR 1L VIA NC. PT EXPRESSES WANTING TO GO HOME. EXPLAINED ABOUT POSSIBLE SNF PLACEMENT. CASE MANAGEMENT INVOLVED. PT MOVED TO BEDSIDE RECLINER AND BIPAP PLACED ON WHILE HE IS SLEEPING. WILL CONTINUE TO MONITOR PT.
[2023-03-08 11:06] VITALS: BP 137/78
--- NOTE | 2023-03-08 14:42 | NUR ---
TRANSFER PT TRANSFERED TO ROOM 306 FROM PCU. PT ORIENTED TO ROOM. ASSISTED WITH URINAL IN BED. CALL LIGHT IN REACH.
--- NOTE | 2023-03-08 14:46 | NUR ---
TX NOTE PT REMAINED ALERT AND ORIENTATED THROUGHOUT SHIFT. VITAL SIGNS HAVE REMAINED STABLE. 02 HAS REMAINED ABOVE 92% ON 1L NC OR ON BIPAP AT 18/8/6L. PT HAS NOT HAD A BOWEL MOVEMENT THIS SHIFT, MEDICATED WITH PRN LACTOLOSE. PT REMAINED IN THE BEDSIDE RECLINER FOR APPROXIMATELY 4 HOURS, AND WORKED WITH PHYSICAL THERAPY. TRILOGY BIPAP WILL BE IN PLACE TONIGHT. PT WILL BE D/C TO [facility] TOMORROW. REPORT CALLED TO VANITA ROB. PT TRANSPORTED TO MEDICAL FLOOR VIA [facility].
[2023-03-08 15:48] VITALS: BP 145/108
--- NOTE | 2023-03-08 17:04 | NUR ---
SHIFT SUMMARY PT UP IN ROOM EATING DINNER WITH . EDUCATED ON FLUID RESTRICTION AND THE REASON FOR THIS WAS EXPLAINED TO THE PT AND HIS . PT NOT COMPLAINT WITH THE LOW SODIUM DIET. PT SNACKS ON FOOD BROUGHT IN FROM THE OUTSIDE OFTEN. PT AGREEABLE AND COOPERATIVE WITH REPOSITIONING IN BED. VS REVIEWED. CALL LIGHT IN REACH. PT AT BEDSIDE, ASSISTING WITH FEEDING THE PT DUE TO HIS TREMORS.
[2023-03-08 17:11] VITALS: BP 139/82
--- NOTE | 2023-03-08 18:42 | NUR ---
CHEW REMOVED FROM PATIENT PT ASKED IF HE IS CHEWING TOBACCO. PT STATES "NO". PT THEN REMINDED THIS IS A TOBACCO FREE CAMPUS. RN ASKED WHAT WAS UNDER PTS HAND. PT STATED "NOTHING". RN ASKED FOR HIM TO REMOVED HIS HAND WHERE A CAN OF CHEW LAID ON THE BED. CHEW WAS PLACED IN PTS BELONGING BAG ON THE OTHER SIDE OF THE ROOM. PT UPSET BY THIS BUT ALLOWED FOR RN TO REMOVE IT. PT STATED "OH JUST YOU WAIT". RN THEN LEFT THE ROOM. CALL LIGHT IN REACH.
[2023-03-08 19:08] VITALS: BP 136/73
[2023-03-09 05:38] LABS: Hematocrit 29.6 % (37.0-53.0); Hemoglobin 9.4 g/dL (13.5-17.5)
--- NOTE | 2023-03-09 05:43 | NUR ---
PT IS A&O4, BEDREST AND MAX ASSIST TO CHAIR DURING THE DAY, 3L NC SATS MID 90'S, PRN PAIN MEDICATION GIVEN PER MAR FOR HEAD AND NECK PAIN, NO ACUTE OVERNIGHT EVENTS CONTINUE POC
[2023-03-09 05:56] LABS: Albumin, Blood 2.5 g/dL (3.4-5.0); Anion Gap 3 mmol/L (6-16); Blood Urea Nitrogen 23 mg/dL (8-24); Bun/Creatinine Ratio 11.6 (12.0-20.0); CO2, Blood 44 mmol/L (21-32); Calcium, Blood 9.2 mg/dL (8.5-10.1); Chloride, Blood 95 mmol/L (98-108); Creatinine, Blood 1.99 mg/dL (0.60-1.20); Glomerular Filtration Rate 38 (60-); Glucose, Blood 97 mg/dL (70-99); Magnesium, Blood 1.8 mg/dL (1.6-2.4); Phosphorus, Blood 2.5 mg/dL (2.5-4.9); Potassium, Blood 3.4 mmol/L (3.5-5.5); Sodium, Blood 142 mmol/L (136-145)
[2023-03-09 07:48] VITALS: BP 154/84
[2023-03-09] MEDS ORDERED: BUME2 PO (10:12)
[2023-03-09] MEDS ORDERED: IPRAT-ALBUT 0.5-3 ML INH (10:15)
[2023-03-09] MEDS ORDERED: AMLO10 PO (10:15)
[2023-03-09] MEDS ORDERED: FOLI1 PO (10:15)
[2023-03-09] MEDS ORDERED: ARANESP25 MCG/0.1 (10:15)
[2023-03-09] MEDS ORDERED: MAGNESIUM OXID500 MG PO (10:16)
[2023-03-09] MEDS ORDERED: POTA10T PO (10:18)
[2023-03-09] MEDS ORDERED: Prednisone10 MG PO (10:18)
[2023-03-09] MEDS ORDERED: MICONAZOLE NIT130 GM TOP (10:18)
[2023-03-09] MEDS ORDERED: B-1100 M1 PO (10:19)
[2023-03-09] MEDS ORDERED: TRAM50 PO (10:19)
--- NOTE | 2023-03-09 13:46 | NUR ---
PT DC'D WITH INSTRUCTIONS. CALLED REPOET TO RN AT [facility]- BELONGINGS SENT WITH PATIENT INCLUDING CPAP MACHINE AND CELL PHONE. WHEELCHAIR TRANSPORT TO FACILITY. 3 PERSON PIVOT TX TO W/C
== END 2023-03-09 13:34 | DRG 871 ==
LOC: ER 16:39 → ICUE 20:50 → ICUW 20:50 → PCU 20:50 → ICUE 21:18 → PCU 03-02 16:50 → MEDS 03-08 14:37 → ENPENDDIS 03-09 09:51 → MEDS 03-09 13:34
PROVIDERS: Family Medicine; Internal Medicine; Internal Medicine Critical Care Medicine; Internal Medicine Nephrology; Student in an Organized Health Care Education/Training Program; ADMIT Internal Medicine
PROC: 3E03329 Introduction of Other Anti-infective into Peripheral Vein, Percutaneous Approach (ICD-10-PCS; principal; 2023-02-22)
PROC: 5A09457 Assistance with Respiratory Ventilation, 24-96 Consecutive Hours, Continuous Positive Airway Pressure (ICD-10-PCS; 2023-02-22)
PROC: 02HV33Z Insertion of Infusion Device into Superior Vena Cava, Percutaneous Approach (ICD-10-PCS; 2023-02-22)
PROC: 4A133R1 Monitoring of Arterial Saturation, Peripheral, Percutaneous Approach (ICD-10-PCS; 2023-02-24)
PROC: HZ2ZZZZ Detoxification Services for Substance Abuse Treatment (ICD-10-PCS; 2023-02-26)
PROC: 0BH18EZ Insertion of Endotracheal Airway into Trachea, Via Natural or Artificial Opening Endoscopic (ICD-10-PCS; 2023-02-27)
DX: A41.9 Sepsis, unspecified organism (principal); G92.8 Other toxic encephalopathy; J18.9 Pneumonia, unspecified organism; J96.21 Acute and chronic respiratory failure with hypoxia; J96.22 Acute and chronic respiratory failure with hypercapnia; E87.1 Hypo-osmolality and hyponatremia; N17.9 Acute kidney failure, unspecified; J44.0 Chronic obstructive pulmonary disease with (acute) lower respiratory infection; E66.2 Morbid (severe) obesity with alveolar hypoventilation; J44.1 Chronic obstructive pulmonary disease with (acute) exacerbation; E87.20 Acidosis, unspecified; R65.20 Severe sepsis without septic shock; E83.42 Hypomagnesemia; D63.1 Anemia in chronic kidney disease; E83.39 Other disorders of phosphorus metabolism; I12.9 Hypertensive chronic kidney disease with stage 1 through stage 4 chronic kidney disease, or unspecified chronic kidney disease; R94.31 Abnormal electrocardiogram [ECG] [EKG]; N18.9 Chronic kidney disease, unspecified; K21.9 Gastro-esophageal reflux disease without esophagitis; K76.0 Fatty (change of) liver, not elsewhere classified; K76.82 Hepatic encephalopathy; E78.00 Pure hypercholesterolemia, unspecified; R54 Age-related physical debility; E87.6 Hypokalemia; E88.09 Other disorders of plasma-protein metabolism, not elsewhere classified; F10.20 Alcohol dependence, uncomplicated; K74.60 Unspecified cirrhosis of liver; G89.29 Other chronic pain; M54.50 Low back pain, unspecified; I48.91 Unspecified atrial fibrillation; Z68.27 Body mass index [BMI] 27.0-27.9, adult; Z99.81 Dependence on supplemental oxygen; Z88.8 Allergy status to other drugs, medicaments and biological substances; Z98.890 Other specified postprocedural states; Z87.891 Personal history of nicotine dependence; Z87.730 Personal history of (corrected) cleft lip and palate; Z79.01 Long term (current) use of anticoagulants; Z79.899 Other long term (current) drug therapy
CPT/HCPCS: 31500; 36415; 36556; 36600; 51702; 70450; 71045; 72125; 73560-RT; 76770; 80048; 80053; 80069; 80202; 81001; 82140; 82248; 82530; 82533; 82550; 82553; 82803; 82947; 83605; 83690; 83735; 83930; 84100; 84132; 84145; 84146; 84295; 84443; 84550; 85014; 85018; 85025; 85610; 87040; 87070; 87077; 87186; 87205; 93005; 93010; 93306; 94002; 94003; 94640; 94660; 94664; 94762; 96361; 96365; 96367; 96375; 97110; 97162; 97164; 97166; 97168; 97530; 97535; 99285-25; A9270; C1751; C9113; G0480; J0360; J0881; J1940; J1953; J2060; J2543; J2704; J2920; J2930; J3010; J3370; J3411; J3475; J3480; J7030; J7040; J7050; J7060; J7512; P9047

== ENCOUNTER 2023-03-13 21:37 | Inpatient (IN) | payer OTHER, MEDICARE ==
[~2023-03-13] VITALS: Ht 182.9 cm; Wt 93.2 kg
[~2023-03-13 21:37] MED LIST changes: +AMLO10 PO; +ARANESP25 MCG/0.1; +BUME2 PO; +IPRAT-ALBUT 0.5-3 ML INH; +MAGNESIUM OXID500 MG PO; +MICONAZOLE NIT130 GM TOP; +Prednisone10 MG PO; +TRAM50 PO
[2023-03-13 22:08] LABS: BASOPHILS ABSOLUTE AUTO 0.04 K/mm3 (0.00-0.23); BASOPHILS PERCENT AUTO 0 % (0-2); EOSINOPHILS ABSOLUTE AUTO 0.07 K/mm3 (0.00-0.68); EOSINOPHILS PERCENT AUTO 1 % (0-6); Hematocrit 34.1 % (37.0-53.0); Hemoglobin 10.1 g/dL (13.5-17.5); IMMATURE GRAN ABSOLUTE AUTO 0.12 K/mm3 (0.00-0.10); IMMATURE GRAN PERCENT AUTO 1 % (0-1); LYMPHOCYTES ABSOLUTE AUTO 0.81 K/mm3 (0.84-5.20); LYMPHOCYTES PERCENT AUTO 6 % (21-46); MONOCYTES PERCENT AUTO 7 % (4-13); Mean Corpuscular HGB 28.4 pg (26.0-34.0); Mean Corpuscular HGB Conc 29.6 g/dL (31.5-36.5); Mean Corpuscular Volume 96 fL (80-100); Mean Platelet Volume 9.5 fL (9.1-12.4); NEUTROPHILS ABSOLUTE AUTO 12.08 K/mm3 (1.96-9.15); NEUTROPHILS PERCENT AUTO 86 % (41-73); Platelet Count 413 K/mm3 (150-400); RDW Coefficient Variation 14.1 % (11.7-14.2); RDW Standard Deviation 49.8 fL (35.1-46.3); Red Blood Cell Count 3.56 M/mm3 (4.30-5.90); White Blood Cell Count 14.12 K/mm3 (4.00-11.30)
[2023-03-13 22:18] LABS: Base Excess Venous 17.4 mmol/L; Bicarbonate Venous 38.1 mmol/L (24.0-30.0); PCO2 Venous 91.9 mmHg (38-42); pH Blood Venous 7.29 (7.34-7.37)
[2023-03-13 22:27] LABS: Albumin, Blood 2.6 g/dL (3.4-5.0); Albumin/Globulin Ratio 0.7 (0.8-1.8); Bilirubin, Total 0.4 mg/dL (0.1-1.0); Bun/Creatinine Ratio 9.1 (12.0-20.0); Calcium, Blood 8.8 mg/dL (8.5-10.1); Creatinine, Blood 2.54 mg/dL (0.60-1.20); Globulin, Blood 3.5 g/dL (2.2-4.0); Magnesium, Blood 1.9 mg/dL (1.6-2.4); Potassium, Blood 5.3 mmol/L (3.5-5.5); Total Protein, Blood 6.1 g/dL (6.4-8.2)
[2023-03-14] MEDS ORDERED: PACERONE100 M1 PO (01:58)
[2023-03-14 02:19] VITALS: BP 112/66
[2023-03-14 03:12] LABS: Base Excess Venous 18.6 mmol/L; Bicarbonate Venous 39.7 mmol/L (24.0-30.0); PCO2 Venous 70.6 mmHg (38-42)
[2023-03-14 03:25] LABS: BASOPHILS ABSOLUTE AUTO 0.04 K/mm3 (0.00-0.23); BASOPHILS PERCENT AUTO 0 % (0-2); EOSINOPHILS ABSOLUTE AUTO 0.11 K/mm3 (0.00-0.68); EOSINOPHILS PERCENT AUTO 1 % (0-6); Hematocrit 30.6 % (37.0-53.0); Hemoglobin 9.3 g/dL (13.5-17.5); IMMATURE GRAN ABSOLUTE AUTO 0.06 K/mm3 (0.00-0.10); IMMATURE GRAN PERCENT AUTO 1 % (0-1); LYMPHOCYTES ABSOLUTE AUTO 1.05 K/mm3 (0.84-5.20); LYMPHOCYTES PERCENT AUTO 9 % (21-46); MONOCYTES ABSOLUTE AUTO 1.07 K/mm3 (0.16-1.47); MONOCYTES PERCENT AUTO 9 % (4-13); Mean Corpuscular HGB 28.7 pg (26.0-34.0); Mean Corpuscular HGB Conc 30.4 g/dL (31.5-36.5); Mean Corpuscular Volume 94 fL (80-100); Mean Platelet Volume 9.8 fL (9.1-12.4); NEUTROPHILS ABSOLUTE AUTO 9.33 K/mm3 (1.96-9.15); NEUTROPHILS PERCENT AUTO 80 % (41-73); Platelet Count 340 K/mm3 (150-400); RDW Coefficient Variation 14.1 % (11.7-14.2); RDW Standard Deviation 48.7 fL (35.1-46.3); Red Blood Cell Count 3.24 M/mm3 (4.30-5.90); White Blood Cell Count 11.66 K/mm3 (4.00-11.30)
[2023-03-14 03:43] LABS: Albumin, Blood 2.4 g/dL (3.4-5.0); Albumin/Globulin Ratio 0.8 (0.8-1.8); Bilirubin, Total 0.4 mg/dL (0.1-1.0); Calcium, Blood 8.6 mg/dL (8.5-10.1); Creatinine, Blood 2.44 mg/dL (0.60-1.20); Globulin, Blood 3.2 g/dL (2.2-4.0); Magnesium, Blood 1.7 mg/dL (1.6-2.4); Potassium, Blood 4.7 mmol/L (3.5-5.5); Total Protein, Blood 5.6 g/dL (6.4-8.2)
--- NOTE | 2023-03-14 05:45 | NUR ---
SHIFT ZAIRA, PT ARRIVED BY SELINA. PT ALERT AND ORIETED TO SELF AND PERSON. PT HARD TO UNDESTAND DUE TO HAVING ON BIPAP. PT AT THIS TIME APPEARS TO BE ASLEEP. AND BREATHING NOT SEEMING TO LABORED. PT HAS A RIGHT SKINNED KNEE FROM A FALL PER PT. PT NOT ABLE TO AMBULATE AT THIS TIME. PT WHEN ARRIVED WAS SHAKING BUT IS NOT SHAKING AT THIS TIME. PT CONT/ INCOT POSSIBLY JUST SPILLED URINE. CALL LIGHT IN REACH.
[2023-03-14 07:16] VITALS: BP 114/68
[2023-03-14 16:47] VITALS: BP 136/79
--- NOTE | 2023-03-14 18:25 | NUR ---
called dr linares- PT TOOK HIS OWN HOME MED, APPEARED TO BE A BABY ASPIRIN, HOWEVER ON CLOSER INSPECTION IT WAS NOTED THAT THERE WERE SEVERAL VERY DIFFERENT PILL TYPES IN THE BOTTLE. UNCERTAIN WHAT MEDICATION THE PT TOOK. HE STATES HE HAS BEEN TAKING THEM BECAUSE THE HOSPITAL "TOOK 2 DAYS TO GET HIM A PILL FOR A HEADACHE" SO HE HAD HIS BRING HIM HIS PAIN PILLS. THE PT HAS HIS BELONGINGS BAG PACKED FOR HIM BY HIS WITH SEVERAL SNACKS AND APPARENTLY A BOTTLE OF RANDOM PILLS. SPOKE TO DR LINARES SHE IS AWARE THE PT TOOK SOMETHING AND WE HAVE NO WAY OF REALLY KNOWING WHAT, AWNING CRAFTSMAN INFORMED. MD AWARE AND ASKED THIS RN TO BE SURE THAT IT IS DOCUMENTED THAT THE PT TOOK HIS HOME MEDS AND THAT THE WAS PROVIDED EDUCATION ABOUT HOW UNSAFE THIS BEHAVIOR IS. WILL PASS ON TO NIGHT RN IN BEDSIDE REPORT.
--- NOTE | 2023-03-14 18:33 | NUR ---
SHIFT SUMMARY- PT ALERT AND ORIENTED, IN BED, CALL LIGHT IN REACH. PT ATE SOME OF HIS DINNER, HE HAS CONSTANT TREMMORS, AND PRIOR TO DINNER HE TOOK HIS OWN HOME MEDICATION (UNKNOWN WHAT MED) SEE PREVIOUS NOTES FOR DETAILS. PT HAS, PER REPORT, IMPROVED T/O THE DAY PROGRESSING FROM BIPAP WITH 10L BLEED IN TO NC AT 4L WHICH IS HIS BASELINE. PT ON CONT BIOX, IT OFTEN ALARMS BUT WHEN STAFF CHECK ON THE PT THE MONITOR HAS A POOR WAVE FORM, R/T TREMMORS. PT IS SHOWING NO S&S OF DISTRESS AT THIS TIME, WILL PASS ON IN BEDSIDE REPORT TO NIGHT RN.
[2023-03-14 19:41] VITALS: BP 147/110
[2023-03-14 21:25] LABS: PCO2 Venous 59.2 mmHg (38-42); pH Blood Venous 7.47 (7.34-7.37)
[2023-03-14 21:26] LABS: Base Excess Venous 18.8 mmol/L; Bicarbonate Venous 40.5 mmol/L (24.0-30.0)
[2023-03-14 22:37] VITALS: BP 117/96
[2023-03-14 23:30] VITALS: BP 102/78
[2023-03-15] VITALS (18 sets, daily range): BP systolic 93–216; BP diastolic 61–185
--- NOTE | 2023-03-15 00:33 | NUR ---
190 SHIFT CHANGE, REPORT FROM SHELBI GORE. 1914 PT ASSESSED AND PLACED ON BIPAP 1929 PT AGITATED AND PULLING AT MASK. CIWA- 10, PT TX WITH ATIVAN. 1999 PT BECOMING MORE AGITATED AND PULLING AT MASK. PT PLACED UNDER CAMERA SURVEILANCE. 2199 PT CIWA- 19, PT TX WITH ATIVAN. 0 PT CIWA REMAINS 19, PT CONTINOUSLY REMOVING MASK AND TREMORS BECOMING WORSE. TX WITH ATIVAN. 0 PT CIWA 14 WITH NOTED SOMNOLENCE. PT WHEN AWAKE TRIES TO TAKE MASK OFF. PROVIDER GEENA FRY CALLED AND HE ORDERED DISCONTINUE ATIVAN AND BEGIN PRECEDEX. Geena ORDERED PT BE MOVED TO ICU BED. PT MOVED TO ICU 3. 2314 PT MOVED TO ICU 3 AND REPORT GIVEN TO FERDINAND. PT , JULIANA CALLED AND INFORMED OF PT CONDITION AND HIS RELOCATION TO ICU 3.
[2023-03-15 03:22] LABS: BASOPHILS ABSOLUTE AUTO 0.03 K/mm3 (0.00-0.23); BASOPHILS PERCENT AUTO 0 % (0-2); EOSINOPHILS ABSOLUTE AUTO 0.04 K/mm3 (0.00-0.68); EOSINOPHILS PERCENT AUTO 0 % (0-6); Hematocrit 27.2 % (37.0-53.0); Hemoglobin 8.4 g/dL (13.5-17.5); IMMATURE GRAN ABSOLUTE AUTO 0.05 K/mm3 (0.00-0.10); IMMATURE GRAN PERCENT AUTO 0 % (0-1); LYMPHOCYTES ABSOLUTE AUTO 0.96 K/mm3 (0.84-5.20); LYMPHOCYTES PERCENT AUTO 8 % (21-46); MONOCYTES ABSOLUTE AUTO 0.89 K/mm3 (0.16-1.47); MONOCYTES PERCENT AUTO 7 % (4-13); Mean Corpuscular HGB 28.3 pg (26.0-34.0); Mean Corpuscular HGB Conc 30.9 g/dL (31.5-36.5); Mean Corpuscular Volume 92 fL (80-100); Mean Platelet Volume 10.2 fL (9.1-12.4); NEUTROPHILS ABSOLUTE AUTO 10.46 K/mm3 (1.96-9.15); NEUTROPHILS PERCENT AUTO 84 % (41-73); Platelet Count 330 K/mm3 (150-400); RDW Coefficient Variation 14.3 % (11.7-14.2); RDW Standard Deviation 47.8 fL (35.1-46.3); Red Blood Cell Count 2.97 M/mm3 (4.30-5.90); White Blood Cell Count 12.43 K/mm3 (4.00-11.30)
[2023-03-15 03:39] LABS: Bun/Creatinine Ratio 12.4 (12.0-20.0); Calcium, Blood 8.4 mg/dL (8.5-10.1); Creatinine, Blood 2.17 mg/dL (0.60-1.20); Potassium, Blood 4.1 mmol/L (3.5-5.5)
--- NOTE | 2023-03-15 07:21 | NUR ---
Assumed care at 0700. Bedside report received from tito WALDRON. Pt sleeping in bed at time of report. Bipap in place, , 35%. No acute needs, VS stable. Will continue to monitor.
--- NOTE | 2023-03-15 16:03 | NUR ---
TRANSFER: TRANSFER TO PCU 07 AT THIS TIME. USED SLIDE SHEET TO TRANSFER. PATIENT ALERT AND ORIENTED AND ABLE TO ANSWER ALL QUESTIONS. SEEMS AGGITATED WITH QUESTIONS. CONSTANT TREMOR IN UPPER EXTREMITIES THAT PATIENTS STATES IS SOMETIMES NORMAL FOR HIM. N/T IN TOES. ABLE TO MOVE ALL EXTREMITIES EQUALLY. OVERALL WEAKNESS NOTED. Q2 TURNING. ON 4L NASAL CANNULA SATING MID 90'S. LUNGS SOUNDS CLEAR IN UPPER LOBES WITH DIMINISHED BASES. BIPAP ON STANDBY AT BEDSIDE. PATIENT EDUCATION ON NEED TO WEAR BIPAP WHEN SLEEPING. TELE SHOWING SR WITH HR 80'S. BP STABLE. DENIES CHEST PAIN/PRESSURE/PALPITATIONS. PPP. DENIES ABDOMINAL PAIN/NAUSEA. USING URINAL WITH ASSISTANCE TO VOID. EATING AND DRINKING WNL. SCD'S IN PLACE. ABRASION/WOUND TO RIGHT KNEE CAP. EXCORATIONS IN GROIN. ORIENTED TO PCU/CALL LIGHT. BED ALARM IN PLACE.
--- NOTE | 2023-03-15 16:05 | NUR ---
TRANSFERRED PATIENT TO U 07 AT APPROXIMATELY 1515. REPORT GIVEN TO ASSUMING RN. ALL PATIENT BELONGINGS TRANSFERRED TO NEW ROOM. VS STABLE AT TIME OF TRANSFER.
--- NOTE | 2023-03-15 17:39 | NUR ---
SHIFT SUMMARY: NO ACUTE CHANGES. VITAL SIGNS STABLE. PATIENT TAKING BREAK FROM BIPAP AT THIS TIME AND EATING DINNER. BIPAP ON STANDBY, SETTING 20/15 AT 30%. ON 4L NASAL CANNULA WHEN OFF BIPAP. TELE CONTINUES TO SHOW SR. Q2 TURNING. MEPILEX PLACED ON RED/BLANCHABLE COCCYX FOR PREVENTION. CALLING FOR NEEDS. CONTINUES TO HAVE TREMOR IN UPPER EXTREMITIES. SCD'S IN PLACE.
[2023-03-16 04:06] LABS: Hematocrit 27.5 % (37.0-53.0); Hemoglobin 8.7 g/dL (13.5-17.5); Mean Corpuscular HGB 28.7 pg (26.0-34.0); Mean Corpuscular HGB Conc 31.6 g/dL (31.5-36.5); Mean Corpuscular Volume 91 fL (80-100); Mean Platelet Volume 10.2 fL (9.1-12.4); Platelet Count 332 K/mm3 (150-400); RDW Coefficient Variation 14.7 % (11.7-14.2); Red Blood Cell Count 3.03 M/mm3 (4.30-5.90); White Blood Cell Count 11.79 K/mm3 (4.00-11.30)
[2023-03-16 04:11] VITALS: BP 118/77
--- NOTE | 2023-03-16 04:46 | NUR ---
SHIFT SUMMARY NO ACUTE CHANGES OVERNIGHT. PATIENT ON 4L VIA NC WHILE AWAKE WITH SPO2 >92%. BIPAP 20/15 30% FOI2 WORN FOR THE MAJORITY OF THIS SHIFT WHILE ASLEEP. BP STABLE. SR ON MONITOR WITH HR 60-80'S. AFEBRILE. REPOSITIONING Q2HRS. PATIENT USING URINAL. BASELINE TREMORS NOTED. ALERT AND ORIENTED, OCCASIONALLY FORGETFUL. SHORT RUN OF SVT NOTED ON THE MONITOR. DENIES CHEST PAIN/PRESSURE AND SOB. REDNESS TO EVY AREA WITH POWDER APPLIED. BED IN LOWEST POSITION AND CALL LIGHT WITHIN REACH. THIS RN WILL CONTINUE TO MONITOR UNTIL SHIFT CHANGE AT 0700.
[2023-03-16 05:03] LABS: Albumin, Blood 2.4 g/dL (3.4-5.0); Albumin/Globulin Ratio 0.8 (0.8-1.8); Bilirubin, Total 0.4 mg/dL (0.1-1.0); Bun/Creatinine Ratio 10.2 (12.0-20.0); Calcium, Blood 8.4 mg/dL (8.5-10.1); Creatinine, Blood 1.97 mg/dL (0.60-1.20); Globulin, Blood 3.2 g/dL (2.2-4.0); Magnesium, Blood 1.4 mg/dL (1.6-2.4); Potassium, Blood 3.8 mmol/L (3.5-5.5); Total Protein, Blood 5.6 g/dL (6.4-8.2)
[2023-03-16 08:23] VITALS: BP 132/75
--- NOTE | 2023-03-16 09:54 | NUR ---
AM NOTE: PATIENT ALERT AND ORIENTED X3. AT TIMES SLIGHTLY CONFUSED. SPEECH MUMBELED AND CAN BE HARD TO UNDERSTAND. N/T TO BILATERAL FEET. OVERALL VERY WEAK. MAX ASSIST PATIENT. PATIENT STATES HE IS UNABLE TO WALK OR GET OUT OF BED. Q2 TURNING. BASELINE UPPER EXTREMITY TREMORS PRESENT. ON 4L NASAL CANNULA WHEN OFF BIPAP. WEARING BIPAP ALL NIGHT AND MOST OF AM. BIPAP SETTINGS 20/15 AND 30% FIO2. LUNG SOUNDS CLEAR AND DIMINISHED THROUGHOUT. DENIES COUGH. SHALLOW BREATHING. EVEN AND UNLABORED. TELE SHOWING SR WITH HR 80-90'S. BP STABLE. DENIES CHEST PAIN/PRESSURE/PALPITATIONS. MINIMAL EDEMA NOTED IN BLE. PPP. NO TELE EVENTS THIS AM. DENIES ABDOMINAL PAIN/NAUSEA. EATING AND VOIDING WNL. ATTENDS IN PLACE. NEEDING ASSISTANCE WITH URINAL. MEPILEX COVERING COCCYX, RED AND BLANCHABLE. CALL LIGHT IN REACH. PATIENT SLEEPING AT THIS TIME WITH BIPAP IN PLACE.
[2023-03-16 11:16] VITALS: BP 115/70
--- NOTE | 2023-03-16 14:14 | NUR ---
VITAL SIGNS STABLE. BED BATH GIVEN. PHYSICAL THERAPY IN AND PATIENT UP TO SIDE OF BED AND STANDING WITH MINIMAL ASSISTANCE. PATIENT HAS BEEN UPDATING ON PHONE THROUGHOUT THE DAY. WEARING BIPAP WHEN NAPPING. PATIENT AWAKE WATCHING TV AT THIS TIME WITH 4L NASAL CANNULA.
[2023-03-16 15:17] VITALS: BP 133/70
--- NOTE | 2023-03-16 18:12 | NUR ---
SHIFT SUMMARY: NO ACUTE CHANGES. WEARING BIPAP WHEN NAPPING. UP WITH PT/OT. BED BATH THIS SHIFT. VITAL SIGNS REMAIN STABLE. Q2 TURNING. ON 4L NASAL CANNULA WHEN OFF BIPAP. TELE REMAINS SR WITH HR 80-90'S. WATCHING TV AT THIS TIME.
[2023-03-16 20:13] VITALS: BP 140/68
[2023-03-16 23:09] VITALS: BP 128/67
[2023-03-17 03:55] VITALS: BP 119/79
[2023-03-17 04:37] LABS: Hematocrit 28.2 % (37.0-53.0); Hemoglobin 8.8 g/dL (13.5-17.5); Mean Corpuscular HGB Conc 31.2 g/dL (31.5-36.5); Mean Corpuscular Volume 90 fL (80-100); Mean Platelet Volume 10.4 fL (9.1-12.4); Platelet Count 345 K/mm3 (150-400); RDW Coefficient Variation 14.7 % (11.7-14.2); Red Blood Cell Count 3.14 M/mm3 (4.30-5.90); White Blood Cell Count 9.35 K/mm3 (4.00-11.30)
--- NOTE | 2023-03-17 04:57 | NUR ---
SHIFT SUMMARY THIS RN ASSUMED CARE OF PATIENT AT 1900. NO ACUTE CHANGES OVERNIGHT. PATIENT SWITCHED TO V30 BIPAP WITH 2L BLEED IN WITH SPO2 >92%. BP STABLE. AFEBRILE. SR ON MONITOR WITH HR 60-70'S. REPOSITIONING Q2HRS. PATIENT ENCOURAGED TO MOVE SELF IN BED AND BE MORE MOBILE. USING URINAL INDEPENDENTLY. ATTENDS IN PLACE. ON 4L VIA NC WHILE AWAKE. BED IN LOWEST POSITION AND CALL LIGHT WITHIN REACH. THIS RN WILL CONTINUE TO MONITOR UNTIL SHIFT CHANGE AT 0700
[2023-03-17 05:23] LABS: Albumin, Blood 2.5 g/dL (3.4-5.0); Albumin/Globulin Ratio 0.8 (0.8-1.8); Bilirubin, Total 0.4 mg/dL (0.1-1.0); Calcium, Blood 8.7 mg/dL (8.5-10.1); Creatinine, Blood 1.88 mg/dL (0.60-1.20); Globulin, Blood 3.1 g/dL (2.2-4.0); Magnesium, Blood 1.8 mg/dL (1.6-2.4); Percent Saturation 10.9 % (20.0-50.0); Potassium, Blood 3.5 mmol/L (3.5-5.5); Total Protein, Blood 5.6 g/dL (6.4-8.2)
[2023-03-17 07:46] VITALS: BP 140/86
--- NOTE | 2023-03-17 09:47 | NUR ---
A&OX4. PT RESTING IN BED, WATCHING TV. MEDICATED PER EMAR. DRIED BLOOD ON DEPENDS ON RIGHT GROIN AREA. SKIN IRRITATED BUT NO BLOOD ON SKIN SEEN. APPLIED MICONAZOLE POWDER AND INSTRUCTED PT TO REMOVE DEPENDS AFTER WORKING WITH PHYSICAL THERAPY WHO WAS THERE AND READY TO WORK WITH PT.
[2023-03-17 11:58] VITALS: BP 140/75
--- NOTE | 2023-03-17 14:10 | NUR ---
Pt states that he needs to have BM. Able to dangle on side of bed without assistance. He attempted to put one sock on, but unable to complete it. Assisted to put on non skid socks. Independently stood using walker with gait belt on, and transferred to commode near bedside. Call light within reach; states that he will call when he has finished.
--- NOTE | 2023-03-17 15:56 | NUR ---
Pt refused this morning to be discharged to SNF. He states that he talked to his on the phone and that she will be coming to take him home after she gets off of work at 1430. Two phone calls at 1500 and 1545 to reach by phone, but there was no reply.
--- NOTE | 2023-03-17 17:06 | NUR ---
Pt education completed for discharge with the patient and his , Debbie. Emphasized the importance of wearing the bipap whenever he naps, or at bedtime when sleeping. Also reminded the patient NOT to drink any alcohol. He verbalized understanding of all of the information.
== END 2023-03-17 17:18 | DRG 189 ==
LOC: ER 21:37 → ICUE 03-14 01:36 → MEDS 03-14 01:36 → PCU 03-14 01:36 → MEDS 03-14 02:12 → ICUE 03-14 23:15 → PCU 03-15 15:45
PROVIDERS: Emergency Medicine; Internal Medicine; Nurse Practitioner Acute Care; Student in an Organized Health Care Education/Training Program; ADMIT Student in an Organized Health Care Education/Training Program
PROC: 5A09357 Assistance with Respiratory Ventilation, Less than 24 Consecutive Hours, Continuous Positive Airway Pressure (ICD-10-PCS; principal; 2023-03-14)
DX: J96.22 Acute and chronic respiratory failure with hypercapnia (principal); G92.8 Other toxic encephalopathy; N17.9 Acute kidney failure, unspecified; J44.1 Chronic obstructive pulmonary disease with (acute) exacerbation; J96.21 Acute and chronic respiratory failure with hypoxia; I12.9 Hypertensive chronic kidney disease with stage 1 through stage 4 chronic kidney disease, or unspecified chronic kidney disease; K21.9 Gastro-esophageal reflux disease without esophagitis; E78.00 Pure hypercholesterolemia, unspecified; G89.29 Other chronic pain; M54.9 Dorsalgia, unspecified; F10.20 Alcohol dependence, uncomplicated; D63.1 Anemia in chronic kidney disease; J45.909 Unspecified asthma, uncomplicated; N18.9 Chronic kidney disease, unspecified; E87.6 Hypokalemia; E83.42 Hypomagnesemia; I48.91 Unspecified atrial fibrillation; Z99.81 Dependence on supplemental oxygen; Z87.730 Personal history of (corrected) cleft lip and palate; Z88.8 Allergy status to other drugs, medicaments and biological substances; Z79.01 Long term (current) use of anticoagulants; Z98.890 Other specified postprocedural states; Z87.891 Personal history of nicotine dependence; Z79.899 Other long term (current) drug therapy
CPT/HCPCS: 36415; 51701; 71045; 80048; 80053; 82140; 82607; 82728; 82746; 82803; 83540; 83550; 83735; 84145; 85025; 85027; 93005; 93010; 94640; 94660; 94664; 94760; 94762; 96360; 97110; 97116; 97162; 97166; 97530; 99285-25; A9270; J2060; J3411; J3475; J7030; J7512

== ENCOUNTER 2023-05-10 11:50 | Emergency (ER) | payer MEDICARE ==
[~2023-05-10] VITALS: Ht 177.8 cm; Wt 63.5 kg
[~2023-05-10 11:50] MED LIST changes: +PACERONE100 M1 PO
[2023-05-10 15:23] VITALS: BP 102/62
== END 2023-05-10 15:24 | disposition home or self-care (01) ==
LOC: ER 11:50
DX: S00.03XA Contusion of scalp, initial encounter (principal); S80.211A Abrasion, right knee, initial encounter; W18.30XA Fall on same level, unspecified, initial encounter; Z79.899 Other long term (current) drug therapy; Z88.8 Allergy status to other drugs, medicaments and biological substances; K21.9 Gastro-esophageal reflux disease without esophagitis; J44.9 Chronic obstructive pulmonary disease, unspecified; E78.00 Pure hypercholesterolemia, unspecified; J45.909 Unspecified asthma, uncomplicated; I10 Essential (primary) hypertension; I48.91 Unspecified atrial fibrillation; Z87.891 Personal history of nicotine dependence
CPT/HCPCS: 70450

== ENCOUNTER 2023-07-08 08:43 | Inpatient (IN) | payer OTHER, MEDICARE ==
[~2023-07-08] VITALS: Ht 172.7 cm; Wt 87.0 kg
[2023-07-08] VITALS (36 sets, daily range): BP systolic 73–136; BP diastolic 44–112
[2023-07-08 10:08] LABS: Base Excess Venous 8.1 mmol/L; Bicarbonate Venous 30.2 mmol/L (24.0-30.0); PCO2 Venous 71.4 mmHg (38-42); pH Blood Venous 7.29 (7.34-7.37)
[2023-07-08 10:16] LABS: International Normalized Ratio 1.12; Prothrombin Time Results 11.7 Sec (9.7-11.5)
[2023-07-08 10:20] LABS: BASOPHILS ABSOLUTE AUTO 0.03 K/mm3 (0.00-0.23); BASOPHILS PERCENT AUTO 0 % (0-2); EOSINOPHILS ABSOLUTE AUTO 0.29 K/mm3 (0.00-0.68); EOSINOPHILS PERCENT AUTO 2 % (0-6); Hematocrit 31.6 % (37.0-53.0); Hemoglobin 10.5 g/dL (13.5-17.5); IMMATURE GRAN PERCENT AUTO 2 % (0-1); LYMPHOCYTES ABSOLUTE AUTO 0.59 K/mm3 (0.84-5.20); LYMPHOCYTES PERCENT AUTO 5 % (21-46); MONOCYTES ABSOLUTE AUTO 0.58 K/mm3 (0.16-1.47); MONOCYTES PERCENT AUTO 5 % (4-13); Mean Corpuscular HGB 27.4 pg (26.0-34.0); Mean Corpuscular HGB Conc 33.2 g/dL (31.5-36.5); Mean Corpuscular Volume 83 fL (80-100); NEUTROPHILS ABSOLUTE AUTO 10.68 K/mm3 (1.96-9.15); NEUTROPHILS PERCENT AUTO 86 % (41-73); RDW Coefficient Variation 15.3 % (11.7-14.2); RDW Standard Deviation 44.8 fL (35.1-46.3); Red Blood Cell Count 3.83 M/mm3 (4.30-5.90); White Blood Cell Count 12.37 K/mm3 (4.00-11.30)
[2023-07-08 10:23] LABS: Albumin, Blood 1.6 g/dL (3.4-5.0); Albumin/Globulin Ratio 0.4 (0.8-1.8); Bilirubin, Direct 0.1 mg/dL (0.0-0.3); Bilirubin, Indirect 0.2 mg/dL (0.1-0.7); Bilirubin, Total 0.3 mg/dL (0.1-1.0); Bun/Creatinine Ratio 15.5 (12.0-20.0); Calcium, Blood 8.3 mg/dL (8.5-10.1); Creatinine, Blood 0.97 mg/dL (0.60-1.20); Globulin, Blood 3.8 g/dL (2.2-4.0); Magnesium, Blood 1.5 mg/dL (1.6-2.4); Potassium, Blood 3.2 mmol/L (3.5-5.5); Total Protein, Blood 5.4 g/dL (6.4-8.2)
[2023-07-08 10:51] LABS: Platelet Count 610 K/mm3 (150-400)
[2023-07-08 11:41] LABS: Base Excess Venous 8.4 mmol/L; Bicarbonate Venous 30.2 mmol/L (24.0-30.0); PCO2 Venous 68.8 mmHg (38-42); pH Blood Venous 7.31 (7.34-7.37)
--- NOTE | 2023-07-08 14:10 | NUR ---
ADMISSION PT ARRIVED TO ICU 11 AT 1410. PT ON BIPAP 09/14/35%. HE RESPONDS TO VERBAL STIMULI AND ANSWERS QUESTIONS APPROPRIATELY. PT REQUESTS TO "BE LEFT ALONE TO REST". LUNGS ARE COARSE, OCCASIONAL COUGH. WHEN ASKED IF HE FEELS SOB, HE REPLIES "I DON'T KNOW". SPO2 >90%. FAMILY REPORTS PT DRINKS APPROXIMATELY 6-12 BEERS A DAY. YESTERDAY PT WAS GIVEN A COOLER WITH 6 BEERS BUT WHEN RETURNED HOME, 5 REMAINED UNOPENED. NSR ON MONITOR WITH RATE IN 80S. SBP 80S-100S, MAP >65. ABDOMEN DISTENDED AND FIRM, BOWEL TONES HYPERACTIVE. PT APPEARS PALE, SKIN COOL. WARM BLANKETS APPLIED. LARGE EXCORIATED AREA ON BUTTOCKS AND UPPER THIGHS. PHOTO IN CHART. REDDNED/WARM AREAS ON BILATERAL LOWER EXTREMITIES. AREAS OUTLINED BY MEDICAL STUDENT. HOSPITALIST TEAM ROUNDED, NO NEW ORDERS AT THIS TIME. PT ARRIVES WITH ONE PIV. ATTEMPTED US IV WITHOUT SUCCESS. PT REFUSES ADDITIONAL IV ATTEMPTS AT THIS TIME. MABEL AND DAUGHTER IN LAW DIONE AT BEDSIDE UPON ARRIVAL. DIONE VERBALIZES THAT THERE HAS BEEN A DISCUSSION REGARDING DIONE BECOMING PT'S HEALTHCARE PROXY AND REQUEST INFORMATION AND ASSISTANCE WITH FORMS. AT THIS TIME, PT AND FAMILY ELECT FOR PT TO BE FULL CODE. BED IN LOW POSITION, CALL LIGHT WITHIN REACH.
--- NOTE | 2023-07-08 18:00 | NUR ---
HOME SITUATION DISCUSSION WITH MABEL. SHE EXPRESSES DIFFICULTY MANAGING CARE AT HOME. PT HAS HAD MULTIPLE HOSPITALIZATIONS AND WAS DISCHARGED TO [facility] PREVIOUSLY. SHE REPORTS PT MAINLY STAYS IN HIS RECLINER AND REQUIRES A LARGE AMOUNT OF CARE. SHE ASSISTS HIM TO THE BEDSIDE COMMODE BUT PT IS UNABLE TO MOVE SELF. DURING DISCUSSION SHE EXPRESSES OPEN-MINDEDNESS OF HOME HEALTH OR SNF ASSISTED LIVING BUT HAS HAD DIFFICULTY WITH INSURANCE COVERAGE IN THE PAST. SHE VERABLIZES INTEREST IN HAVING DISCUSSIONS WITH PALLIATIVE CARE REGARDING ADVANCED DIRECTIVE AND CODE STATUS.
--- NOTE | 2023-07-08 18:23 | NUR ---
SHIFT SUMMARY PT REMAINS ON BIPAP 09/14/35%. HE IS A&OX3. ANXIOUS AND IRRITABLE AT TIMES. LAST CIWA SCORE 3. LUNGS ARE CLEAR, DIMINISHED IN BASES. TOLERATING BIPAP MASK WELL. SINUS RHYTHM ON MONITOR WITH RATE IN 70S-80S. SBP 80S-110S WITH MAP >65. ABDOMEN DISTENDED AND FIRM, BOWEL TONES ACTIVE. PT VOIDED IN URINAL ONCE WITH 550ML OUTPUT. BED IN LOW POSITION, CALL LIGHT WITHIN REACH. FAMILY REQUESTS DAUGHTER IN LAW DIONE TO BE CONTACTED FIRST, THEN MABEL.
--- NOTE | 2023-07-08 18:27 | NUR ---
FAMILY CONTACT 1- DIONE DAUGHTER IN LAW [phone] 2- MABEL [phone]
--- NOTE | 2023-07-08 19:15 | NUR ---
ASSUMPTION OF CARE: RECIEVED REPORT FROM HALLIE WALDRON. PT ALERT AND ORIENTED TO SELF. VERY SOMNOLENT, BUT ABLE TO ANSWER SOME QUESTIONS. PT HAS EPISODES OF CONFUSION. CURRENTLY ON BIPAP WITH SETTINGS 09/14/30%. MAINTAINING SPO2 >92%. DENIES SOB. LUNG SOUNDS COARSE AND DIM T/O. CARDIAC MONITORING IN PLACE, SINUS RHYTHM WITH RATE 80'S. SBP 80'S-90'S WITH MAP >65. DENIES CHEST PAIN OR PRESSURE. PT DENIES ANY AUDITORY OR VISUAL HALLUCINATIONS. AFEBRILE, NO HEADACHES, NO N/V. FINE TREMOR IN HANDS. CIWA 10 AT THIS TIME. ABLE TO URINATE IN THE URINAL WITH ASSISTANCE, INCONTINENT AT TIMES. NO BM YET. ABDOMEN FIRM WITH HYPERACTIVE BOWEL TONES. UNABLE TO TAKE PO MEDS AT THIS TIME R/T ASPIRATION RISK FROM BEING SOMNOLENT. PT HAS EXCORIATION ON BUTTOCKS AND BACK OF THIGHS, CREAM APPLIED. Q2 TURNS. PIV TO LEFT HAND, PATENT AND INFUSING TKO. SEE SHIFT ASSESSMENT FOR FULL ASSESSMENT.
[2023-07-08 19:34] LABS: Bun/Creatinine Ratio 16.1 (12.0-20.0); Calcium, Blood 8.5 mg/dL (8.5-10.1); Creatinine, Blood 0.87 mg/dL (0.60-1.20); Potassium, Blood 3.6 mmol/L (3.5-5.5)
[2023-07-08 22:03] LABS: Source, Urine Foley catheter
[2023-07-08 22:12] LABS: Bilirubin, Urine Neg (Neg); Blood, Urine Neg (Neg); Glucose Qualitative, Urine Neg (Neg); Ketones, Urine Neg (Neg); Leukocyte Esterase, Urine Neg (Neg); Nitrite, Urine Neg (Neg); Protein, Urine Neg (Neg); Urobilinogen, Urine NORM (Normal)
[2023-07-08 22:25] LABS: Appearance, Urine Clear (Clear); Color, Urine Yellow (P-Yellow)
[2023-07-08 23:31] LABS: PO2 Arterial 76.7 mmHg (80-100)
[2023-07-08 23:32] LABS: PCO2 Arterial 76.4 mmHg (35-45)
[2023-07-09] VITALS (60 sets, daily range): BP systolic 63–150; BP diastolic 43–128
--- NOTE | 2023-07-09 00:31 | NUR ---
UPDATE: PT MORE SOMNOLENT AND BIPAP ALARMING FOR LOW TIDAL VOLUMES. CALL PLACED TO DR. MATAMOROS FOR ORDER FOR ABG. RT AT BEDSIDE TO DRAW ABG. CRITICAL CO2 LEVEL OF 76.4. DR. MATAMOROS NOTIFIED OF ABG RESULTS WITH ORDERS FOR VBG AT 0400. RT SHAVED PT'S FLORES FOR BETTER SEAL ON BIPAP. PT AWAKENS WITH MOVEMENT, BUT QUICKLY FALLS BACK ASLEEP.
--- NOTE | 2023-07-09 01:10 | NUR ---
UPDATE: CALL PLACED TO DR. MATAMOROS REGARDING BLOOD PRESSURES. SBP 70'S-80'S. MAP <65. ORDERS GIVEN FOR 500 ML FLUID BOLUS. BOLUS CURRENTLY INFUSING. PER DR. MATAMOROS MAP >60 IS OK.
[2023-07-09 04:27] LABS: pH Blood Venous 7.35 (7.34-7.37)
[2023-07-09 04:28] LABS: Base Excess Venous 11.5 mmol/L; PCO2 Venous 67.3 mmHg (38-42)
[2023-07-09 04:29] LABS: BASOPHILS ABSOLUTE AUTO 0.04 K/mm3 (0.00-0.23); BASOPHILS PERCENT AUTO 0 % (0-2); EOSINOPHILS ABSOLUTE AUTO 0.13 K/mm3 (0.00-0.68); EOSINOPHILS PERCENT AUTO 1 % (0-6); Hematocrit 27.3 % (37.0-53.0); Hemoglobin 8.9 g/dL (13.5-17.5); IMMATURE GRAN ABSOLUTE AUTO 0.16 K/mm3 (0.00-0.10); IMMATURE GRAN PERCENT AUTO 2 % (0-1); LYMPHOCYTES ABSOLUTE AUTO 0.71 K/mm3 (0.84-5.20); LYMPHOCYTES PERCENT AUTO 7 % (21-46); MONOCYTES ABSOLUTE AUTO 0.81 K/mm3 (0.16-1.47); MONOCYTES PERCENT AUTO 8 % (4-13); Mean Corpuscular HGB 27.6 pg (26.0-34.0); Mean Corpuscular HGB Conc 32.6 g/dL (31.5-36.5); Mean Corpuscular Volume 85 fL (80-100); Mean Platelet Volume 8.4 fL (9.1-12.4); NEUTROPHILS ABSOLUTE AUTO 8.58 K/mm3 (1.96-9.15); NEUTROPHILS PERCENT AUTO 82 % (41-73); Platelet Count 486 K/mm3 (150-400); RDW Coefficient Variation 15.6 % (11.7-14.2); RDW Standard Deviation 47.1 fL (35.1-46.3); Red Blood Cell Count 3.22 M/mm3 (4.30-5.90); White Blood Cell Count 10.43 K/mm3 (4.00-11.30)
[2023-07-09 05:09] LABS: Bun/Creatinine Ratio 13.2 (12.0-20.0); Calcium, Blood 7.8 mg/dL (8.5-10.1); Creatinine, Blood 0.84 mg/dL (0.60-1.20); Magnesium, Blood 1.5 mg/dL (1.6-2.4); Potassium, Blood 3.5 mmol/L (3.5-5.5)
--- NOTE | 2023-07-09 05:50 | NUR ---
SHIFT SUMMARY: PT REMAINS SOMNOLENT T/O THE SHIFT. AWAKENS TO VERBAL STIMULI BUT QUICKLY FALLS BACK ASLEEP. ABLE TO ANSWER SOME QUESTIONS, CONFUSED AT TIMES. REMAINS ON BIPAP WITH SETTINGS 09/14/30%. SPO2 >92%. DENIES SOB. CARDIAC MONITORING IN PLACE, SINUS RHTYHM T/O THE SHIFT, HR 80'S. SBP 80'S-100'S. MAP >60. RECEIVED 500 ML FLUID BOLUS PER ORDERS MILDLY HELPFUL. POWERGLIDE TO BENIGNO, SALINE LOCKED. PIV TO LEFT FOREARM, SALINE LOCKED. CIWA 10 T/O THE SHIFT. DENIES HALLUCINATIONS, HEADACHES OR N/V. DENIES PAIN. NAVARRETE IN PLACE FOR STRICT I&O, PATENT AND DRAINING TO GRAVITY. RECTAL TUBE IN PLACE DRAINING LIQUID BROWN STOOL. MAG TO BE REPLACED PER PROTOCOL.
--- NOTE | 2023-07-09 07:00 | NUR ---
ASSUMPTION OF CARE PT IS A&OX3. HE REPORTS FEELING "TIRED" BUT WAKENS TO VERBAL STIMULI AND ANSWERS QUESTIONS. CIWA SCORE 6. HE DENIES PAIN AT THIS TIME. HE IS ON BIPAP 09/14/30% AND TOLERATING WELL. LUNG SOUNDS DIMINISHED THROUGHOUT. SINUS RHYTHM ON MONITOR WITH RATE IN 80S-90S. SBP 80S-90S, MAP >65. LIMBS REMAIN EDEMATOUS. ABDOMEN DISTENDED AND FIRM. BOWEL TONES HYPERACTIVE. RECTAL TUBE IN PLACE AND DRAINING TO GRAVITY. NAVARRETE PATENT AND DRAINING CLEAR YELLOW URINE TO GRAVITY. BED IN LOW POSITION, CALL LIGHT WITHIN REACH.
--- NOTE | 2023-07-09 17:04 | NUR ---
SHIFT SUMMARY PT REMAINS ON BIPAP WITH SETTINGS 15/10/30%, TOLERATING WELL. LUNGS DIMINISHED THROUGHOUT. HE IS A&OX3. LAST CIWA SCORE 4. NSR ON MONITOR WITH RATE 80S-100S. BP LABILE, MAP REMAINS >65. NAVARRETE PATENT AND DRAINING CLEAR YELLOW URINE TO GRAVITY. RECTAL TUBE PATENT AND DRAINING TO GRAVITY. BED IN LOW POSITION, CALL LIGHT WITHIN REACH. PLAN TO TRANSFER PT TO PCU 8.
--- NOTE | 2023-07-09 17:49 | NUR ---
TRANSFER TO PCU PT TRANSFERRED TO U 8. PT BELONGINGS INCLUDED ONE YELLOW SHIRT AND A YELLOW/SILVER RING WITH 5 WHITE STONES. MABEL NOTIFIED OF TRANSFER VIA TELEPHONE.
--- NOTE | 2023-07-09 18:00 | NUR ---
Patient arrived from ICU post report from Nathaly RN. Patient alert and can answer simple questions and he is able to communicate most of his simple needs. He was given liquids and tolerated independently. Changed rectal tube bage with 500 ml's liquid stool. He has 16Fr Leary draining to gravity yellow urine. he is on 2L O2 via NC and sats 97%. He has BiPAP at bedside for sleep. He is currently on phon etalking with . He has 20ga PowerGlide in BENIGNO and is flushed and SL'd.
--- NOTE | 2023-07-09 22:36 | NUR ---
care assumption this rn assumed care at 1900. blood pressure soft, maps 60-70s. tele sr. patient is alert and oriented x3. perrla. patient is able to make needs known. patient reports no chest pain/pressure, shortness of breath, or pain. patient has anne cath in place draining with gravity, yellow coloration. patient has rectal tube in place draining with gravity, yellow mustard coloration. see shift assessment for further detials. q2 reposition. call light within reach and bed alarm on. plan of care up to date.
[2023-07-10] VITALS (15 sets, daily range): BP systolic 66–137; BP diastolic 41–98
[2023-07-10 03:31] LABS: BASOPHILS ABSOLUTE AUTO 0.04 K/mm3 (0.00-0.23); BASOPHILS PERCENT AUTO 1 % (0-2); EOSINOPHILS ABSOLUTE AUTO 0.06 K/mm3 (0.00-0.68); EOSINOPHILS PERCENT AUTO 1 % (0-6); Hematocrit 23.6 % (37.0-53.0); Hemoglobin 7.7 g/dL (13.5-17.5); IMMATURE GRAN PERCENT AUTO 1 % (0-1); LYMPHOCYTES ABSOLUTE AUTO 0.68 K/mm3 (0.84-5.20); LYMPHOCYTES PERCENT AUTO 9 % (21-46); MONOCYTES PERCENT AUTO 11 % (4-13); Mean Corpuscular HGB 27.2 pg (26.0-34.0); Mean Corpuscular HGB Conc 32.6 g/dL (31.5-36.5); Mean Corpuscular Volume 83 fL (80-100); Mean Platelet Volume 8.3 fL (9.1-12.4); NEUTROPHILS ABSOLUTE AUTO 5.82 K/mm3 (1.96-9.15); NEUTROPHILS PERCENT AUTO 78 % (41-73); Platelet Count 384 K/mm3 (150-400); RDW Coefficient Variation 15.9 % (11.7-14.2); RDW Standard Deviation 46.9 fL (35.1-46.3); Red Blood Cell Count 2.83 M/mm3 (4.30-5.90)
[2023-07-10 03:52] LABS: Magnesium, Blood 1.4 mg/dL (1.6-2.4)
[2023-07-10 04:04] LABS: Albumin, Blood 1.4 g/dL (3.4-5.0); Albumin/Globulin Ratio 0.5 (0.8-1.8); Bilirubin, Total 0.4 mg/dL (0.1-1.0); Bun/Creatinine Ratio 8.3 (12.0-20.0); Calcium, Blood 7.4 mg/dL (8.5-10.1); Creatinine, Blood 0.73 mg/dL (0.60-1.20); Globulin, Blood 3.1 g/dL (2.2-4.0); Phosphorus, Blood 2.4 mg/dL (2.5-4.9); Potassium, Blood 2.3 mmol/L (3.5-5.5); Total Protein, Blood 4.5 g/dL (6.4-8.2)
--- NOTE | 2023-07-10 05:41 | NUR ---
shift summary this rn called md membreno multiple times during the night due to soft blood pressure and maps in the 55-60s. patient received a 250mls bolus of normal saline which improved blood pressure and maps. patient pressure soft again with maps back in high 50s low 60s. md membreno orderd po midodrine. see emar and orders. this imprved patient blood pressure and maps, see vital signs. md membreno called for critically low potassium of 2.3, see lab and critical notifcation. patient recieved oral potassium and iv potassium and magnesium. see orders and emar for exact dose. patient with soft blood pressure and maps become more confused and stated having vivid dreams that felt real when waking up. patient up most of the night and went to sleep around 0100 and was placed on bipap. patient off of bipap this morning and neuor remains unchanged. ciwa 4-6. plan is up to date.
--- NOTE | 2023-07-10 07:56 | NUR ---
PT RESTING IN BED. ABD APPEARS TO BE DISTENDED. PT DENIES AT THIS TIME. HIS POTASSIUM WAS RUNNING AND WHEN IT FINISHED I STARTED HIS MAGNESIUM. PT ON 2L NC WITH 02 SATURATION OF 98, PT DENIES SOB. HR 102, PT DENIES CHEST PAIN/PRESSURE. PT STATED HE WAS TIRED AND WANTED ME TO LET HIM SLEEP. CALL LIGHT WITHIN REACH.
[2023-07-10 09:53] LABS: Albumin, Blood 1.5 g/dL (3.4-5.0); Anion Gap 4 mmol/L (6-16); Blood Urea Nitrogen 5 mg/dL (8-24); Bun/Creatinine Ratio 7.2 (12.0-20.0); CO2, Blood 35 mmol/L (21-32); Calcium, Blood 7.7 mg/dL (8.5-10.1); Chloride, Blood 94 mmol/L (98-108); Creatinine, Blood 0.69 mg/dL (0.60-1.20); Glomerular Filtration Rate 107 (60-); Glucose, Blood 144 mg/dL (70-99); Potassium, Blood 2.5 mmol/L (3.5-5.5); Sodium, Blood 133 mmol/L (136-145)
--- NOTE | 2023-07-10 10:45 | NUR ---
PT RESTING IN BED.
--- NOTE | 2023-07-10 11:25 | NUR ---
PT SLEEPING SOUNDLY. HE WOKE UP WHEN I TOOK HIS VITALS, THEN FELL RIGHT BACK TO SLEEP. CALL LIGHT WITHIN REACH.
--- NOTE | 2023-07-10 13:08 | NUR ---
PT ATE ABOUT 50% OF LUNCH. PT REPOSITIONED AFTER HE WAS DONE EATING. PT RESTING IN BED WITH TV ON. CALL LIGHT WITHIN REACH.
--- NOTE | 2023-07-10 14:07 | NUR ---
PT SLEEPING, CALL LIGHT WITHIN REACH.
--- NOTE | 2023-07-10 15:59 | NUR ---
PT RESTING IN BED WATCHING TV WHILE HIS BREATHING TREATMENT IS RUNNING. CALL LIGHT WITHIN REACH.
--- NOTE | 2023-07-10 17:56 | NUR ---
PT HAS BECOME MORE TREMULOUS/ANXIOUS IN THE PAST COUPLE HOURS, JERRY PERFORMED, NOTIFIED, MEDICATED PER EMAR. PT STATED IT FELT LIKE HE HAD A BOWEL MOVEMENT THAT DIDN'T MAKE IT INTO THE RECTAL TUBE. THE MAJORITY OF IT MADE INTO RECTAL TUBE, PT WAS CLEANED UP, LINENS CHANGED, AND REPOSITIONED. PT WATCHING A MOVIE AND RESTING IN HIS BED, CALL LIGHT WITHIN REACH.
--- NOTE | 2023-07-10 18:13 | NUR ---
SHIFT SUMMARY NO ACUTE CHANGES, SEE PREVIOUS NOTES. 02 SATURATION ABOVE 93% ON 2L NC, PT DENIES SOB. SBP BEEN ABOVE 100 ALL SHIFT, BP STABLE, HR 90'S-100'S, PT DENIES CHEST PAIN/PRESSURE. PT RESTING IN BED, CALL LIGHT WITHIN REACH.
[2023-07-10 22:11] LABS: Bun/Creatinine Ratio 5.6 (12.0-20.0); Calcium, Blood 7.6 mg/dL (8.5-10.1); Creatinine, Blood 0.72 mg/dL (0.60-1.20); Potassium, Blood 2.8 mmol/L (3.5-5.5)
--- NOTE | 2023-07-10 22:25 | NUR ---
CARE ASSUMPTION this rn assumed care at 1900. vital signs stable. tele sinus 100. spo2 >96% on 2l nc. patient reports no pain, chest pain/pressure or shortness of breath. patient ciwa 4-8. patient is alert and oriented 2-3. patient has a rectal tube in place that leaks, draining with gravity. patient has a anne cath draining with gravity. see shift assessment for further detials. plan of care is up to date. call light within reach.
[2023-07-11] VITALS (7 sets, daily range): BP systolic 118–157; BP diastolic 78–105
--- NOTE | 2023-07-11 05:41 | NUR ---
shift summary patient neuro remains the same. ciwa 4-8. patient vital stable. tele sr/st. patient has slept most of the night off and on the bipap. rectal tube in place. anne in place drianing with gravity. no acute changes. plan of care is up to date.
[2023-07-11 07:26] LABS: BASOPHILS ABSOLUTE AUTO 0.04 K/mm3 (0.00-0.23); BASOPHILS PERCENT AUTO 1 % (0-2); EOSINOPHILS ABSOLUTE AUTO 0.04 K/mm3 (0.00-0.68); EOSINOPHILS PERCENT AUTO 1 % (0-6); Hematocrit 26.4 % (37.0-53.0); Hemoglobin 8.6 g/dL (13.5-17.5); IMMATURE GRAN ABSOLUTE AUTO 0.11 K/mm3 (0.00-0.10); IMMATURE GRAN PERCENT AUTO 2 % (0-1); LYMPHOCYTES ABSOLUTE AUTO 0.61 K/mm3 (0.84-5.20); LYMPHOCYTES PERCENT AUTO 9 % (21-46); MONOCYTES ABSOLUTE AUTO 0.78 K/mm3 (0.16-1.47); MONOCYTES PERCENT AUTO 11 % (4-13); Mean Corpuscular HGB 27.5 pg (26.0-34.0); Mean Corpuscular HGB Conc 32.6 g/dL (31.5-36.5); Mean Corpuscular Volume 84 fL (80-100); Mean Platelet Volume 8.2 fL (9.1-12.4); NEUTROPHILS ABSOLUTE AUTO 5.44 K/mm3 (1.96-9.15); NEUTROPHILS PERCENT AUTO 77 % (41-73); Platelet Count 407 K/mm3 (150-400); RDW Coefficient Variation 16.6 % (11.7-14.2); Red Blood Cell Count 3.13 M/mm3 (4.30-5.90); White Blood Cell Count 7.02 K/mm3 (4.00-11.30)
[2023-07-11 07:48] LABS: Albumin, Blood 1.5 g/dL (3.4-5.0); Albumin/Globulin Ratio 0.4 (0.8-1.8); Bilirubin, Total 0.4 mg/dL (0.1-1.0); Calcium, Blood 7.7 mg/dL (8.5-10.1); Creatinine, Blood 0.75 mg/dL (0.60-1.20); Globulin, Blood 3.6 g/dL (2.2-4.0); Magnesium, Blood 1.5 mg/dL (1.6-2.4); Phosphorus, Blood 2.6 mg/dL (2.5-4.9); Potassium, Blood 3.4 mmol/L (3.5-5.5); Total Protein, Blood 5.1 g/dL (6.4-8.2)
--- NOTE | 2023-07-11 07:55 | NUR ---
PT SLEEPING SOUNDLY THIS MORNING. 02 SAT ABOVE 95% ON 2L WHILE SLEEPING. HR 90'S, BP STABLE. LAB CAME AND [facility], SUZE WALDRON [facility]ANA BLOOD FROM POWERGLIDE ON LEFT UPPER ARM. CALL LIGHT WITHIN REACH.
--- NOTE | 2023-07-11 14:40 | NUR ---
PT HAS BEEN SLEEPING THE MAJORITY OF THE DAY, DIFFICULT TO AROUSE AT TIMES. HE HAS BEEN WEARING HIS BIPAP UNTIL AROUND 1300 WHEN HE ASKED TO TAKE A BREAK FROM IT. BIPAP SET TO 18/10 AND 30% PT'S OXYGEN SATURATED MAINTAINED ABOVE 93%. PT NOW ON RA AND HIS OXYGEN SATURATION IS MAINTAIING ABOVE 93%, PT DENIES SOB. PT CONTINUES TO BE ALERT AND ORIENTED X 3, UNSURE OF WHAT MONTH AND YEAR IT IS. CIWA SCORE HAS BEEN 8 ALL DAY, VERY TREMULOUS AT TIMES, PT MEDICATED PER EMAR. HR 100'S, BP STABLE. HELD 1300 MIDODRINE DUE TO BP BEING 132/82, PT DENIES CHEST PAIN/PRESSURE. NAVARRETE PATENT AND DRAINING YELLOW/CHELSEY URINE TO GRAVITY. RECTAL TUBE IN PLACE WITH VERIFIED 45ML OF WATER DRAINING LIQUID LIGHT BROWN STOOL TO GRAVITY. PT'S ABDOMENT CONTINUES TO BE DISTENDED AND FIRM, ACTIVE/HYPERACTIVE BOWEL TONES. PT CONTINUES TO HAVE PITTING EDEMA IN BLE, AND EDEMA BILATERAL ARMS AND HANDS. POWERGLIDE TO LEFT UPPER ARM PATENT AND SALINE LOCKED WHEN FLUIDS ARE NOT RUNNING, FLUIDS CURRENTLY RUNNING. PT REPOSITIONED EVERY TWO HOURS. CURRENTLY RESTING IN BED, CALL LIGHT WITHIN REACH.
--- NOTE | 2023-07-11 17:01 | NUR ---
SHIFT SUMMARY NO ACUTE CHANGES, SEE PREVIOUS NOTES. PT REMAINS A&OX3, ABLE TO ANSWER QUESTIONS APPROPRIATELY AND MAKE NEEDS KNOWN. PT'S CIWA WAS 8, VERY TREMULOUS, MEDICATED PER EMAR. PT SITTING UP IN BED AND EATING DINNER WITH TV ON. CALL LIGHT WITHIN REACH.
[2023-07-12] VITALS (7 sets, daily range): BP systolic 77–157; BP diastolic 53–109
[2023-07-12 03:57] LABS: BASOPHILS ABSOLUTE AUTO 0.04 K/mm3 (0.00-0.23); BASOPHILS PERCENT AUTO 1 % (0-2); EOSINOPHILS ABSOLUTE AUTO 0.21 K/mm3 (0.00-0.68); EOSINOPHILS PERCENT AUTO 3 % (0-6); Hematocrit 25.8 % (37.0-53.0); Hemoglobin 8.4 g/dL (13.5-17.5); IMMATURE GRAN ABSOLUTE AUTO 0.12 K/mm3 (0.00-0.10); IMMATURE GRAN PERCENT AUTO 2 % (0-1); LYMPHOCYTES ABSOLUTE AUTO 0.71 K/mm3 (0.84-5.20); LYMPHOCYTES PERCENT AUTO 10 % (21-46); MONOCYTES ABSOLUTE AUTO 0.75 K/mm3 (0.16-1.47); MONOCYTES PERCENT AUTO 11 % (4-13); Mean Corpuscular HGB 27.4 pg (26.0-34.0); Mean Corpuscular HGB Conc 32.6 g/dL (31.5-36.5); Mean Corpuscular Volume 84 fL (80-100); Mean Platelet Volume 8.2 fL (9.1-12.4); NEUTROPHILS ABSOLUTE AUTO 5.02 K/mm3 (1.96-9.15); NEUTROPHILS PERCENT AUTO 73 % (41-73); Platelet Count 387 K/mm3 (150-400); RDW Coefficient Variation 16.5 % (11.7-14.2); RDW Standard Deviation 49.8 fL (35.1-46.3); Red Blood Cell Count 3.07 M/mm3 (4.30-5.90); White Blood Cell Count 6.85 K/mm3 (4.00-11.30)
[2023-07-12 04:12] LABS: International Normalized Ratio 1.31; Prothrombin Time Results 13.5 Sec (9.7-11.5)
--- NOTE | 2023-07-12 06:22 | NUR ---
SHIFT SUMMARY PATIENT ALERT AND ORIENTED X3, BEDREST AT THIS TIME. PATIENT DENIES HAVING ANY PAIN OR SHORTNESS OF BREATH. ON ROOM AIR WHILE AWAKE AND ON BIPAP WHEN ASLEEP. BLOOD PRESSURE STABLE, SINUS TACH IN THE 110'S ON TELE. NO ACUTE ISSUES NOTED OVERNIGHT. WILL CONTINUE TO MONITOR.
[2023-07-12 07:08] LABS: Albumin, Blood 1.6 g/dL (3.4-5.0); Albumin/Globulin Ratio 0.5 (0.8-1.8); Bilirubin, Total 0.3 mg/dL (0.1-1.0); Bun/Creatinine Ratio 2.8 (12.0-20.0); Calcium, Blood 7.9 mg/dL (8.5-10.1); Creatinine, Blood 0.71 mg/dL (0.60-1.20); Globulin, Blood 3.3 g/dL (2.2-4.0); Magnesium, Blood 1.8 mg/dL (1.6-2.4); Phosphorus, Blood 3.6 mg/dL (2.5-4.9); Potassium, Blood 3.3 mmol/L (3.5-5.5); Total Protein, Blood 4.9 g/dL (6.4-8.2)
--- NOTE | 2023-07-12 12:44 | NUR ---
PT VERY SOMNULENT TODAY, ABLE TO BE AROUSED. PT IS ON ROOM AIR MAINTAINING O2 SATURATION ABOVE 93%, DENIES SOB. HR 90'S-100'S, BP STABLE, DENIES CHEST PAIN/PRESSURE. RT HAS BEEN BY TO GIVE PT BREATHING TREATMENT. NAVARRETE PATENT AND DRAINING TO GRAVITY. RECTAL TUBE IN PLACE AND DRAINGING LIQUID LIGHT BROWN STOOL TO GRAVITY. POWERGLIDE TO LEFT UPPER ARM PATENT, FLUSHED, AND SALINE LOCKED. PT NOW MEDICAL STATUS, WAITING FOR BED FOR IN HOUSE TRANSFER. PT RESTING IN BED, CALL LIGHT WITHIN REACH.
--- NOTE | 2023-07-12 13:41 | NUR ---
PT'S DAUGHTER IN LAW IN TO SEE PATIENT. PT AWAKE AND TALKING WITH HER. CALL LIGHT WITHIN REACH.
--- NOTE | 2023-07-12 14:24 | NUR ---
Report given to rn assuming care of patient. Pt being transported to room 333 now
[2023-07-12 16:19] LABS: Bun/Creatinine Ratio 2.9 (12.0-20.0); Calcium, Blood 8.2 mg/dL (8.5-10.1); Creatinine, Blood 0.7 mg/dL (0.60-1.20)
--- NOTE | 2023-07-12 17:28 | NUR ---
Pt resting in bed and is A&OX3/4. Pt struggles with verbalizing appropriate year but can name the current administration vice president. He also struggles with verbalizing specific reason for hospital stay. He does verbalize place and town. Pt reports living at home with his Debbie. He does report knowing his drinking alcohol is a significant influence of his current health. He reports plan to stop drinking. Engaged in therapeutic discussion regarding code status wishes. Educated on life sustaining treatments including risks and implications to CPR/Intubation. Pt reports he does not want CPR but is agreeable to short term intubation/life support, medications and defibrillation. Received verbal permission to call Debbie to relay wishes. Called and spoke with Pt's Debbie. Relayed conversation and Pt's wishes. She reports being in agreement. Called and spoke with Dr Turcios. Placed Limited Code order in [facility] for Intubation, Defibrillation, and Medications per V/O from Dr Turcios. Spoke with Primary RN Justin and discussed case. Palliative Care will remain available
--- NOTE | 2023-07-12 18:43 | NUR ---
ARRIVAL - LATE ENTRY: PT ARRIVED TO MED FLOOR FROM PCU VIA HOSITAL BED @1445. PT A&O X3-4. INTERMITTENT CONFUSION. PT ABLE TO STATE NAME, PLACE, , TOWN, BUT HAVING SOME DIFFICULT WITH WHY HE IS HERE. PT RECEIVED ONE TIME DOSE 60 MEQ POTASSIUM. PG MICHELLE FLUSHES AND DRAWS WELL. NAVARRETE AND RECTAL TUBE IN PLACE DRAINING TO GRAVITY. ALFREDO FROM PALLIATIVE ARRIVED TO TALK TO PT REGARDING CODE STATUS. PT CHANGED TO LIMITED CODE FROM FULL. CALLED, THIS RN PROVIDED UPDATE. WOUND ON BOTTOM CLEANED AND CREAM APPLIED. ROTATING Q2. CALL LIGHT IN REACH. BED IN LOWEST POSITION. WILL GIVE REPORT TO ONCOMING RN.
[2023-07-12 22:20] LABS: Bun/Creatinine Ratio 2.9 (12.0-20.0); Calcium, Blood 8.1 mg/dL (8.5-10.1); Creatinine, Blood 0.69 mg/dL (0.60-1.20); Potassium, Blood 3.5 mmol/L (3.5-5.5)
[2023-07-13 04:13] VITALS: BP 129/95
--- NOTE | 2023-07-13 04:50 | NUR ---
SHIFT SUMMARY PATIENT A/Ox2-3, INTERMITTENT CONFUSION, EASILY REORIENTS AND ABLE TO RECALL DRINKING AND WHY HE IS IN HOSPITAL AGAIN. NAVARRETE AND RECTAL TUBE IN PLACE DRAINING TO GRAVITY. URINE CONTINUES TO BE DARK/CONCENTRATED. ETOH WITHDRAWAL MANAGED PER DEC, MEDICATED ONCE THIS SHIFT WITH PRN ATIVAN FOR CIWA OF 11. NO ACUTE CHANGES NOTED OVERNIGHT. BED LOCKED AND IN THE LOWEST POSITION, CALL LIGHT WITHIN REACH.
[2023-07-13 05:45] LABS: BASOPHILS ABSOLUTE AUTO 0.05 K/mm3 (0.00-0.23); BASOPHILS PERCENT AUTO 1 % (0-2); EOSINOPHILS ABSOLUTE AUTO 0.42 K/mm3 (0.00-0.68); EOSINOPHILS PERCENT AUTO 6 % (0-6); Hematocrit 26.2 % (37.0-53.0); Hemoglobin 8.1 g/dL (13.5-17.5); IMMATURE GRAN ABSOLUTE AUTO 0.12 K/mm3 (0.00-0.10); IMMATURE GRAN PERCENT AUTO 2 % (0-1); LYMPHOCYTES ABSOLUTE AUTO 0.95 K/mm3 (0.84-5.20); LYMPHOCYTES PERCENT AUTO 13 % (21-46); MONOCYTES ABSOLUTE AUTO 1.01 K/mm3 (0.16-1.47); MONOCYTES PERCENT AUTO 13 % (4-13); Mean Corpuscular HGB Conc 30.9 g/dL (31.5-36.5); Mean Corpuscular Volume 87 fL (80-100); Mean Platelet Volume 8.8 fL (9.1-12.4); NEUTROPHILS ABSOLUTE AUTO 5.07 K/mm3 (1.96-9.15); NEUTROPHILS PERCENT AUTO 66 % (41-73); Platelet Count 363 K/mm3 (150-400); RDW Coefficient Variation 16.5 % (11.7-14.2); RDW Standard Deviation 51.9 fL (35.1-46.3); White Blood Cell Count 7.62 K/mm3 (4.00-11.30)
[2023-07-13 06:09] LABS: Magnesium, Blood 1.4 mg/dL (1.6-2.4)
[2023-07-13 06:12] LABS: Albumin, Blood 1.4 g/dL (3.4-5.0); Albumin/Globulin Ratio 0.4 (0.8-1.8); Bilirubin, Total 0.3 mg/dL (0.1-1.0); Creatinine, Blood 0.66 mg/dL (0.60-1.20); Globulin, Blood 3.2 g/dL (2.2-4.0); Phosphorus, Blood 2.5 mg/dL (2.5-4.9); Potassium, Blood 4.4 mmol/L (3.5-5.5); Total Protein, Blood 4.6 g/dL (6.4-8.2)
[2023-07-13 07:49] VITALS: BP 141/87
[2023-07-13 15:25] VITALS: BP 155/97
--- NOTE | 2023-07-13 16:52 | NUR ---
Joint visit with PC VANITA Noriega, this PC RN. PC VANITA Noriega had conversation with spouse and goals of care were discussed. Spouse Debbie would like Pt to consider hospice. PC VANITA Noriega and this PC RN spoke with Pt at bedside. Discussed considering hospice. Educated on hospice philosophy with V/U made by Pt. Pt is in agreement with hospice services. [facility] hospice can admit on Tuesday and Pt will need same day admit due to increased weakness and DME. Pt will require hospital bed to go home. Palliative Care will remain available
--- NOTE | 2023-07-13 17:07 | NUR ---
Late Entry. PC RN Leann discussed comfort care with spouse as well and spouse Debbie is agreeable. Leann discussed case with Dr Reynoso. Leann will place comfort care order.
--- NOTE | 2023-07-13 17:37 | NUR ---
DAYSHIFT SUMMARY Patient alert & oriented x2-3. Patient slept in late, then awake most of the day. He worked with PT/OT, increased weakness. Rectal tube in place and draining to gravity. Lactulose given QID. Palliative care consulted with patient and family, plan to discharge on hospice.
[2023-07-13 19:08] VITALS: BP 141/94
--- NOTE | 2023-07-14 05:32 | NUR ---
SHIFT SUMMARY PATIENT A/Ox2-3, INTERMITTENT CONFUSION, MUMBLING AT TIMES. NAVARRETE AND RECTAL TUBE IN PLACE DRAINING TO GRAVITY. NO ACUTE CHANGES NOTED OVERNIGHT. COMFORT CARE INITIATED ON DAY SHIFT. ASLEEP OFF AND ON, RESTING IN BED THROUGHOUT THIS SHIFT IN NO ACUTE DISTRESS. PATIENT TURNED/REPOSITION Q2 AND PRN FOR PRESSURE RELIEF. BED LOCKED AND IN THE LOWEST POSITION, CALL LIGHT WITHIN REACH.
[2023-07-14 07:15] LABS: BASOPHILS ABSOLUTE AUTO 0.11 K/mm3 (0.00-0.23); BASOPHILS PERCENT AUTO 1 % (0-2); EOSINOPHILS ABSOLUTE AUTO 0.65 K/mm3 (0.00-0.68); EOSINOPHILS PERCENT AUTO 5 % (0-6); Hematocrit 31.2 % (37.0-53.0); Hemoglobin 9.4 g/dL (13.5-17.5); IMMATURE GRAN ABSOLUTE AUTO 0.23 K/mm3 (0.00-0.10); IMMATURE GRAN PERCENT AUTO 2 % (0-1); LYMPHOCYTES ABSOLUTE AUTO 1.41 K/mm3 (0.84-5.20); LYMPHOCYTES PERCENT AUTO 11 % (21-46); MONOCYTES ABSOLUTE AUTO 1.25 K/mm3 (0.16-1.47); MONOCYTES PERCENT AUTO 10 % (4-13); Mean Corpuscular HGB Conc 30.1 g/dL (31.5-36.5); Mean Corpuscular Volume 90 fL (80-100); Mean Platelet Volume 9.2 fL (9.1-12.4); NEUTROPHILS PERCENT AUTO 72 % (41-73); Platelet Count 432 K/mm3 (150-400); RDW Coefficient Variation 16.3 % (11.7-14.2); RDW Standard Deviation 53.1 fL (35.1-46.3); Red Blood Cell Count 3.48 M/mm3 (4.30-5.90); White Blood Cell Count 13.15 K/mm3 (4.00-11.30)
[2023-07-14 07:38] LABS: Albumin, Blood 1.7 g/dL (3.4-5.0); Albumin/Globulin Ratio 0.5 (0.8-1.8); Bilirubin, Total 0.4 mg/dL (0.1-1.0); Calcium, Blood 8.2 mg/dL (8.5-10.1); Creatinine, Blood 0.67 mg/dL (0.60-1.20); Globulin, Blood 3.7 g/dL (2.2-4.0); Magnesium, Blood 1.6 mg/dL (1.6-2.4); Potassium, Blood 4.5 mmol/L (3.5-5.5); Total Protein, Blood 5.4 g/dL (6.4-8.2)
--- NOTE | 2023-07-14 11:11 | NUR ---
ASSUMED CARE OF PATIENT REPORT RECEIVED FROM DONAVON WALDRON. ASSUMED CARE OF PATIENT
--- NOTE | 2023-07-14 13:18 | NUR ---
Supportive visit this afternoon. Pt resting in bed receiving assistance with eating lunch by RILEY Arreola. Pt reports wanting to go home. Instructed Pt plan is for D/C home tomorrow with hospice upon equipment being delivered to home. Pt reports being in agreement. No new concerns reported at this time. Spoke with Primary RN Quyen and discussed case. Palliative Care will remain available
--- NOTE | 2023-07-14 17:26 | NUR ---
Supportive visit this evening. Pt's daughter in law at bedside with Dr Reynoso. Daughter in law expressing concerns feeling their may be a change in condition. Pt receiving updraft treatment and morphine updraft. Dr Reynoso addressess concerns and family re-educated on comfort care philosophy. Family appears more at ease and reports understanding. By end of visit Pt appears more alert. No other concerns reported at this time. Palliative Care will remain available
--- NOTE | 2023-07-14 18:21 | NUR ---
SHIFT SUMMARY PATIENT LETHARGIC AND DIFFICULT TO AROUSE AT TIMES THROUGHOUT THE SHIFT. PATIENT NOTED TO BE COUGHING AT TIMES WITH FOOD/LIQUIDS. MEDICATIONS HELD BECAUSE OF LETHERGY. FAMILY ARRIVED AT END OF SHIFT SURPRISED TO SEE THE CHANGES IN PATIENT. DR ESPINOZA CONTACTED. PALIATIVE CARE CONTACTED. FAMILY AWARE THAT PATIENT IS GOING HOME ON HOSPICE. BUT FEELS THE PATIENT MAY HAVE HAD A STROKE. AFTER FAMILY SPOKE WITH DR. ESPINOZA AND PALLIATIVE CARE, FAMILY LESS EMOTIONAL AND UNDERSTANDING. EQUIPMENT FOR HOSPICE DELIVERED TO THE HOME PER . PATIENT TURNED REGULARLY, SKIN CHECKS AND NEEDS ADDRESSED.
--- NOTE | 2023-07-14 18:57 | NUR ---
cpmtacted by nursing about medications will update physicians.
--- NOTE | 2023-07-14 19:32 | NUR ---
contacted by nursing pt family and change of shift suggested medication adjustment in case he has difficult night. Discussed with on duty physician and adjustment made per comfort caremedication protocol.
--- NOTE | 2023-07-15 02:23 | NUR ---
SHIFT SUMMERY. EARLIER IN SHIFT PT HAD FAMILY AT BEDSIDE. PT AWAKE AND MOANING IN PAIN. CALLED DR FOR SOME MEDICATIONS FOR COMFORT CARE. PT GIVEN FENT AND PT NEARLY IMEDIATLY RELAXED AND WENT TO SLEEP. RESPERATIONS EVEN AND UNLABORED. PT CONTINUES TO SLEEP WELL AND STILL APPEARS TO BE COMFORTABLE. CALL LIGHT IN REACH BED ALRM ON.
[2023-07-15] MEDS ORDERED: ACET120S PR (10:18)
[2023-07-15] MEDS ORDERED: ACET325 PO (10:18)
[2023-07-15] MEDS ORDERED: ACETAMINOP160 MG/51 PO (10:19)
[2023-07-15] MEDS ORDERED: ALBU2.5V5 INH (10:19)
[2023-07-15] MEDS ORDERED: BUME1 PO (10:20)
[2023-07-15] MEDS ORDERED: FOLI1 PO (10:20)
[2023-07-15] MEDS ORDERED: Ativan1 MG PO (10:21)
[2023-07-15] MEDS ORDERED: LACT10SY PO (10:21)
[2023-07-15] MEDS ORDERED: SPIR50 PO (10:22)
[2023-07-15] MEDS ORDERED: MUPIROCIN1 G1 TOP (10:22)
[2023-07-15] MEDS ORDERED: ONDA4ODT MM (10:22)
[2023-07-15] MEDS ORDERED: MORP20L SL (10:22)
[2023-07-15] MEDS ORDERED: B-1100 M1 PO (10:23)
--- NOTE | 2023-07-15 18:18 | NUR ---
SHIFT SUMMARY AND DISCHARGE. PATIENT DISCHARGED TO HOME WITH HOSPICE CONSULT. PATIENT AWAKE AND COOPERATIVE WITH CARE. PATIENT CONFUSED AT TIMES BUT HAPPY TO KNOW THAT HE IS GETTING TO GO HOME. POWER GLIDE REMOVED. DISCHARGE INSTRUCTIONS REVIEWED WITH OVER THE PHONE. PATIENT TRANSPORTED HOME VIA GURNEY. BELONGINGS SENT HOME WITH PATIENT. RECTAL TUBE REMOVED BEFORE DISCHARGE. SKIN CARE PROVIDED PRIOR TO DISCHARGE AND NEW ATTENDS PLACED. PATIENT AWAKE ENOUGH TO TAKE ORAL MEDICATIONS TODAY.
== END 2023-07-15 11:58 | disposition hospice, home (50) | DRG 432 ==
LOC: ER 08:43 → ERHOLD 12:04 → MEDS 12:04 → ICUE 14:05 → PCU 07-09 17:39 → MEDS 07-12 14:34
PROVIDERS: Family Medicine; Student in an Organized Health Care Education/Training Program; ADMIT Hospitalist
PROC: 4A033R1 Measurement of Arterial Saturation, Peripheral, Percutaneous Approach (ICD-10-PCS; principal; 2023-07-08)
PROC: 5A09357 Assistance with Respiratory Ventilation, Less than 24 Consecutive Hours, Continuous Positive Airway Pressure (ICD-10-PCS; 2023-07-08)
DX: K70.30 Alcoholic cirrhosis of liver without ascites (principal); G92.8 Other toxic encephalopathy; J96.21 Acute and chronic respiratory failure with hypoxia; J96.22 Acute and chronic respiratory failure with hypercapnia; I50.30 Unspecified diastolic (congestive) heart failure; E87.1 Hypo-osmolality and hyponatremia; E87.4 Mixed disorder of acid-base balance; E72.20 Disorder of urea cycle metabolism, unspecified; F10.231 Alcohol dependence with withdrawal delirium; Z51.5 Encounter for palliative care; I48.91 Unspecified atrial fibrillation; F17.220 Nicotine dependence, chewing tobacco, uncomplicated; E87.6 Hypokalemia; E83.42 Hypomagnesemia; I95.9 Hypotension, unspecified; J44.9 Chronic obstructive pulmonary disease, unspecified; I11.0 Hypertensive heart disease with heart failure; L89.329 Pressure ulcer of left buttock, unspecified stage; L89.319 Pressure ulcer of right buttock, unspecified stage; K21.9 Gastro-esophageal reflux disease without esophagitis; E78.00 Pure hypercholesterolemia, unspecified; K76.82 Hepatic encephalopathy; M54.9 Dorsalgia, unspecified; G89.29 Other chronic pain; Z98.890 Other specified postprocedural states; Z88.8 Allergy status to other drugs, medicaments and biological substances; Z91.148 Patient's other noncompliance with medication regimen for other reason; Z79.899 Other long term (current) drug therapy; Z79.01 Long term (current) use of anticoagulants; Z79.52 Long term (current) use of systemic steroids; Z79.51 Long term (current) use of inhaled steroids
CPT/HCPCS: 36415; 36600; 51702; 80048; 80053; 80069; 80076; 81003; 82140; 82803; 83690; 83735; 83880; 84100; 84132; 85025; 85610; 93005; 93010; 94640; 94644; 94660; 94664; 94762; 96361; 96374; 96375; 97110; 97161; 97166; 97530; 99285-25; A9270; C1751; J1650; J1940; J2060; J2270; J2405; J3010; J3411; J3475; J3480; J7030; J7040; J7050; J7060